=== PATIENT | male | born 1935 | race Caucasian/White ===

== ENCOUNTER 2016-09-25 18:47 | Inpatient (IN) | payer MEDICARE, OTHER ==
[~2016-09-25] VITALS: Ht 172.7 cm; Wt 82.2 kg
[2016-09-25] MEDS ORDERED: ONDANSETRON 4MG/2ML VIAL (J2405) As Ordered ONE (19:45)
[2016-09-25] MEDS ORDERED: MORPHINE 4 MG/ML 1ML SYRINGE As Ordered ONE ×3 (19:45→23:23)
[2016-09-25 19:50] LABS: BASO # 0.4 K/mm3 (0.0-0.2); BASO % 2.3 % (0.0-1.0); EOS % 0.3 % (0.0-3.0); LARGE UNSTAINED CELL # 0.1 K/mm3 (0.0-0.4); LARGE UNSTAINED CELL % 0.4 % (0.0-4.0); LYMPH # 0.5 K/mm3 (1.5-4.5); LYMPH % 2.8 % (24.0-44.0); MEAN CORPUSCULAR HEMOGLOBIN 32.2 pg (27.0-33.0); MEAN CORPUSCULAR HGB CONC 33.8 g/dl (32.0-36.5); MEAN CORPUSCULAR VOLUME 95.3 fl (80.0-96.0); MONO # 0.5 K/mm3 (0.0-0.8); MONO % 3.4 % (0.0-5.0); NEUTROPHILS # 14.4 K/mm3 (1.8-7.7); NEUTROPHILS % 90.9 % (36.0-66.0); PLATELET COUNT, AUTOMATED 211 k/mm3 (150-450); RED CELL DISTRIBUTION WIDTH 13.9 % (11.5-14.5); WHITE BLOOD COUNT 15.8 K/mm3 (4.0-10.0)
[2016-09-25 20:13] LABS: ALBUMIN 4.3 GM/DL (3.2-5.2); ALBUMIN/GLOBULIN RATIO 1.43 (1.00-1.93); ALKALINE PHOSPHATASE 62 U/L (45-117); ALT/SGPT 26 U/L (12-78); AMYLASE 77 U/L (25-115); ANION GAP 10 MEQ/L (8-16); AST/SGOT 23 U/L (15-37); BILIRUBIN,DIRECT 0.2 MG/DL (0.0-0.2); BILIRUBIN,TOTAL 0.6 MG/DL (0.2-1.0); BLOOD UREA NITROGEN 20 MG/DL (7-18); CALCIUM LEVEL 9.4 MG/DL (8.8-10.2); CARBON DIOXIDE LEVEL 30 MEQ/L (21-32); CHLORIDE LEVEL 99 MEQ/L (98-107); CREATININE FOR GFR 1.09 MG/DL (0.70-1.30); GLOMERULAR FILTRATION RATE > 60.0 (>42); GLUCOSE, FASTING 133 MG/DL (83-110); POTASSIUM SERUM 3.5 MEQ/L (3.5-5.1); SODIUM LEVEL 139 MEQ/L (136-145); TOTAL PROTEIN 7.3 GM/DL (6.4-8.2)
[2016-09-25 20:28] LABS: INR 2.84
[2016-09-25] MEDS ORDERED: KETOROLAC 30 MG/ML VIAL (J1885) As Ordered ONE (20:36)
[2016-09-25] MEDS ORDERED: ISOVUE-370 76% 100ML VIAL (Q9967) As Ordered ONE (23:11)
--- NOTE | 2016-09-25 23:40 | REPUSA ---
CT of the abdomen and pelvis with contrast Clinical statement: Pain. Technique: Multiple axial CT images were obtained from the base of the lungs through the floor of the pelvis utilizing 5 mm axial slices after administration of nonionic intravenous contrast. Coronal an d sagittal reconstructions were also obtained. No comparison is available. Findings: Chest: The visualized lung bases are clear. Abdomen: The liver, spleen, pancreas, kidneys, gallbladder, and adrenal glands are unremarkable. Ther e is moderate amount of ascites around the liver in the right upper quadrant. The aorta is within nor mal limits. There is no evidence of abdominal lymphadenopathy. Pelvis: There are numerous fluid filled inflamed loops of small bowel in the left amid abdomen. Infla mmatory changes within the mesentery are seen at the site. There is a focal area narrowing in the dis danny jejunum/proximal ileum at this site, consistent with a focal obstruction. The distal bowel appear s unremarkable. Moderate amount of ascites is seen throughout the pelvis. The urinary bladder is with in normal limits. The other pelvic structures appear grossly intact. There is no evidence of pelvic l ymphadenopathy. Bones: There are no suspicious osseous abnormalities seen. Impression: [id number] grade small bowel obstruction in the region of the distal jejunum, likel y secondary to adhesions, although an internal hernia cannot completely be excluded. Mesenteric infla mmation is seen throughout this site. There is moderate amount of abdominal and pelvic ascites as wel l. ER physician was notified of these findings at 11:38 PM on 09/25/2016.
[2016-09-26] VITALS (20 sets, daily range): BP systolic 114–176; BP diastolic 44–85
[2016-09-26] MEDS ORDERED: MORPHINE 4 MG/ML 1ML SYRINGE As Ordered ONE ×2 (00:30→02:29)
[2016-09-26] MEDS ORDERED: VITMTA PO (00:31)
[2016-09-26] MEDS ORDERED: VITA100066 PO (00:31)
[2016-09-26] MEDS ORDERED: CALC1TAB30 PO (00:31)
[2016-09-26] MEDS ORDERED: VITA10002 PO (00:31)
[2016-09-26] MEDS ORDERED: LISI10TA2 PO (00:31)
[2016-09-26] MEDS ORDERED: LISI-538 PO (00:31)
[2016-09-26] MEDS ORDERED: INSUH10VL SC (00:31)
[2016-09-26] MEDS ORDERED: [UNRECOGNIZED DRUG - CODE] EXT (00:31)
[2016-09-26] MEDS ORDERED: ATOR40TA PO (00:31)
[2016-09-26] MEDS ORDERED: FLOM5CAP PO (00:31)
[2016-09-26] MEDS ORDERED: FLON50SP (00:31)
[2016-09-26] MEDS ORDERED: ASPI81TAEC PO (00:31)
[2016-09-26] MEDS ORDERED: WARF-21 PO (00:31)
[2016-09-26] MEDS ORDERED: FINA5TAB2 PO (00:31)
[2016-09-26] MEDS ORDERED: METO25TA74 PO (00:31)
[2016-09-26] MEDS ORDERED: NS 1,000 ML IV SCH (01:08)
[2016-09-26] MEDS ORDERED: MORPHINE 4 MG/ML 1ML SYRINGE IV PRN (01:15)
[2016-09-26] MEDS ORDERED: DEXTROSE 50% 50 ML SYRINGE IV PRN (02:00)
[2016-09-26] MEDS ORDERED: GLUCAGON FOR INJ 1 MG VIAL (J1610) SC PRN (02:00)
[2016-09-26] MEDS ORDERED: GLUCOSE 4 GM CHEW TABLET PO PRN (02:00)
[2016-09-26] MEDS ORDERED: HumaLOG INSULIN (NovoLOG) PER UNIT SC SCH (02:00)
[2016-09-26] MEDS ORDERED: PHYTONADIONE 10MG/ML INJECTION (J3430) SC SCH (02:04)
[2016-09-26] MEDS ORDERED: PHYTONADIONE 10MG/ML INJECTION (J3430) As Ordered ONE (02:29)
[2016-09-26] MEDS ORDERED: SUCCINYLCHOLINE 100 MG/5 ML SYRINGE (J0330) As Ordered ONE (03:23)
[2016-09-26] MEDS ORDERED: ETOMIDATE INJ 20MG/10ML VIAL As Ordered ONE (03:23)
[2016-09-26] MEDS ORDERED: LIDOCAINE 2% INJ 100 MG/5 ML SDV (FOR ANES.) As Ordered ONE (03:24)
--- NOTE | 2016-09-26 03:41 | EDDOCDS ---
Physician Documentation [facility] Name: Daniel Pepe Age: 81 yrs Sex: Male : 1935 Arrival Date: 09/25/2016 Time: 18:47 Bed 8 Private MD: Patti Disposition: 09/25/16 23:55 Hospitalization ordered by Augustin Wisdom for Inpatient Admission. Preliminary diagnosis is Other intestinal obstruction. - Bed requested for M ICU. - Status is Inpatient Admission. ml3 - Condition is Stable. - Problem is an acute exacerbation. - Symptoms have improved. Historical: - Allergies: Codeine Sulfate; - Home Meds: 1. insulin pump with sliding scale 2. Coumadin 7.5 mg Oral tab once daily 3. calcium 500 twice a day 4. Vitamin D3 1,000 unit oral cap daily 5. lisinopril-hydrochlorothiazide 10-12.5 mg oral tab once daily 6. lisinopril 20 mg Oral tab at night 7. Multivitamin Oral daily 8. Toprol XL 25 mg Oral Tb24 once daily 9. Flomax 0.4 mg Oral cp24 once daily 10. aspirin 81 mg oral tab once daily 11. docusate 10 mg 12. Lipitor 40 mg Oral tab once daily 13. novalog for insulin pump - PMHx: Diabetes - IDDM: controlled; Atrial Fib; Hypertension; heart disease; Asthma; Arthritis; - PSHx: Angioplasty; Appendectomy; triple bypass; Tonsillectomy; - Social history: Smoking status: Patient states former smoker of tobacco. No barriers to communication noted, The patient speaks fluent [place], Speaks appropriately for age. - Family history: Not pertinent. - : The pt / caregiver states he / she is on anticoagulants: coumadin. Home medication list is obtained from the patient, family members. - Exposure Risk Screening:: None identified. Vital Signs: 09/25 18:50 BP 139 / 62; Pulse 68; Resp 18 S; Pulse Ox 100% on R/A; Weight 77.11 kg / 170 lbs (R); gr2 Height 5 ft. 8 in. (172.72 cm) (R); Pain 3/10; 21:10 BP 135 / 62; Pulse 66; Resp 18; Pulse Ox 99% ; Pain 8/10; ko2 21:53 Pain 3/10; ko2 23:19 Pulse 88 MON; Pulse Ox 96% ; ko2 23:20 BP 177 / 78 (auto/); ko2 23:21 Pulse 86 MON; Pulse Ox 96% ; ko2 23:22 BP 177 / 78; Pulse 87; Resp 16; Temp 99.3(O); Pulse Ox 97% ; Pain 4/10; ko2 09/26 00:18 BP 175 / 74 (auto/); ko2 00:22 BP 175 / 74; Pulse 94; Resp 18; Pulse Ox 97% ; Pain 4/10; ko2 02:26 BP 120 / 60 (auto/); ko2 02:27 Pulse 100 MON; ko2 02:48 BP 125 / 58 (auto/); ko2 02:48 Pulse 98 MON; Pulse Ox 97% ; ko2 03:04 Pulse 98 MON; Pulse Ox 97% ; ko2 03:05 BP 149 / 64 (auto/); ko2 03:09 Pulse 98 MON; Pulse Ox 95% ; ko2 03:10 BP 141 / 62 (auto/); ko 03:34 BP 146 / 67 (auto/); sep 03:34 BP 146 / 67; Pulse 104 MON; Resp 16; Temp 101.4; Pulse Ox 96% ; sep 10 18:50 Body Mass Index 25.85 (77.11 kg, 172.72 cm) gr2 09/25 18:50 PT IS GAGING, UNABLE TO CHECK ORAL TEMP gr2 MDM: 19:30 Ondansetron 4 mg IVP once ordered. mm11 19:30 morphine 4 mg IVP every 30 minutes; Document pain score/vitals after each dose (Hold if mm11 SBP < 90mmHg) x2 ordered. 19:30 -Blood Culture (Adults Only), peripheral from different site, or from device/port/PICC mm11 etc. if present ordered. 19:30 IV Saline Lock ordered. mm11 19:30 Undress patient appropriately for examination ordered. mm11 19:30 NS 0.9% 500 ml IV at bolus once ordered. mm11 19:31 Amylase Ordered. EDMS 19:31 Basic Metabolic Profile Ordered. EDMS 19:31 CBC with Diff Ordered. EDMS 19:31 Cardiac Injury Profile Ordered. EDMS 19:31 Lipase Ordered. EDMS 19:31 Liver Profile Ordered. EDMS 19:31 Partial Thromboplastin Time Ordered. EDMS 19:31 Prothrombin Time Profile\E\INR Ordered. EDMS 19:31 Troponin Ordered. EDMS 19:31 Urinalysis Ordered. EDMS 19:33 Urine Culture Ordered. EDMS 19:33 NOTHING BY MOUTH+DIET ordered. EDMS 19:34 -Blood Culture (Adults Only), peripheral from different site, or from device/port/PICC ml3 etc. if present complete. 19:36 BLOOD CULTURES Ordered. EDMS 20:10 Financial registration complete. gjb 20:15 PENDING SALE TO [facility] Payment Agreement was scanned into [employer] and attached to record. gjb 20:15 -Blood Culture (Adults Only), peripheral from different site, or from device/port/PICC flaca etc. if present ordered. 20:16 -Blood Culture (Adults Only), peripheral from different site, or from device/port/PICC ml3 etc. if present complete. 20:16 -Blood Culture Ordered. EDMS 20:27 Basic Metabolic Profile Reviewed. mm11 20:27 CBC with Diff Reviewed. mm11 20:27 Cardiac Injury Profile Reviewed. mm11 20:27 Amylase Reviewed. mm11 20:27 Lipase Reviewed. mm11 20:27 Liver Profile Reviewed. mm11 20:27 Troponin Reviewed. mm11 20:31 Prothrombin Time Profile\E\INR Reviewed. mm11 20:31 ketorolac 15 mg IVP once ordered. mm11 20:31 Straight cath ordered. mm11 22:04 Prothrombin Time Profile\E\INR Reviewed. mm11 22:04 Urinalysis Reviewed. mm11 22:04 Partial Thromboplastin Time Reviewed. mm11 22:09 CT ABD & PELVIS: IV Contrast Only Ordered. EDMS 23:11 Oral Temp ordered. mm11 23:19 morphine 4 mg IVP every 30 minutes; Document pain score/vitals after each dose (Hold if mm11 SBP < 90mmHg) x2 ordered. 23:44 NG Tube, 18Fr ordered. mm11 23:45 BED REQUEST+ADM ordered. EDMS 23:48 ECG WITH READING ER PHYS+CARDIAG ordered. EDMS 09/26 01:12 Type & Screen Ordered. EDMS 01:14 Lactic Acid (Aggarwal tube on ice) Ordered. EDMS 01:22 Admission / Observation Status ordered. EDMS 01:23 FROZEN PLASMA 24 Ordered. EDMS 01:23 NPO DIET ordered. EDMS 01:43 Written Provider Order was scanned into [employer] and attached to record. ml3 02:47 Written Provider Order was scanned into [employer] and attached to record. ml3 Administered Medications: 09/25 19:58 Drug: Ondansetron 4 mg [ondansetron HCl 2 mg/mL intravenous solution (2 mL)] Route: ko2 IVP; Site: right antecubital; 19:58 Drug: NS 0.9% 500 ml [sodium chloride 0.9 % intravenous solution] Route: IV; Rate: ko2 bolus; Site: right antecubital; 21:10 Follow up: IV Status: Completed infusion; IV Intake: 500ml ko2 19:59 Drug: morphine 4 mg [morphine 4 mg/mL intravenous cartridge (1 mL)] Route: IVP; Site: ko2 right antecubital; 21:10 Follow up: BP 135 / 62; Pulse 66 bpm; Resp 18 bpm; Pulse Ox 99% ; Pain 8/10 Adult ko2 20:41 Drug: ketorolac 15 mg [ketorolac 30 mg/mL (1 mL) injection solution (0.5 mL)] Route: ko2 IVP; Site: right antecubital; 21:20 Drug: morphine 4 mg [morphine 4 mg/mL intravenous cartridge (1 mL)] Route: IVP; Site: ko2 right antecubital; 21:53 Follow up: Pain 3/10 Adult ko2 23:30 Drug: morphine 4 mg [morphine 4 mg/mL intravenous cartridge (1 mL)] Route: IVP; Site: ko2 right antecubital; 09/26 00:43 Drug: morphine 4 mg [morphine 4 mg/mL intravenous cartridge (1 mL)] Route: IVP; Site: ko2 right antecubital; Signatures: Dispatcher [employer] EDMS Kathy Montes RN RN jan Lopresti, Mary-Elizabeth, Headline Writer Unit ml3 Rosalio Terrazas DO DO mm11 Freda Conrad RN RN ead Ogden, Kari, RN RN ko2 Tashia Monteiro The chart was reviewed and I authenticate all verbal orders and agree with the evaluation and treatment provided.Corrections: (The following items were deleted from the chart) : 01:22 TYPE & SCREEN ordered. EDMS EDMS 01:14 FROZEN PLASMA 24+BBK ordered. EDMS EDMS 01:29 01:23 LACTIC ACID LEVEL, LACTATE ordered. EDMS EDMS Attachments: 09/25 20:15 PENDING SALE TO [facility] Payment Agreement [facility] 09/26 01:43 Written Provider Order ml3 02:47 Written Provider Order ml3 MTDD
--- NOTE | 2016-09-26 03:41 | EDDOCDS ---
Nurse's Notes [facility] Name: Daniel Pepe Age: 81 yrs Sex: Male : 1935 Arrival Date: 09/25/2016 Time: 18:47 Bed 8 Private MD: Patti Diagnosis: Other intestinal obstruction Presentation: 09/25 18:56 Presenting complaint: Patient states: "severe back pain and n/v." pt c/o left flank ead pain. onset of pain came on suddenly this afternoon. Presenting complaint: pt actively vomiting in triage. Acute neurological deficits are not present. Mechanism of Injury: No Mechanism of Injury. Adult Sepsis Screening: The patient does not have new or worsening altered mentation. Patient's respiratory rate is less than 22. Systolic blood pressure is greater than 100. Patient has a qSOFA score of 0- Negative Sepsis Screen. Suicide/Homicide risk assessment- the patient denies having any suicidal and/or homicidal ideations and does not present with any other emotional, behavioral or mental health complaints. 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 Transition of care: patient was not received from another setting of care. 18:56 Acuity: TAB Level 3 ead 18:56 Method Of Arrival: Walkin/Carried/Asstd ead Triage Assessment: 19:03 General: Appears in no apparent distress, uncomfortable, Behavior is appropriate for ead age, cooperative. Pain: Location: back and abdomen Pain currently is 7 out of 10 on a pain scale. GI: Reports lower abdominal pain, upper abdominal pain, nausea, vomiting. Derm: Skin is dry, Skin is pale. Musculoskeletal: Reports pain in back and abdomen. Historical: - Allergies: Codeine Sulfate; - Home Meds: 1. insulin pump with sliding scale 2. Coumadin 7.5 mg Oral tab once daily 3. calcium 500 twice a day 4. Vitamin D3 1,000 unit oral cap daily 5. lisinopril-hydrochlorothiazide 10-12.5 mg oral tab once daily 6. lisinopril 20 mg Oral tab at night 7. Multivitamin Oral daily 8. Toprol XL 25 mg Oral Tb24 once daily 9. Flomax 0.4 mg Oral cp24 once daily 10. aspirin 81 mg oral tab once daily 11. docusate 10 mg 12. Lipitor 40 mg Oral tab once daily 13. novalog for insulin pump - PMHx: Diabetes - IDDM: controlled; Atrial Fib; Hypertension; heart disease; Asthma; Arthritis; - PSHx: Angioplasty; Appendectomy; triple bypass; Tonsillectomy; - Social history: Smoking status: Patient states former smoker of tobacco. No barriers to communication noted, The patient speaks fluent Italian, Speaks appropriately for age. - Family history: Not pertinent. - : The pt / caregiver states he / she is on anticoagulants: coumadin. Home medication list is obtained from the patient, family members. - Exposure Risk Screening:: None identified. Screenin:32 Screening information is obtained from the patient. Fall risk: No risks identified. ko2 Assistance ADL's: requires no assistance with activities of daily living. Abuse/DV Screen: The patient / caregiver reports he/she is: not in a situation that causes fear, pain or injury. Nutritional screening: No deficits noted. Nutritional screening: On diabetic diet. Advance Directives: Currently, there is a health care proxy. home support is adequate. Assessment: 19:57 General: Appears uncomfortable, Behavior is appropriate for age, cooperative. Pain: ko2 Location: back Pain currently is 8 out of 10 on a pain scale. Neurological: Level of Consciousness is awake, alert. Respiratory: Airway is patent Respiratory effort is even, unlabored. GI: Abdomen is non- distended. Derm: Skin is normal. 21:09 General: Appears uncomfortable, Behavior is appropriate for age, cooperative. Pain: ko2 Location: back Pain currently is 8 out of 10 on a pain scale. Neurological: Level of Consciousness is awake, alert. Respiratory: Airway is patent Respiratory effort is even, unlabored. Derm: Skin is normal. 22:00 Adult Sepsis Screening: The patient does not have new or worsening altered mentation. ko2 Patient's respiratory rate is less than 22. Systolic blood pressure is greater than 100. Patient has a qSOFA score of 0- Negative Sepsis Screen. 22:06 General: Appears in no apparent distress, Behavior is cooperative. Pain: Location: back ko2 Pain currently is 3 out of 10 on a pain scale. Neurological: Level of Consciousness is awake, alert. Respiratory: Airway is patent Respiratory effort is even, unlabored. Derm: Skin is normal. 23:00 General: Appears in no apparent distress, Behavior is appropriate for age, cooperative. ko2 Pain: Location: back Pain currently is 4 out of 10 on a pain scale. Neurological: Level of Consciousness is awake, alert. Respiratory: Airway is patent Respiratory effort is even, unlabored. Derm: Skin is normal. 09/26 00:08 General: Appears in no apparent distress, comfortable, Behavior is appropriate for age, ko2 cooperative. Neurological: Level of Consciousness is awake, alert. Respiratory: Airway is patent Respiratory effort is even, unlabored. GI: NGT. Derm: Skin is normal. 00:29 Adult Sepsis Screening: The patient does not have new or worsening altered mentation. ko2 Patient's respiratory rate is less than 22. Systolic blood pressure is greater than 100. Patient has a qSOFA score of 0- Negative Sepsis Screen. 01:40 General: Appears in no apparent distress, comfortable, Behavior is appropriate for age, ko2 cooperative. Neurological: Level of Consciousness is awake, alert. Respiratory: Airway is patent Respiratory effort is even, unlabored. Derm: Skin is normal. 02:30 General: Appears in no apparent distress, comfortable, Behavior is appropriate for age, ko2 cooperative. Neurological: Level of Consciousness is awake, alert. Respiratory: Airway is patent Respiratory effort is even, unlabored. Derm: Skin is normal. 03:22 General: Appears in no apparent distress, comfortable, Behavior is appropriate for age, ko2 cooperative. Neurological: Level of Consciousness is awake, alert. Respiratory: Airway is patent Respiratory effort is even, unlabored. Derm: Skin is normal. Vital Signs: 09/25 18:50 BP 139 / 62; Pulse 68; Resp 18 S; Pulse Ox 100% on R/A; Weight 77.11 kg (R); Height 5 gr2 ft. 8 in. (172.72 cm) (R); Pain 3/10; 21:10 BP 135 / 62; Pulse 66; Resp 18; Pulse Ox 99% ; Pain 8/10; ko2 21:53 Pain 3/10; ko2 23:19 Pulse 88 MON; Pulse Ox 96% ; ko2 23:20 BP 177 / 78 (auto/); ko2 23:21 Pulse 86 MON; Pulse Ox 96% ; ko2 23:22 BP 177 / 78; Pulse 87; Resp 16; Temp 99.3(O); Pulse Ox 97% ; Pain 4/10; ko2 09/26 00:18 BP 175 / 74 (auto/); ko2 00:22 BP 175 / 74; Pulse 94; Resp 18; Pulse Ox 97% ; Pain 4/10; ko2 02:26 BP 120 / 60 (auto/); ko2 02:27 Pulse 100 MON; ko2 02:48 BP 125 / 58 (auto/); ko2 02:48 Pulse 98 MON; Pulse Ox 97% ; ko2 03:04 Pulse 98 MON; Pulse Ox 97% ; ko2 03:05 BP 149 / 64 (auto/); ko2 03:09 Pulse 98 MON; Pulse Ox 95% ; ko2 03:10 BP 141 / 62 (auto/); 2 03:34 BP 146 / 67 (auto/); sep 12:34 BP 146 / 67; Pulse 104 MON; Resp 16; Temp 101.4; Pulse Ox 96% ; sep 10 18:50 Body Mass Index 25.85 (77.11 kg, 172.72 cm) gr2 09/25 18:50 PT IS GAGING, UNABLE TO CHECK ORAL TEMP gr2 Vitals: 18:50 Log In Time: September 25, 2016 at 18:50. gr2 ED Course: 18:50 Patient visited by Irina Saleem. gr2 18:50 Patti is Private Physician. gr2 18:50 Patient moved to Waiting gr2 18:56 Patient visited by Irina Saleem. gr2 18:56 Patient moved to Pre RCE gr2 18:58 Triage Initiated ead 19:12 Fiordaliza Curiel RN is Primary Nurse. bnb 19:12 Patient visited by Gee Ken PCA. kb5 19:12 Patient moved to 8 bnb 19:19 Rosalio Terrazas DO is Attending Physician. mm11 19:19 Patient visited by Rosalio Terrazas DO. mm11 19:29 Patient visited by Rosalio Terrazas DO. mm11 19:58 Inserted saline lock: 20 gauge in right antecubital area and blood collected. The ko2 patient tolerated the procedure well. 19:59 Patient visited by Fiordaliza Curiel,GABY. ko2 20:10 Patient visited by Gee Ken PCA. kb5 20:15 [facility] Payment Agreement was scanned into [employer] and attached to record. gjb 21:09 Patient visited by Fiordaliza Curiel RN. ko2 21:31 Urinalysis Sent. ko2 21:31 Urine Culture Sent. ko2 21:32 Straight cath inserted 18 Fr. Specimen obtained. returned ricci urine. Patient ko2 tolerated well. 21:33 The patient / caregiver is instructed regarding the plan of care and ED course. ko2 21:34 Patient visited by Fiordaliza Curiel,GABY. ko2 22:05 Patient visited by Fiordaliza Curiel RN. ko2 23:07 Patient visited by Kenna Zambrano, MILO. carla 23:55 Augustin Wisdom is Hospitalizing Provider. mm11 09/26 00:03 CT ABD & PELVIS: IV Contrast Only Returned. EDMS 00:08 NGT inserted 18 Fr. via right nare. Placement verified. to intermittent suction. ko2 Patient tolerated well. 00:09 Patient visited by Fiordaliza Curiel RN. ko2 01:15 Patient visited by Kenna Zambrano PCA. carla 01:15 EKG done. (by ED staff). Reviewed by Rosalio Terrazas DO. carla 01:43 Written Provider Order was scanned into [employer] and attached to record. ml3 02:47 Written Provider Order was scanned into [employer] and attached to record. ml3 03:22 Patient visited by Gee Ken PCA. kb5 03:22 No procedures done that require assistance. ko2 Administered Medications: 09/25 19:58 Drug: Ondansetron 4 mg [ondansetron HCl 2 mg/mL intravenous solution (2 mL)] Route: ko2 IVP; Site: right antecubital; 19:58 Drug: NS 0.9% 500 ml [sodium chloride 0.9 % intravenous solution] Route: IV; Rate: ko2 bolus; Site: right antecubital; 21:10 Follow up: IV Status: Completed infusion; IV Intake: 500ml ko2 19:59 Drug: morphine 4 mg [morphine 4 mg/mL intravenous cartridge (1 mL)] Route: IVP; Site: ko2 right antecubital; 21:10 Follow up: BP 135 / 62; Pulse 66 bpm; Resp 18 bpm; Pulse Ox 99% ; Pain 8/10 Adult ko2 20:41 Drug: ketorolac 15 mg [ketorolac 30 mg/mL (1 mL) injection solution (0.5 mL)] Route: ko2 IVP; Site: right antecubital; 21:20 Drug: morphine 4 mg [morphine 4 mg/mL intravenous cartridge (1 mL)] Route: IVP; Site: ko2 right antecubital; 21:53 Follow up: Pain 3/10 Adult ko2 23:30 Drug: morphine 4 mg [morphine 4 mg/mL intravenous cartridge (1 mL)] Route: IVP; Site: ko2 right antecubital; 09/26 00:43 Drug: morphine 4 mg [morphine 4 mg/mL intravenous cartridge (1 mL)] Route: IVP; Site: ko2 right antecubital; Intake: 09/25 21:10 IV: 500.00ml; Total: 500.00ml. ko2 Order Results: Lab Order: Amylase; SPEC'M 09/25/16 19:40 Test: AMYLASE; Value: 77; Range: 25-115; Units: U/L; Status: F Lab Order: Basic Metabolic Profile; SPEC'M 09/25/16 19:40 Test: GLUCOSE, FASTING; Value: 133; Range: 83-110; Abnormal: Above high normal; Units: MG/DL; Status: F Test: BLOOD UREA NITROGEN; Value: 20; Range: 7-18; Abnormal: Above high normal; Units: MG/DL; Status: F Test: CREATININE FOR GFR; Value: 1.09; Range: 0.70-1.30; Units: MG/DL; Status: F Test: GLOMERULAR FILTRATION RATE; Value: > 60.0; Range: >42; Status: F Test: SODIUM LEVEL; Value: 139; Range: 136-145; Units: MEQ/L; Status: F Test: POTASSIUM SERUM; Value: 3.5; Range: 3.5-5.1; Units: MEQ/L; Status: F Test: CHLORIDE LEVEL; Value: 99; Range: 98-107; Units: MEQ/L; Status: F Test: CARBON DIOXIDE LEVEL; Value: 30; Range: 21-32; Units: MEQ/L; Status: F Test: ANION GAP; Value: 10; Range: 8-16; Units: MEQ/L; Status: F Test: CALCIUM LEVEL; Value: 9.4; Range: 8.8-10.2; Units: MG/DL; Status: F Test Note: ; Units are mL/min/1.73 m2 Chronic Kidney Disease Staging per NKF: Stage I & II GFR >=60 Normal to Mildly Decreased Stage III GFR 30-59 Moderately Decreased Stage IV GFR 15-29 Severely Decreased Stage V GFR <15 Very Little GFR Left ESRD GFR <15 on HOME AID Lab Order: CBC with Diff; SPEC'M 09/25/16 19:40 Test: WHITE BLOOD COUNT; Value: 15.8; Range: 4.0-10.0; Abnormal: Above high normal; Units: K/mm3; Status: F Test: RED BLOOD COUNT; Value: 4.83; Range: 4.30-6.10; Units: M/mm3; Status: F Test: HEMOGLOBIN; Value: 15.6; Range: 14.0-18.0; Units: g/dl; Status: F Test: HEMATOCRIT; Value: 46.0; Range: 42.0-52.0; Units: %; Status: F Test: MEAN CORPUSCULAR VOLUME; Value: 95.3; Range: 80.0-96.0; Units: fl; Status: F Test: MEAN CORPUSCULAR HEMOGLOBIN; Value: 32.2; Range: 27.0-33.0; Units: pg; Status: F Test: MEAN CORPUSCULAR HGB CONC; Value: 33.8; Range: 32.0-36.5; Units: g/dl; Status: F Test: RED CELL DISTRIBUTION WIDTH; Value: 13.9; Range: 11.5-14.5; Units: %; Status: F Test: PLATELET COUNT, AUTOMATED; Value: 211; Range: 150-450; Units: k/mm3; Status: F Test: NEUTROPHILS %; Value: 90.9; Range: 36.0-66.0; Abnormal: Above high normal; Units: %; Status: F Test: LYMPH %; Value: 2.8; Range: 24.0-44.0; Abnormal: Below low normal; Units: %; Status: F Test: MONO %; Value: 3.4; Range: 0.0-5.0; Units: %; Status: F Test: EOS %; Value: 0.3; Range: 0.0-3.0; Units: %; Status: F Test: BASO %; Value: 2.3; Range: 0.0-1.0; Abnormal: Above high normal; Units: %; Status: F Test: LARGE UNSTAINED CELL %; Value: 0.4; Range: 0.0-4.0; Units: %; Status: F Test: NEUTROPHILS #; Value: 14.4; Range: 1.8-7.7; Abnormal: Above high normal; Units: K/mm3; Status: F Test: LYMPH #; Value: 0.5; Range: 1.5-4.5; Abnormal: Below low normal; Units: K/mm3; Status: F Test: MONO #; Value: 0.5; Range: 0.0-0.8; Units: K/mm3; Status: F Test: EOS #; Value: 0.0; Range: 0.0-0.50; Units: K/mm3; Status: F Test: BASO #; Value: 0.4; Range: 0.0-0.2; Abnormal: Above high normal; Units: K/mm3; Status: F Test: LARGE UNSTAINED CELL #; Value: 0.1; Range: 0.0-0.4; Units: K/mm3; Status: F Lab Order: Cardiac Injury Profile; [facility] 09/25/16 19:40 Test: CPK CREATINE PHOSPHOKINASE; Value: 269; Range: 39-308; Units: U/L; Status: F Test: CK-MB VALUE MASS; Value: 5.2; Range: 0.0-3.6; Abnormal: Above high normal; Units: NG/ML; Status: F Test: MB/CK RELATIVE INDEX; Value: 1.93; Range: < OR =4; Status: F Test Note: ; DIAGNOSIS CRITERIA MMB ng/ml Relative Index (RI) NON-AMI < or = 5 N/A AGGARWAL ZONE > 5 < or = 4 AMI > 5 > 4 Lab Order: Lipase; [facility] 09/25/16 19:40 Test: LIPASE; Value: 77; Range: 73-393; Units: U/L; Status: F Lab Order: Liver Profile; [facility] 09/25/16 19:40 Test: AST/SGOT; Value: 23; Range: 15-37; Units: U/L; Status: F Test: ALT/SGPT; Value: 26; Range: 12-78; Units: U/L; Status: F Test: ALKALINE PHOSPHATASE; Value: 62; Range: 45-117; Units: U/L; Status: F Test: BILIRUBIN,TOTAL; Value: 0.6; Range: 0.2-1.0; Units: MG/DL; Status: F Test: BILIRUBIN,DIRECT; Value: 0.2; Range: 0.0-0.2; Units: MG/DL; Status: F Test: TOTAL PROTEIN; Value: 7.3; Range: 6.4-8.2; Units: GM/DL; Status: F Test: ALBUMIN; Value: 4.3; Range: 3.2-5.2; Units: GM/DL; Status: F Test: ALBUMIN/GLOBULIN RATIO; Value: 1.43; Range: 1.00-1.93; Status: F Lab Order: Partial Thromboplastin Time; [facility] 09/25/16 20:12 Test: PARTIAL THROMBOPLASTIN TIME; Value: 32.1; Range: 26.6-37.1; Units: SECONDS; Status: F Lab Order: Prothrombin Time Profile\\E\\INR; [facility] 09/25/16 20:12 Test: PROTHROMBIN TIME; Value: 29.9; Range: 12.3-14.5; Abnormal: Above high normal; Units: SECONDS; Status: F Test: INR; Value: 2.84; Status: F Test Note: ; THERAPUTIC HUMAN INR VALUES INDICATIONS NORMAL RANGES PROPHYLAXIS/TREATMENT OF: VENOUS THROMBOSIS 2.0-3.0 PULMONARY EMBOLISM 2.0-3.0 PREVENTION OF SYSTEMIC EMBOLISM FROM: TISSUE HEART VALVES 2.0-3.0 ACUTE MYOCARDIAL INFARCTION 2.0-3.0 VALVULAR HEART DISEASE 2.0-3.0 ATRIAL FIBRILLATION 2.0-3.0 MECHANICAL VALVES(HIGH RISK) 2.5-3.5 RECURRENT MYOCARDIAL INFARCTION 2.5-3.5 Lab Order: Troponin; [facility] 09/25/16 19:40 Test: TROPONIN I; Value: < 0.02; Range: < 0.10; Units: NG/ML; Status: F Test Note: ; Troponin I Reference Interval for [facility] LOCI: 99th Percentile= 0.00-0.045 ng/ml Risk Stratification: <= 0.10 ng/ml Decreased Risk for Adverse Clinical Events. 0.10-1.50 ng/ml Increased Risk for Adverse Clinical Events. Evaluation of additional criterion and/or repeat testing in 2-6 hours is suggested to rule out myocardial damage. >= 1.50 ng/ml Indicative of Myocardial Injury. Lab Order: Urinalysis; SPEC'M 09/25/16 21:25 Test: APPEARANCE, URINE; Value: CLEAR; Range: CLEAR; Status: F Test: COLOR, URINE; Value: YELLOW; Range: YELLOW; Status: F Test: PH,URINE; Value: 6.0; Range: 5.0-9.0; Units: UNITS; Status: F Test: SPECIFIC GRAVITY URINE AUTO; Value: 1.014; Range: 1.002-1.035; Status: F Test: PROTEIN, URINE AUTO; Value: NEGATIVE; Range: NEGATIVE; Units: mg/dL; Status: F Test: GLUCOSE, URINE (UA) AUTO; Value: 1+; Range: NEGATIVE; Abnormal: Above high normal; Units: mg/dL; Status: F Test: KETONE, URINE AUTO; Value: NEGATIVE; Range: NEGATIVE; Units: mg/dL; Status: F Test: UROBILINOGEN, URINE AUTO; Value: 0.2; Range: 0.0-2.0; Units: mg/dL; Status: F Test: BILIRUBIN, URINE AUTO; Value: NEGATIVE; Range: NEGATIVE; Status: F Test: NITRITE, URINE AUTO; Value: NEGATIVE; Range: NEGATIVE; Status: F Test: LEUKOCYTE ESTERASE, URINE AUTO; Value: NEGATIVE; Range: NEGATIVE; Status: F Test: BLOOD, URINE BLOOD; Value: NEGATIVE; Range: NEGATIVE; Status: F Test: WBC, URINE AUTO; Value: 0; Range: 0-3; Units: /HPF; Status: F Test: RBC, URINE AUTO; Value: 5; Range: 0-3; Abnormal: Above high normal; Units: /HPF; Status: F Test: BACTERIA, URINE AUTO; Value: NEGATIVE; Range: NEGATIVE; Status: F Test: SQUAMOUS EPITHELIAL CELL UR AU; Value: 0; Range: 0-6; Units: /HPF; Status: F Test: MUCUS, URINE; Value: SMALL; Range: NEGATIVE; Status: F Test: HYALINE CAST, URINE AUTO; Value: 0; Range: 0-1; Units: /LPF; Status: F Lab Order: Type & Screen; SPEC'M 09/26/16 01:21 Test: BLOOD TYPE; Value: A POS; Status: F Test: AB SCREEN (INDIRECT KELLE)GEL; Value: NEGATIVE; Status: F Lab Order: Lactic Acid (Aggarwal tube on ice); SPEC'M 09/26/16 01:21 Test: LACTIC ACID LEVEL, LACTATE; Value: 3.5; Range: 0.4-2.0; Abnormal: Above upper panic limits; Units: MMOL/L; Status: F Radiology Order: CT ABD & PELVIS: IV Contrast Only Test: CT ABD & PELVIS: IV Contrast Only REASON FOR EXAMINATION: Abdomen Pain; ; CT of the abdomen and pelvis with contrast; Clinical statement: Pain.; Technique: Multiple axial CT images were obtained from the base of the lungs through the floor of the; pelvis utilizing 5 mm axial slices after administration of nonionic intravenous contrast. Coronal an; d sagittal reconstructions were also obtained.; No comparison is available.; Findings:; Chest: The visualized lung bases are clear.; Abdomen: The liver, spleen, pancreas, kidneys, gallbladder, and adrenal glands are unremarkable. Ther; e is moderate amount of ascites around the liver in the right upper quadrant. The aorta is within nor; mal limits. There is no evidence of abdominal lymphadenopathy.; Pelvis: There are numerous fluid filled inflamed loops of small bowel in the left amid abdomen. Infla; mmatory changes within the mesentery are seen at the site. There is a focal area narrowing in the dis; danny jejunum/proximal ileum at this site, consistent with a focal obstruction. The distal bowel appear; s unremarkable. Moderate amount of ascites is seen throughout the pelvis. The urinary bladder is with; in normal limits. The other pelvic structures appear grossly intact. There is no evidence of pelvic l; ymphadenopathy.; Bones: There are no suspicious osseous abnormalities seen.; Impression: [id number] grade small bowel obstruction in the region of the distal jejunum, likel; y secondary to adhesions, although an internal hernia cannot completely be excluded. Mesenteric infla; mmation is seen throughout this site. There is moderate amount of abdominal and pelvic ascites as wel; l.; ER physician was notified of these findings at 11:38 PM on 09/25/2016.; ; Outcome: 23:33 CT Study completed. ko2 23:55 Decision to Hospitalize by Provider. mm11 09/26 03:22 Discharge Assessment: Patient awake, alert and oriented x 3. No cognitive and/or ko2 functional deficits noted. Patient verbalized understanding of disposition instructions. patient administered narcotics - yes. Patient was admitted to the hospital or transferred to another facility. The following High Risk Discharge criteria are identified: None. Admitted to OR accompanied by nurse, accompanied by tech, via stretcher, on monitor, with chart. Condition: stable. Property :Personal belongings accompany Pt. 03:40 Patient left the ED. ml3 Signatures: Dispatcher [employer] EDMS Kathy Montes RN Marisol Nicole, Transition Specialist Unit ml3 Gee Ken, CRITICAL CARE NURSE PRACTITIONER CRITICAL CARE NURSE PRACTITIONER kb5 Rosalio Terrazas, DO mm11 Kenna Zambrano, CRITICAL CARE NURSE PRACTITIONER CRITICAL CARE NURSE PRACTITIONER carla Irina Saleem gr2 Freda Conrad,RN Fiordaliza Johnson RN RN ko2 Beck, Gabriela gjb Becker, Brittney, CRITICAL CARE NURSE PRACTITIONER CRITICAL CARE NURSE PRACTITIONER bnb NERI
[2016-09-26] MEDS ORDERED: ERTAPENEM 1 GM INJ (INVanz) (J1335) As Ordered ONE (04:03)
--- NOTE | 2016-09-26 04:22 | CR ---
DATE OF CONSULTATION: 09/26/2016 CONSULTATION REPORT FOR: Dr. Augustin Wisdom, surgery REASON FOR CONSULTATION: Management of medical comorbidities. CHIEF COMPLAINT: Presented with acute back pain and abdominal pain with episodes of vomiting. PAST MEDICAL HISTORY: 1. Coronary artery disease, status post coronary artery bypass graft (CABG). 2. Diabetes on insulin pump on Aspart insulin requiring about 37 units per day, half of it in bolus and half of it basal. 3. Hypertension. 4. Hyperlipidemia. 5. Benign prostatic hypertrophy (BPH). 6. Atrial fibrillation on Coumadin. 7. Childhood asthma. HISTORY OF PRESENT ILLNESS: This is a 81-year-old male who presented to the emergency room with severe back pain, nausea, vomiting, and flank pain of acute onset from the afternoon of 09/25/2016. Patient was found to have small bowel obstruction with internal hernia, possible volvulus, and possibility of necrotic bowel. Patient is going to be taken to the operating room (OR) for emergency surgery. Hospitalist consult has been requested for perioperative management of medical comorbidities. Patient is getting four units of fresh frozen plasma (FFP) for reversal of INR at present. On my interview, the patient denied any history of heart failure, denied any ongoing chest pain, shortness of breath. Denied any history of asthma or chronic obstructive pulmonary disease (COPD). Later, he did say that he had childhood asthma. Denied any ongoing fever or chills. PAST SURGICAL HISTORY: 1. Appendectomy. 2. Tonsillectomy. 3. CABG. HOME MEDICATIONS: - aspirin 81 mg daily - atorvastatin 40 mg daily - calcium and vitamin D one tablet daily - cholecalciferol 1000 units by mouth daily - cyanocobalamin 1000 mcg by mouth daily - finasteride 5 mg by mouth daily - Flonase 100 mcg daily - insulin Aspart through insulin pump - lisinopril 20 mg daily - lisinopril/hydrochlorothiazide 10/12.5 one tablet daily - metoprolol succinate 25 mg daily - multivitamin one tablet daily - Flomax 0.8 mg daily - polyethylene glycol ointment daily - Coumadin 7.5 mg daily ALLERGIES: CODEINE and SULFA. SOCIAL HISTORY: Patient is a former smoker of tobacco. Does not abuse alcohol or recreational drugs. FAMILY HISTORY: Not pertinent. PHYSICAL EXAMINATION: VITAL SIGNS: Blood pressure 175/74, pulse 94, respiratory rate 18, temperature 99.3, pulse oximetry 97% in room air. GENERAL: Patient is awake, alert, and oriented times three, lying down in bed in no acute distress. HEENT: Normocephalic, atraumatic. Moist mucous membranes. Anicteric eyes. CHEST: Clear to auscultation. CARDIOVASCULAR: S1, S2 irregular. No rub, murmur, or gallop. ABDOMEN: Distended, mildly tender. Bowel sounds not heard. EXTREMITIES: No edema. LABORATORY DATA: WBC 15.8, hemoglobin 15.6, platelets 211. Sodium 139, potassium 3.5, chloride 99, bicarbonate 30, BUN 20, creatinine 1, glucose 133, lactic acid 3.5. Liver function tests are normal. Calcium 9.4. Cardiac enzymes are normal. Amylase and lipase normal. INR was 2.84. UA was clean. IMAGING: Abdominal and pelvic CT with contrast showed moderate to high grade small bowel obstruction in the region of the distal jejunum likely secondary to adhesions, although internal hernia cannot be completely excluded. Mesenteric inflammation. There is moderate amount of abdominal and pelvic ascites. ASSESSMENT AND PLAN: This is a 81-year-old male being admitted to the hospital for acute small bowel obstruction. He is going to the operating room (OR) for urgent laparotomy. Hospitalist service has been consulted for perioperative management of medical comorbidities. 1. Medical clearance. Patient does not need medical clearance. He is going for emergency surgery. However, patient is already getting fresh frozen plasma (FFP) for reversal of INR. Also, we can give 10 mg vitamin K subcutaneously. 2. Diabetes. Patient is on insulin pump with Aspart. Once in the OR insulin pump can be started and the patient can be started on Lispro insulin every six hours as per the nothing by mouth scale. 3. Hypertension. As long as patient is going to be nothing by mouth, we can control blood pressure with hydralazine IV and metoprolol IV. Once patient is taking oral, we can restart his home medications of metoprolol succinate, lisinopril 30 and hydrochlorothiazide. 4. Atrial fibrillation (AFib). Patient's Coumadin is going to be held until as per surgeon's discretion. INR at present is being reversed with vitamin K and FFP. Rate is going to be controlled with metoprolol. 5. Hyperlipidemia. Lipitor; however, can be kept on hold while patient is nothing by mouth. 6. Benign prostatic hypertrophy (BPH). Flomax and finasteride can be held while the patient is nothing by mouth and restarted once patient is taking oral. 7. Deep vein thrombosis (DVT) prophylaxis is in place. 8. Gastrointestinal (GI) prophylaxis. Patient is on pantoprazole. 9. Coronary artery disease with history of coronary artery bypass graft (CABG). Stable at present, no complaints.
[2016-09-26 04:44] LABS: ABG BASE EXCESS -5.5 (-2.0-2.0); ABG DEVICE MECHAN. VENT; ABG HCO3 18.3 MEQ/L (22.0-26.0); ABG PARTIAL PRESSURE CO2 30.8 mmHg (35.0-45.0); ABG PARTIAL PRESSURE O2 254.4 mmHg (75.0-100.0); ABG TOTAL CO2 19.3 MEQ/L (23.0-31.0); ABG pH (ARTERIAL) 7.392 UNITS (7.350-7.450)
[2016-09-26] MEDS ORDERED: fentaNYL 250 MCG/5 ML INJECTION (J3010) As Ordered ONE (04:55)
[2016-09-26] MEDS ORDERED: ROCURONIUM BROMIDE 50 MG/5 ML VIAL As Ordered ONE ×2 (04:55→05:09)
[2016-09-26] MEDS ORDERED: MIDAZOLAM INJ 2 MG/2 ML VIAL (J2250) As Ordered ONE (04:55)
[2016-09-26] MEDS ORDERED: PROPOFOL 200 MG/20 ML VIAL As Ordered ONE ×2 (04:55→05:33)
[2016-09-26] MEDS ORDERED: PHENYLephrine HCL 500 MCG/5 ML (100MCG/ML) SYRINGE (J2370) As Ordered ONE (05:05)
[2016-09-26] MEDS ORDERED: PHENYLEPHRINE INJ 10MG/ML VIAL (J2370) As Ordered ONE (05:06)
[2016-09-26] MEDS ORDERED: fentaNYL 100 MCG/2 ML INJECTION (J3010) As Ordered ONE (05:12)
[2016-09-26] MEDS ORDERED: NEOSTIGMINE 1MG/ML 5 ML SYRINGE (J2710) As Ordered ONE (05:48)
[2016-09-26] MEDS ORDERED: GLYCOPYRROLATE INJ 0.2 MG/ML 2 ML VIAL As Ordered ONE (05:49)
[2016-09-26] MEDS: HumaLOG INSULIN (NovoLOG) PER UNIT SC SCH ×3 (06:00→18:08)
[2016-09-26] MEDS: METOPROLOL 5 MG/5 ML VIAL IV SCH ×3 (06:00→18:09)
[2016-09-26] MEDS ORDERED: ESMOLOL INJ 100MG/10ML VIAL As Ordered ONE (06:15)
[2016-09-26] MEDS ORDERED: HumaLOG INSULIN (NovoLOG) PER UNIT As Ordered ONE (06:37)
[2016-09-26] MEDS ORDERED: fentaNYL 100 MCG/2 ML INJECTION (J3010) IV PRN (07:00)
[2016-09-26] MEDS ORDERED: HumaLOG INSULIN (NovoLOG) PER UNIT SC ONE (07:00)
[2016-09-26] MEDS ORDERED: LR 1,000 ML IV SCH (07:00)
[2016-09-26] MEDS: LR 1,000 ML IV SCH ×2 (07:45→16:50)
[2016-09-26 07:49] LABS: CREATININE FOR GFR 1.41 MG/DL (0.70-1.30); GLOMERULAR FILTRATION RATE 51.6 (>42); POTASSIUM SERUM 4.1 MEQ/L (3.5-5.1)
[2016-09-26 07:54] LABS: INR 1.48
[2016-09-26] MEDS: hydrALAZINE INJ 20 MG/ML VIAL IV SCH ×3 (08:00→18:00)
[2016-09-26 08:03] LABS: EOS % 0.3 % (0.0-3.0); LARGE UNSTAINED CELL % 0.3 % (0.0-4.0); LYMPH # 0.2 K/mm3 (1.5-4.5); LYMPH % 2.2 % (24.0-44.0); MEAN CORPUSCULAR HEMOGLOBIN 32.8 pg (27.0-33.0); MEAN CORPUSCULAR HGB CONC 33.6 g/dl (32.0-36.5); MEAN CORPUSCULAR VOLUME 97.8 fl (80.0-96.0); MONO # 0.3 K/mm3 (0.0-0.8); MONO % 3.1 % (0.0-5.0); NEUTROPHILS % 94.1 % (36.0-66.0); PLATELET COUNT, AUTOMATED 149 k/mm3 (150-450); WHITE BLOOD COUNT 10.7 K/mm3 (4.0-10.0)
[2016-09-26] MEDS: PANTOPRAZOLE 40MG INJ (PROTONIX) (C9113) IV SCH (08:43)
[2016-09-26] MEDS: MORPHINE 2 MG/ML 1ML SYRINGE IV PRN ×4 (10:34→19:21)
[2016-09-26] MEDS: ONDANSETRON 4MG/2ML VIAL (J2405) IV PRN (19:20)
[2016-09-27] VITALS (14 sets, daily range): BP systolic 120–158; BP diastolic 45–67
[2016-09-27] MEDS: HumaLOG INSULIN (NovoLOG) PER UNIT SC SCH ×4 (00:25→17:40)
[2016-09-27] MEDS: METOPROLOL 5 MG/5 ML VIAL IV SCH ×2 (00:26→06:34)
[2016-09-27] MEDS: MORPHINE 2 MG/ML 1ML SYRINGE IV PRN ×4 (00:26→12:44)
[2016-09-27] MEDS: LR 1,000 ML IV SCH ×2 (02:42→11:57)
[2016-09-27] MEDS: ONDANSETRON 4MG/2ML VIAL (J2405) IV PRN ×3 (04:46→23:24)
[2016-09-27] MEDS: hydrALAZINE INJ 20 MG/ML VIAL IV SCH ×3 (06:00→11:58)
--- NOTE | 2016-09-27 07:54 | ECGEPIP ---
Stationary ECG Study [facility] - ED Test Date: 2016-09-26 Pat Name: TAMARA MICHAEL Department: Room: - Gender: M Hotbed Operator: CelisB: [id number] Requested By: TATO Barrera Order Number: [id number] Reading MD: Rita Mckeon Measurements Intervals [place] Rate: 101 P: 63 SC: 146 QRS: 81 QRSD: 93 T: 36 QT: 318 QTc: 414 Interpretive Statements SINUS TACHYCARDIA LOW VOLTAGE LIMB ABNORMAL RHYTHM ECG NO PRIOR FOR COMPARISON Electronically Signed On 09-27-2016 7:53:48 EST by Rita Mckeon
[2016-09-27 08:02] LABS: EOS % 0.4 % (0.0-3.0); LARGE UNSTAINED CELL # 0.1 K/mm3 (0.0-0.4); LARGE UNSTAINED CELL % 0.7 % (0.0-4.0); LYMPH # 0.4 K/mm3 (1.5-4.5); LYMPH % 3.3 % (24.0-44.0); MEAN CORPUSCULAR HEMOGLOBIN 33.1 pg (27.0-33.0); MEAN CORPUSCULAR VOLUME 97.3 fl (80.0-96.0); MONO # 0.5 K/mm3 (0.0-0.8); MONO % 4.6 % (0.0-5.0); NEUTROPHILS # 9.7 K/mm3 (1.8-7.7); NEUTROPHILS % 90.9 % (36.0-66.0); PLATELET COUNT, AUTOMATED 128 k/mm3 (150-450); RED CELL DISTRIBUTION WIDTH 12.7 % (11.5-14.5); WHITE BLOOD COUNT 10.7 K/mm3 (4.0-10.0)
[2016-09-27 08:13] LABS: ANION GAP 14 MEQ/L (8-16); BLOOD UREA NITROGEN 23 MG/DL (7-18); CALCIUM LEVEL 8.2 MG/DL (8.8-10.2); CARBON DIOXIDE LEVEL 26 MEQ/L (21-32); CHLORIDE LEVEL 101 MEQ/L (98-107); CREATININE FOR GFR 0.95 MG/DL (0.70-1.30); GLOMERULAR FILTRATION RATE > 60.0 (>42); GLUCOSE, FASTING 269 MG/DL (83-110); POTASSIUM SERUM 4.2 MEQ/L (3.5-5.1); SODIUM LEVEL 141 MEQ/L (136-145)
[2016-09-27 08:38] LABS: INR 1.2
[2016-09-27] MEDS: TAMSULOSIN 0.4 MG CAP PO SCH (08:55)
[2016-09-27] MEDS: PANTOPRAZOLE 40MG INJ (PROTONIX) (C9113) IV SCH (08:55)
[2016-09-27] MEDS: METOPROLOL SUCC *XL* 25MG TAB (TopROL *XL*) PO SCH (08:56)
[2016-09-27] MEDS ORDERED: PERCOCET 5MG/325MG TAB PO PRN (17:00)
--- NOTE | 2016-09-27 18:14 | IPN ---
DATE: 09/27/2016 SUBJECTIVE: Patient seen and examined in the intensive care unit (ICU) room today. Patient does not have any acute complaint. Patient still has some abdominal discomfort where he had his surgery; however, the discomfort has been controlled with the current regimen. No overnight events are reported. OBJECTIVE: VITAL SIGNS: Temperature is 99.4, pulse is 81, respirations 20, blood pressure is 134/59, pulse oximetry is 95% with 1 liter nasal cannula. GENERAL: No sign of acute distress. Alert and oriented times three. HEENT: Normocephalic, atraumatic. Extraocular motor grossly intact. CARDIOVASCULAR: Positive systolic murmur. Positive S1, S2. Regular rate. RESPIRATORY: Decreased breath sounds. No wheezes or crackles appreciated. ABDOMEN: There is a dressing covering the mid abdomen. Dressing is clean and dry. No active bleeding noted. Abdomen soft, mild discomfort to palpation. EXTREMITIES: No sign of cyanosis. Thromboembolic deterrent stockings (TEDS) and sequential compression devices (SCDs) in place. LABORATORY DATA: WBC 10.7, hemoglobin 11, hematocrit 32.3, platelet count is 128. Sodium is 141, potassium 4.2, chloride is 101, carbon dioxide is 26, BUN is 23, creatinine 0.95, GFR greater than 60, fasting glucose is 269. Lactic acid is 1.3. Calcium is 8.2. PT is 15.3. INR is 1.2. ASSESSMENT AND PLAN: Small-bowel obstruction status post bowel resection. Today is postoperative day #1. In the morning patient is still nothing by mouth. Will defer diet, pain control, anticoagulation per the general surgery team. 2. Hypertension. Because of the patient's nothing by mouth status, the patient has been getting intravenous (IV) blood pressure medications; however, if patient can start to tolerate oral diet, patient can start on the blood pressure medication such as lisinopril and metoprolol. At this moment, patient's blood pressure is within satisfactory range. 3. Diabetes. Patient is on sliding scale every 6 hours. 4. Baseline atrial fibrillation, currently rate within satisfactory range; however, due to the surgery, patient's INR was reversed. Will defer the anticoagulation to the surgical team. 5. Benign prostatic hypertrophy, on Flomax. 6. Coronary artery disease with history of coronary artery bypass graft (CABG), stable. 7. Deep vein thrombosis (DVT) prophylaxis. Anticoagulation per surgical team. Patient has TEDS and sequential compression devices.
[2016-09-27] MEDS: ATORVASTATIN 20 MG TAB PO SCH (20:04)
[2016-09-27] MEDS: FINASTERIDE 5 MG TAB PO SCH (20:04)
[2016-09-27] MEDS: LISINOPRIL 20 MG TAB PO SCH (20:05)
[2016-09-28] MEDS: HumaLOG INSULIN (NovoLOG) PER UNIT SC SCH ×6 (00:19→21:44)
[2016-09-28 02:00] VITALS: BP 158/70
--- NOTE | 2016-09-28 04:41 | EDDOCDS ---
Nurse's Notes [facility] Name: Danile Pepe Age: 81 yrs Sex: Male : 1935 Arrival Date: 09/25/2016 Time: 18:47 Bed 8 Private MD: Patti Diagnosis: Other intestinal obstruction Presentation: 09/25 18:56 Presenting complaint: Patient states: "severe back pain and n/v." pt c/o left flank ead pain. onset of pain came on suddenly this afternoon. Presenting complaint: pt actively vomiting in triage. Acute neurological deficits are not present. Mechanism of Injury: No Mechanism of Injury. Adult Sepsis Screening: The patient does not have new or worsening altered mentation. Patient's respiratory rate is less than 22. Systolic blood pressure is greater than 100. Patient has a qSOFA score of 0- Negative Sepsis Screen. Suicide/Homicide risk assessment- the patient denies having any suicidal and/or homicidal ideations and does not present with any other emotional, behavioral or mental health complaints. 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 Transition of care: patient was not received from another setting of care. 18:56 Acuity: TAB Level 3 ead 18:56 Method Of Arrival: Walkin/Carried/Asstd ead Triage Assessment: 19:03 General: Appears in no apparent distress, uncomfortable, Behavior is appropriate for ead age, cooperative. Pain: Location: back and abdomen Pain currently is 7 out of 10 on a pain scale. GI: Reports lower abdominal pain, upper abdominal pain, nausea, vomiting. Derm: Skin is dry, Skin is pale. Musculoskeletal: Reports pain in back and abdomen. Historical: - Allergies: Codeine Sulfate; - Home Meds: 1. insulin pump with sliding scale 2. Coumadin 7.5 mg Oral tab once daily 3. calcium 500 twice a day 4. Vitamin D3 1,000 unit oral cap daily 5. lisinopril-hydrochlorothiazide 10-12.5 mg oral tab once daily 6. lisinopril 20 mg Oral tab at night 7. Multivitamin Oral daily 8. Toprol XL 25 mg Oral Tb24 once daily 9. Flomax 0.4 mg Oral cp24 once daily 10. aspirin 81 mg oral tab once daily 11. docusate 10 mg 12. Lipitor 40 mg Oral tab once daily 13. novalog for insulin pump - PMHx: Diabetes - IDDM: controlled; Atrial Fib; Hypertension; heart disease; Asthma; Arthritis; - PSHx: Angioplasty; Appendectomy; triple bypass; Tonsillectomy; - Social history: Smoking status: Patient states former smoker of tobacco. No barriers to communication noted, The patient speaks fluent Bulgarian, Speaks appropriately for age. - Family history: Not pertinent. - : The pt / caregiver states he / she is on anticoagulants: coumadin. Home medication list is obtained from the patient, family members. - Exposure Risk Screening:: None identified. Screenin:32 Screening information is obtained from the patient. Fall risk: No risks identified. ko2 Assistance ADL's: requires no assistance with activities of daily living. Abuse/DV Screen: The patient / caregiver reports he/she is: not in a situation that causes fear, pain or injury. Nutritional screening: No deficits noted. Nutritional screening: On diabetic diet. Advance Directives: Currently, there is a health care proxy. home support is adequate. Assessment: 19:57 General: Appears uncomfortable, Behavior is appropriate for age, cooperative. Pain: ko2 Location: back Pain currently is 8 out of 10 on a pain scale. Neurological: Level of Consciousness is awake, alert. Respiratory: Airway is patent Respiratory effort is even, unlabored. GI: Abdomen is non- distended. Derm: Skin is normal. 21:09 General: Appears uncomfortable, Behavior is appropriate for age, cooperative. Pain: ko2 Location: back Pain currently is 8 out of 10 on a pain scale. Neurological: Level of Consciousness is awake, alert. Respiratory: Airway is patent Respiratory effort is even, unlabored. Derm: Skin is normal. 22:00 Adult Sepsis Screening: The patient does not have new or worsening altered mentation. ko2 Patient's respiratory rate is less than 22. Systolic blood pressure is greater than 100. Patient has a qSOFA score of 0- Negative Sepsis Screen. 22:06 General: Appears in no apparent distress, Behavior is cooperative. Pain: Location: back ko2 Pain currently is 3 out of 10 on a pain scale. Neurological: Level of Consciousness is awake, alert. Respiratory: Airway is patent Respiratory effort is even, unlabored. Derm: Skin is normal. 23:00 General: Appears in no apparent distress, Behavior is appropriate for age, cooperative. ko2 Pain: Location: back Pain currently is 4 out of 10 on a pain scale. Neurological: Level of Consciousness is awake, alert. Respiratory: Airway is patent Respiratory effort is even, unlabored. Derm: Skin is normal. 09/26 00:08 General: Appears in no apparent distress, comfortable, Behavior is appropriate for age, ko2 cooperative. Neurological: Level of Consciousness is awake, alert. Respiratory: Airway is patent Respiratory effort is even, unlabored. GI: NGT. Derm: Skin is normal. 00:29 Adult Sepsis Screening: The patient does not have new or worsening altered mentation. ko2 Patient's respiratory rate is less than 22. Systolic blood pressure is greater than 100. Patient has a qSOFA score of 0- Negative Sepsis Screen. 01:40 General: Appears in no apparent distress, comfortable, Behavior is appropriate for age, ko2 cooperative. Neurological: Level of Consciousness is awake, alert. Respiratory: Airway is patent Respiratory effort is even, unlabored. Derm: Skin is normal. 02:30 General: Appears in no apparent distress, comfortable, Behavior is appropriate for age, ko2 cooperative. Neurological: Level of Consciousness is awake, alert. Respiratory: Airway is patent Respiratory effort is even, unlabored. Derm: Skin is normal. 03:22 General: Appears in no apparent distress, comfortable, Behavior is appropriate for age, ko2 cooperative. Neurological: Level of Consciousness is awake, alert. Respiratory: Airway is patent Respiratory effort is even, unlabored. Derm: Skin is normal. Vital Signs: 09/25 18:50 BP 139 / 62; Pulse 68; Resp 18 S; Pulse Ox 100% on R/A; Weight 77.11 kg (R); Height 5 gr2 ft. 8 in. (172.72 cm) (R); Pain 3/10; 21:10 BP 135 / 62; Pulse 66; Resp 18; Pulse Ox 99% ; Pain 8/10; ko2 21:53 Pain 3/10; ko2 23:19 Pulse 88 MON; Pulse Ox 96% ; ko2 23:20 BP 177 / 78 (auto/); ko2 23:21 Pulse 86 MON; Pulse Ox 96% ; ko2 23:22 BP 177 / 78; Pulse 87; Resp 16; Temp 99.3(O); Pulse Ox 97% ; Pain 4/10; ko2 09/26 00:18 BP 175 / 74 (auto/); ko2 00:22 BP 175 / 74; Pulse 94; Resp 18; Pulse Ox 97% ; Pain 4/10; ko2 02:26 BP 120 / 60 (auto/); ko2 02:27 Pulse 100 MON; ko2 02:48 BP 125 / 58 (auto/); ko2 02:48 Pulse 98 MON; Pulse Ox 97% ; ko2 03:04 Pulse 98 MON; Pulse Ox 97% ; ko2 03:05 BP 149 / 64 (auto/); ko2 03:09 Pulse 98 MON; Pulse Ox 95% ; ko2 03:10 BP 141 / 62 (auto/); 2 03:34 BP 146 / 67 (auto/); sep 12:34 BP 146 / 67; Pulse 104 MON; Resp 16; Temp 101.4; Pulse Ox 96% ; sep 10 18:50 Body Mass Index 25.85 (77.11 kg, 172.72 cm) gr2 09/25 18:50 PT IS GAGING, UNABLE TO CHECK ORAL TEMP gr2 Vitals: 18:50 Log In Time: September 25, 2016 at 18:50. gr2 ED Course: 18:50 Patient visited by Irina Saleem. gr2 18:50 Patti is Private Physician. gr2 18:50 Patient moved to Waiting gr2 18:56 Patient visited by Irina Saleem. gr2 18:56 Patient moved to Pre RCE gr2 18:58 Triage Initiated ead 19:12 Fiordaliza Curiel RN is Primary Nurse. bnb 19:12 Patient visited by Gee Ken PCA. kb5 19:12 Patient moved to 8 bnb 19:19 Rosalio Terrazas DO is Attending Physician. mm11 19:19 Patient visited by Rosalio Terrazas DO. mm11 19:29 Patient visited by Rosalio Terrazas DO. mm11 19:58 Inserted saline lock: 20 gauge in right antecubital area and blood collected. The ko2 patient tolerated the procedure well. 19:59 Patient visited by Fiordaliza Curiel,GABY. ko2 20:10 Patient visited by Gee Ken PCA. kb5 20:15 [facility] [place] Agreement was scanned into [employer] and attached to record. gjb 21:09 Patient visited by Fiordaliza Curiel RN. ko2 21:31 Urinalysis Sent. ko2 21:31 Urine Culture Sent. ko2 21:32 Straight cath inserted 18 Fr. Specimen obtained. returned ricci urine. Patient ko2 tolerated well. 21:33 The patient / caregiver is instructed regarding the plan of care and ED course. ko2 21:34 Patient visited by Fiordaliza Curiel,GABY. ko2 22:05 Patient visited by Fiordaliza Curiel RN. ko2 23:07 Patient visited by Kenna Zambrano PCA. carla 23:55 Augustin Wisdom is Hospitalizing Provider. mm11 09/26 00:03 CT ABD & PELVIS: IV Contrast Only Returned. EDMS 00:08 NGT inserted 18 Fr. via right nare. Placement verified. to intermittent suction. ko2 Patient tolerated well. 00:09 Patient visited by Fiordaliza Curiel RN. ko2 01:15 Patient visited by Kenna Zambrano PCA. carla 01:15 EKG done. (by ED staff). Reviewed by Rosalio Terrazas DO. carla 01:43 Written Provider Order was scanned into [employer] and attached to record. ml3 02:47 Written Provider Order was scanned into [employer] and attached to record. ml3 03:22 Patient visited by Gee Ken PCA. kb5 03:22 No procedures done that require assistance. ko2 10:55 T-Sheet-- Draft Copy was scanned into [employer] and attached to record. gb Administered Medications: 09/25 19:58 Drug: Ondansetron 4 mg [ondansetron HCl 2 mg/mL intravenous solution (2 mL)] Route: ko2 IVP; Site: right antecubital; 19:58 Drug: NS 0.9% 500 ml [sodium chloride 0.9 % intravenous solution] Route: IV; Rate: ko2 bolus; Site: right antecubital; 21:10 Follow up: IV Status: Completed infusion; IV Intake: 500ml ko2 19:59 Drug: morphine 4 mg [morphine 4 mg/mL intravenous cartridge (1 mL)] Route: IVP; Site: ko2 right antecubital; 21:10 Follow up: BP 135 / 62; Pulse 66 bpm; Resp 18 bpm; Pulse Ox 99% ; Pain 8/10 Adult ko2 20:41 Drug: ketorolac 15 mg [ketorolac 30 mg/mL (1 mL) injection solution (0.5 mL)] Route: ko2 IVP; Site: right antecubital; 21:20 Drug: morphine 4 mg [morphine 4 mg/mL intravenous cartridge (1 mL)] Route: IVP; Site: ko2 right antecubital; 21:53 Follow up: Pain 3/10 Adult ko2 23:30 Drug: morphine 4 mg [morphine 4 mg/mL intravenous cartridge (1 mL)] Route: IVP; Site: ko2 right antecubital; 09/26 00:43 Drug: morphine 4 mg [morphine 4 mg/mL intravenous cartridge (1 mL)] Route: IVP; Site: ko2 right antecubital; Intake: 09/25 21:10 IV: 500.00ml; Total: 500.00ml. ko2 Order Results: Lab Order: Amylase; SPEC'M 09/25/16 19:40 Test: AMYLASE; Value: 77; Range: 25-115; Units: U/L; Status: F Lab Order: Basic Metabolic Profile; SPEC'M 09/25/16 19:40 Test: GLUCOSE, FASTING; Value: 133; Range: 83-110; Abnormal: Above high normal; Units: MG/DL; Status: F Test: BLOOD UREA NITROGEN; Value: 20; Range: 7-18; Abnormal: Above high normal; Units: MG/DL; Status: F Test: CREATININE FOR GFR; Value: 1.09; Range: 0.70-1.30; Units: MG/DL; Status: F Test: GLOMERULAR FILTRATION RATE; Value: > 60.0; Range: >42; Status: F Test: SODIUM LEVEL; Value: 139; Range: 136-145; Units: MEQ/L; Status: F Test: POTASSIUM SERUM; Value: 3.5; Range: 3.5-5.1; Units: MEQ/L; Status: F Test: CHLORIDE LEVEL; Value: 99; Range: 98-107; Units: MEQ/L; Status: F Test: CARBON DIOXIDE LEVEL; Value: 30; Range: 21-32; Units: MEQ/L; Status: F Test: ANION GAP; Value: 10; Range: 8-16; Units: MEQ/L; Status: F Test: CALCIUM LEVEL; Value: 9.4; Range: 8.8-10.2; Units: MG/DL; Status: F Test Note: ; Units are mL/min/1.73 m2 Chronic Kidney Disease Staging per NKF: Stage I & II GFR >=60 Normal to Mildly Decreased Stage III GFR 30-59 Moderately Decreased Stage IV GFR 15-29 Severely Decreased Stage V GFR <15 Very Little GFR Left ESRD GFR <15 on DRAFTER [employer] Lab Order: CBC with Diff; SPEC'M 09/25/16 19:40 Test: WHITE BLOOD COUNT; Value: 15.8; Range: 4.0-10.0; Abnormal: Above high normal; Units: K/mm3; Status: F Test: RED BLOOD COUNT; Value: 4.83; Range: 4.30-6.10; Units: M/mm3; Status: F Test: HEMOGLOBIN; Value: 15.6; Range: 14.0-18.0; Units: g/dl; Status: F Test: HEMATOCRIT; Value: 46.0; Range: 42.0-52.0; Units: %; Status: F Test: MEAN CORPUSCULAR VOLUME; Value: 95.3; Range: 80.0-96.0; Units: fl; Status: F Test: MEAN CORPUSCULAR HEMOGLOBIN; Value: 32.2; Range: 27.0-33.0; Units: pg; Status: F Test: MEAN CORPUSCULAR HGB CONC; Value: 33.8; Range: 32.0-36.5; Units: g/dl; Status: F Test: RED CELL DISTRIBUTION WIDTH; Value: 13.9; Range: 11.5-14.5; Units: %; Status: F Test: PLATELET COUNT, AUTOMATED; Value: 211; Range: 150-450; Units: k/mm3; Status: F Test: NEUTROPHILS %; Value: 90.9; Range: 36.0-66.0; Abnormal: Above high normal; Units: %; Status: F Test: LYMPH %; Value: 2.8; Range: 24.0-44.0; Abnormal: Below low normal; Units: %; Status: F Test: MONO %; Value: 3.4; Range: 0.0-5.0; Units: %; Status: F Test: EOS %; Value: 0.3; Range: 0.0-3.0; Units: %; Status: F Test: BASO %; Value: 2.3; Range: 0.0-1.0; Abnormal: Above high normal; Units: %; Status: F Test: LARGE UNSTAINED CELL %; Value: 0.4; Range: 0.0-4.0; Units: %; Status: F Test: NEUTROPHILS #; Value: 14.4; Range: 1.8-7.7; Abnormal: Above high normal; Units: K/mm3; Status: F Test: LYMPH #; Value: 0.5; Range: 1.5-4.5; Abnormal: Below low normal; Units: K/mm3; Status: F Test: MONO #; Value: 0.5; Range: 0.0-0.8; Units: K/mm3; Status: F Test: EOS #; Value: 0.0; Range: 0.0-0.50; Units: K/mm3; Status: F Test: BASO #; Value: 0.4; Range: 0.0-0.2; Abnormal: Above high normal; Units: K/mm3; Status: F Test: LARGE UNSTAINED CELL #; Value: 0.1; Range: 0.0-0.4; Units: K/mm3; Status: F Lab Order: Cardiac Injury Profile; [facility] 09/25/16 19:40 Test: CPK CREATINE PHOSPHOKINASE; Value: 269; Range: 39-308; Units: U/L; Status: F Test: CK-MB VALUE MASS; Value: 5.2; Range: 0.0-3.6; Abnormal: Above high normal; Units: NG/ML; Status: F Test: MB/CK RELATIVE INDEX; Value: 1.93; Range: < OR =4; Status: F Test Note: ; DIAGNOSIS CRITERIA MMB ng/ml Relative Index (RI) NON-AMI < or = 5 N/A AGGARWAL ZONE > 5 < or = 4 AMI > 5 > 4 Lab Order: Lipase; [facility] 09/25/16 19:40 Test: LIPASE; Value: 77; Range: 73-393; Units: U/L; Status: F Lab Order: Liver Profile; [facility] 09/25/16 19:40 Test: AST/SGOT; Value: 23; Range: 15-37; Units: U/L; Status: F Test: ALT/SGPT; Value: 26; Range: 12-78; Units: U/L; Status: F Test: ALKALINE PHOSPHATASE; Value: 62; Range: 45-117; Units: U/L; Status: F Test: BILIRUBIN,TOTAL; Value: 0.6; Range: 0.2-1.0; Units: MG/DL; Status: F Test: BILIRUBIN,DIRECT; Value: 0.2; Range: 0.0-0.2; Units: MG/DL; Status: F Test: TOTAL PROTEIN; Value: 7.3; Range: 6.4-8.2; Units: GM/DL; Status: F Test: ALBUMIN; Value: 4.3; Range: 3.2-5.2; Units: GM/DL; Status: F Test: ALBUMIN/GLOBULIN RATIO; Value: 1.43; Range: 1.00-1.93; Status: F Lab Order: Partial Thromboplastin Time; SPEC09/25/16 20:12 Test: PARTIAL THROMBOPLASTIN TIME; Value: 32.1; Range: 26.6-37.1; Units: SECONDS; Status: F Lab Order: Prothrombin Time Profile\\E\\INR; 09/25/16 20:12 Test: PROTHROMBIN TIME; Value: 29.9; Range: 12.3-14.5; Abnormal: Above high normal; Units: SECONDS; Status: F Test: INR; Value: 2.84; Status: F Test Note: ; THERAPUTIC HUMAN INR VALUES INDICATIONS NORMAL RANGES PROPHYLAXIS/TREATMENT OF: VENOUS THROMBOSIS 2.0-3.0 PULMONARY EMBOLISM 2.0-3.0 PREVENTION OF SYSTEMIC EMBOLISM FROM: TISSUE HEART VALVES 2.0-3.0 ACUTE MYOCARDIAL INFARCTION 2.0-3.0 VALVULAR HEART DISEASE 2.0-3.0 ATRIAL FIBRILLATION 2.0-3.0 MECHANICAL VALVES(HIGH RISK) 2.5-3.5 RECURRENT MYOCARDIAL INFARCTION 2.5-3.5 Lab Order: Troponin; 09/25/16 19:40 Test: TROPONIN I; Value: < 0.02; Range: < 0.10; Units: NG/ML; Status: F Test Note: ; Troponin I Reference Interval for Siemens Bard LOCI: 99th Percentile= 0.00-0.045 ng/ml Risk Stratification: <= 0.10 ng/ml Decreased Risk for Adverse Clinical Events. 0.10-1.50 ng/ml Increased Risk for Adverse Clinical Events. Evaluation of additional criterion and/or repeat testing in 2-6 hours is suggested to rule out myocardial damage. >= 1.50 ng/ml Indicative of Myocardial Injury. Lab Order: Urinalysis; SPEC'M 09/25/16 21:25 Test: APPEARANCE, URINE; Value: CLEAR; Range: CLEAR; Status: F Test: COLOR, URINE; Value: YELLOW; Range: YELLOW; Status: F Test: PH,URINE; Value: 6.0; Range: 5.0-9.0; Units: UNITS; Status: F Test: SPECIFIC GRAVITY URINE AUTO; Value: 1.014; Range: 1.002-1.035; Status: F Test: PROTEIN, URINE AUTO; Value: NEGATIVE; Range: NEGATIVE; Units: mg/dL; Status: F Test: GLUCOSE, URINE (UA) AUTO; Value: 1+; Range: NEGATIVE; Abnormal: Above high normal; Units: mg/dL; Status: F Test: KETONE, URINE AUTO; Value: NEGATIVE; Range: NEGATIVE; Units: mg/dL; Status: F Test: UROBILINOGEN, URINE AUTO; Value: 0.2; Range: 0.0-2.0; Units: mg/dL; Status: F Test: BILIRUBIN, URINE AUTO; Value: NEGATIVE; Range: NEGATIVE; Status: F Test: NITRITE, URINE AUTO; Value: NEGATIVE; Range: NEGATIVE; Status: F Test: LEUKOCYTE ESTERASE, URINE AUTO; Value: NEGATIVE; Range: NEGATIVE; Status: F Test: BLOOD, URINE BLOOD; Value: NEGATIVE; Range: NEGATIVE; Status: F Test: WBC, URINE AUTO; Value: 0; Range: 0-3; Units: /HPF; Status: F Test: RBC, URINE AUTO; Value: 5; Range: 0-3; Abnormal: Above high normal; Units: /HPF; Status: F Test: BACTERIA, URINE AUTO; Value: NEGATIVE; Range: NEGATIVE; Status: F Test: SQUAMOUS EPITHELIAL CELL UR AU; Value: 0; Range: 0-6; Units: /HPF; Status: F Test: MUCUS, URINE; Value: SMALL; Range: NEGATIVE; Status: F Test: HYALINE CAST, URINE AUTO; Value: 0; Range: 0-1; Units: /LPF; Status: F Lab Order: Type & Screen; SPEC'M 09/26/16 01:21 Test: BLOOD TYPE; Value: A POS; Status: F Test: AB SCREEN (INDIRECT KELLE)GEL; Value: NEGATIVE; Status: F Lab Order: Lactic Acid (Aggarwal tube on ice); SPEC'M 09/26/16 01:21 Test: LACTIC ACID LEVEL, LACTATE; Value: 3.5; Range: 0.4-2.0; Abnormal: Above upper panic limits; Units: MMOL/L; Status: F Radiology Order: CT ABD & PELVIS: IV Contrast Only Test: CT ABD & PELVIS: IV Contrast Only REASON FOR EXAMINATION: Abdomen Pain; ; CT of the abdomen and pelvis with contrast; Clinical statement: Pain.; Technique: Multiple axial CT images were obtained from the base of the lungs through the floor of the; pelvis utilizing 5 mm axial slices after administration of nonionic intravenous contrast. Coronal an; d sagittal reconstructions were also obtained.; No comparison is available.; Findings:; Chest: The visualized lung bases are clear.; Abdomen: The liver, spleen, pancreas, kidneys, gallbladder, and adrenal glands are unremarkable. Ther; e is moderate amount of ascites around the liver in the right upper quadrant. The aorta is within nor; mal limits. There is no evidence of abdominal lymphadenopathy.; Pelvis: There are numerous fluid filled inflamed loops of small bowel in the left amid abdomen. Infla; mmatory changes within the mesentery are seen at the site. There is a focal area narrowing in the dis; danny jejunum/proximal ileum at this site, consistent with a focal obstruction. The distal bowel appear; s unremarkable. Moderate amount of ascites is seen throughout the pelvis. The urinary bladder is with; in normal limits. The other pelvic structures appear grossly intact. There is no evidence of pelvic l; ymphadenopathy.; Bones: There are no suspicious osseous abnormalities seen.; Impression: [id number] grade small bowel obstruction in the region of the distal jejunum, likel; y secondary to adhesions, although an internal hernia cannot completely be excluded. Mesenteric infla; mmation is seen throughout this site. There is moderate amount of abdominal and pelvic ascites as wel; l.; ER physician was notified of these findings at 11:38 PM on 09/25/2016.; ; Outcome: 23:33 CT Study completed. ko2 23:55 Decision to Hospitalize by Provider. mm11 09/26 03:22 Discharge Assessment: Patient awake, alert and oriented x 3. No cognitive and/or ko2 functional deficits noted. Patient verbalized understanding of disposition instructions. patient administered narcotics - yes. Patient was admitted to the hospital or transferred to another facility. The following High Risk Discharge criteria are identified: None. Admitted to OR accompanied by nurse, accompanied by tech, via stretcher, on monitor, with chart. Condition: stable. Property :Personal belongings accompany Pt. 03:40 Patient left the ED. ml3 Signatures: Dispatcher [employer] EDMS Kathy Montes, RN RN Prema Hill, Reg Reg isael Bowers AsiaSaraPilar, Hot Tar Roofer Unit ml3 Gee Ken, TIMBER ESTIMATOR TIMBER ESTIMATOR kb5 Rosalio Terrazas, DO mm11 Kenna Zambrano, TIMBER ESTIMATOR TIMBER ESTIMATOR carla Irina Saleem gr2 Freda Conrad,RN RN Fiordaliza Elkins RN RN ko2 Beck, Gabriela gjb Becker, Brittney, TIMBER ESTIMATOR TIMBER ESTIMATOR albertb Chart Complete DANIELD
--- NOTE | 2016-09-28 04:41 | EDDOCDS ---
Physician Documentation [facility] Name: Daniel Pepe Age: 81 yrs Sex: Male : 1935 Arrival Date: 09/25/2016 Time: 18:47 Bed 8 Private MD: Patti Disposition: 09/25/16 23:55 Hospitalization ordered by Augustin Wisdom for Inpatient Admission. Preliminary diagnosis is Other intestinal obstruction. - Bed requested for M ICU. - Status is Inpatient Admission. ml3 - Condition is Stable. - Problem is an acute exacerbation. - Symptoms have improved. Historical: - Allergies: Codeine Sulfate; - Home Meds: 1. insulin pump with sliding scale 2. Coumadin 7.5 mg Oral tab once daily 3. calcium 500 twice a day 4. Vitamin D3 1,000 unit oral cap daily 5. lisinopril-hydrochlorothiazide 10-12.5 mg oral tab once daily 6. lisinopril 20 mg Oral tab at night 7. Multivitamin Oral daily 8. Toprol XL 25 mg Oral Tb24 once daily 9. Flomax 0.4 mg Oral cp24 once daily 10. aspirin 81 mg oral tab once daily 11. docusate 10 mg 12. Lipitor 40 mg Oral tab once daily 13. novalog for insulin pump - PMHx: Diabetes - IDDM: controlled; Atrial Fib; Hypertension; heart disease; Asthma; Arthritis; - PSHx: Angioplasty; Appendectomy; triple bypass; Tonsillectomy; - Social history: Smoking status: Patient states former smoker of tobacco. No barriers to communication noted, The patient speaks fluent Lao, Speaks appropriately for age. - Family history: Not pertinent. - : The pt / caregiver states he / she is on anticoagulants: coumadin. Home medication list is obtained from the patient, family members. - Exposure Risk Screening:: None identified. Vital Signs: 09/25 18:50 BP 139 / 62; Pulse 68; Resp 18 S; Pulse Ox 100% on R/A; Weight 77.11 kg / 170 lbs (R); gr2 Height 5 ft. 8 in. (172.72 cm) (R); Pain 3/10; 21:10 BP 135 / 62; Pulse 66; Resp 18; Pulse Ox 99% ; Pain 8/10; ko2 21:53 Pain 3/10; ko2 23:19 Pulse 88 MON; Pulse Ox 96% ; ko2 23:20 BP 177 / 78 (auto/); ko2 23:21 Pulse 86 MON; Pulse Ox 96% ; ko2 23:22 BP 177 / 78; Pulse 87; Resp 16; Temp 99.3(O); Pulse Ox 97% ; Pain 4/10; ko2 09/26 00:18 BP 175 / 74 (auto/); ko2 00:22 BP 175 / 74; Pulse 94; Resp 18; Pulse Ox 97% ; Pain 4/10; ko2 02:26 BP 120 / 60 (auto/); ko2 02:27 Pulse 100 MON; ko2 02:48 BP 125 / 58 (auto/); ko2 02:48 Pulse 98 MON; Pulse Ox 97% ; ko2 03:04 Pulse 98 MON; Pulse Ox 97% ; ko2 03:05 BP 149 / 64 (auto/); ko2 03:09 Pulse 98 MON; Pulse Ox 95% ; ko2 03:10 BP 141 / 62 (auto/); ko 03:34 BP 146 / 67 (auto/); sep 03:34 BP 146 / 67; Pulse 104 MON; Resp 16; Temp 101.4; Pulse Ox 96% ; sep 10 18:50 Body Mass Index 25.85 (77.11 kg, 172.72 cm) gr2 09/25 18:50 PT IS GAGING, UNABLE TO CHECK ORAL TEMP gr2 MDM: 19:30 Ondansetron 4 mg IVP once ordered. mm11 19:30 morphine 4 mg IVP every 30 minutes; Document pain score/vitals after each dose (Hold if mm11 SBP < 90mmHg) x2 ordered. 19:30 -Blood Culture (Adults Only), peripheral from different site, or from device/port/PICC mm11 etc. if present ordered. 19:30 IV Saline Lock ordered. mm11 19:30 Undress patient appropriately for examination ordered. mm11 19:30 NS 0.9% 500 ml IV at bolus once ordered. mm11 19:31 Amylase Ordered. EDMS 19:31 Basic Metabolic Profile Ordered. EDMS 19:31 CBC with Diff Ordered. EDMS 19:31 Cardiac Injury Profile Ordered. EDMS 19:31 Lipase Ordered. EDMS 19:31 Liver Profile Ordered. EDMS 19:31 Partial Thromboplastin Time Ordered. EDMS 19:31 Prothrombin Time Profile\E\INR Ordered. EDMS 19:31 Troponin Ordered. EDMS 19:31 Urinalysis Ordered. EDMS 19:33 Urine Culture Ordered. EDMS 19:33 NOTHING BY MOUTH+DIET ordered. EDMS 19:34 -Blood Culture (Adults Only), peripheral from different site, or from device/port/PICC ml3 etc. if present complete. 19:36 BLOOD CULTURES Ordered. EDMS 20:10 Financial registration complete. gjb 20:15 [facility] Payment Agreement was scanned into [employer] and attached to record. gjb 20:15 -Blood Culture (Adults Only), peripheral from different site, or from device/port/PICC flaca etc. if present ordered. 20:16 -Blood Culture (Adults Only), peripheral from different site, or from device/port/PICC ml3 etc. if present complete. 20:16 -Blood Culture Ordered. EDMS 20:27 Basic Metabolic Profile Reviewed. mm11 20:27 CBC with Diff Reviewed. mm11 20:27 Cardiac Injury Profile Reviewed. mm11 20:27 Amylase Reviewed. mm11 20:27 Lipase Reviewed. mm11 20:27 Liver Profile Reviewed. mm11 20:27 Troponin Reviewed. mm11 20:31 Prothrombin Time Profile\E\INR Reviewed. mm11 20:31 ketorolac 15 mg IVP once ordered. mm11 20:31 Straight cath ordered. mm11 22:04 Prothrombin Time Profile\E\INR Reviewed. mm11 22:04 Urinalysis Reviewed. mm11 22:04 Partial Thromboplastin Time Reviewed. mm11 22:09 CT ABD & PELVIS: IV Contrast Only Ordered. EDMS 23:11 Oral Temp ordered. mm11 23:19 morphine 4 mg IVP every 30 minutes; Document pain score/vitals after each dose (Hold if mm11 SBP < 90mmHg) x2 ordered. 23:44 NG Tube, 18Fr ordered. mm11 23:45 BED REQUEST+ADM ordered. EDMS 23:48 ECG WITH READING ER PHYS+CARDIAG ordered. EDMS 09/26 01:12 Type & Screen Ordered. EDMS 01:14 Lactic Acid (Aggarwal tube on ice) Ordered. EDMS 01:22 Admission / Observation Status ordered. EDMS 01:23 FROZEN PLASMA 24 Ordered. EDMS 01:23 NPO DIET ordered. EDMS 01:43 Written Provider Order was scanned into [employer] and attached to record. ml3 02:47 Written Provider Order was scanned into [employer] and attached to record. ml3 10:55 T-Sheet-- Draft Copy was scanned into [employer] and attached to record. gb Administered Medications: 09/25 19:58 Drug: Ondansetron 4 mg [ondansetron HCl 2 mg/mL intravenous solution (2 mL)] Route: ko2 IVP; Site: right antecubital; 19:58 Drug: NS 0.9% 500 ml [sodium chloride 0.9 % intravenous solution] Route: IV; Rate: ko2 bolus; Site: right antecubital; 21:10 Follow up: IV Status: Completed infusion; IV Intake: 500ml ko2 19:59 Drug: morphine 4 mg [morphine 4 mg/mL intravenous cartridge (1 mL)] Route: IVP; Site: ko2 right antecubital; 21:10 Follow up: BP 135 / 62; Pulse 66 bpm; Resp 18 bpm; Pulse Ox 99% ; Pain 8/10 Adult ko2 20:41 Drug: ketorolac 15 mg [ketorolac 30 mg/mL (1 mL) injection solution (0.5 mL)] Route: ko2 IVP; Site: right antecubital; 21:20 Drug: morphine 4 mg [morphine 4 mg/mL intravenous cartridge (1 mL)] Route: IVP; Site: ko2 right antecubital; 21:53 Follow up: Pain 3/10 Adult ko2 23:30 Drug: morphine 4 mg [morphine 4 mg/mL intravenous cartridge (1 mL)] Route: IVP; Site: ko2 right antecubital; 09/26 00:43 Drug: morphine 4 mg [morphine 4 mg/mL intravenous cartridge (1 mL)] Route: IVP; Site: ko2 right antecubital; Signatures: Dispatcher MedHost EDMS Kathy Montes RN RN jan Barnhardt, Gloria, Marisol Guerrero, Implant Coordinator Unit ml3 Rosalio Terrazas DO DO mm11 Freda Conrad RN RN ead Ogden, Kari, RN RN ko2 Beck, Gabriela gjb The chart was reviewed and I authenticate all verbal orders and agree with the evaluation and treatment provided.Corrections: (The following items were deleted from the chart) 01: 01:22 TYPE & SCREEN ordered. EDMS EDMS 01:14 FROZEN PLASMA 24+BBK ordered. EDMS EDMS 01:23 LACTIC ACID LEVEL, LACTATE ordered. EDMS EDMS : 09/25 20:15 [facility] Payment Agreement gjb 09/26 01:43 Written Provider Order ml3 02:47 Written Provider Order ml3 10:55 T-Sheet-- Draft Copy gb Chart Complete MTDD
--- NOTE | 2016-09-28 04:41 | EDDOCDS ---
Physician Documentation [facility] Name: Daniel Pepe Age: 81 yrs Sex: Male : 1935 Arrival Date: 09/25/2016 Time: 18:47 Bed 8 Private MD: Patti Disposition: 09/25/16 23:55 Hospitalization ordered by Augustin Wisdom for Inpatient Admission. Preliminary diagnosis is Other intestinal obstruction. - Bed requested for M ICU. - Status is Inpatient Admission. ml3 - Condition is Stable. - Problem is an acute exacerbation. - Symptoms have improved. Historical: - Allergies: Codeine Sulfate; - Home Meds: 1. insulin pump with sliding scale 2. Coumadin 7.5 mg Oral tab once daily 3. calcium 500 twice a day 4. Vitamin D3 1,000 unit oral cap daily 5. lisinopril-hydrochlorothiazide 10-12.5 mg oral tab once daily 6. lisinopril 20 mg Oral tab at night 7. Multivitamin Oral daily 8. Toprol XL 25 mg Oral Tb24 once daily 9. Flomax 0.4 mg Oral cp24 once daily 10. aspirin 81 mg oral tab once daily 11. docusate 10 mg 12. Lipitor 40 mg Oral tab once daily 13. novalog for insulin pump - PMHx: Diabetes - IDDM: controlled; Atrial Fib; Hypertension; heart disease; Asthma; Arthritis; - PSHx: Angioplasty; Appendectomy; triple bypass; Tonsillectomy; - Social history: Smoking status: Patient states former smoker of tobacco. No barriers to communication noted, The patient speaks fluent [place], Speaks appropriately for age. - Family history: Not pertinent. - : The pt / caregiver states he / she is on anticoagulants: coumadin. Home medication list is obtained from the patient, family members. - Exposure Risk Screening:: None identified. Vital Signs: 09/25 18:50 BP 139 / 62; Pulse 68; Resp 18 S; Pulse Ox 100% on R/A; Weight 77.11 kg / 170 lbs (R); gr2 Height 5 ft. 8 in. (172.72 cm) (R); Pain 3/10; 21:10 BP 135 / 62; Pulse 66; Resp 18; Pulse Ox 99% ; Pain 8/10; ko2 21:53 Pain 3/10; ko2 23:19 Pulse 88 MON; Pulse Ox 96% ; ko2 23:20 BP 177 / 78 (auto/); ko2 23:21 Pulse 86 MON; Pulse Ox 96% ; ko2 23:22 BP 177 / 78; Pulse 87; Resp 16; Temp 99.3(O); Pulse Ox 97% ; Pain 4/10; ko2 09/26 00:18 BP 175 / 74 (auto/); ko2 00:22 BP 175 / 74; Pulse 94; Resp 18; Pulse Ox 97% ; Pain 4/10; ko2 02:26 BP 120 / 60 (auto/); ko2 02:27 Pulse 100 MON; ko2 02:48 BP 125 / 58 (auto/); ko2 02:48 Pulse 98 MON; Pulse Ox 97% ; ko2 03:04 Pulse 98 MON; Pulse Ox 97% ; ko2 03:05 BP 149 / 64 (auto/); ko2 03:09 Pulse 98 MON; Pulse Ox 95% ; ko2 03:10 BP 141 / 62 (auto/); ko 03:34 BP 146 / 67 (auto/); sep 03:34 BP 146 / 67; Pulse 104 MON; Resp 16; Temp 101.4; Pulse Ox 96% ; sep 10 18:50 Body Mass Index 25.85 (77.11 kg, 172.72 cm) gr2 09/25 18:50 PT IS GAGING, UNABLE TO CHECK ORAL TEMP gr2 MDM: 19:30 Ondansetron 4 mg IVP once ordered. mm11 19:30 morphine 4 mg IVP every 30 minutes; Document pain score/vitals after each dose (Hold if mm11 SBP < 90mmHg) x2 ordered. 19:30 -Blood Culture (Adults Only), peripheral from different site, or from device/port/PICC mm11 etc. if present ordered. 19:30 IV Saline Lock ordered. mm11 19:30 Undress patient appropriately for examination ordered. mm11 19:30 NS 0.9% 500 ml IV at bolus once ordered. mm11 19:31 Amylase Ordered. EDMS 19:31 Basic Metabolic Profile Ordered. EDMS 19:31 CBC with Diff Ordered. EDMS 19:31 Cardiac Injury Profile Ordered. EDMS 19:31 Lipase Ordered. EDMS 19:31 Liver Profile Ordered. EDMS 19:31 Partial Thromboplastin Time Ordered. EDMS 19:31 Prothrombin Time Profile\E\INR Ordered. EDMS 19:31 Troponin Ordered. EDMS 19:31 Urinalysis Ordered. EDMS 19:33 Urine Culture Ordered. EDMS 19:33 NOTHING BY MOUTH+DIET ordered. EDMS 19:34 -Blood Culture (Adults Only), peripheral from different site, or from device/port/PICC ml3 etc. if present complete. 19:36 BLOOD CULTURES Ordered. EDMS 20:10 Financial registration complete. gjb 20:15 [facility] Payment Agreement was scanned into [employer] and attached to record. gjb 20:15 -Blood Culture (Adults Only), peripheral from different site, or from device/port/PICC flaca etc. if present ordered. 20:16 -Blood Culture (Adults Only), peripheral from different site, or from device/port/PICC ml3 etc. if present complete. 20:16 -Blood Culture Ordered. EDMS 20:27 Basic Metabolic Profile Reviewed. mm11 20:27 CBC with Diff Reviewed. mm11 20:27 Cardiac Injury Profile Reviewed. mm11 20:27 Amylase Reviewed. mm11 20:27 Lipase Reviewed. mm11 20:27 Liver Profile Reviewed. mm11 20:27 Troponin Reviewed. mm11 20:31 Prothrombin Time Profile\E\INR Reviewed. mm11 20:31 ketorolac 15 mg IVP once ordered. mm11 20:31 Straight cath ordered. mm11 22:04 Prothrombin Time Profile\E\INR Reviewed. mm11 22:04 Urinalysis Reviewed. mm11 22:04 Partial Thromboplastin Time Reviewed. mm11 22:09 CT ABD & PELVIS: IV Contrast Only Ordered. EDMS 23:11 Oral Temp ordered. mm11 23:19 morphine 4 mg IVP every 30 minutes; Document pain score/vitals after each dose (Hold if mm11 SBP < 90mmHg) x2 ordered. 23:44 NG Tube, 18Fr ordered. mm11 23:45 BED REQUEST+ADM ordered. EDMS 23:48 ECG WITH READING ER PHYS+CARDIAG ordered. EDMS 09/26 01:12 Type & Screen Ordered. EDMS 01:14 Lactic Acid (Aggarwal tube on ice) Ordered. EDMS 01:22 Admission / Observation Status ordered. EDMS 01:23 FROZEN PLASMA 24 Ordered. EDMS 01:23 NPO DIET ordered. EDMS 01:43 Written Provider Order was scanned into [employer] and attached to record. ml3 02:47 Written Provider Order was scanned into [employer] and attached to record. ml3 10:55 T-Sheet-- Draft Copy was scanned into [employer] and attached to record. gb Administered Medications: 09/25 19:58 Drug: Ondansetron 4 mg [ondansetron HCl 2 mg/mL intravenous solution (2 mL)] Route: ko2 IVP; Site: right antecubital; 19:58 Drug: NS 0.9% 500 ml [sodium chloride 0.9 % intravenous solution] Route: IV; Rate: ko2 bolus; Site: right antecubital; 21:10 Follow up: IV Status: Completed infusion; IV Intake: 500ml ko2 19:59 Drug: morphine 4 mg [morphine 4 mg/mL intravenous cartridge (1 mL)] Route: IVP; Site: ko2 right antecubital; 21:10 Follow up: BP 135 / 62; Pulse 66 bpm; Resp 18 bpm; Pulse Ox 99% ; Pain 8/10 Adult ko2 20:41 Drug: ketorolac 15 mg [ketorolac 30 mg/mL (1 mL) injection solution (0.5 mL)] Route: ko2 IVP; Site: right antecubital; 21:20 Drug: morphine 4 mg [morphine 4 mg/mL intravenous cartridge (1 mL)] Route: IVP; Site: ko2 right antecubital; 21:53 Follow up: Pain 3/10 Adult ko2 23:30 Drug: morphine 4 mg [morphine 4 mg/mL intravenous cartridge (1 mL)] Route: IVP; Site: ko2 right antecubital; 09/26 00:43 Drug: morphine 4 mg [morphine 4 mg/mL intravenous cartridge (1 mL)] Route: IVP; Site: ko2 right antecubital; Signatures: Dispatcher Med[employer] EDMS Kathy Montes RN RN jan Barnhardt, Gloria, Marisol Guerrero, Proof Technician Unit ml3 Rosalio Terrazas DO DO mm11 Freda Conrad RN RN ead Ogden, Kari, RN RN ko2 Beck, Gabriela gjb The chart was reviewed and I authenticate all verbal orders and agree with the evaluation and treatment provided.Corrections: (The following items were deleted from the chart) 01: 01:22 TYPE & SCREEN ordered. EDMS EDMS 01:14 FROZEN PLASMA 24+BBK ordered. EDMS EDMS 01:23 LACTIC ACID LEVEL, LACTATE ordered. EDMS EDMS : 09/25 20:15 [facility] Payment Agreement gjb 09/26 01:43 Written Provider Order ml3 02:47 Written Provider Order ml3 10:55 T-Sheet-- Draft Copy gb Chart Complete MTDD
[2016-09-28] MEDS: ONDANSETRON 4MG/2ML VIAL (J2405) IV PRN (05:42)
[2016-09-28 06:00] VITALS: BP 140/83
[2016-09-28] MEDS: LR 1,000 ML IV SCH (06:13)
[2016-09-28 07:16] LABS: ANION GAP 14 MEQ/L (8-16); BLOOD UREA NITROGEN 24 MG/DL (7-18); CALCIUM LEVEL 8.2 MG/DL (8.8-10.2); CARBON DIOXIDE LEVEL 23 MEQ/L (21-32); CHLORIDE LEVEL 99 MEQ/L (98-107); CREATININE FOR GFR 1.06 MG/DL (0.70-1.30); GLOMERULAR FILTRATION RATE > 60.0 (>42); GLUCOSE, FASTING 275 MG/DL (83-110); POTASSIUM SERUM 4.1 MEQ/L (3.5-5.1); SODIUM LEVEL 136 MEQ/L (136-145)
[2016-09-28] MEDS: PANTOPRAZOLE 40MG INJ (PROTONIX) (C9113) IV SCH (09:33)
[2016-09-28] MEDS: METOPROLOL SUCC *XL* 25MG TAB (TopROL *XL*) PO SCH (09:34)
[2016-09-28] MEDS: TAMSULOSIN 0.4 MG CAP PO SCH (09:34)
[2016-09-28 14:00] VITALS: BP 140/66
[2016-09-28 18:00] VITALS: BP 118/59
--- NOTE | 2016-09-28 18:03 | IPN ---
DATE: 09/28/2016 SUBJECTIVE: Patient is seen and examined in the room today. Patient stated that his abdominal pain is uncontrolled. Patient was very upset yesterday because the fingerstick glucose measurement frequency is not frequent enough and when he was at home usually he would check the glucose at least eight times a day, and his glucose is above 250 and he was having significant gastrointestinal (GI) discomfort such as nausea. He requests if he can change his fingerstick measurement frequency to as much as every 2-4 hours. No overnight events are reported. OBJECTIVE: VITAL SIGNS: Temperature 98, pulse 89, respirations 17, blood pressure 140/83, pulse oximetry 93% in room air. GENERAL: No signs of acute distress. Alert and oriented times three. HEENT: Normocephalic, atraumatic. Extraocular motors grossly intact. CARDIOVASCULAR: Positive systolic murmur, positive S1, S2. RESPIRATORY: Decreased breath sounds. ABDOMEN: Dressing covering the mid-abdomen, dressing clean and dry. Mild discomfort to palpation. EXTREMITIES: No cyanosis. No calf tenderness. Thromboembolism deterrents (TEDs) and sequential compression device is in place. LABORATORY DATA: WBC 10.7, hemoglobin 11, hematocrit 33.3, platelet count 128. Sodium 136, potassium 4.1, chloride 99, carbon dioxide 23, BUN 24, creatinine 1.06, GFR is greater than 60, fasting glucose 275, calcium 8.2. ASSESSMENT AND PLAN: 1. Small bowel obstruction status post small bowel resection. Today is postoperative day #2. In the morning patient is still nothing by mouth, however patient can start taking medication orally. I have discussed with the general surgery team, patient may be advanced to clear liquid diet. Will defer the diet, pain control, and anticoagulation per surgical team. 2. Hypertension. Blood pressure is within control. Continue metoprolol and lisinopril. 3. Diabetes. Will change fingerstick measurements to every 4 hours to avoid the gastrointestinal (GI) discomfort triggered by the hyperglycemia. Patient had an insulin pump, however it has been turned off at this moment. 4. Baseline atrial fibrillation. Heart rate was in satisfactory range. Discussed with general surgery. Coumadin will be reinitiated, at baseline patient was taking 7.5 mg daily and patient had a complete reversal of the INR in preparation for surgery. In the next 3 days, patient will be on 10 mg nightly and we will start checking INR in 2 days. 5. History of benign prostatic hypertrophy. On Flomax. 6. History of coronary artery disease status post coronary artery bypass graft (CABG). 7. Deep venous thrombosis (DVT) prophylaxis. Patient is on thromboembolism deterrents (TEDs) and sequential compression device.
[2016-09-28] MEDS: WARFARIN SOD 10 MG TAB PO SCH (18:32)
[2016-09-28 21:30] VITALS: BP 125/60
[2016-09-28] MEDS: FINASTERIDE 5 MG TAB PO SCH (21:43)
[2016-09-28] MEDS: LISINOPRIL 20 MG TAB PO SCH (21:43)
[2016-09-28] MEDS: ATORVASTATIN 20 MG TAB PO SCH (21:43)
[2016-09-29 02:00] VITALS: BP 118/56
[2016-09-29] MEDS: LR 1,000 ML IV SCH ×2 (02:31→17:57)
[2016-09-29] MEDS: HumaLOG INSULIN (NovoLOG) PER UNIT SC SCH ×6 (02:43→21:39)
[2016-09-29 06:30] VITALS: BP 101/57
[2016-09-29 07:04] LABS: BASO % 0.2 % (0.0-1.0); EOS # 0.2 K/mm3 (0.0-0.50); EOS % 1.9 % (0.0-3.0); LARGE UNSTAINED CELL # 0.1 K/mm3 (0.0-0.4); LARGE UNSTAINED CELL % 1.5 % (0.0-4.0); LYMPH # 0.9 K/mm3 (1.5-4.5); LYMPH % 10.6 % (24.0-44.0); MEAN CORPUSCULAR HEMOGLOBIN 33.2 pg (27.0-33.0); MEAN CORPUSCULAR HGB CONC 34.4 g/dl (32.0-36.5); MEAN CORPUSCULAR VOLUME 96.6 fl (80.0-96.0); MONO # 0.5 K/mm3 (0.0-0.8); MONO % 6.7 % (0.0-5.0); NEUTROPHILS # 6.3 K/mm3 (1.8-7.7); NEUTROPHILS % 79.1 % (36.0-66.0); PLATELET COUNT, AUTOMATED 133 k/mm3 (150-450); RED CELL DISTRIBUTION WIDTH 12.5 % (11.5-14.5)
[2016-09-29 07:16] LABS: ANION GAP 7 MEQ/L (8-16); BLOOD UREA NITROGEN 30 MG/DL (7-18); CALCIUM LEVEL 7.9 MG/DL (8.8-10.2); CARBON DIOXIDE LEVEL 28 MEQ/L (21-32); CHLORIDE LEVEL 104 MEQ/L (98-107); CREATININE FOR GFR 1.04 MG/DL (0.70-1.30); GLOMERULAR FILTRATION RATE > 60.0 (>42); GLUCOSE, FASTING 173 MG/DL (83-110); POTASSIUM SERUM 3.7 MEQ/L (3.5-5.1); SODIUM LEVEL 139 MEQ/L (136-145)
[2016-09-29 10:00] VITALS: BP 105/55
[2016-09-29] MEDS: PANTOPRAZOLE 40MG INJ (PROTONIX) (C9113) IV SCH (10:27)
[2016-09-29] MEDS: TAMSULOSIN 0.4 MG CAP PO SCH (10:28)
[2016-09-29] MEDS: METOPROLOL SUCC *XL* 25MG TAB (TopROL *XL*) PO SCH (10:30)
[2016-09-29] MEDS: DOCUSATE SODIUM 100 MG CAP PO SCH ×2 (11:18→21:37)
[2016-09-29 14:00] VITALS: BP 141/66
--- NOTE | 2016-09-29 16:39 | IPN ---
DATE: 09/29/2016 SUBJECTIVE: Patient seen and examined in the room today. Patient does not have any significant pain from the surgical site. Patient diet is advanced to full liquid diet. Patient tolerated the diet well. No acute events reported overnight. OBJECTIVE: Vital signs: Temperature is 96.6, pulse 80, respirations 16, blood pressure 105/55, pulse ox is 93% on room air. GENERAL: No sign of acute distress. Alert and oriented times three. HEENT: Normocephalic, atraumatic. Extraocular motor grossly intact. CARDIOVASCULAR: Positive systolic murmur. Positive S1, S2. LUNGS: Decreased breath sounds. No crackles, no wheezes. ABDOMEN: Dressing in place. Clean and dry. Bowel sounds present. EXTREMITIES: No edema. No cyanosis. Thromboembolic deterrent stockings (TEDS) in place. LABORATORY DATA: WBC is 8, hemoglobin 10.7, hematocrit 31.1, platelet count is 133. Sodium 139, potassium 3.7, chloride is 104, carbon dioxide is 28, BUN 30, creatinine 1.04. Glomerular filtration rate (GFR) is greater than 60. Fasting glucose 173, calcium 7.9. ASSESSMENT AND PLAN: 1. Small bowel obstruction status post small bowel resection. Today is postoperative day A#3. Patient's diet is advanced to full liquid diet. Patient is on insulin sliding scale every 4 hours. Defer diet, pain control and anticoagulation to surgical team. 2. Hypertension. Blood pressure was in normal range. Continue metoprolol and lisinopril. 3. Diabetes. Fasting sugar measurement every 4 hours. Patient on sliding scale. 4. Baseline atrial fibrillation. Patient's heart rate is around 80s to 90s. Patient is on beta corina. Patient's Coumadin just restarted. We will start to check INR tomorrow. 5. History of benign prostatic hyperplasia (BPH) on Flomax. 6. History of coronary artery disease with coronary artery bypass graft. 7. Deep vein thrombosis prophylaxis. Patient on thromboembolic deterrent stockings (TEDS) and sequential compression device. Patient's Coumadin was recently restarted.
[2016-09-29] MEDS: WARFARIN SOD 10 MG TAB PO SCH (17:46)
[2016-09-29 18:00] VITALS: BP 140/60
[2016-09-29 21:30] VITALS: BP 160/69
[2016-09-29] MEDS: ATORVASTATIN 20 MG TAB PO SCH (21:38)
[2016-09-29] MEDS: LISINOPRIL 20 MG TAB PO SCH (21:38)
[2016-09-29] MEDS: FINASTERIDE 5 MG TAB PO SCH (21:38)
[2016-09-29] MEDS: ACETAMINOPHEN TAB 650MG DOSE (2X325MG) PO PRN (22:40)
[2016-09-30 02:00] VITALS: BP 160/66
[2016-09-30] MEDS: HumaLOG INSULIN (NovoLOG) PER UNIT SC SCH ×6 (02:00→22:19)
[2016-09-30 05:45] VITALS: BP 143/65
[2016-09-30 06:05] LABS: BASO % 0.1 % (0.0-1.0); EOS # 0.3 K/mm3 (0.0-0.50); EOS % 5.4 % (0.0-3.0); LARGE UNSTAINED CELL # 0.1 K/mm3 (0.0-0.4); LARGE UNSTAINED CELL % 1.9 % (0.0-4.0); LYMPH # 0.7 K/mm3 (1.5-4.5); LYMPH % 11.7 % (24.0-44.0); MEAN CORPUSCULAR HEMOGLOBIN 33.3 pg (27.0-33.0); MEAN CORPUSCULAR HGB CONC 34.2 g/dl (32.0-36.5); MEAN CORPUSCULAR VOLUME 97.6 fl (80.0-96.0); MONO # 0.5 K/mm3 (0.0-0.8); MONO % 7.3 % (0.0-5.0); NEUTROPHILS # 4.5 K/mm3 (1.8-7.7); NEUTROPHILS % 73.6 % (36.0-66.0); PLATELET COUNT, AUTOMATED 134 k/mm3 (150-450); RED CELL DISTRIBUTION WIDTH 12.4 % (11.5-14.5); WHITE BLOOD COUNT 6.1 K/mm3 (4.0-10.0)
[2016-09-30 06:13] LABS: INR 1.21
[2016-09-30 06:24] LABS: ANION GAP 11 MEQ/L (8-16); BLOOD UREA NITROGEN 22 MG/DL (7-18); CALCIUM LEVEL 7.4 MG/DL (8.8-10.2); CARBON DIOXIDE LEVEL 25 MEQ/L (21-32); CHLORIDE LEVEL 100 MEQ/L (98-107); CREATININE FOR GFR 0.86 MG/DL (0.70-1.30); GLOMERULAR FILTRATION RATE > 60.0 (>42); GLUCOSE, FASTING 236 MG/DL (83-110); POTASSIUM SERUM 3.9 MEQ/L (3.5-5.1); SODIUM LEVEL 136 MEQ/L (136-145)
[2016-09-30] MEDS: ACETAMINOPHEN TAB 650MG DOSE (2X325MG) PO PRN ×2 (06:33→20:25)
--- NOTE | 2016-09-30 09:04 | RO ---
DATE OF PROCEDURE: 09/26/2016 PREOPERATIVE DIAGNOSIS: Closed loop small bowel obstruction with possible ischemia. POSTOPERATIVE DIAGNOSIS: Closed loop small bowel obstruction with intestinal hemorrhage and ischemia. (strangulated internal hernia) PROCEDURES PERFORMED: Exploratory laparotomy, resection of small bowel (3.5 to 4 feet of distal ileum), with anastomosis. Lysis of adhesions was also performed. SURGEON: Augustin Wisdom MD LIGHTING ADVISER: ANESTHESIA: General. INDICATIONS FOR THE PROCEDURE: The patient is a 81-year-old man who presented to the emergency department with a complaint of sudden onset of severe pain in the back in the afternoon of 09/25/2016. The pain worsened during the course of the afternoon and evening. He developed some nausea and had pain develop in the abdomen. He developed some vomiting. He presented to the emergency department. A CT scan showed some free fluid, as well as some edematous and dilated loops of small bowel. He had a tender mass palpable in the left upper quadrant and continued to have severe pain. He is felt to have a strangulated internal hernia, perhaps beginning as a closed loop small bowel obstruction, and he is now for exploratory laparotomy. He is on Coumadin routinely and has required reversal of his Coumadin with fresh frozen plasma to enable the operation. The patient was transported to the operating room. He was placed under general endotracheal anesthesia. A left radial arterial line was started by anesthesia. Thromboembolic deterrents (TEDs) and sequentials were utilized. A nasogastric tube had been inserted in the emergency department. The patient's abdomen was prepped and draped in a sterile fashion. With the patient under anesthesia, a mass was distinctly palpable in the left upper quadrant, which was perhaps 15-20 cm in diameter. A midline incision was made beginning from the midepigastrium and extending to below the umbilicus. The incision was deepened through the subcutaneous tissues using the cautery. The fascia was opened along the midline and the peritoneum opened. On opening the peritoneum, a large amount of lightly hemorrhagic fluid of the color of Punch was identified. Approximately a liter of fluid was aspirated from the abdomen. Exploration revealed some markedly edematous and hemorrhagic-appearing loops of small bowel in the left upper quadrant. Initial palpation revealed some omentum extending down around this loop, and as this area was inspected by palpation, some adhesions were apparently broken apart, and the omentum was released. This allowed the small bowel to be delivered through the wound. Inspection revealed approximately 3.5 to 4 feet of small bowel that were markedly hemorrhagic and edematous in appearance. In the central portion of this, even the mesentery was quite hemorrhagic and red-purple in color. The affected area appeared to extend from the distal jejunum into the proximal to mid ileum. The terminal ileum had approximately 4 feet of unaffected small bowel, and there was significant proximal small bowel that appeared mildly dilated but otherwise normal. The colon was found to have some scattered firm stool, particularly on the left, but there were no palpable masses. The nasogastric tube was palpable within the midbody of the stomach. The liver was normal to palpation, and the gallbladder looked normal. A few adhesions in the right lower quadrant involving the omentum were identified, and these were lysed with the cautery. The small bowel was covered with warm moist lap pads and allowed to sit for 5-10 minutes. Reinspection showed no ongoing peristalsis in the hemorrhagic area. I was concerned that the mucosa might, in fact, have infarcted during his period of obstruction. I felt it was safer to proceed with a resection of this affected area rather than to leave it in place and perform a scheduled second-look laparotomy. Therefore, the small bowel was divided proximal and distal to the damaged area using a linear cutter 55 stapler. The mesentery was divided between clamps and ligated with 0 Vicryl ties. A stapled anastomosis was then performed with a linear cutter 55 and a TX60G stapler to close the residual opening. The mesenteric defect was closed with several simple sutures of 3-0 Vicryl. Several reinforcing sutures were placed at the corners of the anastomosis. The small bowel was then returned to the abdomen in anatomic distribution. The abdomen was irrigated with warm saline until clear. Inspection showed no evidence of any significant bleeding. The omentum was then pulled back down over the small bowel. The peritoneum in the lower portion of the wound was closed with a running suture of 0 chromic. The fascia was closed with interrupted simple sutures of #1 Vicryl. The skin incision was closed with skin rick. A sterile dressing was applied. The patient tolerated the procedure well without apparent complication. He was awakened in the operating room, extubated, and moved to the recovery room in stable condition. NERI
[2016-09-30] MEDS: PANTOPRAZOLE 40MG INJ (PROTONIX) (C9113) IV SCH (09:56)
[2016-09-30] MEDS: DOCUSATE SODIUM 100 MG CAP PO SCH ×2 (09:57→20:23)
[2016-09-30] MEDS: TAMSULOSIN 0.4 MG CAP PO SCH (09:57)
[2016-09-30] MEDS: METOPROLOL SUCC *XL* 25MG TAB (TopROL *XL*) PO SCH (09:57)
[2016-09-30 10:00] VITALS: BP 138/65
[2016-09-30] MEDS ORDERED: FLUTICASONE PROP 0.05% NASAL SPRAY 16 GM (FLONASE) PRN (10:00)
[2016-09-30] MEDS ORDERED: NORCO, ANEXSIA 5/325MG TABLET (HYDROcodone/ACETAMINOPHEN) PO PRN (12:45)
[2016-09-30] MEDS: LISINOPRIL 10 MG TAB PO SCH (13:57)
[2016-09-30] MEDS: hydroCHLOROthiazide 12.5 MG CAPSULE PO SCH (13:57)
[2016-09-30] MEDS: WARFARIN SOD 10 MG TAB PO SCH (17:51)
[2016-09-30 18:00] VITALS: BP 169/74
--- NOTE | 2016-09-30 19:01 | IPN ---
DATE: 09/30/2016 SUBJECTIVE: Patient is seen and examined in the room today. The patient tolerated the liquid diet yesterday without any issues. The patient does not have any complaint about his glucose readings today. However, the patient still feels there is some congestion in his nostrils. He is requesting treatment. Patient also noted to have worsening lower extremity swelling. Otherwise, no overnight events reported. OBJECTIVE: VITAL SIGNS: Temperature 97.4, pulse is 73, respirations 16, blood pressure 143/65, pulse oximetry 96% on room air. GENERAL: No sign of acute distress. Alert and oriented times three. HEENT: Normocephalic, atraumatic. Extraocular motor grossly intact. CARDIOVASCULAR: Positive systolic murmur. Positive S1, S2. Regular rate. LUNGS: Decrease breath sounds bilaterally. No crackles, no wheezes. ABDOMEN: Dressing is in place. Bowel sounds present. Abdomen is soft. EXTREMITIES: Some pitting edema bilaterally, more significant in the ankles. Compression device in place. LABORATORY DATA: WBC 6.1, hemoglobin 10, hematocrit 29.4, platelet count is 134. Sodium 136, potassium 3.9, chloride 100, carbon dioxide 25, BUN 22, creatinine 0.86, GFR greater than 60, fasting glucose is 136, calcium 7.4. PT is 15.4, INR is 1.21. ASSESSMENT AND PLAN: 1. Small bowel obstruction status post small bowel resection. Day is postoperative day three. The patient's pain is controlled. The patient is tolerating a liquid diet well. The patient's diet is being advanced as tolerated. The patient is on insulin sliding scale every four hours. I will defer diet, pain control and anticoagulation to the surgical team. 2. Hypertension. Blood pressure is in satisfactory range. The patient is on metoprolol and lisinopril. 3. Diabetes. Fasting glucose and sliding scale are performed every four hours. 4. Baseline atrial fibrillation. Heart rate is averaging between 70 to 80. The patient is on metoprolol. The patient's warfarin was reinitiated, currently the patient's international normalized ratio (INR) is subtherapeutic. Continue to monitor. 5. History of benign prostatic hypertrophy (BPH). Continue on Flomax. 6. Nasal congestion. Continue Flonase. 7. History of coronary artery disease, status post coronary bypass graft. 8. Deep venous thrombosis (DVT) prophylaxis. Patient on thromboembolism deterrent stockings (TEDs) sequential and compression device. The patient's warfarin is restarted. Current INR is subtherapeutic.
[2016-09-30] MEDS: FINASTERIDE 5 MG TAB PO SCH (20:24)
[2016-09-30] MEDS: ATORVASTATIN 20 MG TAB PO SCH (20:24)
[2016-09-30] MEDS: LISINOPRIL 20 MG TAB PO SCH (20:24)
[2016-09-30 22:00] VITALS: BP 159/70
[2016-10-01 02:00] VITALS: BP 147/69
[2016-10-01] MEDS: HumaLOG INSULIN (NovoLOG) PER UNIT SC SCH ×3 (02:38→09:51)
[2016-10-01 05:40] VITALS: BP 168/72
[2016-10-01] MEDS: ACETAMINOPHEN TAB 650MG DOSE (2X325MG) PO PRN ×2 (06:03→22:55)
[2016-10-01 06:32] LABS: BASO % 0.2 % (0.0-1.0); EOS # 0.3 K/mm3 (0.0-0.50); EOS % 4.8 % (0.0-3.0); LARGE UNSTAINED CELL # 0.1 K/mm3 (0.0-0.4); LARGE UNSTAINED CELL % 2.4 % (0.0-4.0); LYMPH # 0.7 K/mm3 (1.5-4.5); LYMPH % 11.6 % (24.0-44.0); MEAN CORPUSCULAR HEMOGLOBIN 33.4 pg (27.0-33.0); MEAN CORPUSCULAR VOLUME 95.5 fl (80.0-96.0); MONO # 0.5 K/mm3 (0.0-0.8); MONO % 8.2 % (0.0-5.0); NEUTROPHILS # 4.2 K/mm3 (1.8-7.7); NEUTROPHILS % 72.8 % (36.0-66.0); PLATELET COUNT, AUTOMATED 144 k/mm3 (150-450); RED CELL DISTRIBUTION WIDTH 12.5 % (11.5-14.5); WHITE BLOOD COUNT 5.7 K/mm3 (4.0-10.0)
[2016-10-01 06:35] LABS: INR 1.44
[2016-10-01 06:44] LABS: ANION GAP 8 MEQ/L (8-16); BLOOD UREA NITROGEN 14 MG/DL (7-18); CARBON DIOXIDE LEVEL 28 MEQ/L (21-32); CHLORIDE LEVEL 103 MEQ/L (98-107); CREATININE FOR GFR 0.79 MG/DL (0.70-1.30); GLOMERULAR FILTRATION RATE > 60.0 (>42); GLUCOSE, FASTING 123 MG/DL (83-110); POTASSIUM SERUM 3.5 MEQ/L (3.5-5.1); SODIUM LEVEL 139 MEQ/L (136-145)
[2016-10-01] MEDS: PANTOPRAZOLE 40MG INJ (PROTONIX) (C9113) IV SCH (09:50)
[2016-10-01] MEDS: TAMSULOSIN 0.4 MG CAP PO SCH (09:51)
[2016-10-01] MEDS: DOCUSATE SODIUM 100 MG CAP PO SCH ×2 (09:52→20:24)
[2016-10-01] MEDS: LISINOPRIL 10 MG TAB PO SCH (09:52)
[2016-10-01] MEDS: hydroCHLOROthiazide 12.5 MG CAPSULE PO SCH (09:52)
[2016-10-01] MEDS: METOPROLOL SUCC *XL* 25MG TAB (TopROL *XL*) PO SCH (09:52)
[2016-10-01 10:00] VITALS: BP 152/68
[2016-10-01 14:00] VITALS: BP 157/70
[2016-10-01] MEDS: WARFARIN SOD 10 MG TAB PO SCH (17:02)
[2016-10-01] MEDS: LISINOPRIL 20 MG TAB PO SCH (20:23)
[2016-10-01] MEDS: FINASTERIDE 5 MG TAB PO SCH (20:24)
[2016-10-01] MEDS: ATORVASTATIN 20 MG TAB PO SCH (20:24)
--- NOTE | 2016-10-01 21:01 | IPN ---
DATE: 10/01/2016 SUBJECTIVE: The patient is seen and examined in the room today. The patient stated that he can tolerate a diet well. The patient is on consistent carbohydrate diet. No overnight events reported. Per patient, the patient has been able to walk several feet without any issues. His functional status is close to his baseline. I discussed with the patient and the patient can turn back on his insulin pump and we will discontinue the sliding scale in preparation for possible discharge tomorrow. The patient agrees with the plan. All questions were answered. OBJECTIVE: VITAL SIGNS: Temperature is 97.9, pulse is 64, respirations 16, blood pressure is 152/68, pulse oximetry is 94% on room air. GENERAL: No sign of acute distress. Alert and oriented times three. HEENT: Normocephalic, atraumatic. Extraocular muscles are grossly intact. CARDIOVASCULAR: Positive S1, S2. Regular rate. Positive systolic murmur. LUNGS: Clear to auscultation bilaterally. No wheezes or rhonchi. ABDOMEN: Dressing in place. Bowel sounds present. Abdomen is soft. EXTREMITIES: Pitting edema bilaterally, improved compared to yesterday. Compression device in place. LABORATORY DATA: WBC 5.7, hemoglobin 10.3, hematocrit is 29.3, platelet count is 144. Sodium is 139, potassium is 3.5, chloride 103, carbon dioxide is 28. BUN 14, creatinine 0.79, GFR greater than 60, fasting glucose 123. Calcium is 8. ASSESSMENT AND PLAN: 1. Small bowel obstruction status post small bowel resection. Today is postoperative day #4. The patient is tolerating a consistent carbohydrate diet. The patient is tolerating pain well. The patient's functional mobility is close to his baseline. The patient was just restarted on warfarin. I discussed with general surgery team, we may anticipate a discharge for tomorrow. 2. Hypertension. Blood pressure today is elevated. The patient is not sure if there are any specific reason. We will continue to monitor. The patient is on metoprolol and lisinopril. The patient is on hydrochlorothiazide. 3. Diabetes. The patient's insulin pump is turned back on. The patient will continue consistent carbohydrate diet. 4. Recent atrial fibrillation. However, it was in satisfactory range. The patient's warfarin is restarted. Continue to follow INR. 5. History of benign prostatic hypertrophy (BPH) . On Flomax. 6. Nasal congestion. On Flonase. 7. History of coronary artery disease. Status post coronary artery bypass graft (CABG). 8. Deep vein thrombosis (DVT) prophylaxis. The patient is on thromboembolic compression stockings (TEDS) and sequential compression device (SCD). Currently, the patient is on warfarin. INR is still subtherapeutic. DISPOSITION: The patient is anticipated to be discharged in the next 24 hours.
[2016-10-01 22:00] VITALS: BP 158/71
[2016-10-02 02:00] VITALS: BP 148/60
[2016-10-02 06:00] VITALS: BP 152/71
[2016-10-02 06:14] LABS: INR 2.02
[2016-10-02] MEDS ORDERED: PANTOPRAZOLE 40MG TAB (PROTONIX) PO SCH (09:00)
[2016-10-02] MEDS: TAMSULOSIN 0.4 MG CAP PO SCH (09:07)
[2016-10-02] MEDS: LISINOPRIL 10 MG TAB PO SCH (09:08)
[2016-10-02] MEDS: hydroCHLOROthiazide 12.5 MG CAPSULE PO SCH (09:08)
[2016-10-02] MEDS: DOCUSATE SODIUM 100 MG CAP PO SCH (09:08)
[2016-10-02 09:09] VITALS: BP 160/72
[2016-10-02] MEDS: METOPROLOL SUCC *XL* 25MG TAB (TopROL *XL*) PO SCH (09:09)
[2016-10-02] MEDS: ACETAMINOPHEN TAB 650MG DOSE (2X325MG) PO PRN (09:49)
[2016-10-02 10:00] VITALS: BP 154/71
[2016-10-02] MEDS ORDERED: WARFARIN SOD 7.5 MG TAB PO SCH (17:00)
--- NOTE | 2016-10-17 19:17 | DSES ---
DATE OF ADMISSION: 09/26/2016 DATE OF DISCHARGE: 10/02/2016 ADMISSION DIAGNOSIS: Probable closed loop small bowel obstruction versus small bowel volvulus. HISTORY OF PRESENT ILLNESS: The patient is a pleasant 81-year-old man who noted the sudden onset of pain across the mid to lower back at approximately 1730-0887 hours on 09/25/2016. Within about 2 hours he noted abdominal pain with some onset of nausea and vomiting. He has had persistent back and abdominal pain since. He has no prior history of similar symptoms. His only prior abdominal surgery was an open appendectomy long ago. He was evaluated in the emergency department with laboratory studies that showed an elevation of his white blood cell count with a left shift. His lactate was noted to be 3.5. He is on Coumadin for atrial fibrillation and his PT was 29.9 with an INR of 2.84. The CT scan of the abdomen and pelvis showed a dilated clump of edematous small bowel loops in the left upper quadrant with edema involving the loops of bowel as well as the mesentery. His exam revealed a fullness in the left upper quadrant. He was felt to have a closed loop small bowel obstruction versus a volvulus. He was admitted. He received hydration. I requested an intensive care unit bed and consulted the hospitalist for assistance in managing his medical issues. Four units of fresh frozen plasma were ordered. These were transfused rapidly to reverse his Coumadin and he was then taken to the operating room for exploratory laparotomy. In the operating room (OR) he underwent an exploratory laparotomy and was found to have a closed loop small bowel obstruction or what we might otherwise characterize as an internal hernia through adhesions with infarction of small bowel. He had approximately 3-1/2 to 4 feet of hemorrhagic and ischemic appearing ileum. The small bowel was resected and an anastomosis was performed. Postoperatively he did quite well. A nasogastric (NG) tube and Lanier catheter were continued postoperatively. His NG tube was discontinued on the first postoperative day. An arterial line placed by anesthesia was also discontinued. He was placed back on his Toprol XL and Flomax. He was allowed to take some sips of clear liquids. His pathology report confirmed a small bowel with distension and extensive ischemic damage with hemorrhage and mucosal sloughing. The patient was moved out of the intensive care unit. His Lanier catheter was discontinued on the morning of the . His blood sugars were managed with fingerstick blood sugars with sliding scale insulin which he requested to be done every 4 hours for tighter control of his blood sugar. The patient did develop some urinary retention and responded to straight catheterization. He tolerated some full liquids. He was started back on his Coumadin. The patient's voiding was followed with bladder scans and he did show a moderate residual which he said was not unusual for him. His bowel function returned and he was advanced to a regular diet. The patient had some scrotal and lower extremity edema consistent with some postoperative fluid overload. This improved as his diet improved, presumably related to increased nutrition. He continued to make good progress. He was placed back on his insulin pump for management of his blood sugars. His INR was up to 2.02 on 10/02/2016, and he was felt to be stable for discharge. DIAGNOSES: 1. Strangulated internal hernia with strangulated ileum. 2. Chronic atrial fibrillation. 3. Diabetes mellitus. 4. Atherosclerotic coronary artery disease status post coronary artery bypass grafting. 5. Hypertension. 6. Asthma. 7. Arthritis. 8. 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 9. Benign prostatic hyperplasia. PROCEDURE PERFORMED: 1. Exploratory laparotomy with lysis of adhesions, resection of small bowel (3-1/2 to 4 feet of distal ileum) with anastomosis. DISPOSITION: The patient was discharged home on 10/02/2016. He was to followup with me on 10/16/2016 at 09:15. He was to use his insulin pump and check his PT and INR as usual. He was to check in with his primary provider to keep them updated on his recent events. He was advised against any strenuous activity or lifting greater than 25 pounds for 6 weeks. He could take a diet as tolerated. He could shower as desired. He was to leave the Steri-Strips in place until they came off on their own. He was to continue his medicines as before admission. He was not provided any new prescriptions. He was to contact my office or return to the emergency department for any sudden changes in his condition.
== END 2016-10-02 14:07 | disposition home or self-care (01) | DRG 329 ==
LOC: M ED 18:47 → M ED INP 09-26 01:08 → UNDOADMIN 09-26 01:08 → M OROP 09-26 02:00 → M ICU 09-26 07:29 → M MSPAV 09-27 18:15
PROVIDERS: ADMIT Surgery; ATTEND Surgery
PROC: 0DT80ZZ Resection of Small Intestine, Open Approach (ICD-10-PCS; principal; 2016-09-26 04:01)
DX: K46.0 Unspecified abdominal hernia with obstruction, without gangrene (principal); K55.021 Focal (segmental) acute infarction of small intestine; K92.2 Gastrointestinal hemorrhage, unspecified; I48.91 Unspecified atrial fibrillation; I10 Essential (primary) hypertension; J45.909 Unspecified asthma, uncomplicated; N40.0 Benign prostatic hyperplasia without lower urinary tract symptoms; I25.10 Atherosclerotic heart disease of native coronary artery without angina pectoris; E11.9 Type 2 diabetes mellitus without complications; M12.9 Arthropathy, unspecified; E78.5 Hyperlipidemia, unspecified; Z79.4 Long term (current) use of insulin; Z79.01 Long term (current) use of anticoagulants; Z79.82 Long term (current) use of aspirin; Z79.899 Other long term (current) drug therapy; Z88.5 Allergy status to narcotic agent; Z88.2 Allergy status to sulfonamides; Z87.891 Personal history of nicotine dependence

== ENCOUNTER 2016-12-06 16:45 | Emergency (ER) | payer MEDICARE, OTHER ==
[~2016-12-06] VITALS: Ht 170.2 cm; Wt 73.9 kg
[~2016-12-06 16:45] MED LIST: ASPI81TAEC PO; ATOR40TA PO; CALC1TAB30 PO; FINA5TAB2 PO; FLOM5CAP PO; FLON50SP; INSUH10VL SC; LISI-538 PO; LISI10TA2 PO; METO25TA74 PO; VITA10002 PO; VITA100066 PO; VITMTA PO; WARF-21 PO; [UNRECOGNIZED DRUG - CODE] EXT
[2016-12-06] MEDS ORDERED: LASI40TA PO (17:02)
[2016-12-06] MEDS ORDERED: COUM1TAB19 PO (17:02)
[2016-12-06] MEDS ORDERED: MICR10CA PO (17:02)
[2016-12-06] MEDS ORDERED: CEPHALEXIN 500 MG CAP PO ONE (18:30)
[2016-12-06] MEDS ORDERED: LIDOCAINE 2% MDV 20 ML VIAL SC ONE (18:30)
[2016-12-06] MEDS ORDERED: TETANUS/DIPHTHERIA TOX ADSORB ADULT 0.5ML SYR/VIAL (90714) IM ONE (18:30)
[2016-12-06 18:51] LABS: MEAN CORPUSCULAR HEMOGLOBIN 30.7 pg (27.0-33.0); MEAN CORPUSCULAR HGB CONC 32.4 g/dl (32.0-36.5); MEAN CORPUSCULAR VOLUME 94.7 fl (80.0-96.0); RED CELL DISTRIBUTION WIDTH 13.4 % (11.5-14.5); WHITE BLOOD COUNT 4.8 K/mm3 (4.0-10.0)
[2016-12-06 18:59] LABS: INR 2.18
[2016-12-06] MEDS ORDERED: KEFL500C7 PO (19:17)
[2016-12-06 19:45] VITALS: BP 170/70
== END 2016-12-06 19:59 | disposition home or self-care (01) ==
LOC: M ED 17:41
DX: S61.216A Laceration without foreign body of right little finger without damage to nail, initial encounter (principal); W26.9XXA Contact with unspecified sharp object(s), initial encounter; Y92.018 Other place in single-family (private) house as the place of occurrence of the external cause; Y93.89 Activity, other specified; Y99.8 Other external cause status; Z79.899 Other long term (current) drug therapy; Z79.82 Long term (current) use of aspirin; Z79.01 Long term (current) use of anticoagulants; Z79.4 Long term (current) use of insulin; Z88.1 Allergy status to other antibiotic agents; Z88.5 Allergy status to narcotic agent

== ENCOUNTER → 2017-01-03 | Day surgery (SDC) | payer MEDICARE, OTHER ==
[~2017-01-03] VITALS: Ht 175.3 cm; Wt 73.9 kg
[~2017-01-03] MED LIST changes: +ACETAMINOPHEN 325 MG TAB PO PRN; +AcetaZOLAMIDE 500 MG ER CAP PO ONE; +BSS with VANC/TOB/EPI for EYE CASES IR ONE; +COLA100C3 PO; +COUM1TAB19 PO; +COUM7.5T PO; +CYCLOPENTOLATE 2% OPHTH SOLN As Ordered ONE; +D5W/0.2% SODIUM CHLORIDE 250 ML IV SCH; +HEALON DUET (HEALON 10MG/ML 0.55ML & HEALON ENDOCOAT 30MG/ML 0.85ML) As Ordered ONE; +KEFL500C7 PO; +KETOROLAC 0.5% OPHTH SOLN OS ONE; +LASI40TA PO; +LIDOCAINE 1% SDV 5 ML VIAL As Ordered ONE; +LIDOCAINE 4% INJ 5 ML AMP OU ONE; +MICR10CA PO; +MIDAZOLAM INJ 2 MG/2 ML VIAL (J2250) As Ordered ONE; +MOXIFLOXACIN IN BSS 0.25MG/0.25ML INTRACAMERAL INJ (OR EYE ONLY)(J2280) As Ordered ONE; +OFLOXACIN 0.3 % (OCUFLOX) OPTH SOL 5ML As Ordered ONE; +PHENYLEPHRINE 2.5% OPHTH SOL 2ML As Ordered ONE; +POVIDONE-IODINE 5% OPHTH PREP SOL 30ML As Ordered ONE; +PROPARACAINE 0.5% OPHTH SOL 15ML OS PRN; +TRIAMCINOLONE PRES FR 40 MG/ML 1ML(TRIESENCE)(OR EYE ONLY)(J3300 PER 1MG) As Ordered ONE; +TRIMETHOBENZAMIDE 300 MG CAP PO PRN; +TROPICAMIDE 1% OPHTH SOLN 2 ML As Ordered ONE; +fentaNYL 100 MCG/2 ML INJECTION (J3010) As Ordered ONE
[2017-01-03] MEDS: CYCLOPENTOLATE 2% OPHTH SOLN OS ONE ×2 (11:07→11:45)
[2017-01-03] MEDS: OFLOXACIN 0.3 % (OCUFLOX) OPTH SOL 5ML OS ONE ×2 (11:08→11:44)
[2017-01-03] MEDS: TROPICAMIDE 1% OPHTH SOLN 2 ML OS ONE ×2 (11:10→11:45)
[2017-01-03] MEDS: PHENYLEPHRINE 2.5% OPHTH SOL 2ML OS ONE ×2 (11:10→11:45)
[2017-01-03 13:20] VITALS: BP 130/64
--- NOTE | 2017-01-03 13:53 | RO ---
DATE OF PROCEDURE: 01/03/2017 PREPROCEDURE DIAGNOSIS: Cataract of right eye. POSTPROCEDURE DIAGNOSIS: Cataract of right eye. PROCEDURE: Femtosecond laser and phacoemulsification and intraocular lens implantation with PCB00, 18 diopter. SURGEON: Silva Christie MD PHOTO ENGRAVER: None. ANESTHESIA: Local IV standby. FINDINGS: Cataract of right eye. COMPLICATIONS: None. DESCRIPTION OF PROCEDURE: The patient was brought to the operating room and laid in supine position. A lid speculum was placed, and patient was brought under the femtosecond laser. After the satisfactory placement of the patient interface, primary incision, secondary incision, and arcuate incisions with lens fragmentation was done without any complication per plan. The patients interface was then removed and lid speculum removed. Patient was placed under the microscope. The eye was prepped and draped in a sterile fashion for ophthalmic surgery. Lid speculum was placed. The secondary incision was opened, and EndoCoat was injected into the anterior chamber. The temporal clear corneal incision was then opened and capsulorrhexis removed, followed by hydrodissection. This was followed by phacoemulsification of the lens within the capsular bag. Cortical material was then aspirated, and Healon was injected into the capsular bag. Intraocular lens was then placed. Excess Healon was aspirated. Wound was hydrated. The lid speculum was removed, and patient was returned to the recovery room in stable condition.
== END | disposition home or self-care (01) ==
LOC: M SDC 10:11
PROVIDERS: ATTEND Ophthalmology
DX: H25.9 Unspecified age-related cataract (principal); I48.91 Unspecified atrial fibrillation; I25.10 Atherosclerotic heart disease of native coronary artery without angina pectoris; E10.9 Type 1 diabetes mellitus without complications; Z79.4 Long term (current) use of insulin; K57.32 Diverticulitis of large intestine without perforation or abscess without bleeding; Z88.1 Allergy status to other antibiotic agents; Z79.82 Long term (current) use of aspirin; Z79.01 Long term (current) use of anticoagulants; Z79.899 Other long term (current) drug therapy; Z87.891 Personal history of nicotine dependence
CPT/HCPCS: 66984; J2250; J2280; J3010; J3300; V2632

== ENCOUNTER → 2017-01-10 | Day surgery (SDC) | payer MEDICARE, OTHER ==
[~2017-01-10] VITALS: Ht 175.3 cm; Wt 73.9 kg
[~2017-01-10] MED LIST changes: -CYCLOPENTOLATE 2% OPHTH SOLN As Ordered ONE; +CYCLOPENTOLATE 2% OPHTH SOLN OD ONE; -D5W/0.2% SODIUM CHLORIDE 250 ML IV SCH; +KETOROLAC 0.5% OPHTH SOLN OD ONE; -KETOROLAC 0.5% OPHTH SOLN OS ONE; +LR 1,000 ML IV SCH; -OFLOXACIN 0.3 % (OCUFLOX) OPTH SOL 5ML As Ordered ONE; +OFLOXACIN 0.3 % (OCUFLOX) OPTH SOL 5ML OD ONE; +ONDANSETRON 4MG/2ML VIAL (J2405) IV PRN; -PHENYLEPHRINE 2.5% OPHTH SOL 2ML As Ordered ONE; +PHENYLEPHRINE 2.5% OPHTH SOL 2ML OD ONE; +PROPARACAINE 0.5% OPHTH SOL 15ML OD PRN; -PROPARACAINE 0.5% OPHTH SOL 15ML OS PRN; -TROPICAMIDE 1% OPHTH SOLN 2 ML As Ordered ONE; +TROPICAMIDE 1% OPHTH SOLN 2 ML OD ONE
[2017-01-10] MEDS: D5W/0.2% SODIUM CHLORIDE 250 ML IV ONE ×2 (11:15→11:30)
[2017-01-10 13:58] VITALS: BP 170/80
--- NOTE | 2017-01-11 07:03 | RO ---
DATE OF PROCEDURE: 01/10/2017 PREPROCEDURE DIAGNOSIS: Cataract of left eye. POSTPROCEDURE DIAGNOSIS: Cataract of left eye. PROCEDURE: Femtosecond laser and phacoemulsification of the intraocular lens with lens implantation left eye. Intraocular lens power used was PCB00, 17.5 diopter. SURGEON: Silva Christie MD FIELD SUPPORT TECHNICIAN: None. ANESTHESIA: Local IV standby. FINDINGS: Cataract of left eye. COMPLICATIONS: None. DESCRIPTION OF PROCEDURE: The patient was brought to the operating room and laid in supine position. A lid speculum was placed, and patient was brought under the femtosecond laser. After the satisfactory placement of the patient interface, primary incision, secondary incision, and arcuate incisions with lens fragmentation was done without any complication per plan. The patients interface was then removed and lid speculum removed. Patient was placed under the microscope. The eye was prepped and draped in a sterile fashion for ophthalmic surgery. Lid speculum was placed. The secondary incision was opened, and EndoCoat was injected into the anterior chamber. The temporal clear corneal incision was then opened and capsulorrhexis removed, followed by hydrodissection. This was followed by phacoemulsification of the lens within the capsular bag. Cortical material was then aspirated, and Healon was injected into the capsular bag. Intraocular lens was then placed. Excess Healon was aspirated. Wound was hydrated. The lid speculum was removed, and patient was returned to the recovery room in stable condition. At the time of the subtenon injections of Kenalog, a subconjunctival hematoma was noted as the patient was on Coumadin.
== END | disposition home or self-care (01) ==
LOC: M SDC 10:59
PROVIDERS: ATTEND Ophthalmology
DX: H26.9 Unspecified cataract (principal); I48.91 Unspecified atrial fibrillation; I10 Essential (primary) hypertension; I25.10 Atherosclerotic heart disease of native coronary artery without angina pectoris; Z79.4 Long term (current) use of insulin; E10.9 Type 1 diabetes mellitus without complications; Z88.1 Allergy status to other antibiotic agents; Z79.01 Long term (current) use of anticoagulants; K57.32 Diverticulitis of large intestine without perforation or abscess without bleeding; J45.909 Unspecified asthma, uncomplicated; Z79.899 Other long term (current) drug therapy; N40.0 Benign prostatic hyperplasia without lower urinary tract symptoms; Z79.82 Long term (current) use of aspirin; Z95.1 Presence of aortocoronary bypass graft; Z87.891 Personal history of nicotine dependence
CPT/HCPCS: 66984; J2250; J2280; J3010; J3300; V2632

== ENCOUNTER → 2018-07-02 | Outpatient (REF) | payer MEDICARE, OTHER ==
[2018-07-03 14:10] LABS: C-PEPTIDE < 0.1 ng/mL (1.1-4.4)
== END ==
LOC: M LAB REF 13:25
DX: E10.649 Type 1 diabetes mellitus with hypoglycemia without coma (principal)
CPT/HCPCS: 84681

== ENCOUNTER → 2019-01-02 | Outpatient (REF) | payer MEDICARE, OTHER ==
[~2019-01-02] MED LIST changes: -ACETAMINOPHEN 325 MG TAB PO PRN; -ATOR40TA PO; +ATOR40TA75 PO; -AcetaZOLAMIDE 500 MG ER CAP PO ONE; -BSS with VANC/TOB/EPI for EYE CASES IR ONE; -COLA100C3 PO; +COLA100C5 PO; -CYCLOPENTOLATE 2% OPHTH SOLN OD ONE; +FLOM0.4C39 PO; -FLOM5CAP PO; -HEALON DUET (HEALON 10MG/ML 0.55ML & HEALON ENDOCOAT 30MG/ML 0.85ML) As Ordered ONE; +KEFL500C17 PO; -KEFL500C7 PO; -KETOROLAC 0.5% OPHTH SOLN OD ONE; -LASI40TA PO; +LASI40TA9 PO; -LIDOCAINE 1% SDV 5 ML VIAL As Ordered ONE; -LIDOCAINE 4% INJ 5 ML AMP OU ONE; -LR 1,000 ML IV SCH; +METO1TAB32 PO; -METO25TA74 PO; -MIDAZOLAM INJ 2 MG/2 ML VIAL (J2250) As Ordered ONE; -MOXIFLOXACIN IN BSS 0.25MG/0.25ML INTRACAMERAL INJ (OR EYE ONLY)(J2280) As Ordered ONE; -OFLOXACIN 0.3 % (OCUFLOX) OPTH SOL 5ML OD ONE; -ONDANSETRON 4MG/2ML VIAL (J2405) IV PRN; -PHENYLEPHRINE 2.5% OPHTH SOL 2ML OD ONE; -POVIDONE-IODINE 5% OPHTH PREP SOL 30ML As Ordered ONE; -PROPARACAINE 0.5% OPHTH SOL 15ML OD PRN; -TRIAMCINOLONE PRES FR 40 MG/ML 1ML(TRIESENCE)(OR EYE ONLY)(J3300 PER 1MG) As Ordered ONE; -TRIMETHOBENZAMIDE 300 MG CAP PO PRN; -TROPICAMIDE 1% OPHTH SOLN 2 ML OD ONE; -fentaNYL 100 MCG/2 ML INJECTION (J3010) As Ordered ONE
[2019-01-03 18:27] LABS: PERCENT SATURATION 24.3 % (19.7-50.0)
[2019-01-03 19:13] LABS: FOLATE 7.4 NG/ML
== END ==
LOC: M LAB REF 16:27
PROVIDERS: ATTEND Internal Medicine
DX: D64.9 Anemia, unspecified (principal)

== ENCOUNTER 2020-04-19 14:00 | Inpatient (IN) | payer MEDICARE, OTHER ==
[~2020-04-19 14:00] MED LIST changes: -COUM7.5T PO; +COUM7.5T6 PO; +CYAN100049 PO; +HumuLIN R (REGULAR) INSULIN (NovoLIN R) **100U/ML** PER UNIT ONE; +INSULIN REGULAR 100UNITS IN 0.9% SODIUM CHLORIDE 100ML IVBAG ONE; +LISI10TA15 PO; -LISI10TA2 PO; +ONDANSETRON 4MG/2ML VIAL As Ordered ONE; +ONDANSETRON 4MG/2ML VIAL ONE; -VITA10002 PO
[2020-04-19] MEDS ORDERED: INSULIN REGULAR 100UNITS IN 0.9% SODIUM CHLORIDE 100ML IVBAG As Ordered ONE (14:56)
[2020-04-19] MEDS ORDERED: HumuLIN R (REGULAR) INSULIN (NovoLIN R) **100U/ML** PER UNIT As Ordered ONE (14:56)
[2020-04-19] MEDS ORDERED: WARFARIN SOD 7.5MG TAB ONE (22:54)
[2020-04-19] MEDS ORDERED: DOCUSATE SODIUM 100 MG CAP ONE (22:54)
[2020-04-20] MEDS ORDERED: KCL 40MEQ IN 0.9%NACL 1000ML ONE ×2 (00:13→04:43)
[2020-04-20] MEDS ORDERED: ASPIRIN 81 MG CHEW TABLET ONE (02:54)
[2020-04-20] MEDS ORDERED: CLOPIDOGREL 300 MG TAB (PLAVIX) ONE (02:54)
--- NOTE | 2020-05-25 09:47 | ECGEPIP ---
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
--- NOTE | 2020-05-28 12:00 | ECGEPIP ---
[facility] Test Date: 2020-04-20 Pat Name: TAMARA MICHAEL Department: Room: [place] [address] Gender: Male [employer] Director: : 1935 Requested By: MARIEL HERMAN Order Number: [id number] Reading MD: Vicki Whitten Measurements Intervals [place] Rate: 78 P: -16 IA: 155 QRS: -3 QRSD: 94 T: 25 QT: 346 QTc: 395 Interpretive Statements SINUS RHYTHM NORMAL ECG NO PRIOR SEE SCANNED DOWNTIME REPORT
--- NOTE | 2020-06-04 13:41 | REP ---
CHEST X-RAY: TWO VIEWS COMPARISON: 07/28/2008. HISTORY: Rule out pneumonia. FINDINGS: Patient is status post prior median sternotomy as before. The lungs are well- inflated and free of infiltrate. Heart is mildly enlarged, unchanged. Pulmonary vasculature is cephalized. No evidence of pleural effusion or pulmonary edema. There are advanced arthritic changes in the shoulders. IMPRESSION: Prior sternotomy. Mild cardiac prominence and cephalization. No infiltrate seen. MTDD
[2020-06-04 22:00] LABS: INR 2.92; PARTIAL THROMBOPLASTIN TIME 41.2 SECONDS (24.2-38.5); PROTHROMBIN TIME 31.2 SECONDS (12.5-14.3)
[2020-06-04 22:01] LABS: BASO % 0.1 % (0.0-1.0); HEMATOCRIT 32.2 % (42.0-52.0); HEMOGLOBIN 9.4 g/dl (13.5-17.5); LYMPH # 0.4 10^3/uL (1.5-5.0); LYMPH % 2.6 % (24.0-44.0); MEAN CORPUSCULAR HEMOGLOBIN 30.7 pg (27.0-33.0); MEAN CORPUSCULAR HGB CONC 29.2 g/dl (32.0-36.5); MEAN CORPUSCULAR VOLUME 105.2 fl (80.0-96.0); MONO # 0.7 10^3/uL (0.0-0.8); MONO % 4.9 % (0.0-5.0); NEUTROPHILS # 13.6 10^3/uL (1.5-8.5); NEUTROPHILS % 91.9 % (36.0-66.0); PLATELET COUNT, AUTOMATED 174 10^3/uL (150-450); RED BLOOD COUNT 3.06 10^6/uL (4.30-6.10); WHITE BLOOD COUNT 14.8 10^3/uL (4.0-10.0)
[2020-06-04 22:03] LABS: APPEARANCE, URINE CLEAR (CLEAR); BACTERIA, URINE AUTO NEGATIVE (NEGATIVE); BILIRUBIN, URINE AUTO NEGATIVE (NEGATIVE); BLOOD, URINE BLOOD NEGATIVE (NEGATIVE); COLOR, URINE STRAW (YELLOW); GLUCOSE, URINE (UA) AUTO 3+ mg/dL (NEGATIVE); KETONE, URINE AUTO 1+ mg/dL (NEGATIVE); LEUKOCYTE ESTERASE, URINE AUTO NEGATIVE (NEGATIVE); NITRITE, URINE AUTO NEGATIVE (NEGATIVE); PROTEIN, URINE AUTO NEGATIVE (NEGATIVE); RBC, URINE AUTO 1 /HPF (0-3); SPECIFIC GRAVITY URINE AUTO 1.017 (1.002-1.035); SQUAMOUS EPITHELIAL CELL UR AU 0 /HPF (0-6); UROBILINOGEN, URINE AUTO 0.2 mg/dL (0.0-2.0); WBC, URINE AUTO 5 /HPF (0-3)
[2020-07-03 21:20] LABS: CALCIUM LEVEL 8.7 MG/DL (8.8-10.2); CREATININE FOR GFR 2.18 MG/DL (0.70-1.30); GLOMERULAR FILTRATION RATE 30.9 (>35); POTASSIUM SERUM 4.1 MEQ/L (3.5-5.1)
[2020-07-03 21:21] LABS: VENOUS BASE EXCESS -8.9 (-2.0-2.0); VENOUS HCO3 16.2 MEQ/L (23.0-27.0); VENOUS O2 SATURATION 99.4 % (60.0-80.0); VENOUS PARTIAL PRESSURE CO2 32.4 mmHg (38.0-50.0); VENOUS PARTIAL PRESSURE O2 231.2 mmHg (30.0-50.0); VENOUS PH 7.318 UNITS (7.330-7.430); VENOUS TOTAL CO2 17.2 MEQ/L (24.0-28.0)
[2020-07-03 21:22] LABS: VENOUS BASE EXCESS -12.9 (-2.0-2.0); VENOUS HCO3 13.3 MEQ/L (23.0-27.0); VENOUS PARTIAL PRESSURE CO2 31.6 mmHg (38.0-50.0); VENOUS PARTIAL PRESSURE O2 97.2 mmHg (30.0-50.0); VENOUS PH 7.241 UNITS (7.330-7.430); VENOUS TOTAL CO2 14.2 MEQ/L (24.0-28.0)
[2020-07-03 21:23] LABS: CREATININE FOR GFR 2.05 MG/DL (0.70-1.30); GLOMERULAR FILTRATION RATE 33.2 (>35); POTASSIUM SERUM 5.4 MEQ/L (3.5-5.1); VENOUS O2 SATURATION 96.7 % (60.0-80.0)
[2020-07-03 21:24] LABS: ACETONE/KETONE 36.26 MG/DL (<2.81); ALBUMIN 3.6 GM/DL (3.2-5.2); BILIRUBIN,DIRECT 0.4 MG/DL (0.0-0.2); TOTAL PROTEIN 6.2 GM/DL (6.4-8.2); TROPONIN I 1.25 NG/ML (< 0.10)
[2020-07-13 04:00] LABS: ABG BASE EXCESS -7.7 (-2.0-2.0); ABG HCO3 17.2 MEQ/L (22.0-26.0); ABG MODE OF VENT R/A; ABG PARTIAL PRESSURE O2 209.5 mmHg (75.0-100.0); ABG TOTAL CO2 18.3 MEQ/L (23.0-31.0); ABG pH (ARTERIAL) 7.336 UNITS (7.350-7.450)
[2020-07-13 04:01] LABS: ABG O2 SATURATION 95.7 % (95.0-99.0); ABG STANDARD HCO3 18.2 MEQ/L (22.0-26.0)
[2020-07-13 04:12] LABS: CALCIUM LEVEL 8.6 MG/DL (8.8-10.2); CREATININE FOR GFR 1.93 MG/DL (0.70-1.30); GLOMERULAR FILTRATION RATE 35.6 (>35); POTASSIUM SERUM 3.7 MEQ/L (3.5-5.1)
[2020-07-13 13:23] LABS: CALCIUM LEVEL 8.3 MG/DL (8.8-10.2); CREATININE FOR GFR 1.82 MG/DL (0.70-1.30); GLOMERULAR FILTRATION RATE 38.1 (>35); POTASSIUM SERUM 4.3 MEQ/L (3.5-5.1)
[2020-07-13 14:08] LABS: ABG BASE EXCESS -4.3 (-2.0-2.0); ABG HCO3 20.4 MEQ/L (22.0-26.0); ABG MODE OF VENT R/A; ABG PARTIAL PRESSURE CO2 36.2 mmHg (35.0-45.0); ABG PARTIAL PRESSURE O2 100.4 mmHg (75.0-100.0); ABG TOTAL CO2 21.5 MEQ/L (23.0-31.0); ABG pH (ARTERIAL) 7.369 UNITS (7.350-7.450)
[2020-07-13 14:08] LABS: CALCIUM LEVEL 8.2 MG/DL (8.8-10.2); CREATININE FOR GFR 1.61 MG/DL (0.70-1.30); GLOMERULAR FILTRATION RATE 43.8 (>35); POTASSIUM SERUM 4.2 MEQ/L (3.5-5.1)
[2020-07-13 14:09] LABS: ABG O2 SATURATION 97.5 % (95.0-99.0); ABG STANDARD HCO3 20.9 MEQ/L (22.0-26.0)
== END 2020-04-20 03:00 | disposition home or self-care (01) | DRG 637 ==
LOC: M ED 14:00 → M ICU 20:55
PROVIDERS: ADMIT Internal Medicine; ATTEND Internal Medicine
DX: E11.10 Type 2 diabetes mellitus with ketoacidosis without coma (principal); I21.3 ST elevation (STEMI) myocardial infarction of unspecified site; N17.9 Acute kidney failure, unspecified; I10 Essential (primary) hypertension; I25.10 Atherosclerotic heart disease of native coronary artery without angina pectoris; I48.91 Unspecified atrial fibrillation; Z79.01 Long term (current) use of anticoagulants; F03.90 Unspecified dementia, unspecified severity, without behavioral disturbance, psychotic disturbance, mood disturbance, and anxiety

== ENCOUNTER → 2020-05-20 | Outpatient (REF) | payer MEDICARE, OTHER ==
[~2020-05-20] MED LIST changes: -HumuLIN R (REGULAR) INSULIN (NovoLIN R) **100U/ML** PER UNIT ONE; -INSULIN REGULAR 100UNITS IN 0.9% SODIUM CHLORIDE 100ML IVBAG ONE; -ONDANSETRON 4MG/2ML VIAL As Ordered ONE; -ONDANSETRON 4MG/2ML VIAL ONE
[2020-05-20 21:26] LABS: FOLATE 21.7 NG/ML
== END ==
LOC: M LAB REF 17:55
PROVIDERS: ATTEND Nurse Practitioner Adult Health
DX: R76.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 reaction to 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 (principal); D64.9 Anemia, unspecified

== ENCOUNTER 2020-08-09 17:47 | Emergency (ER) | payer MEDICARE, OTHER ==
[~2020-08-09] VITALS: Ht 172.7 cm; Wt 69.9 kg
[2020-08-09 17:48] VITALS: BP 138/64
[2020-08-09] MEDS ORDERED: NS 1,000 ML IV ONE (18:30)
== END 2020-08-09 18:20 | disposition left against medical advice (07) ==
LOC: M ED 17:47
DX: Z53.21 Procedure and treatment not carried out due to patient leaving prior to being seen by health care provider (principal)

== ENCOUNTER → 2020-08-10 | Outpatient (REF) | payer MEDICARE, OTHER ==
[2020-08-10 13:14] LABS: PROTHROMBIN TIME 49.7 SECONDS (12.5-14.3)
[2020-08-10 13:20] LABS: INR 5.28
== END ==
LOC: M LAB REF 12:25
PROVIDERS: ATTEND Internal Medicine
DX: I48.0 Paroxysmal atrial fibrillation (principal); Z79.01 Long term (current) use of anticoagulants

== ENCOUNTER 2020-09-22 14:05 | Inpatient (IN) | payer MEDICARE, OTHER ==
[~2020-09-22] VITALS: Ht 165.1 cm; Wt 71.8 kg
[2020-09-22] MEDS ORDERED: WARF-22 PO (14:34)
[2020-09-22] MEDS ORDERED: WARF-21 PO (14:34)
[2020-09-22] MEDS ORDERED: LISI10TA4 PO ×2 (14:34→17:39)
[2020-09-22 15:23] LABS: BASO % 0.2 % (0.0-1.0); EOS % 0.1 % (0.0-3.0); HEMATOCRIT 32.3 % (42.0-52.0); HEMOGLOBIN 9.5 g/dl (13.5-17.5); LYMPH # 0.5 10^3/uL (1.5-5.0); LYMPH % 2.9 % (24.0-44.0); MEAN CORPUSCULAR HGB CONC 29.4 g/dl (32.0-36.5); MEAN CORPUSCULAR VOLUME 101.9 fl (80.0-96.0); MONO % 5.7 % (0.0-5.0); NEUTROPHILS # 15.6 10^3/uL (1.5-8.5); NEUTROPHILS % 90.3 % (36.0-66.0); PLATELET COUNT, AUTOMATED 187 10^3/uL (150-450); RED BLOOD COUNT 3.17 10^6/uL (4.30-6.10); VENOUS BASE EXCESS -12.1 (-2.0-2.0); VENOUS HCO3 13.5 MEQ/L (23.0-27.0); VENOUS O2 SATURATION 96.6 % (60.0-80.0); VENOUS PARTIAL PRESSURE CO2 29.8 mmHg (38.0-50.0); VENOUS PH 7.273 UNITS (7.330-7.430); VENOUS STANDARD HCO3 14.9 MEQ/L; VENOUS TOTAL CO2 14.4 MEQ/L (24.0-28.0); WHITE BLOOD COUNT 17.3 10^3/uL (4.0-10.0)
[2020-09-22 15:55] LABS: HEMOGLOBIN A1c 7.8 %
[2020-09-22] MEDS ORDERED: NS 1,000 ML IV ONE ×2 (16:00→18:00)
--- NOTE | 2020-09-22 16:10 | REP ---
INDICATION: uncontrolled blood sugar. COMPARISON: 04/19/2020. TECHNIQUE: SINGLE PORTABLE AP VIEW OF THE CHEST WAS PERFORMED. FINDINGS: THERE IS NO ACUTE INFILTRATE OR PULMONARY EDEMA. LUNGS ARE CLEAR. HEART IS NOT SIGNIFICANTLY ENLARGED. MEDIASTINAL SILHOUETTE IS UNREMARKABLE. THE VISUALIZED OSSEOUS STRUCTURES ARE INTACT.Multiple sternal wires and mediastinal clips are present. IMPRESSION: NO ACUTE PULMONARY DISEASE. <Electronically signed by Eddie Aggarwal > 09/22/20 [id number]
[2020-09-22 16:12] LABS: ACETONE/KETONE 29.64 MG/DL (<2.81); ALBUMIN 3.9 GM/DL (3.2-5.2); BILIRUBIN,DIRECT 0.5 MG/DL (0.0-0.2); BILIRUBIN,TOTAL 1.2 MG/DL (0.2-1.0); CALCIUM LEVEL 9.3 MG/DL (8.8-10.2); CREATININE FOR GFR 1.99 MG/DL (0.70-1.30); GLOMERULAR FILTRATION RATE 34.3 (>35); POTASSIUM SERUM 4.8 MEQ/L (3.5-5.1); TOTAL PROTEIN 6.6 GM/DL (6.4-8.2)
[2020-09-22] MEDS ORDERED: INSULIN REGULAR IN 0.9 % NACL 100 UNIT in IV 1 EA IV SCH ×2 (16:41)
[2020-09-22] MEDS ORDERED: INSULIN IV RATE CHANGE DOCUMENTATION ML/HR XX SCH ×2 (16:45→17:30)
[2020-09-22] MEDS ORDERED: HumuLIN R (REGULAR) INSULIN (NovoLIN R) **100U/ML** PER UNIT IV ONE (16:45)
--- OUTSIDE RECORDS SUMMARY | 2020-09-22 17:27 | CCD | Continuity of Care Document ---
Author Author Daniel Armstrong MD Organization Unknown Address [address] [facility] [address] [place] [address] Phone [phone] Care Team Providers Care Installation Drafter Name Role Phone Sharmila Bush MD AUTM [phone] Stanislaw Armstrong JR, MD AUTM Unavailable Sharon Estrada MD AUTM [phone] [facility] AUTM [phone] [facility] AUTM [phone] Peter Mai MD AUTM Unavailable Problems Active Problems Provider Date Coronary arteriosclerosis Stanislaw Armstrong MD Onset: 09/19 Benign essential hypertension Stanislaw Armstrong MD Onset: 0 09/19/2010 Disorder of eye due to type 2 diabetes mellitus Stanislaw mirza MD Onset: 09/19/2010 Nonproliferative retinopathy due to diabetes mellitus Kp jean marie Armstrong MD Onset: 09/19/2010 Pure hypercholesterolemia Stanislaw Armstrong MD Onset: 09/19 Lipoprotein deficiency disorder Stanislaw Armstrong MD Onset: 09/19/2010 Cobalamin deficiency Stanislaw Armstrong MD Onset: 09/19/2010 Atherosclerotic heart disease of [place] coronary arter y without angina pectoris Stanislaw Armstrong MD Onset: 05/25/2015 Essential hypertension Stanislaw Armstrong MD Onset: 05/25/20 15 Paroxysmal atrial fibrillation Stanislaw Armstrong MD Onset: 12/21/2016 Social History Type Date Description Comments Sex Unknown ETOH Use Currently consumes alcohol 1 GLA SSES OF WINE three times weekly Tobacco Use Start: Unknown End: Unknown Patient is a former smoker 20 PACK./YEAR HISTORY Quit 1973 Allergies, Adverse Reactions, Alerts Active Allergies Reaction Severity Comments Date Codeine nausea per pt 12/06/11 bls Cipro 09/09/2014 Inactive Allergies NKDA 09/19/2010 Medications Active Medications SIG Qnty Indications Ordering Provide r Date Ferrous Sulfate 325(65Fe) mg Table ts 1 by mouth every other day 30tabs Cande Nowak, SALES SUPERVISOR 0 Hydrochlorothiazide 12.5mg Capsule s 1 by mouth every day 90caps Stanislaw Armstrong MD 04/29/2020 Lisinopril 10mg Tablets 1 by mouth every day in the morning 90tabs Stanislaw Armstrong MD 020 Toprol XL 25mg Tablets ER 24HR 1 by mouth every day 90tabs Stanislaw Armstrong MD 08/08/2018 Vitamin D3 Adult Gummies 1000Unit Chewtabs 1 by mouth every [id number] 180units Stanislaw izquierdo MD 12/28/2017 Proscar 5mg Tablets 1 by mouth every day 90tabs Stanislaw Armstrong MD 10/19/2017 Vitamin B12 1000mcg Tablets ER 1 by mouth every day 100tabs Stanislaw Armstrong MD 09/24/2017 Novolog 100Unit/ML Solution as directed in pump 60ml Stanislaw Armstrong MD 07/19/2016 Calcium 500 + D [id number] Tab lets 1 by mouth twice a day 180tabs Stanislaw Armstrong MD 06/02 Flonase Allergy Relief 50mcg/Act Suspension 2 sprays per nostril every in the morning as needed for allergie s 29.7ml Stanislwa Armstrong MD 07/12/2015 Aspirin Ec 81mg Tablets DR 1 by mouth every day 90tabs Stanislaw Armstrong MD 03/23/2015 Nitrostat 0.4mg Tablets Sub one under tongue every 5 minutes x 3 as needed for chest discomfort 25tabs Stanislaw Armstrong MD 05/19/2014 Docusate Sodium 100mg Capsules 2 by mouth daily 180caps Stanislaw Armstrong MD 04/27/2014 Flomax 0.4mg Capsules 2 by mouth every day 180caps Stanislaw Armstrong MD 04/22/2014 Atorvastatin Calcium 40mg Tablets 1 by mouth every day 90tabs Stanislaw Armstrong MD 12/02/2013 Lisinopril 20mg Tablets 1 by mouth every evening only take 1/2 if systolic less than 110 90tabs Stanislaw Armstrong MD 10/10/2011 Coumadin 5mg Tablets 1 1/2 by mouth as directed 150tabs Stanislaw Armstrong MD 09/18/2008 Multi-Vitamins Tablets 1 by mouth daily 90tabs Stanislaw Armstrong MD 02/10/1999 Medications Administered in Office Medication SIG Qnty Indications Ordering Provider Date Administration Of Flu Vaccine Inj charity Nowak [facility] 06/03/2020 Administration Of Flu Vaccine Inj charity Armstrong MD 07/02/2019 Administration Of Flu Vaccine Inj charity Armstrong MD 06/28/2018 Administration Of Flu Vaccine Inj charity Armstrong MD 06/12/2017 Administration Of Flu Vaccine Inj charity Armstrong MD 06/22/2016 Administration Of Flu Vaccine Inj charity Armstrong MD 06/24/2015 Administration Of Flu Vaccine Inj charity Armstrong MD 07/02/2014 Administration Of Flu Vaccine Inj charity Armstrong MD 05/30/2012 Administration Of Flu Vaccine Inj charity Armstrong MD 06/20/2011 Administration Of Flu Vaccine Inj charity Armstrong MD 06/16/2010 Administration Of Flu Vaccine Inj charity Armstrong MD 06/17/2009 Administration Of Flu Vaccine Inj daion Stanislaw Armstrong MD 06/09/2008 Administration Of Flu Vaccine Inj charity Armstrong MD 06/27/2007 Administration Of Zostavax Injection Stanislaw Armstrong MD 03/01/2007 Administration Of Flu Vaccine Inj charity Armstrong MD 08/17/2006 Administration Of Flu Vaccine Inj ection Caned Nowak [facility] 06/13/2005 Administration Of Flu Vaccine Inj charity Armstrong MD 07/01/2004 Administration Of Flu Vaccine Inj charity Armstrong MD 06/22/2003 Immunizations CPT Code Status Date Vaccine Reaction Lot # [id number] Given 06/03/2020 Influenza Vaccin e Quadrivalent Preser/Antibiotic Free Im Use [id number] 47175 Given 05/18/2020 PPD 05-20-20 negative omm BW RN [id number] 13858 Given 07/02/2019 Influenza Vaccin e Quadrivalent Preser/Antibiotic Free Im Use [id number] 67719 Given 06/28/2018 Influenza Virus Vaccine, Quadrivalent (Cciiv4), Derived From 4 Given 04/19/2018 Shingrix 85940 Given 01/14/2018 Shingrix 36847 Given 12/28/2017 Pneumovax 23 [id number] 73527 Given 06/12/2017 Influenza Vaccin e Quadrivalent Preser/Antibiotic Free Im Use [id number] U-Td Given 12/06/2016 Td(Adult)(Tetanus, Diphtheria) unspe cified U-Td Given 12/06/2016 Td(Adult)(Tetanus, Diphtheria) unspe cified Q2037 Given 06/22/2016 Fluvirin Virus Vaccine 16 [id number] Q2037 Given 06/24/2015 Fluvirin Virus Vaccine 15 95569 77995 Given 11/24/2014 Prevnar 13 [id number] Q2037 Given 07/02/2014 Fluvirin Virus Vaccine 14 88838 Q2037 Given 05/30/2012 Fluvirin Virus Vaccine Q2037 Given 06/20/2011 Fluvirin Virus Vaccine Q2037 Given 06/20/2011 Fluvirin Virus Vaccine 86080 Given 06/16/2010 Influenza Virus Vaccine 52184 Given 06/17/2009 Influenza Virus Vaccine 56031 Given 06/09/2008 Influenza Virus Vaccine 23286 Given 06/27/2007 Influenza Virus Vaccine 13063 Given 03/01/2007 Zoster Vaccine 21318 Given 08/17/2006 Influenza Virus Vaccine 14960 Given 06/13/2005 Influenza Virus Vaccine 15485 Given 07/01/2004 Influenza Virus Vaccine 75571 Given 06/22/2003 Influenza Virus Vaccine 66695 Given 06/16/1999 Influenza Virus Vaccine 69279 Given 06/02/1994 Influenza Virus Vaccine Vital Signs Date Vital Result Comment 07/07/2020 10:25am BP Systolic 138 mmHg BP Diastolic 50 mmHg Height 68.25 inches 5'8.25" Weight 155.12 lb BMI (Body Mass Index) 23.4 kg/m2 06/03/2020 5:37am BP Systolic 144 mmHg BP Diastolic 62 mmHg Heart Rate 68 /min Height 68.25 inches 5'8.25" Weight 150.00 lb BMI (Body Mass Index) 22.6 kg/m2 Results Test Acquired Date Facility Test Result H/L Range Note Microalbumin/Creatinine Urine 07/07/2020 [facility], Erosion Control Coordinator: [place] [address] [phone] Microalbumin Urine 2.6 mg/L 1.3 - 20.0 Urine Creatinine 60.6 mg/dL 30.0 - 125.0 Microalb/Creat Ratio 4.3 ug/mg 0.0 - 30.0 Complete Blood Count 07/07/2020 [facility] Erosion Control Coordinator: Dr Stanis[place] [address] [phone] WBC 7.7 x10*3/UL 4.1 - 10.9 RBC 3.63 x10*6/UL Low 4.20 - 6.30 Hemoglobin 11.1 g/dL Low 12.0 - 18.0 Hematocrit 32.5 % Low 37.0 - 51.0 MCV 89.5 fL 80.0 - 97.0 MCH 30.7 pg 26.0 - 32.0 MCHC 34.3 g/dL 31.0 - 38.0 RDW 13.9 % High 11.6 - 13.7 PLT 197 x10*3/UL 140 - 440 MPV 9.5 FL 7.8 - 11.0 Lymph % 9.9 % Low 10.0 - 58.5 Mid % 3.9 % 1.7 - 9.3 Neut % 86.2 % 37.0 - 92.0 Lymph # 0.7 x10*3/UL 0.6 - 4.1 Mid # 0.4 x10*3/UL 0.1 - 0.6 Neut # 6.6 x10*3/UL 2.0 - 7.8 Comprehensive Chem Profile 07/07/2020 [facility], Erosion Control Coordinator: Dr Stanislaw [place] [address] [phone] Glucose 198 mg/dL High 74 - 99 1 BUN 22 mg/dL High 7 - 18 Creatinine 1.2 mg/dL 0.6 - 1.3 Sodium 138 mEq/L 136 - 145 Potassium 4.1 mEq/L 3.5 - 5.1 Chloride 102 mEq/L 98 - 107 Carbon Dioxide 28 mEq/L 21 - 32 Calcium 8.9 mg/dL 8.5 - 10.1 Alk. Phosphatase 59 mg/dL 46 - 116 Total Bilirubin 0.3 mg/dL 0.2 - 1.0 Ast (Sgot) 20 U/L 15 - 37 Alt (SGPT) 23 U/L 12 - 78 Albumin 3.5 g/dL 3.4 - 5.0 Total Protein 6.4 g/dL 6.4 - 8.2 A/G Ratio 1.21 CALC 1.00 - 1.90 GFR 58 mL/min Low >60 GFR >= 60 mL/min >60 2 Lipid Profile 07/07/2020 [facility] Erosion Control Coordinator: [place] [address] [phone] Cholesterol 95 mg/dL Low 131 - 200 Triglycerides 44 mg/dL 30 - 150 HDL Cholesterol 48 mg/dL 35 - 60 LDL (Calculated) 38 CALC Low 50 - 159 Quanteferon TB Gold Test 05/20/2020 [facility] [address] [place] [address] [phone] QuantiFERON Criteria (SEE NOTE) Normal . 3 QuantiFERON TB1 Ag Value 0.04 IU/mL Normal . QuantiFERON TB2 Ag Value 0.05 IU/mL Normal . QuantiFERON Nil Value 0.02 IU/mL Normal . QuantiFERON Mitogen Value 8.96 IU/mL Normal . QuantiFERON-TB Gold Plus Negative Normal Negative 4 Vitamin B12 & Folate 05/20/2020 [facility] [address] [place] [address] [phone] Vitamin B12 Level 734 pg/mL Normal 5 Folate 21.7 NG/ML Normal 6 Basic Metabolic Panel 05/20/2020 [facility] Erosion Control Coordinator: [place] [address] [phone] Glucose 176 mg/dL High 74 - 99 7 BUN 24 mg/dL High 7 - 18 Creatinine 1.0 mg/dL 0.6 - 1.3 Sodium 139 mEq/L 136 - 145 Potassium 4.2 mEq/L 3.5 - 5.1 Chloride 104 mEq/L 98 - 107 Carbon Dioxide 26 mEq/L 21 - 32 Calcium 8.6 mg/dL 8.5 - 10.1 GFR >= 60 mL/min >60 GFR >= 60 mL/min >60 8 Complete Blood Count 05/20/2020 [facility] Erosion Control Coordinator: [place] [address] [phone] WBC 6.3 x10*3/UL 4.1 - 10.9 RBC 3.40 x10*6/UL Low 4.20 - 6.30 Hemoglobin 10.4 g/dL Low 12.0 - 18.0 9 Hematocrit 30.5 % Low 37.0 - 51.0 MCV 89.5 fL 80.0 - 97.0 MCH 30.6 pg 26.0 - 32.0 MCHC 34.1 g/dL 31.0 - 38.0 RDW 13.7 % 11.6 - 13.7 PLT 154 x10*3/UL 140 - 440 MPV 9.6 FL 7.8 - 11.0 Lymph % 16.7 % 10.0 - 58.5 Mid % 5.5 % 1.7 - 9.3 Neut % 77.8 % 37.0 - 92.0 Lymph # 1.0 x10*3/UL 0.6 - 4.1 Mid # 0.4 x10*3/UL 0.1 - 0.6 Neut # 4.9 x10*3/UL 2.0 - 7.8 Laboratory test finding 05/20/2020 [facility] Erosion Control Coordinator: [place] [address] [phone] Thyroid Stimulating Hormone 3.04 uIU/mL 0.3 6 - 3.74 Complete Blood Count 02/12/2020 [facility] Erosion Control Coordinator: [place] [address] [phone] WBC 7.4 x10*3/UL 4.1 - 10.9 RBC 3.67 x10*6/UL Low 4.20 - 6.30 Hemoglobin 11.2 g/dL Low 12.0 - 18.0 Hematocrit 33.4 % Low 37.0 - 51.0 MCV 91.0 fL 80.0 - 97.0 MCH 30.6 pg 26.0 - 32.0 MCHC 33.6 g/dL 31.0 - 38.0 RDW 13.9 % High 11.6 - 13.7 PLT 190 x10*3/UL 140 - 440 MPV 9.5 FL 7.8 - 11.0 Lymph % 10.4 % 10.0 - 58.5 Mid % 5.3 % 1.7 - 9.3 Neut % 84.3 % 37.0 - 92.0 Lymph # 0.7 x10*3/UL 0.6 - 4.1 Mid # 0.5 x10*3/UL 0.1 - 0.6 Neut # 6.2 x10*3/UL 2.0 - 7.8 A1c 02/12/2020 [facility] Erosion Control Coordinator: Dr Stanislaw Armstrong [place], [place] [id number] [phone] Hba1c 7.9 g/dL High 4.8 - 5.6 10 Est Avg Glucose 180 mg/dL High 60 - 110 Comprehensive Chem Profile 02/12/2020 [facility], Erosion Control Coordinator: Dr Stanislaw Armstrong [place], [place] [id number] [phone] Glucose 277 mg/dL High 74 - 99 11 BUN 23 mg/dL High 7 - 18 Creatinine 1.1 mg/dL 0.6 - 1.3 Sodium 136 mEq/L 136 - 145 Potassium 4.7 mEq/L 3.5 - 5.1 Chloride 102 mEq/L 98 - 107 Carbon Dioxide 26 mEq/L 21 - 32 Calcium 8.6 mg/dL 8.5 - 10.1 Alk. Phosphatase 71 mg/dL 46 - 116 Total Bilirubin 0.6 mg/dL 0.2 - 1.0 Ast (Sgot) 26 U/L 15 - 37 Alt (SGPT) 30 U/L 12 - 78 Albumin 3.3 g/dL Low 3.4 - 5.0 12 Total Protein 6.1 g/dL Low 6.4 - 8.2 A/G Ratio 1.18 CALC 1.00 - 1.90 GFR >= 60 mL/min >60 GFR >= 60 mL/min >60 13 Lipid Profile 02/12/2020 [facility] Erosion Control Coordinator: [place] [address] [phone] Cholesterol 84 mg/dL Low 131 - 200 Triglycerides 47 mg/dL 30 - 150 HDL Cholesterol 41 mg/dL 35 - 60 LDL (Calculated) 34 CALC Low 50 - 159 Complete Blood Count 01/08/2020 [facility] Erosion Control Coordinator: Dr Stanislaw [place] [address] [phone] WBC 6.7 x10*3/UL 4.1 - 10.9 RBC 3.69 x10*6/UL Low 4.20 - 6.30 Hemoglobin 11.4 g/dL Low 12.0 - 18.0 14 Hematocrit 33.1 % Low 37.0 - 51.0 MCV 89.7 fL 80.0 - 97.0 MCH 30.8 pg 26.0 - 32.0 MCHC 34.4 g/dL 31.0 - 38.0 RDW 13.7 % 11.6 - 13.7 PLT 151 x10*3/UL 140 - 440 MPV 9.5 FL 7.8 - 11.0 Lymph % 12.9 % 10.0 - 58.5 Mid % 5.6 % 1.7 - 9.3 Neut % 81.5 % 37.0 - 92.0 Lymph # 0.8 x10*3/UL 0.6 - 4.1 Mid # 0.4 x10*3/UL 0.1 - 0.6 Neut # 5.5 x10*3/UL 2.0 - 7.8 Basic Metabolic Panel 01/08/2020 [facility] Erosion Control Coordinator: Dr Stanislaw [place] [address] [phone] Glucose 188 mg/dL High 74 - 99 15 BUN 27 mg/dL High 7 - 18 Creatinine 1.2 mg/dL 0.6 - 1.3 Sodium 140 mEq/L 136 - 145 Potassium 4.3 mEq/L 3.5 - 5.1 Chloride 104 mEq/L 98 - 107 Carbon Dioxide 24 mEq/L 21 - 32 Calcium 8.6 mg/dL 8.5 - 10.1 GFR 58 mL/min Low >60 GFR >= 60 mL/min >60 16 1 100-125 mg/dL PRE-DIABET ES/FASTING >126 mg/dL DIABETES/FASTING 2 CHRONIC KIDNEY DISEASE STAGI NG PER NKF STAGE I & II GFR >= 60 NORMAL TO MILDLY DECREASED STAGE III GFR 30-59 MODERATELY DECREASED STAGE IV GFR 15-29 SEVERELY DECREASED STAGE V GFR <15 VERY LITTLE GFR LEFT ESRD GFR <15 ON AUTO TESTER 3 . The QuantiFERON-TB Gold Plus result is determined by subtracting the Nil value from either TB antigen (Ag) tube. The mitogen tube serves as a control for the test. 4 . The specimen received for QuantiFERON testing was incubated by the ordering institution. Specific procedures outlined in our Directory of Services and in the package insert for the QuantiFERON Gold (In Tube) test must be followed to enable for proper stimulation of cells for the production of interferon gamma. Performed at: - [facility] [address] [id number] Erosion Control Coordinator: Aarti Shearer MD, Phone: [phone] VITAMIN B12 NORMAL RANGE NORMAL 247 - 911 PG/ML INDETERMINATE 211 - 246 PG/ML DEFICIENT LESS THAN 211 PG/ML 6 FOLATE NORMAL RANGE NORMAL GREATER THAN 5.4 NG/ML INDETERMINATE 3.4-5.4 NG/ML DEFICIENT LESS THAN 3.4 NG/ML 7 100-125 mg/dL PRE-DIABET ES/FASTING >126 mg/dL DIABETES/FASTING 8 CHRONIC KIDNEY DISEASE STAGI NG PER NKF STAGE I & II GFR >= 60 NORMAL TO MILDLY DECREASED STAGE III GFR 30-59 MODERATELY DECREASED STAGE IV GFR 15-29 SEVERELY DECREASED STAGE V GFR <15 VERY LITTLE GFR LEFT ESRD GFR <15 ON AUTO TESTER 9 NOTE: RESULT VERIFIED. 10 Lab Result Notes: Pre-Diabetes 5.7 - 6.4 % Diabetes = or > 6.5% 11 100-125 mg/dL PRE-DIABET ES/FASTING >126 mg/dL DIABETES/FASTING 12 NOTE: RESULT VERIFIED. 13 CHRONIC KIDNEY DISEASE STAGI NG PER NKF STAGE I & II GFR >= 60 NORMAL TO MILDLY DECREASED STAGE III GFR 30-59 MODERATELY DECREASED STAGE IV GFR 15-29 SEVERELY DECREASED STAGE V GFR <15 VERY LITTLE GFR LEFT ESRD GFR <15 ON AUTO TESTER 14 NOTE: RESULT VERIFIED. 15 100-125 mg/dL PRE-DIABET ES/FASTING >126 mg/dL DIABETES/FASTING 16 CHRONIC KIDNEY DISEASE STAGI NG PER NKF STAGE I & II GFR >= 60 NORMAL TO MILDLY DECREASED STAGE III GFR 30-59 MODERATELY DECREASED STAGE IV GFR 15-29 SEVERELY DECREASED STAGE V GFR <15 VERY LITTLE GFR LEFT ESRD GFR <15 ON AUTO TESTER Procedures Date Code Description Status 03/11/2020 032643287 Diabetic Retinal Eye Exam Comple brad 01/05/2020 [id number] Diabetic Retinal Eye Exam Comple brad 08/18/2019 [id number] Diabetic Retinal Eye Exam Comple brad 06/16/2019 705284673 Diabetic Retinal Eye Exam Comple brad 05/22/2018 730273563 Diabetic Retinal Eye Exam Comple brad 12/11/2017 350510066 Diabetic Retinal Eye Exam Comple brad 03/19/2017 075693523 Diabetic Retinal Eye Exam Comple brad 11/28/2016 [id number] Diabetic Retinal Eye Exam Comple brad 09/18/2016 645322325 Diabetic Retinal Eye Exam Comple brad 02/28/2016 858437706 Diabetic Retinal Eye Exam Comple brad 01/18/2016 133407551 Diabetic Retinal Eye Exam Comple brad 09/06/2015 [id number] Diabetic Retinal Eye Exam Comple brad 03/11/2015 967627130 Diabetic Retinal Eye Exam Comple brad 10/05/2014 [id number] Colonoscopy Completed 05/04/2014 021331492 Diabetic Retinal Eye Exam Comple brad 11/03/2013 353905827 Diabetic Retinal Eye Exam Comple brad 05/05/2013 477052177 Diabetic Retinal Eye Exam Comple brad 01/06/2013 775166139 Diabetic Retinal Eye Exam Comple brad 07/12/2012 750123998 Diabetic Retinal Eye Exam Comple brad 01/02/2012 430280971 Diabetic Retinal Eye Exam Comple brad 08/31/2011 966994949 Diabetic Retinal Eye Exam Comple brad 01/05/2011 576371175 Bone Mineral Density Test Comple brad 12/03/2009 834971967 Diabetic Retinal Eye Exam Comple brad 06/07/2009 465610954 Diabetic Retinal Eye Exam Comple brad Medical Devices Description No Information Available Encounters Type Date Location Provider Dx Diagnosis Office Visit 06/03/2020 1:40p [facility] Cande Singleton, SALES SUPERVISOR I73.9 Peripheral vascular disease, unspecified E10.40 Type 1 diabetes mellitus wit h diabetic neuropathy, unsp Z96.41 Presence of insulin pump (ex ternal) (internal) Z23 Encounter for immunization Office Visit 05/20/2020 1:20p [facility] 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 I48.0 Paroxysmal atrial fibrillati on Z79.01 [facility] (current) use of a nticoagulants I73.9 Peripheral vascular disease, unspecified Assessments Date Code Description Provider 07/07/2020 E10.40 Type 1 diabetes kristopher itus with diabetic neuropathy, unspecified Stanislaw Armstrong MD 07/07/2020 E10.3213 Type 1 diabetes kristopher itus with mild nonproliferative diabetic retinopathy with macular edema, bilateral Stanislaw Armstrong MD 07/07/2020 Z96.41 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 of 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 pump (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) (internal) Stanislaw Armstrong MD 07/07/2020 Z79.4 [facility] (current) use of insul in Stanislaw Armstrong MD 07/07/2020 I73.9 Peripheral vascular disease, uns pecified Stanislaw Armstrong MD 07/07/2020 I25.10 Atherosclerotic heart disease of [place] coronary artery with Stanislaw Armstrong MD 07/07/2020 Z95.1 Presence of aortocoronary bypass graft Stanislaw Armstrong MD 07/07/2020 I48.0 Paroxysmal atrial fibrillation C yakelin Armstrong MD 07/07/2020 Z79.01 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 term care administrator (current) use of antic oagulants Stanislaw Armstrong MD 07/07/2020 N40.0 Benign prostatic hyp erplasia without lower urinary tract symptoms Stanislaw Armstrong MD 07/07/2020 E10.649 Type 1 diabetes mellitus with hy poglycemia without coma Stanislaw Armstrong MD 06/03/2020 I73.9 Peripheral vascular disease, uns pecified Cande Nowak [facility] 06/03/2020 E10.40 Type 1 diabetes kristopher itus with diabetic neuropathy, unspecified Cande Nowak [facility] 06/03/2020 Z96.41 Presence of insulin pump (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) (internal) Cande Nowak [facility] 06/03/2020 Z23 Encounter for immunization Cande Overton [facility] 05/20/2020 E10.3213 Type 1 diabetes kristopher itus with mild nonproliferative diabetic retinopathy with macular edema, bilateral Cande Nowak [facility] 05/20/2020 E10.10 Type 1 diabetes mellitus with ke toacidosis without coma Stanislaw Armstrong MD 05/20/2020 I25.10 Atherosclerotic heart disease of [place] coronary artery with Cande Nowak [facility] 05/20/2020 E10.10 Type 1 diabetes mellitus with ke toacidosis without coma Lab Schedule 05/20/2020 I48.0 Paroxysmal atrial fibrillation A mónica Nowak [facility] 05/20/2020 I10 Essential (primary) hypertension Stanislaw Armstrong MD 05/20/2020 Z79.01 long term care administrator (current) use of antic oagulants Cande Nowak [facility] 05/20/2020 I10 Essential (primary) hypertension Lab Schedule 05/20/2020 R76.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 reaction to 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 Cande Nowak [facility] 05/20/2020 E78.00 Pure hypercholesterolemia, unspe cified Stanislaw Armstrong MD 05/20/2020 E78.00 Pure hypercholesterolemia, unspe cified Lab Schedule 05/20/2020 R76.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 reaction to 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 Stanislaw Armstrong MD 05/20/2020 R76.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 reaction to 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 Lab Schedule 05/20/2020 D64.9 Anemia, unspecified Stanislaw mirza MD 05/20/2020 D64.9 Anemia, unspecified Lab Schedule 05/18/2020 Z11.1 Encounter for screening for resp iratory tuberculosis Stanislaw Armstrong MD 04/29/2020 E10.10 Type 1 diabetes mellitus with ke toacidosis without coma Stanislaw Armstrong MD 04/29/2020 E10.40 Type 1 diabetes kristopher itus with diabetic neuropathy, unspecified Stanislaw Armstrong MD 04/29/2020 E10.3213 Type 1 diabetes kristopher itus with mild nonproliferative diabetic retinopathy with macular edema, bilateral Stanislaw Armstrong MD 04/29/2020 Z96.41 Presence of insulin pump (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) (internal) Stanislaw Armstrong MD 04/29/2020 I21.4 Non-St elevation (Nstemi) myocar dial infarction Stanislaw Armstrong MD 04/29/2020 I25.10 Atherosclerotic heart disease of [place] coronary artery with Stanislaw Armstrong MD 04/29/2020 Z95.1 Presence of aortocoronary bypass graft Stanislaw Armstrong MD 04/29/2020 I48.0 Paroxysmal atrial fibrillation C yakelin Armstrong MD 04/29/2020 Z79.01 long term care administrator (current) use of antic oagulants Stanislaw Armstrong MD 04/29/2020 I73.9 Peripheral vascular disease, uns pecified Stanislaw Armstrong MD 04/14/2020 I10 Essential (primary) hypertension Stanislaw Armstrong MD 04/14/2020 E78.00 Pure hypercholesterolemia, unspe cified Stanislaw Armstrong MD 04/14/2020 I48.0 Paroxysmal atrial fibrillation C yakelin Armstrong MD 03/11/2020 I10 Essential (primary) hypertension Stanislaw Armstrong MD 03/11/2020 I48.0 Paroxysmal atrial fibrillation C yakelin Armstrong MD 03/11/2020 E78.00 Pure hypercholesterolemia, unspe cified Stanislaw Armstrong MD 03/11/2020 E10.40 Type 1 diabetes kristopher itus with diabetic neuropathy, unspecified Stanislaw Armstrong MD 02/17/2020 I10 Essential (primary) hypertension Stanislaw Armstrong MD 02/17/2020 I48.0 Paroxysmal atrial fibrillation C yakelin Armstrong MD 02/17/2020 E78.00 Pure hypercholesterolemia, unspe cified Stanislaw Armstrong MD 02/12/2020 I10 Essential (primary) hypertension Stanislaw Armstrong MD 02/12/2020 I10 Essential (primary) hypertension Lab Schedule 02/12/2020 E10.40 Type 1 diabetes kristopher itus with diabetic neuropathy, unspecified Stanislaw Armstrong MD 02/12/2020 E10.40 Type 1 diabetes kristopher itus with diabetic neuropathy, unspecified Lab Schedule 02/04/2020 I10 Essential (primary) hypertension Stanislaw Armstrong MD 02/04/2020 I48.0 Paroxysmal atrial fibrillation C yakelin Armstrong MD 02/04/2020 E78.00 Pure hypercholesterolemia, unspe cified Stanislaw Armstrong MD 02/04/2020 E10.40 Type 1 diabetes kristopher itus with diabetic neuropathy, unspecified Stanislaw Armstrong MD 01/08/2020 Z51.81 Encounter for therapeutic drug l patel monitoring [facility] [facility] 01/08/2020 I10 Essential (primary) hypertension Cande Nowak [facility] 01/08/2020 I48.0 Paroxysmal atrial fibrillation A mónica Nowak [facility] 01/08/2020 I10 Essential (primary) hypertension Lab Schedule 01/08/2020 Z79.01 [facility] (current) use of antic oagulants Cande Nowak [facility] 01/08/2020 I48.0 Paroxysmal atrial fibrillation P rotime 01/08/2020 Z79.01 [facility] (current) use of antic oagulants Protime Plan of Treatment Future Appointment(s):* 01/05/2021 2:00 pm - Stanislaw Armstrong MD at [facility] 07/07/2020 - Stanislaw Armstrong MD* E10.40 Type 1 diabetes mellitus with diabetic neuropathy, unspecified * E10.3213 Type 1 diabetes mellitus with mild nonproliferative diabetic retinopathy with macular edema, bilateral * Z96.41 Presence of insulin pump (external) (internal) * Z79.4 [facility] (current) use of insulin * I73.9 Peripheral vascular disease, unspecified * I25.10 Atherosclerotic heart disease of [place] coronary artery with * Z95.1 Presence of aortocoronary bypass graft * I48.0 Paroxysmal atrial fibrillation * Z79.01 long term care administrator (current) use of anticoagulants * N40.0 Benign prostatic hyperplasia without lower urinary tract symptoms * E10.649 Type 1 diabetes mellitus with hypoglycemia without coma Functional Status Description No Information Available Mental Status Description No Information Available Referrals Description No Information Available
--- OUTSIDE RECORDS SUMMARY | 2020-09-22 17:27 | CCD | Continuity of Care Document ---
Author Author Daniel Armstrong MD Organization Unknown Address [address] [facility] [address] [place] [address] Phone [phone] Care Team Providers Care Ep Technologist Name Role Phone Sharmila Bush MD AUTM [phone] Stanislaw Armstrong JR, MD [facility] Unavailable Sharon Estrada MD AUTM [phone] [facility] AUT[facility] [phone] [facility]M [phone] Peter Mai MD AUTM Unavailable Problems Active [...] MD Onset: 09/19/2010 Atherosclerotic heart disease of [place] coronary arter y without angina pectoris Stanislaw [...] mouth every other day 30tabs Cande Nowak, RUG HOOKER 0 Hydrochlorothiazide 12.5mg Capsule s 1 by mouth every day 90caps Stanislaw Armstrong MD 04/29/2020 Lisinopril 10mg Tablets 1 by mouth every day in the morning 90tabs Stanislaw Armstrong MD 020 Toprol XL 25mg Tablets ER 24HR 1 by mouth every day 90tabs Stanislaw Armstrong MD 08/08/2018 Vitamin D3 Adult Gummies 1000Unit Chewtabs 1 by mouth every eqg=5610nw 180units Stanislaw izquierdo MD 12/28/2017 Proscar 5mg Tablets 1 by mouth every day 90tabs Stanislaw Armstrong MD 10/19/2017 Vitamin B12 1000mcg Tablets ER 1 by mouth every day 100tabs Stanislaw Armstrong MD 09/24/2017 Novolog 100Unit/ML Solution as directed in pump 60ml Stanislaw Armstrong MD 07/19/2016 Calcium 500 + D [id number] Tab lets 1 by mouth twice a day 180tabs Stanislaw Armstrong MD 06/02 Flonase Allergy Relief 50mcg/Act Suspension 2 sprays per nostril every in the morning as needed for allergie s 29.7ml Stanislaw Armstrong MD 07/12/2015 Aspirin Ec 81mg Tablets [...] Administration Of Flu Vaccine Inj charity Nowak [facility] 06/03/2020 Administration Of Flu Vaccine Inj [...] 08/17/2006 Administration Of Flu Vaccine Inj ection Cande Nowak [facility] 06/13/2005 Administration Of Flu Vaccine Inj charity Armstrong MD 07/01/2004 Administration Of Flu Vaccine Inj charity Armstrong MD 06/22/2003 Immunizations CPT Code Status Date Vaccine Reaction Lot # [id number] Given 06/03/2020 Influenza Vaccin e Quadrivalent Preser/Antibiotic Free Im Use [id number] 05268 Given 05/18/2020 PPD 05-20-20 negative omm BW RN [id number] 77630 Given 07/02/2019 Influenza Vaccin e Quadrivalent Preser/Antibiotic Free Im Use [id number] 86494 Given 06/28/2018 Influenza Virus Vaccine, Quadrivalent (Cciiv4), Derived From 7 Given 04/19/2018 Shingrix 77361 Given 01/14/2018 Shingrix 80740 Given 12/28/2017 Pneumovax 23 [id number] 09412 Given 06/12/2017 Influenza Vaccin e Quadrivalent Preser/Antibiotic Free Im Use [id number] U-Td Given 12/06/2016 Td(Adult)(Tetanus, Diphtheria) unspe cified U-Td Given 12/06/2016 Td(Adult)(Tetanus, Diphtheria) unspe cified Q2037 Given 06/22/2016 Fluvirin Virus Vaccine 16 40033 Q2037 Given 06/24/2015 Fluvirin Virus Vaccine 15 25458 98409 Given 11/24/2014 Prevnar 13 [id number] Q2037 Given 07/02/2014 Fluvirin Virus Vaccine 14 53581 Q2037 Given 05/30/2012 Fluvirin Virus Vaccine Q2037 Given 06/20/2011 Fluvirin Virus Vaccine Q2037 Given 06/20/2011 Fluvirin Virus Vaccine 28551 Given 06/16/2010 Influenza Virus Vaccine 55817 Given 06/17/2009 Influenza Virus Vaccine 07441 Given 06/09/2008 Influenza Virus Vaccine 47948 Given 06/27/2007 Influenza Virus Vaccine 98238 Given 03/01/2007 Zoster Vaccine 02153 Given 08/17/2006 Influenza Virus Vaccine 33260 Given 06/13/2005 Influenza Virus Vaccine 39451 Given 07/01/2004 Influenza Virus Vaccine 29116 Given 06/22/2003 Influenza Virus Vaccine 54204 Given 06/16/1999 Influenza Virus Vaccine 65209 Given 06/02/1994 Influenza Virus Vaccine Vital Signs [...] Result H/L Range Note Microalbumin/Creatinine Urine 07/07/2020 [facility], Epic Anesthesia Analyst: [place] [address] [phone] Microalbumin Urine 2.6 mg/L 1.3 - 20.0 Urine Creatinine 60.6 mg/dL 30.0 - 125.0 Microalb/Creat Ratio 4.3 ug/mg 0.0 - 30.0 Complete Blood Count 07/07/2020 [facility] Epic Anesthesia Analyst: Dr Stanislaw [place] [address] [phone] WBC 7.7 x10*3/UL 4.1 - 10.9 RBC [...] 2.0 - 7.8 Comprehensive Chem Profile 07/07/2020 [facility] Epic Anesthesia Analyst: Dr Stanislaw [place] [address] [phone] Glucose 198 mg/dL High 74 - 99 [...] 60 mL/min >60 2 Lipid Profile 07/07/2020 [facility] Epic Anesthesia Analyst: [place] [address] [phone] Cholesterol 95 mg/dL Low 131 - 200 Triglycerides 44 mg/dL 30 - 150 HDL Cholesterol 48 mg/dL 35 - 60 LDL (Calculated) 38 CALC Low 50 - 159 Quanteferon TB Gold Test 05/20/2020 [facility] [address] [place] [address] [phone] QuantiFERON Criteria (SEE NOTE) Normal . 3 QuantiFERON TB1 Ag Value 0.04 IU/mL Normal . QuantiFERON TB2 Ag Value 0.05 IU/mL Normal . QuantiFERON Nil Value 0.02 IU/mL Normal . QuantiFERON Mitogen Value 8.96 IU/mL Normal . QuantiFERON-TB Gold Plus Negative Normal Negative 4 Vitamin B12 & Folate 05/20/2020 [facility] [address] [place] [address] [phone] Vitamin B12 Level 734 pg/mL Normal 5 Folate 21.7 NG/ML Normal 6 Basic Metabolic Panel 05/20/2020 [facility] Epic Anesthesia Analyst: [place] [address] [phone] Glucose 176 mg/dL High 74 - 99 [...] mL/min >60 8 Complete Blood Count 05/20/2020 [facility] Epic Anesthesia Analyst: [place] [address] [phone] WBC 6.3 x10*3/UL 4.1 - 10.9 RBC [...] 2.0 - 7.8 Laboratory test finding 05/20/2020 [facility] Epic Anesthesia Analyst: [place] [address] [phone] Thyroid Stimulating Hormone 3.04 uIU/mL 0.3 6 - 3.74 Complete Blood Count 02/12/2020 [facility] Epic Anesthesia Analyst: [place] [address] [phone] WBC 7.4 x10*3/UL 4.1 - 10.9 RBC [...] 6.2 x10*3/UL 2.0 - 7.8 A1c 02/12/2020 [facility] Epic Anesthesia Analyst: Dr Stanislaw Armstrong [place], [place] [id number] [phone] Hba1c 7.9 g/dL High 4.8 - 5.6 10 Est Avg Glucose 180 mg/dL High 60 - 110 Comprehensive Chem Profile 02/12/2020 [facility] Anesthesia Analyst: Dr Stanislaw Armstrong [place], [place] [address] [phone] Glucose 277 mg/dL High 74 - 99 [...] 60 mL/min >60 13 Lipid Profile 02/12/2020 [facility] Epic Anesthesia Analyst: Dr Stanislaw Armstrong [place], [place] [id number] [phone] Cholesterol 84 mg/dL Low 131 - 200 Triglycerides 47 mg/dL 30 - 150 HDL Cholesterol 41 mg/dL 35 - 60 LDL (Calculated) 34 CALC Low 50 - 159 1 100-125 mg/dL PRE-DIABET ES/FASTING >126 mg/dL DIABETES/FASTING 2 CHRONIC KIDNEY DISEASE STAGI NG PER NKF STAGE I & II GFR >= 60 NORMAL TO MILDLY DECREASED STAGE III GFR 30-59 MODERATELY DECREASED STAGE IV GFR 15-29 SEVERELY DECREASED STAGE V GFR <15 VERY LITTLE GFR LEFT ESRD GFR <15 ON CLINICAL NURSE EDUCATOR 3 . The QuantiFERON-TB Gold Plus result [...] the production of interferon gamma. Performed at: RN - [facility] [address] [id number] Epic Anesthesia Analyst: Aarti Shearer MD, Phone: [phone] VITAMIN B12 NORMAL RANGE NORMAL 247 [...] LITTLE GFR LEFT ESRD GFR <15 ON CLINICAL NURSE EDUCATOR 9 NOTE: RESULT VERIFIED. 10 Lab Result [...] LITTLE GFR LEFT ESRD GFR <15 ON CLINICAL NURSE EDUCATOR Procedures Date Code Description Status 03/11/2020 904908394 Diabetic Retinal Eye Exam Comple brad 01/05/2020 [id number] Diabetic Retinal Eye Exam Comple brad 08/18/2019 286828414 Diabetic Retinal Eye Exam Comple brad 06/16/2019 753836700 Diabetic Retinal Eye Exam Comple brad 05/22/2018 822604773 Diabetic Retinal Eye Exam Comple brad 12/11/2017 937570297 Diabetic Retinal Eye Exam Comple brad 03/19/2017 483771295 Diabetic Retinal Eye Exam Comple brad 11/28/2016 676950833 Diabetic Retinal Eye Exam Comple brad 09/18/2016 129387322 Diabetic Retinal Eye Exam Comple brad 02/28/2016 983413676 Diabetic Retinal Eye Exam Comple brad 01/18/2016 633076973 Diabetic Retinal Eye Exam Comple brad 09/06/2015 754068653 Diabetic Retinal Eye Exam Comple brad 03/11/2015 047573258 Diabetic Retinal Eye Exam Comple brad 10/05/2014 [id number] Colonoscopy Completed 05/04/2014 [id number] Diabetic Retinal Eye Exam Comple brad 11/03/2013 358697071 Diabetic Retinal Eye Exam Comple brad 05/05/2013 977430206 Diabetic Retinal Eye Exam Comple brad 01/06/2013 830188605 Diabetic Retinal Eye Exam Comple brad 07/12/2012 261585067 Diabetic Retinal Eye Exam Comple brad 01/02/2012 479188510 Diabetic Retinal Eye Exam Comple brad 08/31/2011 978661570 Diabetic Retinal Eye Exam Comple brad 01/05/2011 968804589 Bone Mineral Density Test Comple brad 12/03/2009 699319309 Diabetic Retinal Eye Exam Comple brad 06/07/2009 106018362 Diabetic Retinal Eye Exam Comple brad Medical Devices Description No Information Available Encounters Type Date Location Provider Dx Diagnosis Office Visit 07/07/2020 10:40a [facility] 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, unsp E10.3213 Type 1 diabetes with mild no organizational research consultant rtnop with macular edema, bi E10.649 Type 1 diabetes mellitus wit h hypoglycemia without coma Z96.41 Presence of insulin pump (ex ternal) (internal) I73.9 Peripheral vascular disease, unspecified I25.10 Athscl heart disease of [place] coronary artery w/o ang pctrs Z95.1 Presence of aortocoronary by pass graft I48.0 Paroxysmal atrial fibrillati on Z79.01 residential (current) use of a nticoagulants N40.0 Benign prostatic hyperplasia without lower urinry tract symp E78.00 Pure hypercholesterolemia, u nspecified Z13.89 Encounter for screening for other disorder Office Visit 06/03/2020 1:40p [facility] Cande Olson ne, [place]UG HOOK[place] I73.9 Peripheral vascular disease, unspecified E10.40 Type 1 diabetes mellitus wit h diabetic neuropathy, unsp Z96.41 Presence of insulin pump (ex ternal) (internal) Z23 Encounter for immunization Office Visit 05/20/2020 1:20p [facility] 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 Stanislaw Armstrong MD E10.10 Type 1 diabetes mellitus with ketoacidos is without coma E10.40 Type 1 diabetes mellitus wit h diabetic neuropathy, unsp E10.3213 Type 1 diabetes with mild no organizational research consultant rtnop with macular edema, bi Z96.41 Presence of insulin pump (ex ternal) (internal) I21.4 Non-St elevation (Nstemi) my ocardial infarction I25.10 Athscl heart disease of [place] coronary artery w/o ang pctrs Z95.1 Presence of aortocoronary by pass graft I48.0 Paroxysmal atrial fibrillati on Z79.01 residential (current) use of a nticoagulants I73.9 Peripheral vascular disease, unspecified Assessments Date Code Description Provider 07/07/2020 E10.40 Type 1 diabetes kristopher itus with diabetic neuropathy, unspecified Stanislaw Armstrong MD 07/07/2020 E10.3213 Type 1 diabetes kristopher itus with mild nonproliferative diabetic retinopathy with macular edema, bilateral Stanislaw Armstrong MD 07/07/2020 E10.649 Type 1 diabetes mellitus with hy poglycemia without coma Stanislaw Armstrong MD 07/07/2020 Z96.41 Presence of insulin pump (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 mixer 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) (internal) Stanislaw Armstrong MD 07/07/2020 I73.9 Peripheral vascular disease, uns pecified Stanislaw Armstrong MD 07/07/2020 I25.10 Atherosclerotic heart disease of [place] coronary artery with Stanislaw Armstrong MD 07/07/2020 Z95.1 Presence of aortocoronary bypass graft Stanislaw Armstrong MD 07/07/2020 I48.0 Paroxysmal atrial fibrillation C yakelin Armstrong MD 07/07/2020 Z79.01 termite treater helper (current) use of antic oagulants Stanislaw Armstrong MD 07/07/2020 N40.0 Benign prostatic hyp erplasia without lower urinary tract symptoms Stanislaw Armstrong MD 07/07/2020 E78.00 Pure hypercholesterolemia, unspe cified Stanislaw Armstrong MD 07/07/2020 Z13.89 Encounter for screening for othe r disorder Stanislaw Armstrong MD 06/03/2020 I73.9 Peripheral vascular disease, uns pecified Cande Nowak, [facility] 06/03/2020 E10.40 Type 1 diabetes kristopher itus with diabetic neuropathy, unspecified Cande Nowak [facility] 06/03/2020 Z96.41 Presence of insulin pump (brine mixer operator al) (internal) Cande Nowak [facility] 06/03/2020 Z23 Encounter for immunization Cande Overton [facility] 05/20/2020 E10.3213 Type 1 diabetes kristopher itus with mild nonproliferative diabetic retinopathy with macular edema, bilateral Cande Nowak [facility] 05/20/2020 E10.10 Type 1 diabetes mellitus with ke toacidosis without coma Stanislaw Armstrong MD 05/20/2020 I25.10 Atherosclerotic heart disease of [place] coronary artery with WESLEY Staley 05/20/2020 E10.10 Type 1 diabetes mellitus with ke toacidosis without coma Lab Schedule 05/20/2020 I48.0 Paroxysmal atrial fibrillation A mónica Nowak [facility] 05/20/2020 I10 Essential (primary) hypertension Stanislaw Armstrong MD 05/20/2020 Z79.01 termite treater helper (current) use of antic oagulants Cande Nowak [facility] 05/20/2020 I10 Essential (primary) hypertension Lab Schedule 05/20/2020 R76.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 reaction to 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 CHERELLE StaleyP 05/20/2020 E78.00 Pure hypercholesterolemia, unspe cified Stanislaw [...] MD 04/29/2020 Z96.41 Presence of insulin pump (brine mixer operator al) (internal) Stanislaw Armstrong MD 04/29/2020 I21.4 Non-St elevation (Nstemi) myocar dial infarction Stanislaw Armstrong MD 04/29/2020 I25.10 Atherosclerotic heart disease of [place] coronary artery with Stanislaw Armstrong MD 04/29/2020 Z95.1 Presence of aortocoronary bypass graft Stanislaw Armstrong MD 04/29/2020 I48.0 Paroxysmal atrial fibrillation Yaniv Armstrong MD 04/29/2020 Z79.01 residential (current) use of antic oagulants Stanislaw Armstrong [...] with diabetic neuropathy, unspecified Stanislaw Armstrong MD Plan of Treatment Future Appointment(s):* 01/05/2021 2:00 pm - Stanislaw Armstrong MD at [facility] 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
--- OUTSIDE RECORDS SUMMARY | 2020-09-22 17:27 | CCD | Continuity of Care Document ---
Author Author Daniel MILLER MD Organization Unknown Address [address] [place] [address], [facility] [address] [place] [address] Phone [phone] Care Team Providers Care Presser Hand Name Role Phone Stanislaw Armstrong MD AUTM [phone] Problems Active Problems Provider Date Type 1 diabetes mellitus Sharmila Miller MD Onset: 07/04/20 11 Vitamin D deficiency Sahrmila Millre MD Onset: 07/04/2011 Osteochondropathy Sharmila Miller MD Onset: 07/04/2011 Pure hypercholesterolemia Sharmila Miller MD Onset: 012 Essential hypertension Sharmila Miller MD Onset: 02/27/2012 Amnesia Sharmila Miller MD Onset: 07/04/2012 Hypoglycemia Sharmila Miller MD Onset: 06/11/2014 Type 1 diabetes mellitus uncontrolled Sharmila Miller MD On set: 03/23/2015 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 Sharmila Miller MD Onset: 03/23/2015 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 Sharmila vázquez MD Onset: 04/13/2015 Disorder of bone Sharmila Miller MD Onset: 07/20/2015 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 Darrius Miller MD Onset: 07/20/2015 Encounter for other specified special examinations Sharmila Miller MD Onset: 07/20/2015 Bradycardia, unspecified Sharmila Miller MD Onset: 11/01/19 16 Long-term current use of insulin Page Duarte DO Onset : 12/22/2015 Insulin pump present Page Duarte DO Onset: 12/22/2015 Plantar callosity Sharmila Miller MD Onset: 08/21/2017 Social History Type Date Description Comments Sex Unknown Tobacco Use Start: Unknown Never Smoked Cigarettes Tobacco Use Start: Unknown Patient has never smoked Tobacco Use Start: Unknown End: Unknown Patient is a former smoker Smoking Status Reviewed: 06/14/20 Patient is a former smoker Allergies, Adverse Reactions, Alerts Active Allergies Reaction Severity Comments Date Environmental 11/04/2009 Codeine nausea and vomiting 11/04/19 10 Medications Active Medications SIG Qnty Indications Ordering Provide r Date Guardian Connect Sensor Apply Once Every 7 Days. Use as Directed 4u nits E10.649 Sharmila Miller MD 07/16/2019 Freestyle Lite Blood Glucose Monitoring System Device please dispense 1 glucose meter e11.65 1units Cihka Ram NP 05/23/2019 Novolog 100Unit/ML Solution use as directed with insulin pump mdd 50 5vials Eliane Ram NP 06/22/2010 Multi-Vitamin/Minerals Tablets 1 po qd Sharmila Miller MD 11/04/2009 Preservision Areds 2 Areds 2 Capsu les 1 by mouth bid Unknown Hydrochlorothiazide 12.5mg Tablets 1 po qd Unknown Lisinopril 10mg Tablets 1 po q am Unknown Lisinopril 20mg Tablets 1 po at night Unknown Guardian Connect Transmitter Misc Use as Directed For Diabetes 1units E10.649 Sharmila Miller MD Freestyle Lite Test Strips use as directed 8 times daily 800units E10.649 Sharmila Miller MD BD Insulin Syringe Ultra-Fine/0.5ML/31G X 8mm 31G X 5/16" 0.5 ML Misc use as directed four times daily 400units E 10.649 Sharmila Miller MD Dulcolax Stool Softener 100mg Caps ules 2 po qd Unknown Vitamin D-3 1000Unit Capsules 1 every day Unknown Vitamin B-12 1000mcg Tablets Sub 1 by mouth every day Unknown Finasteride 5mg Tablets 1 by mouth every day Unknown Atorvastatin Calcium 40mg Tablets 1 by mouth every day Unknown Coumadin 7.5mg Tablets daily Unknown Toprol XL 25mg Tablets ER 24HR 1 po qd Unknown Flomax 0.4mg Caps ER 24HR 2/d ay 30caps Unknown Calicum/Vitamin D 500mg. 1-p o - bid Unknown Aspir-[address] qd Unknown Immunizations Description No Information Available Vital Signs Date Vital Result Comment 09/13/2020 2:48pm BP Systolic 118 mmHg BP Diastolic 58 mmHg Heart Rate 57 /min Body Temperature 97.0 F Height 68 inches 5'8" Weight 158.00 lb BMI (Body Mass Index) 24.0 kg/m2 O2 % BldC Oximetry 98 % 06/14/2020 3:20pm BP Systolic 126 mmHg BP Diastolic 80 mmHg Heart Rate 81 /min Height 68 inches 5'8" Weight 151.25 lb BMI (Body Mass Index) 23.0 kg/m2 O2 % BldC Oximetry 99 % Results Test Acquired Date Facility Test Result H/L Range Note Laboratory test finding 09/13/2020 In House Glucose 288 Hemoglobin A1c 7.5 Microalbumin/Creatinine Urine 07/07/2020 N2N/CCD Im port Microalbumin Urine 2.6 mg/L 1.3-20.0 Urine Creatinine 60.6 mg/dL 30.0-125.0 Microalb/Creat Ratio 4.3 ug/mg 0.0-30.0 Complete Blood Count 07/07/2020 N2N/CCD Import WBC 7.7 x10*3/UL 4.1-10.9 RBC 3.63 x10*6/UL Low 4.20-6.30 Hemoglobin 11.1 g/dL Low 12.0-18.0 Hematocrit 32.5 % Low 37.0-51.0 MCV 89.5 fL 80.0-97.0 MCH 30.7 pg 26.0-32.0 MCHC 34.3 g/dL 31.0-38.0 RDW 13.9 % High 11.6-13.7 PLT 197 x10*3/UL 140-440 MPV 9.5 FL 7.8-11.0 Lymph % 9.9 % Low 10.0-58.5 Mid % 3.9 % 1.7-9.3 Neut % 86.2 % 37.0-92.0 Lymph # 0.7 x10*3/UL 0.6-4.1 Mid # 0.4 x10*3/UL 0.1-0.6 Neut # 6.6 x10*3/UL 2.0-7.8 Comprehensive Chem Profile 07/07/2020 N2N/CCD Impor t Glucose 198 mg/dL High 74-99 1 BUN 22 mg/dL High 7-18 Creatinine 1.2 mg/dL 0.6-1.3 Sodium 138 mEq/L 136-145 Potassium 4.1 mEq/L 3.5-5.1 Chloride 102 mEq/L 98-107 Carbon Dioxide 28 mEq/L 21-32 Calcium 8.9 mg/dL 8.5-10.1 Alk. Phosphatase 59 mg/dL 46-116 Total Bilirubin 0.3 mg/dL 0.2-1.0 Ast (Sgot) 20 U/L 15-37 Alt (SGPT) 23 U/L 12-78 Albumin 3.5 g/dL 3.4-5.0 Total Protein 6.4 g/dL 6.4-8.2 A/G Ratio 1.21 CALC 1.00-1.90 GFR 58 mL/min Low GFR >= 60 mL/min 2 Laboratory test finding 06/14/2020 In House Glucose 253 Lab Results 05/20/2020 N2N/CCD Import QuantiFERON Criteria (See Note) 3 QuantiFERON TB1 Ag Value 0.04 IU/mL QuantiFERON TB2 Ag Value 0.05 IU/mL QuantiFERON Nil Value 0.02 IU/mL QuantiFERON Mitogen Value 8.96 IU/mL QuantiFERON-TB Gold Plus Negative 4 Vitamin B12 & Folate 05/20/2020 N2N/CCD Import Vitamin B12 Level 734 pg/mL 5 Folate 21.7 ng/mL 6 Lab Results 05/20/2020 N2N/CCD Import Glucose 176 mg/dL High 74-99 7 BUN 24 mg/dL High 7-18 Creatinine 1.0 mg/dL 0.6-1.3 Sodium 139 mEq/L 136-145 Potassium 4.2 mEq/L 3.5-5.1 Chloride 104 mEq/L 98-107 Carbon Dioxide 26 mEq/L 21-32 Calcium 8.6 mg/dL 8.5-10.1 GFR >= 60 mL/min GFR >= 60 mL/min 8 Complete Blood Count 05/20/2020 N2N/CCD Import WBC 6.3 x10*3/UL 4.1-10.9 RBC 3.40 x10*6/UL Low 4.20-6.30 Hemoglobin 10.4 g/dL Low 12.0-18.0 9 Hematocrit 30.5 % Low 37.0-51.0 MCV 89.5 fL 80.0-97.0 MCH 30.6 pg 26.0-32.0 MCHC 34.1 g/dL 31.0-38.0 RDW 13.7 % 11.6-13.7 PLT 154 x10*3/UL 140-440 MPV 9.6 FL 7.8-11.0 Lymph % 16.7 % 10.0-58.5 Mid % 5.5 % 1.7-9.3 Neut % 77.8 % 37.0-92.0 Lymph # 1.0 x10*3/UL 0.6-4.1 Mid # 0.4 x10*3/UL 0.1-0.6 Neut # 4.9 x10*3/UL 2.0-7.8 Lab Results 05/20/2020 N2N/CCD Import Thyroid Stimulating Hormone 3.04 uIU/mL 0.36-3.74 Laboratory test finding 05/04/2020 In House Glucose 167 Hemoglobin A1c 7.4 1 100-125 mg/dL PRE-DIABET ES/FASTING >126 mg/dL DIABETES/FASTING 2 CHRONIC KIDNEY DISEASE STAGI NG PER NKF STAGE I & II GFR >= 60 NORMAL TO MILDLY DECREASED STAGE III GFR 30-59 MODERATELY DECREASED STAGE IV GFR 15-29 SEVERELY DECREASED STAGE V GFR <15 VERY LITTLE GFR LEFT ESRD GFR <15 ON LEARNING AND DEVELOPMENT ASSOCIATE 3 . The QuantiFERON-TB Gold Plus result [...] interferon gamma. Performed at: RN - [facility] [address] [id number] Commercial Development Manager: Aarti Shearer MD, Phone: [phone] VITAMIN B12 NORMAL RANGE NORMAL 247 [...] LITTLE GFR LEFT ESRD GFR <15 ON LEARNING AND DEVELOPMENT ASSOCIATE 9 NOTE: RESULT VERIFIED. Procedures Date Code Description Status 06/14/2020 77524 Amb Glucose Monitoring Interpret ation And Report Completed 05/04/2020 36222 Amb Glucose Monitoring Interpret ation And Report Completed 06/09/2019 [id number] Diabetic Foot Exam Completed Medical Devices Description No Information Available Encounters Type Date Location Provider Dx Diagnosis Office Visit 06/14/2020 3:15p DR. Sharmila Miller MD E 10.649 Type 1 diabetes mellitus with hypoglycemia without coma Z96.41 Presence of insulin pump (ex ternal) (internal) Office Visit 05/04/2020 9:45a DR. Sharmila Miller MD E 10.649 Type 1 diabetes mellitus with hypoglycemia without coma Z96.41 Presence of insulin pump (ex ternal) (internal) Assessments Date Code Description Provider 09/13/2020 E10.649 Type 1 diabetes mellitus with hy poglycemia without coma Sharmila Miller MD 09/13/2020 Z96.41 Presence of insulin pump (dipper clock and watch hands al) (internal) Sharmila Miller MD 06/14/2020 E10.649 Type 1 diabetes mellitus with hy poglycemia without coma Sharmila Miller MD 06/14/2020 Z96.41 Presence of insulin pump (dipper clock and watch hands al) (internal) Sharmila Miller MD 05/04/2020 E10.649 Type 1 diabetes mellitus with hy poglycemia without coma Sharmila Miller MD 05/04/2020 Z96.41 Presence of insulin pump (dipper clock and watch hands al) (internal) Sharmila Miller MD Plan of Treatment 09/13/2020 - Sharmila Miller MD* E10.649 Type 1 diabetes mellitus with hypoglycemia without coma* New Labs:* Glucose, Ordered: 09/13/20 * Hemoglobin A1c, Ordered: 09/13/20 * Comments:* in office A1c=7.5%, prior:7.1%, prior: 7.4%, .5BS= 288Pump download and CGM and reviewed:Average blood sugar 178 average blood sugar readings 9 per day average carbs to 173 g.Since being seen about a month ago patient has been under better control. He has had episodes of marked hyperglycemia when he thinks that the infusion set it is in a bad site. He sometimes takes an external injection.The pump suspensions when he has hypoglycemia. He has not had any severe episodes since his hospitalization.He is however concerned that he tends to go low after dinner. The past few nights his blood sugars of trended down although not <70.Due to his concerns we will change his rates as follows: Midnight, 0.6-down to 0.59 PM, 0.9-down to 0.8Total daily insulin 16.25-15.65He will follow-up in 3 month. he is due for microaolbumin * Follow up:* 3 months- pump LAB - survey email * K67.54 Presence of insulin pump (external) (internal)* Comments:* Patient is managing pump appropriately and changing pump at regular intervals. Functional Status Description No Information Available Mental Status Description No Information Available Referrals Description No Information Available
--- OUTSIDE RECORDS SUMMARY | 2020-09-22 17:27 | CCD | Continuity of Care Document ---
Author Author Lab Schedule, Daniel Rodriguez Organization Unknown Address [address] [address] Phone Unavailable Care Team Providers Care Batt Machine Operator Name Role Phone Sharmila Bush MD AUTM [phone] Stanislaw Armstrong JR, MD AUTM Unavailable Sharon Estrada MD AUTM [phone] [facility] AUTM [phone] [facility] AUTM [phone] Peter Mai MD AUTM Unavailable Problems Active Problems Provider Date Coronary arteriosclerosis Stanislaw Armstrong MD Onset: 09/19 Benign essential hypertension Stanislaw Armstrong MD Onset: 0 09/19/2010 Disorder of eye due to type 2 diabetes mellitus Stanislaw mirza MD Onset: 09/19/2010 Nonproliferative retinopathy due to diabetes mellitus Kp Armstrong MD Onset: 09/19/2010 Pure hypercholesterolemia Stanislaw Armstrong MD Onset: 09/19 Lipoprotein deficiency disorder Stanislaw Armstrong MD Onset: 09/19/2010 Cobalamin deficiency Stanislaw Armstrong MD Onset: 09/19/2010 Atherosclerotic heart disease of [place] coronary arter y without angina pectoris Stanislaw [...] by mouth every other day 30tabs Cande Daiana Tian, [address] L[address] 0 Hydrochlorothiazide 12.5mg Capsule s 1 by mouth every day 90caps Stanislaw Armstrong MD 04/29/2020 Lisinopril 10mg Tablets 1 by mouth every day in the morning 90tabs Stanislaw Armstrong MD 020 Toprol XL 25mg Tablets ER 24HR 1 by mouth every day 90tabs Stanislaw Armstrong MD 08/08/2018 Vitamin D3 Adult Gummies 1000Unit Chewtabs 1 by mouth every wrx=[id number] 180units Stanislaw izquierdo MD 12/28/2017 Proscar 5mg Tablets 1 by mouth every day 90tabs Stanislaw Armstrong MD 10/19/2017 Vitamin B12 1000mcg Tablets ER 1 by mouth every day 100tabs Stanislaw Armstrong MD 09/24/2017 Novolog 100Unit/ML Solution as directed in pump 60ml Stanislaw Armstrong MD 07/19/2016 Calcium 500 + D [id number] Tab lets 1 by mouth twice a [...] Sodium 100mg Capsules 2 by mouth daily 180stanislavs Stanislaw Armstrong MD 04/27/2014 Flomax 0.4mg Capsules [...] Administration Of Flu Vaccine Inj charity [place] [facility] 06/03/2020 Administration Of Flu Vaccine Inj [...] MD 05/30/2012 Administration Of Flu Vaccine Inj daion Stanislaw Armstrong MD 06/20/2011 Administration Of Flu Vaccine Inj charity Armstrong MD 06/16/2010 Administration Of Flu Vaccine Inj charity Armstrong MD 06/17/2009 Administration Of Flu Vaccine Inj charity Armstrong MD 06/09/2008 Administration Of Flu Vaccine Inj charity Armstrong MD 06/27/2007 Administration Of Zostavax Injection Stanislaw Armstrong MD 03/01/2007 Administration Of Flu Vaccine Inj charity Armstrong MD 08/17/2006 Administration Of Flu Vaccine Inj daion WESLEY Staley 06/13/2005 Administration Of Flu Vaccine Inj charity Armstrong MD 07/01/2004 Administration Of Flu Vaccine Inj charity Armstrong MD 06/22/2003 Immunizations CPT Code Status Date Vaccine Reaction Lot # 68056 Given 06/03/2020 Influenza Vaccin e Quadrivalent Preser/Antibiotic Free Im Use [id number] 45171 Given 05/18/2020 PPD 05-20-20 negative omm BW RN [id number] Given 07/02/2019 Influenza Vaccin e Quadrivalent Preser/Antibiotic Free Im Use [id number] 59212 Given 06/28/2018 Influenza Virus Vaccine, Quadrivalent (Cciiv4), Derived From 0 Given 04/19/2018 Shingrix 72362 Given 01/14/2018 Shingrix 95642 Given 12/28/2017 Pneumovax 23 [id number] Given 06/12/2017 Influenza Vaccin e Quadrivalent Preser/Antibiotic Free Im Use [id number] U-Td Given 12/06/2016 Td(Adult)(Tetanus, Diphtheria) unspe cified U-Td Given 12/06/2016 Td(Adult)(Tetanus, Diphtheria) unspe cified Q2037 Given 06/22/2016 Fluvirin Virus Vaccine 16 92440 Q2037 Given 06/24/2015 Fluvirin Virus Vaccine 15 96086 89559 Given 11/24/2014 Prevnar 13 [id number] Q2037 Given 07/02/2014 Fluvirin Virus Vaccine 14 58405 Q2037 Given 05/30/2012 Fluvirin Virus Vaccine Q2037 Given 06/20/2011 Fluvirin Virus Vaccine Q2037 Given 06/20/2011 Fluvirin Virus Vaccine 47223 Given 06/16/2010 Influenza Virus Vaccine 23859 Given 06/17/2009 Influenza Virus Vaccine 75193 Given 06/09/2008 Influenza Virus Vaccine 71179 Given 06/27/2007 Influenza Virus Vaccine 18698 Given 03/01/2007 Zoster Vaccine 50131 Given 08/17/2006 Influenza Virus Vaccine 11684 Given 06/13/2005 Influenza Virus Vaccine 87390 Given 07/01/2004 Influenza Virus Vaccine 11940 Given 06/22/2003 Influenza Virus Vaccine 62740 Given 06/16/1999 Influenza Virus Vaccine 56385 Given 06/02/1994 Influenza Virus Vaccine Vital Signs [...] Date Facility Test Result H/L Range Note Complete Blood Count 08/10/2020 [facility] Cavalry Officer: Dr Stanislaw Armstrong [place], [place] [id number] [phone] WBC 7.3 x10*3/UL 4.1 - 10.9 RBC 3.42 x10*6/UL Low 4.20 - 6.30 Hemoglobin 10.6 g/dL Low 12.0 - 18.0 1 Hematocrit 30.0 % Low 37.0 - 51.0 MCV 87.6 fL 80.0 - 97.0 MCH 31.1 pg 26.0 - 32.0 MCHC 35.5 g/dL 31.0 - 38.0 RDW 13.4 % 11.6 - 13.7 PLT 183 x10*3/UL 140 - 440 MPV 9.6 FL 7.8 - 11.0 Lymph % 11.1 % 10.0 - 58.5 Mid % 3.2 % 1.7 - 9.3 Neut % 85.7 % 37.0 - 92.0 Lymph # 0.8 x10*3/UL 0.6 - 4.1 Mid # 0.2 x10*3/UL 0.1 - 0.6 Neut # 6.3 x10*3/UL 2.0 - 7.8 Microalbumin/Creatinine Urine 07/07/2020 [facility] Cav[facility] Officer: [place] [address] [phone] Microalbumin Urine 2.6 mg/L 1.3 - 20.0 Urine Creatinine 60.6 mg/dL 30.0 - 125.0 Microalb/Creat Ratio 4.3 ug/mg 0.0 - 30.0 Complete Blood Count 07/07/2020 [facility] Cavalry Officer: Dr Stanislaw Armstrong [place], [place] [id number] [phone] WBC 7.7 x10*3/UL 4.1 - 10.9 RBC [...] 2.0 - 7.8 Comprehensive Chem Profile 07/07/2020 [facility] Cav[facility] Officer: [place] [address] [phone] Glucose 198 mg/dL High 74 - 99 2 BUN 22 mg/dL High 7 - 18 [...] Low >60 GFR >= 60 mL/min >60 3 Lipid Profile 07/07/2020 [facility] Cavalry Officer: [place] [address] [phone] Cholesterol 95 mg/dL Low 131 - 200 Triglycerides 44 mg/dL 30 - 150 HDL Cholesterol 48 mg/dL 35 - 60 LDL (Calculated) 38 CALC Low 50 - 159 Quanteferon TB Gold Test 05/20/2020 [facility] [address] [place] [address] [phone] QuantiFERON Criteria (SEE NOTE) Normal . 4 QuantiFERON TB1 Ag Value 0.04 IU/mL Normal . QuantiFERON TB2 Ag Value 0.05 IU/mL Normal . QuantiFERON Nil Value 0.02 IU/mL Normal . QuantiFERON Mitogen Value 8.96 IU/mL Normal . QuantiFERON-TB Gold Plus Negative Normal Negative 5 Vitamin B12 & Folate 05/20/2020 [facility] [address] [place] [address] [phone] Vitamin B12 Level 734 pg/mL Normal 6 Folate 21.7 NG/ML Normal 7 Basic Metabolic Panel 05/20/2020 [facility] Cavalry Officer: [place] [address] [phone] Glucose 176 mg/dL High 74 - 99 8 BUN 24 mg/dL High 7 - 18 Creatinine 1.0 mg/dL 0.6 - 1.3 Sodium 139 mEq/L 136 - 145 Potassium 4.2 mEq/L 3.5 - 5.1 Chloride 104 mEq/L 98 - 107 Carbon Dioxide 26 mEq/L 21 - 32 Calcium 8.6 mg/dL 8.5 - 10.1 GFR >= 60 mL/min >60 GFR >= 60 mL/min >60 9 Complete Blood Count 05/20/2020 [facility] Cavalry Officer: [place] [address] [phone] WBC 6.3 x10*3/UL 4.1 - 10.9 RBC 3.40 x10*6/UL Low 4.20 - 6.30 Hemoglobin 10.4 g/dL Low 12.0 - 18.0 10 Hematocrit 30.5 % Low 37.0 - 51.0 [...] 2.0 - 7.8 Laboratory test finding 05/20/2020 [facility] Cavalry Officer: Dr Stanislaw Armstrong [place] [id number] [phone] Thyroid Stimulating Hormone 3.04 uIU/mL 0.3 6 - 3.74 Complete Blood Count 02/12/2020 [facility] Cavalry Officer: Dr Stanislaw Armstrong [place] [id number] [phone] WBC 7.4 x10*3/UL 4.1 - 10.9 RBC [...] 6.2 x10*3/UL 2.0 - 7.8 A1c 02/12/2020 [facility] Cavalry Officer: [place] [address] [phone] Hba1c 7.9 g/dL High 4.8 - 5.6 11 Est Avg Glucose 180 mg/dL High 60 - 110 Comprehensive Chem Profile 02/12/2020 [facility] Cavalry Officer: [place] [address] [phone] Glucose 277 mg/dL High 74 - 99 12 BUN 23 mg/dL High 7 - 18 [...] Albumin 3.3 g/dL Low 3.4 - 5.0 13 Total Protein 6.1 g/dL Low 6.4 - 8.2 A/G Ratio 1.18 CALC 1.00 - 1.90 GFR >= 60 mL/min >60 GFR >= 60 mL/min >60 14 Lipid Profile 02/12/2020 [facility] Cavalry Officer: [place] [address] [phone] Cholesterol 84 mg/dL Low 131 - 200 Triglycerides 47 mg/dL 30 - 150 HDL Cholesterol 41 mg/dL 35 - 60 LDL (Calculated) 34 CALC Low 50 - 159 1 NOTE: RESULT VERIFIED. 2 100-125 mg/dL PRE-DIABET ES/FASTING >126 mg/dL DIABETES/FASTING 3 CHRONIC KIDNEY DISEASE STAGI NG PER NKF STAGE I & II GFR >= 60 NORMAL TO MILDLY DECREASED STAGE III GFR 30-59 MODERATELY DECREASED STAGE IV GFR 15-29 SEVERELY DECREASED STAGE V GFR <15 VERY LITTLE GFR LEFT ESRD GFR <15 ON CORPORATE EXECUTIVE 4 . The QuantiFERON-TB Gold Plus result is determined by subtracting the Nil value from either TB antigen (Ag) tube. The mitogen tube serves as a control for the test. 5 . The specimen received for QuantiFERON testing was incubated by the ordering institution. Specific procedures outlined in our Directory of Services and in the package insert for the QuantiFERON Gold (In Tube) test must be followed to enable for proper stimulation of cells for the production of interferon gamma. Performed at: RN - [facility] [address] [id number] Cavalry Officer: Aarti Shearer MD, Phone: [phone] VITAMIN B12 NORMAL RANGE NORMAL 247 - 911 PG/ML INDETERMINATE 211 - 246 PG/ML DEFICIENT LESS THAN 211 PG/ML 7 FOLATE NORMAL RANGE NORMAL GREATER THAN 5.4 NG/ML INDETERMINATE 3.4-5.4 NG/ML DEFICIENT LESS THAN 3.4 NG/ML 8 100-125 mg/dL PRE-DIABET ES/FASTING >126 mg/dL DIABETES/FASTING 9 CHRONIC KIDNEY DISEASE STAGI NG PER NKF STAGE I & II GFR >= 60 NORMAL TO MILDLY DECREASED STAGE III GFR 30-59 MODERATELY DECREASED STAGE IV GFR 15-29 SEVERELY DECREASED STAGE V GFR <15 VERY LITTLE GFR LEFT ESRD GFR <15 ON CORPORATE EXECUTIVE 10 NOTE: RESULT VERIFIED. 11 Lab Result Notes: Pre-Diabetes 5.7 - 6.4 % Diabetes = or > 6.5% 12 100-125 mg/dL PRE-DIABET ES/FASTING >126 mg/dL DIABETES/FASTING 13 NOTE: RESULT VERIFIED. 14 CHRONIC KIDNEY DISEASE STAGI NG PER NKF STAGE I & II GFR >= 60 NORMAL TO MILDLY DECREASED STAGE III GFR 30-59 MODERATELY DECREASED STAGE IV GFR 15-29 SEVERELY DECREASED STAGE V GFR <15 VERY LITTLE GFR LEFT ESRD GFR <15 ON CORPORATE EXECUTIVE Procedures Date Code Description Status 03/11/2020 568403150 Diabetic Retinal Eye Exam Comple brad 01/05/2020 [id number] Diabetic Retinal Eye Exam Comple brad 08/18/2019 [id number] Diabetic Retinal Eye Exam Comple brad 06/16/2019 560083323 Diabetic Retinal Eye Exam Comple brad 05/22/2018 745310385 Diabetic Retinal Eye Exam Comple brad 12/11/2017 021347353 Diabetic Retinal Eye Exam Comple brad 03/19/2017 578237001 Diabetic Retinal Eye Exam Comple brad 11/28/2016 989368558 Diabetic Retinal Eye Exam Comple brad 09/18/2016 303392986 Diabetic Retinal Eye Exam Comple brad 02/28/2016 [id number] Diabetic Retinal Eye Exam Comple brad 01/18/2016 904535498 Diabetic Retinal Eye Exam Comple brad 09/06/2015 491057091 Diabetic Retinal Eye Exam Comple brad 03/11/2015 734712311 Diabetic Retinal Eye Exam Comple brad 10/05/2014 [id number] Colonoscopy Completed 05/04/2014 769181029 Diabetic Retinal Eye Exam Comple brad 11/03/2013 [id number] Diabetic Retinal Eye Exam Comple brad 05/05/2013 594156314 Diabetic Retinal Eye Exam Comple brad 01/06/2013 669594280 Diabetic Retinal Eye Exam Comple brad 07/12/2012 [id number] Diabetic Retinal Eye Exam Comple brad 01/02/2012 996687304 Diabetic Retinal Eye Exam Comple brad 08/31/2011 726657113 Diabetic Retinal Eye Exam Comple brad 01/05/2011 027641403 Bone Mineral Density Test Comple brad 12/03/2009 346735239 Diabetic Retinal Eye Exam Comple bard 06/07/2009 726356445 Diabetic Retinal Eye Exam Comple brad Medical Devices Description No Information Available Encounters Type Date Location Provider Dx Diagnosis Office Visit 07/07/2020 10:40a [facility] 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, unsp E10.3213 Type 1 diabetes with mild no projection technician rtnop with macular edema, bi E10.649 Type 1 diabetes mellitus wit h hypoglycemia without coma Z96.41 Presence of insulin pump (ex ternal) (internal) I73.9 Peripheral vascular disease, unspecified I25.10 Athscl heart disease of [place] ve coronary artery w/o ang pctrs Z95.1 Presence of aortocoronary by pass graft I48.0 Paroxysmal atrial fibrillati on Z79.01 buttermaker helper (current) use of a nticoagulants N40.0 Benign prostatic hyperplasia without lower urinry tract symp E78.00 Pure hypercholesterolemia, u nspecified Z13.89 Encounter for screening for other disorder Office Visit 06/03/2020 1:40p [facility] Cande Singleton, [address] [place] I73.9 Peripheral vascular disease, unspecified E10.40 Type 1 diabetes mellitus wit h diabetic neuropathy, unsp Z96.41 Presence of insulin pump (ex ternal) (internal) Z23 Encounter for immunization Office Visit 05/20/2020 1:20p [facility] 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 I48.0 Paroxysmal atrial fibrillati on Z79.01 buttermaker helper (current) use of a nticoagulants I73.9 Peripheral [...] MD 07/07/2020 Z96.41 Presence of insulin pump (evaporator operator molasses al) (internal) Stanislaw Armstrong MD 07/07/2020 I73.9 Peripheral vascular disease, uns pecified Stanislaw Armstrong MD 07/07/2020 I25.10 Atherosclerotic heart disease of [place] coronary artery with Stanislaw Armstrong MD 07/07/2020 Z95.1 Presence of aortocoronary bypass graft Stanislaw Armstrong MD 07/07/2020 I48.0 Paroxysmal atrial fibrillation C yakelin Armstrong MD 07/07/2020 Z79.01 FDC (current) use of antic oagulants Stanislaw Armstrong MD 07/07/2020 N40.0 Benign prostatic hyp erplasia without lower urinary tract symptoms Stanislaw Armstrong MD 07/07/2020 E78.00 Pure hypercholesterolemia, unspe cified Stanislaw Armstrong MD 07/07/2020 Z13.89 Encounter for screening for othe r disorder Stanislaw Armstrong MD 06/25/2020 E78.00 Pure hypercholesterolemia, unspe cified Stanislaw Armstrong MD 06/25/2020 I10 Essential (primary) hypertension Stanislaw Armstrong MD 06/25/2020 I48.0 Paroxysmal atrial fibrillation C yakelin Armstrong MD 06/03/2020 I73.9 Peripheral vascular disease, uns pecified Cande [place] [facility] 06/03/2020 E10.40 Type 1 diabetes kristopher itus with diabetic neuropathy, unspecified Cande [place] [facility] 06/03/2020 Z96.41 Presence of insulin pump (evaporator operator molasses al) (internal) Cande [place] [facility] 06/03/2020 Z23 Encounter for immunization Cande [place] [facility] 05/20/2020 E10.3213 Type 1 diabetes kristopher itus with mild nonproliferative diabetic retinopathy with macular edema, bilateral Cande [place] [facility] 05/20/2020 E10.10 Type 1 diabetes mellitus with ke toacidosis without coma Stanislaw Armstrong MD 05/20/2020 I25.10 Atherosclerotic heart disease of [place] coronary artery with Cande [place] [facility] 05/20/2020 E10.10 Type 1 diabetes mellitus with ke toacidosis without coma Lab Schedule 05/20/2020 I48.0 Paroxysmal atrial fibrillation A mónica [place] [facility] 05/20/2020 I10 Essential (primary) hypertension Stanislaw Armstrong MD 05/20/2020 Z79.01 buttermaker helper (current) use of antic oagulants Cande [place] [facility] 05/20/2020 I10 Essential (primary) hypertension Lab Schedule 05/20/2020 R76.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 reaction to 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 WESLEY Staley 05/20/2020 E78.00 Pure hypercholesterolemia, unspe cified Stanislaw [...] MD 04/29/2020 Z96.41 Presence of insulin pump (evaporator operator molasses al) (internal) Stanislaw Armstrong MD 04/29/2020 I21.4 Non-St elevation (Nstemi) myocar dial infarction Stanislaw Armstrong MD 04/29/2020 I25.10 Atherosclerotic heart disease of [place] coronary artery with Stanislaw Armstrong MD 04/29/2020 Z95.1 Presence of aortocoronary bypass graft Stanislaw Armstrong MD 04/29/2020 I48.0 Paroxysmal atrial fibrillation C yakelin Armstrong MD 04/29/2020 Z79.01 buttermaker helper (current) use of antic oagulants Stanislaw Armstrong MD 04/29/2020 I73.9 Peripheral vascular disease, uns pecified Stanislaw Armstrong MD 04/14/2020 I10 Essential (primary) hypertension Stanislaw Armstrong MD 04/14/2020 E78.00 Pure hypercholesterolemia, unspe cified Stanislaw Armstrong MD 04/14/2020 I48.0 Paroxysmal atrial fibrillation Yaniv Armstrong MD 03/11/2020 I10 Essential (primary) hypertension Stanislaw Armstrong MD 03/11/2020 I48.0 Paroxysmal atrial fibrillation C yakelin Armstrong MD 03/11/2020 E78.00 Pure hypercholesterolemia, unspe cified Stanislaw Armstrong MD 03/11/2020 E10.40 Type 1 diabetes kristopher itus with diabetic neuropathy, unspecified Stanislaw Armstrong MD 02/17/2020 I10 Essential (primary) hypertension Stanislaw Armstrong MD 02/17/2020 I48.0 Paroxysmal atrial fibrillation C ollinjean marie Armstrong MD 02/17/2020 E78.00 Pure hypercholesterolemia, unspe cified Stanislaw Armstrong MD 02/12/2020 I10 Essential (primary) hypertension Stanislaw Armstrong MD 02/12/2020 I10 Essential (primary) hypertension Lab Schedule 02/12/2020 E10.40 Type 1 diabetes kristopher itus with diabetic neuropathy, unspecified Stanislaw Armstrong MD 02/12/2020 E10.40 Type 1 diabetes kristopher itus with diabetic neuropathy, unspecified Lab Schedule Plan of Treatment Future Appointment(s):* 01/05/2021 2:00 pm - Stanislaw Armstrong MD at [facility] 01/06/2020 - Stanislaw Armstrong MD* I10 Essential (primary) hypertension* Comments:* Hypertension at JNC-8 guidelines * E78.00 Pure hypercholesterolemia, unspecified * I48.0 Paroxysmal atrial fibrillation * Z79.01 FDC (current) use of anticoagulants * E10.40 Type 1 diabetes mellitus with diabetic neuropathy, unspecified * E10.3213 Type 1 diabetes mellitus with mild nonproliferative diabetic retinopathy with macular edema, bilateral * Z96.41 Presence of insulin pump (external) (internal) * I25.10 Atherosclerotic heart disease of [place] coronary artery with * Z95.1 Presence of aortocoronary bypass graft Functional Status Description No Information Available Mental Status Description No Information Available Referrals Description No Information Available
--- OUTSIDE RECORDS SUMMARY | 2020-09-22 17:28 | CCD | Continuity of Care Document ---
Author Author Nurse #Daniel Wright Organization Unknown Address [address] [facility] [address] [place] [address] Phone Unavailable Care Team Providers Care Sheriff'S Sergeant Name Role Phone Sharmila Bush MD AUTM [phone] Stanislaw Armstrong JR, MD AUTM Unavailable Sharon Estrada MD AUTM [phone] [facility] AUTM [phone] [facility] AUTM [phone] Peter Mai MD AUTM Unavailable Problems Active [...] MD Onset: 09/19/2010 Atherosclerotic heart disease of [place] coronary arter y without angina pectoris Stanislaw [...] mouth every other day 30tabs Cande Nowak, WESLEY 0 Hydrochlorothiazide 12.5mg Capsule s 1 by mouth every day 90caps Stanislaw Armstrong MD 04/29/2020 Lisinopril 10mg Tablets 1 by mouth every day in the morning 90tabs Stanislaw Armstrong MD 020 Toprol XL 25mg Tablets ER 24HR 1 by mouth every day 90tabs Stanislaw Armstrong MD 08/08/2018 Vitamin D3 Adult Gummies 1000Unit Chewtabs 1 by mouth every fxt=2696by 180units Stanislaw izquierdo MD 12/28/2017 Proscar 5mg Tablets 1 by mouth every day 90tabs Stanislaw Armstrong MD 10/19/2017 Vitamin B12 1000mcg Tablets ER 1 by mouth every day 100tabs Stanislaw Armstrong MD 09/24/2017 Novolog 100Unit/ML Solution as directed in pump 60ml Stanislaw Armstrong MD 07/19/2016 Calcium 500 + D [id number] Tab lets 1 by mouth twice a [...] Administration Of Flu Vaccine Inj charity Nowak [facility] 06/03/2020 Administration Of Flu Vaccine Inj charity Armstrong MD 07/02/2019 Administration Of Flu Vaccine Inj charity Armstrong MD 06/28/2018 Administration Of Flu Vaccine Inj charity Armstrong MD 06/12/2017 Administration Of Flu Vaccine Inj charity Armstrong MD 06/22/2016 Administration Of Flu Vaccine Inj daion Stanislaw Armstrong MD 06/24/2015 Administration Of Flu Vaccine [...] 08/17/2006 Administration Of Flu Vaccine Inj ection CHERELLE StaleyP 06/13/2005 Administration Of Flu Vaccine Inj charity Armstrong MD 07/01/2004 Administration Of Flu Vaccine Inj charity Armstrong MD 06/22/2003 Immunizations CPT Code Status Date Vaccine Reaction Lot # [id number] Given 06/03/2020 Influenza Vaccin e Quadrivalent Preser/Antibiotic Free Im Use [id number] 51113 Given 05/18/2020 PPD 05-20-20 negative omm BW RN [id number] [id number] Given 07/02/2019 Influenza Vaccin e Quadrivalent Preser/Antibiotic Free Im Use [id number] 65371 Given 06/28/2018 Influenza Virus Vaccine, Quadrivalent (Cciiv4), Derived From 3 Given 04/19/2018 Shingrix 65953 Given 01/14/2018 Shingrix 85450 Given 12/28/2017 Pneumovax 23 [id number] 28080 Given 06/12/2017 Influenza Vaccin e Quadrivalent Preser/Antibiotic Free Im Use 299221 U-Td Given 12/06/2016 Td(Adult)(Tetanus, Diphtheria) unspe cified U-Td Given 12/06/2016 Td(Adult)(Tetanus, Diphtheria) unspe cified Q2037 Given 06/22/2016 Fluvirin Virus Vaccine 16 [id number] Q2037 Given 06/24/2015 Fluvirin Virus Vaccine 15 86375 74813 Given 11/24/2014 Prevnar 13 [id number] Q2037 Given 07/02/2014 Fluvirin Virus Vaccine 14 99377 Q2037 Given 05/30/2012 Fluvirin Virus Vaccine Q2037 Given 06/20/2011 Fluvirin Virus Vaccine Q2037 Given 06/20/2011 Fluvirin Virus Vaccine 93470 Given 06/16/2010 Influenza Virus Vaccine 54198 Given 06/17/2009 Influenza Virus Vaccine 50317 Given 06/09/2008 Influenza Virus Vaccine 20446 Given 06/27/2007 Influenza Virus Vaccine 55019 Given 03/01/2007 Zoster Vaccine 47509 Given 08/17/2006 Influenza Virus Vaccine 03290 Given 06/13/2005 Influenza Virus Vaccine 09182 Given 07/01/2004 Influenza Virus Vaccine 11156 Given 06/22/2003 Influenza Virus Vaccine 58615 Given 06/16/1999 Influenza Virus Vaccine 75731 Given 06/02/1994 Influenza Virus Vaccine Vital Signs Date Vital Result Comment 07/07/2020 10:25am BP Systolic 140 mmHg BP Diastolic 50 mmHg Height 68.25 inches 5'8.25" Weight 155.12 lb BMI (Body Mass Index) 23.4 kg/m2 06/03/2020 5:37am BP Systolic 144 mmHg BP Diastolic 62 mmHg Heart Rate 68 /min Height 68.25 inches 5'8.25" Weight 150.00 lb BMI (Body Mass Index) 22.6 kg/m2 Results Test Acquired Date Facility Test Result H/L Range Note Quanteferon TB Gold Test 05/20/2020 [facility] [address] [place] [address] [phone] QuantiFERON Criteria (SEE NOTE) Normal . 1 QuantiFERON TB1 Ag Value 0.04 IU/mL Normal . QuantiFERON TB2 Ag Value 0.05 IU/mL Normal . QuantiFERON Nil Value 0.02 IU/mL Normal . QuantiFERON Mitogen Value 8.96 IU/mL Normal . QuantiFERON-TB Gold Plus Negative Normal Negative 2 Vitamin B12 & Folate 05/20/2020 [facility] [address] [place], [place] [id number] [phone] Vitamin B12 Level 734 pg/mL Normal 3 Folate 21.7 NG/ML Normal 4 Basic Metabolic Panel 05/20/2020 [facility] Mica Machine Operator: [place] [address] [phone] Glucose 176 mg/dL High 74 - 99 5 BUN 24 mg/dL High 7 - 18 Creatinine 1.0 mg/dL 0.6 - 1.3 Sodium 139 mEq/L 136 - 145 Potassium 4.2 mEq/L 3.5 - 5.1 Chloride 104 mEq/L 98 - 107 Carbon Dioxide 26 mEq/L 21 - 32 Calcium 8.6 mg/dL 8.5 - 10.1 GFR >= 60 mL/min >60 GFR >= 60 mL/min >60 6 Complete Blood Count 05/20/2020 [facility] Mica Machine Operator: Dr Stanislaw Armstrong [place], [place] [id number] [phone] WBC 6.3 x10*3/UL 4.1 - 10.9 RBC 3.40 x10*6/UL Low 4.20 - 6.30 Hemoglobin 10.4 g/dL Low 12.0 - 18.0 7 Hematocrit 30.5 % Low 37.0 - 51.0 [...] 2.0 - 7.8 Laboratory test finding 05/20/2020 [facility] Mica Machine Operator: Dr Stanislaw Armstrong [place], [place] [id number] [phone] Thyroid Stimulating Hormone 3.04 uIU/mL 0.3 6 - 3.74 Complete Blood Count 02/12/2020 [facility] Mica Machine Operator: Dr Stanislaw Armstrong [place], [place] [id number] [phone] WBC 7.4 x10*3/UL 4.1 - 10.9 RBC [...] 6.2 x10*3/UL 2.0 - 7.8 A1c 02/12/2020 [facility] Mica Machine Operator: [place] [address] [phone] Hba1c 7.9 g/dL High 4.8 - 5.6 8 Est Avg Glucose 180 mg/dL High 60 - 110 Comprehensive Chem Profile 02/12/2020 [facility] Mica Machine Operator: [place] [address] [phone] Glucose 277 mg/dL High 74 - 99 9 BUN 23 mg/dL High 7 - 18 [...] Albumin 3.3 g/dL Low 3.4 - 5.0 10 Total Protein 6.1 g/dL Low 6.4 - 8.2 A/G Ratio 1.18 CALC 1.00 - 1.90 GFR >= 60 mL/min >60 GFR >= 60 mL/min >60 11 Lipid Profile 02/12/2020 [facility] Mica Machine Operator: [place] [address] [phone] Cholesterol 84 mg/dL Low 131 - 200 Triglycerides 47 mg/dL 30 - 150 HDL Cholesterol 41 mg/dL 35 - 60 LDL (Calculated) 34 CALC Low 50 - 159 Complete Blood Count 01/08/2020 [facility] Mica Machine Operator: [place] [address] [phone] WBC 6.7 x10*3/UL 4.1 - 10.9 RBC 3.69 x10*6/UL Low 4.20 - 6.30 Hemoglobin 11.4 g/dL Low 12.0 - 18.0 12 Hematocrit 33.1 % Low 37.0 - 51.0 [...] 2.0 - 7.8 Basic Metabolic Panel 01/08/2020 [facility] Mica Machine Operator: [place] [address] [phone] Glucose 188 mg/dL High 74 - 99 13 BUN 27 mg/dL High 7 - 18 Creatinine 1.2 mg/dL 0.6 - 1.3 Sodium 140 mEq/L 136 - 145 Potassium 4.3 mEq/L 3.5 - 5.1 Chloride 104 mEq/L 98 - 107 Carbon Dioxide 24 mEq/L 21 - 32 Calcium 8.6 mg/dL 8.5 - 10.1 GFR 58 mL/min Low >60 GFR >= 60 mL/min >60 14 1 . The QuantiFERON-TB Gold Plus result is determined by subtracting the Nil value from either TB antigen (Ag) tube. The mitogen tube serves as a control for the test. 2 . The specimen received for QuantiFERON testing was incubated by the ordering institution. Specific procedures outlined in our Directory of Services and in the package insert for the QuantiFERON Gold (In Tube) test must be followed to enable for proper stimulation of cells for the production of interferon gamma. Performed at: RN - [facility] [address] [id number] Mica Machine Operator: Aarti Shearer MD, Phone: [phone] VITAMIN B12 NORMAL RANGE NORMAL 247 - 911 PG/ML INDETERMINATE 211 - 246 PG/ML DEFICIENT LESS THAN 211 PG/ML 4 FOLATE NORMAL RANGE NORMAL GREATER THAN 5.4 NG/ML INDETERMINATE 3.4-5.4 NG/ML DEFICIENT LESS THAN 3.4 NG/ML 5 100-125 mg/dL PRE-DIABET ES/FASTING >126 mg/dL DIABETES/FASTING 6 CHRONIC KIDNEY DISEASE STAGI NG PER NKF STAGE I & II GFR >= 60 NORMAL TO MILDLY DECREASED STAGE III GFR 30-59 MODERATELY DECREASED STAGE IV GFR 15-29 SEVERELY DECREASED STAGE V GFR <15 VERY LITTLE GFR LEFT ESRD GFR <15 ON GROUP UNDERWRITER 7 NOTE: RESULT VERIFIED. 8 Lab Result Notes: Pre-Diabetes 5.7 - 6.4 % Diabetes = or > 6.5% 9 100-125 mg/dL PRE-DIABET ES/FASTING >126 mg/dL DIABETES/FASTING 10 NOTE: RESULT VERIFIED. 11 CHRONIC KIDNEY DISEASE STAGI NG PER NKF STAGE I & II GFR >= 60 NORMAL TO MILDLY DECREASED STAGE III GFR 30-59 MODERATELY DECREASED STAGE IV GFR 15-29 SEVERELY DECREASED STAGE V GFR <15 VERY LITTLE GFR LEFT ESRD GFR <15 ON GROUP UNDERWRITER 12 NOTE: RESULT VERIFIED. 13 100-125 mg/dL PRE-DIABET ES/FASTING >126 mg/dL DIABETES/FASTING 14 CHRONIC KIDNEY DISEASE STAGI NG PER NKF STAGE I & II GFR >= 60 NORMAL TO MILDLY DECREASED STAGE III GFR 30-59 MODERATELY DECREASED STAGE IV GFR 15-29 SEVERELY DECREASED STAGE V GFR <15 VERY LITTLE GFR LEFT ESRD GFR <15 ON GROUP UNDERWRITER Procedures Date Code Description Status 03/11/2020 502089825 Diabetic Retinal Eye Exam Comple brad 01/05/2020 [id number] Diabetic Retinal Eye Exam Comple brad 08/18/2019 374917842 Diabetic Retinal Eye Exam Comple brad 06/16/2019 711422131 Diabetic Retinal Eye Exam Comple brad 05/22/2018 [id number] Diabetic Retinal Eye Exam Comple brad 12/11/2017 266792922 Diabetic Retinal Eye Exam Comple brad 03/19/2017 [id number] Diabetic Retinal Eye Exam Comple brad 11/28/2016 [id number] Diabetic Retinal Eye Exam Comple brad 09/18/2016 588271779 Diabetic Retinal Eye Exam Comple brad 02/28/2016 652837875 Diabetic Retinal Eye Exam Comple brad 01/18/2016 076492177 Diabetic Retinal Eye Exam Comple brad 09/06/2015 735601811 Diabetic Retinal Eye Exam Comple brad 03/11/2015 804236254 Diabetic Retinal Eye Exam Comple brad 10/05/2014 [id number] Colonoscopy Completed 05/04/2014 [id number] Diabetic Retinal Eye Exam Comple brad 11/03/2013 007269943 Diabetic Retinal Eye Exam Comple brad 05/05/2013 818831219 Diabetic Retinal Eye Exam Comple brad 01/06/2013 757723513 Diabetic Retinal Eye Exam Comple brad 07/12/2012 721221729 Diabetic Retinal Eye Exam Comple brad 01/02/2012 518165127 Diabetic Retinal Eye Exam Comple brad 08/31/2011 [id number] Diabetic Retinal Eye Exam Comple brad 01/05/2011 [id number] Bone Mineral Density Test Comple brad 12/03/2009 [id number] Diabetic Retinal Eye Exam Comple brad 06/07/2009 246197027 Diabetic Retinal Eye Exam Comple brad Medical Devices Description No Information Available Encounters Type Date Location Provider Dx Diagnosis Office Visit 06/03/2020 1:40p [facility] Cande Singleton, PACKAGER HAND I73.9 Peripheral vascular disease, unspecified E10.40 Type 1 diabetes mellitus wit h diabetic neuropathy, unsp Z96.41 Presence of insulin pump (ex ternal) (internal) Z23 Encounter for immunization Office Visit 05/20/2020 1:20p [facility] 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 06/03/2020 E10.40 Type 1 diabetes kristopher itus with diabetic neuropathy, unspecified Cande Ahmadi Gray, [facility] 06/03/2020 Z96.41 Presence of insulin pump (commanding officer traffic division al) (internal) Cande Nowak [facility] 06/03/2020 Z23 Encounter for immunization Cande vallecillo Gray, [facility] 05/20/2020 E10.3213 Type 1 diabetes kristopher itus with mild nonproliferative diabetic retinopathy with macular edema, bilateral Cande Ahmadi Tian [facility] 05/20/2020 E10.10 Type 1 diabetes mellitus with ke toacidosis without coma Stanislaw Armstrong MD 05/20/2020 I25.10 Atherosclerotic heart disease of [place] coronary artery with Cande Ahmadi Tian [facility] 05/20/2020 E10.10 Type 1 diabetes mellitus with ke toacidosis without coma Lab Schedule 05/20/2020 I48.0 Paroxysmal atrial fibrillation A mónica Daiana Tian [facility] 05/20/2020 I10 Essential (primary) hypertension Stanislaw Armstrong MD 05/20/2020 Z79.01 manager long term care (current) use of antic oagulants Cande Ahmadi Tian [facility] 05/20/2020 I10 Essential (primary) hypertension Lab Schedule 05/20/2020 R76.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 reaction to 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 Cande Daiana Overton [facility] 05/20/2020 E78.00 Pure hypercholesterolemia, unspe cified [...] MD 04/29/2020 Z96.41 Presence of insulin pump (commanding officer traffic division al) (internal) Stanislaw Armstrong MD 04/29/2020 I21.4 Non-St elevation (Nstemi) myocar dial infarction Stanislaw Armstrong MD 04/29/2020 I25.10 Atherosclerotic heart disease of [place] coronary artery with Stanislaw Armstrong MD 04/29/2020 Z95.1 Presence of aortocoronary bypass graft Stanislaw Armstrong MD 04/29/2020 I48.0 Paroxysmal atrial fibrillation C yakelin Armstrong MD 04/29/2020 Z79.01 manager long term care (current) use of antic oagulants Stanislaw Armstrong [...] 01/08/2020 Z51.81 Encounter for therapeutic drug l evel monitoring Cande Nowak [facility] 01/08/2020 I10 Essential (primary) hypertension Cande Nowak [facility] 01/08/2020 I48.0 Paroxysmal atrial fibrillation A mónica Nowak [facility] 01/08/2020 I10 Essential (primary) hypertension Lab Schedule 01/08/2020 Z79.01 manager long term care (current) use of antic oagulants Cande Nowak [facility] 01/08/2020 I48.0 Paroxysmal atrial fibrillation P rotime 01/08/2020 Z79.01 manager long term care (current) use of antic oagulants Protime Plan of Treatment No Information Available Functional Status Description No Information Available Mental Status Description No Information Available Referrals Description No Information Available
--- OUTSIDE RECORDS SUMMARY | 2020-09-22 17:28 | CCD | Continuity of Care Document ---
Author Author Daniel Staley Organization Unknown Address [address] [facility] [address] [place] [address] Phone [phone] Care Team Providers Care Hog Grader Name Role Phone Sharmila Bush MD AUTM [phone] Stanislaw Armstrong JR, MD AUTM Unavailable Sharon Estrada MD AUTM [phone] [facility] AUTM [phone] [facility] AUTM [phone] Problems Active Problems Provider Date Coronary arteriosclerosis [...] MD Onset: 09/19/2010 Atherosclerotic heart disease of [place] coronary arter y without angina pectoris Stanislaw [...] mg Table ts 1 by mouth every day 30tabs WESLEY Staley 05/27/2020 Hydrochlorothiazide 12.5mg Capsule s 1 by mouth every day 90caps Stanislaw Armstrong MD 04/29/2020 Lisinopril 10mg Tablets 1 by mouth every day in the morning 90tabs Stanislaw Armstrong MD 020 Toprol XL 25mg Tablets ER 24HR 1 by mouth every day 90tabs Stanislaw Armstrong MD 08/08/2018 Vitamin D3 Adult Gummies 1000Unit Chewtabs 1 by mouth every [id number] 180units Stanislaw izquierdo MD 12/28/2017 Proscar 5mg Tablets 1 by mouth every day 90tabs Stanisalw Armstrong MD 10/19/2017 Vitamin B12 1000mcg Tablets ER 1 by mouth every day 100tabs Stanislaw Armstrong MD 09/24/2017 Novolog 100Unit/ML Solution as directed in pump 60ml Stanislaw Armstrong MD 07/19/2016 Calcium 500 + D [id number] Tab lets 1 by mouth twice a [...] Sodium 100mg Capsules 2 by mouth daily 180alec Armstrong MD 04/27/2014 Flomax 0.4mg Capsules 2 [...] Administration Of Flu Vaccine Inj [facility] 06/03/2020 Administration Of Flu Vaccine Inj [...] MD 06/09/2008 Administration Of Flu Vaccine Inj daion Stanislaw Armstrong MD 06/27/2007 Administration Of Zostavax Injection Stanislaw Armstrong MD 03/01/2007 Administration Of Flu Vaccine Inj charity Armstrong MD 08/17/2006 Administration Of Flu Vaccine Inj ection CHERELLE StaleyP 06/13/2005 Administration Of Flu Vaccine Inj charity Armstrong MD 07/01/2004 Administration Of Flu Vaccine Inj charity Armstrong MD 06/22/2003 Immunizations CPT Code Status Date Vaccine Reaction Lot # [id number] Given 06/03/2020 Influenza Vaccin e Quadrivalent Preser/Antibiotic Free Im Use [id number] 88613 Given 05/18/2020 PPD 05-20-20 negative omm BW RN [id number] 53650 Given 07/02/2019 Influenza Vaccin e Quadrivalent Preser/Antibiotic Free Im Use [id number] 78198 Given 06/28/2018 Influenza Virus Vaccine, Quadrivalent (Cciiv4), Derived From 7 Given 04/19/2018 Shingrix 58975 Given 01/14/2018 Shingrix 16616 Given 12/28/2017 Pneumovax 23 [id number] 32168 Given 06/12/2017 Influenza Vaccin e Quadrivalent Preser/Antibiotic Free Im Use [id number] U-Td Given 12/06/2016 Td(Adult)(Tetanus, Diphtheria) unspe cified U-Td Given 12/06/2016 Td(Adult)(Tetanus, Diphtheria) unspe cified Q2037 Given 06/22/2016 Fluvirin Virus Vaccine 16 [id number] Q2037 Given 06/24/2015 Fluvirin Virus Vaccine 15 13440 19552 Given 11/24/2014 Prevnar 13 [id number] Q2037 Given 07/02/2014 Fluvirin Virus Vaccine 14 32711 Q2037 Given 05/30/2012 Fluvirin Virus Vaccine Q2037 Given 06/20/2011 Fluvirin Virus Vaccine Q2037 Given 06/20/2011 Fluvirin Virus Vaccine 42583 Given 06/16/2010 Influenza Virus Vaccine 64084 Given 06/17/2009 Influenza Virus Vaccine 57312 Given 06/09/2008 Influenza Virus Vaccine 15917 Given 06/27/2007 Influenza Virus Vaccine 74490 Given 03/01/2007 Zoster Vaccine 33774 Given 08/17/2006 Influenza Virus Vaccine 61811 Given 06/13/2005 Influenza Virus Vaccine 49671 Given 07/01/2004 Influenza Virus Vaccine 06049 Given 06/22/2003 Influenza Virus Vaccine 59816 Given 06/16/1999 Influenza Virus Vaccine 48084 Given 06/02/1994 Influenza Virus Vaccine Vital Signs Date Vital Result Comment 06/03/2020 5:37am BP Systolic 144 mmHg BP Diastolic 62 mmHg Heart Rate 68 /min Height 68.25 inches 5'8.25" Weight 150.00 lb BMI (Body Mass Index) 22.6 kg/m2 06/03/2020 1:47pm Heart Rate 68 /min Height 68.25 inches 5'8.25" Weight 150.00 lb O2 % BldC Oximetry 97 % BMI (Body Mass Index) 22.6 kg/m2 Results Test Acquired Date Facility Test Result H/L Range Note Quanteferon TB Gold Test 05/20/2020 [facility] [address] [place] [address] [phone] QuantiFERON Criteria (SEE NOTE) Normal . 1 QuantiFERON TB1 Ag Value 0.04 IU/mL Normal . QuantiFERON TB2 Ag Value 0.05 IU/mL Normal . QuantiFERON Nil Value 0.02 IU/mL Normal . QuantiFERON Mitogen Value 8.96 IU/mL Normal . QuantiFERON-TB Gold Plus Negative Normal Negative 2 Vitamin B12 & Folate 05/20/2020 [facility] [address] [place] [address] [phone] Vitamin B12 Level 734 pg/mL Normal 3 Folate 21.7 NG/ML Normal 4 Basic Metabolic Panel 05/20/2020 [facility] Facepiece Line Supervisor: [place] [address] [phone] Glucose 176 mg/dL High 74 - 99 [...] mL/min >60 6 Complete Blood Count 05/20/2020 [facility] Facepiece Line Supervisor: [place] [address] [phone] WBC 6.3 x10*3/UL 4.1 - 10.9 RBC [...] 2.0 - 7.8 Laboratory test finding 05/20/2020 [facility] Facepiece Line Supervisor: Dr Stanislaw Armstrong [place], [place] [id number] [phone] Thyroid Stimulating Hormone 3.04 uIU/mL 0.3 6 - 3.74 Complete Blood Count 02/12/2020 [facility] Facepiece Line Supervisor: Dr Stanislaw Armstrong [place], [place] [id number] [phone] WBC 7.4 x10*3/UL 4.1 - 10.9 RBC [...] 6.2 x10*3/UL 2.0 - 7.8 A1c 02/12/2020 [facility] Facepiece Line Supervisor: [place] [address] [phone] Hba1c 7.9 g/dL High 4.8 - 5.6 8 Est Avg Glucose 180 mg/dL High 60 - 110 Comprehensive Chem Profile 02/12/2020 [facility] Facepiece Line Supervisor: [place] [address] [phone] Glucose 277 mg/dL High 74 - 99 [...] 60 mL/min >60 11 Lipid Profile 02/12/2020 [facility] Facepiece Line Supervisor: [place] [address] [phone] Cholesterol 84 mg/dL Low 131 - 200 Triglycerides 47 mg/dL 30 - 150 HDL Cholesterol 41 mg/dL 35 - 60 LDL (Calculated) 34 CALC Low 50 - 159 Complete Blood Count 01/08/2020 [facility] Facepiece Line Supervisor: [place] [address] [phone] WBC 6.7 x10*3/UL 4.1 - 10.9 RBC [...] 2.0 - 7.8 Basic Metabolic Panel 01/08/2020 [facility] Facepiece Line Supervisor: [place] [address] [phone] Glucose 188 mg/dL High 74 - 99 [...] interferon gamma. Performed at: RN - [facility] [address], [place], [place] [id number] Facepiece Line Supervisor: Aarti Shearer MD, Phone: [phone] VITAMIN B12 NORMAL RANGE NORMAL 247 [...] LITTLE GFR LEFT ESRD GFR <15 ON [employer] DIV[employer] 7 NOTE: RESULT VERIFIED. 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 13 100-125 mg/dL PRE-DIABET ES/FASTING >126 mg/dL DIABETES/FASTING 14 CHRONIC KIDNEY DISEASE STAGI NG PER NKF STAGE I & II GFR >= 60 NORMAL TO MILDLY DECREASED STAGE III GFR 30-59 MODERATELY DECREASED STAGE IV GFR 15-29 SEVERELY DECREASED STAGE V GFR <15 VERY LITTLE GFR LEFT ESRD GFR <15 ON [employer]F [employer] DIVISION Procedures Date Code Description Status 03/11/2020 845691470 Diabetic Retinal Eye Exam Comple brad 01/05/2020 [id number] Diabetic Retinal Eye Exam Comple brad 08/18/2019 [id number] Diabetic Retinal Eye Exam Comple [facility] 06/16/2019 [id number] Diabetic Retinal Eye Exam Comple brad 05/22/2018 [id number] Diabetic Retinal Eye Exam Comple brad 12/11/2017 [id number] Diabetic Retinal Eye Exam Comple brad 03/19/2017 [id number] Diabetic Retinal Eye Exam Comple brad 11/28/2016 [id number] Diabetic Retinal Eye Exam Comple brad 09/18/2016 [id number] Diabetic Retinal Eye Exam Comple brad 02/28/2016 [id number] Diabetic Retinal Eye Exam Comple brad 01/18/2016 [id number] Diabetic Retinal Eye Exam Comple brad 09/06/2015 [id number] Diabetic Retinal Eye Exam Comple brad 03/11/2015 965449780 Diabetic Retinal Eye Exam Comple brad 10/05/2014 [id number] Colonoscopy Completed 05/04/2014 [id number] Diabetic Retinal Eye Exam Comple brad 11/03/2013 [id number] Diabetic Retinal Eye Exam Comple brad 05/05/2013 [id number] Diabetic Retinal Eye Exam Comple brad 01/06/2013 757401281 Diabetic Retinal Eye Exam Comple brad 07/12/2012 513302233 Diabetic Retinal Eye Exam Comple brad 01/02/2012 [id number] Diabetic Retinal Eye Exam Comple brad 08/31/2011 [id number] Diabetic Retinal Eye Exam Comple brad 01/05/2011 576174796 Bone Mineral Density Test Comple brad 12/03/2009 587166724 Diabetic Retinal Eye Exam Comple brad 06/07/2009 990811111 Diabetic Retinal Eye Exam Comple brad Medical Devices Description No Information Available Encounters Type Date Location Provider Dx Diagnosis Office Visit 06/03/2020 1:40p [facility] Cande Singleton, [employer] I73.9 Peripheral vascular disease, unspecified E10.40 Type 1 diabetes mellitus wit h diabetic neuropathy, unsp Z96.41 Presence of insulin pump (ex ternal) (internal) Z23 Encounter for immunization Office Visit 05/20/2020 1:20p [facility] 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 Assessments Date Code Description Provider 06/03/2020 I73.9 Peripheral vascular disease, uns pecified Cande [place], [facility] 06/03/2020 E10.40 Type 1 diabetes kristopher itus with diabetic neuropathy, unspecified Cande [place], [facility] 06/03/2020 Z96.41 Presence of insulin pump (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 servicer al) (internal) Cande [place] [facility] 06/03/2020 Z23 Encounter for immunization Cande [place], [facility] 05/20/2020 E10.3213 Type 1 diabetes kristopher itus with mild nonproliferative diabetic retinopathy with macular edema, bilateral Cande [place], [facility] 05/20/2020 E10.10 Type 1 diabetes mellitus with ke toacidosis without coma Stanislaw Armstrong MD 05/20/2020 I25.10 Atherosclerotic heart disease of [place] coronary artery with Cande [place] [facility] 05/20/2020 E10.10 Type 1 diabetes mellitus with ke toacidosis without coma Lab Schedule 05/20/2020 I48.0 Paroxysmal atrial fibrillation A mónica [place] [facility] 05/20/2020 I10 Essential (primary) hypertension Stanislaw Armstrong MD 05/20/2020 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 Cande [place] [facility] 05/20/2020 I10 Essential (primary) hypertension Lab Schedule 05/20/2020 R76.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 reaction to 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 Cande [place] [facility] 05/20/2020 E78.00 Pure hypercholesterolemia, unspe cified [...] MD 04/29/2020 Z96.41 Presence of insulin pump (appliance servicer al) (internal) Stanislaw Armstrong MD 04/29/2020 I21.4 Non-St elevation (Nstemi) myocar dial infarction Stanislaw Armstrong MD 04/29/2020 I25.10 Atherosclerotic heart disease of [place] coronary artery with Stanislaw Armstrong MD 04/29/2020 Z95.1 Presence of aortocoronary bypass graft Stanislaw Armstrong MD 04/29/2020 I48.0 Paroxysmal atrial fibrillation Yaniv Armstrong MD 04/29/2020 Z79.01 FDC (current) use of antic oagulants [...] for therapeutic drug l patel monitoring Cande [place], [facility] 01/08/2020 I10 Essential (primary) hypertension Cande [place] [facility] 01/08/2020 I48.0 Paroxysmal atrial fibrillation A mónica [place] [facility] 01/08/2020 I10 Essential (primary) hypertension Lab Schedule 01/08/2020 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 Cande [place] [facility] 01/08/2020 I48.0 Paroxysmal atrial fibrillation P rotime 01/08/2020 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 Protime 01/06/2020 I10 Essential (primary) hypertension Stanislaw Armstrong MD 01/06/2020 E78.00 Pure hypercholesterolemia, unspe cified Stanislaw Armstrong MD 01/06/2020 I48.0 Paroxysmal atrial fibrillation C yakelin Armstrong MD 01/06/2020 Z79.01 FDC (current) use of antic oagulants Stanislaw Armstrong MD 01/06/2020 E10.40 Type 1 diabetes kristopher itus with diabetic neuropathy, unspecified Stanislaw Armstrong MD 01/06/2020 E10.3213 Type 1 diabetes kristopher itus with mild nonproliferative diabetic retinopathy with macular edema, bilateral Stanislaw Armstrong MD 01/06/2020 Z96.41 Presence of insulin pump (appliance servicer al) (internal) Stanislaw Armstrong MD 01/06/2020 I25.10 Atherosclerotic heart disease of [place] coronary artery with Stanislaw Armstrong MD 01/06/2020 Z95.1 Presence of aortocoronary bypass graft Stanislaw Armstrong MD Plan of Treatment Future Appointment(s):* 07/07/2020 10:20 am - Nurse #2 at [facility] * 07/07/2020 10:40 am - Stanislaw Armstrong MD at [facility] 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
--- OUTSIDE RECORDS SUMMARY | 2020-09-22 17:28 | CCD | Continuity of Care Document ---
Author Author Daniel Armstrong MD Organization Unknown Address [address] [facility] [address] [place] [address] Phone [phone] Care Team Providers Care [employer] Administrator Name Role Phone Sharmila Bush MD AUTM [phone] Stanislaw Armstrong JR, MD AUTM Unavailable Sharon Estrada MD AUTM [phone] [facility] AUTM [phone] [facility] AUTM [phone] Peter Mai MD AUTM Unavailable Problems Active [...] MD Onset: 09/19/2010 Atherosclerotic heart disease of [place] coronary arter y without angina pectoris Stanislaw [...] mouth every other day 30tabs Cande Nowak, JACQUARD LOOM CARD CHANGER 0 Hydrochlorothiazide 12.5mg Capsule s 1 by mouth every day 90caps Stanislaw Armstrong MD 04/29/2020 Lisinopril 10mg Tablets 1 by mouth every day in the morning 90tabs Stanislaw Armstrong MD 020 Toprol XL 25mg Tablets ER 24HR 1 by mouth every day 90tabs Stanislaw Armstrong MD 08/08/2018 Vitamin D3 Adult Gummies 1000Unit Chewtabs 1 by mouth every agu=8299pi 180units Stanislaw izquierdo MD 12/28/2017 Proscar 5mg Tablets 1 by mouth every day 90tabs Stanislaw Armstrong MD 10/19/2017 Vitamin B12 1000mcg Tablets ER 1 by mouth every day 100tabs Stanislaw Armstrong MD 09/24/2017 Novolog 100Unit/ML Solution as directed in pump 60ml Stanislaw Armstrong MD 07/19/2016 Calcium 500 + D [id number] Tab lets 1 by mouth twice a [...] Administration Of Flu Vaccine Inj charity Nowak [facility] 06/03/2020 Administration Of Flu Vaccine Inj charity Armstrong MD 07/02/2019 Administration Of Flu Vaccine Inj charity Armstrong MD 06/28/2018 Administration Of Flu Vaccine Inj charity Armstrnog MD 06/12/2017 Administration Of Flu Vaccine Inj [...] Of Flu Vaccine Inj ection Cande Nowak [facility] 06/13/2005 Administration Of Flu Vaccine Inj charity Armstrong MD 07/01/2004 Administration Of Flu Vaccine Inj charity Armstrong MD 06/22/2003 Immunizations CPT Code Status Date Vaccine Reaction Lot # [id number] Given 06/03/2020 Influenza Vaccin e Quadrivalent Preser/Antibiotic Free Im Use [id number] 68921 Given 05/18/2020 PPD 05-20-20 negative omm BW RN [id number] 99516 Given 07/02/2019 Influenza Vaccin e Quadrivalent Preser/Antibiotic Free Im Use [id number] 23836 Given 06/28/2018 Influenza Virus Vaccine, Quadrivalent (Cciiv4), Derived From 5 Given 04/19/2018 Shingrix 93269 Given 01/14/2018 Shingrix 53737 Given 12/28/2017 Pneumovax 23 [id number] 67488 Given 06/12/2017 Influenza Vaccin e Quadrivalent Preser/Antibiotic Free Im Use 960229 U-Td Given 12/06/2016 Td(Adult)(Tetanus, Diphtheria) unspe cified U-Td Given 12/06/2016 Td(Adult)(Tetanus, Diphtheria) unspe cified Q2037 Given 06/22/2016 Fluvirin Virus Vaccine 16 92740 Q2037 Given 06/24/2015 Fluvirin Virus Vaccine 15 98914 99141 Given 11/24/2014 Prevnar 13 [id number] Q2037 Given 07/02/2014 Fluvirin Virus Vaccine 14 74514 Q2037 Given 05/30/2012 Fluvirin Virus Vaccine Q2037 Given 06/20/2011 Fluvirin Virus Vaccine Q2037 Given 06/20/2011 Fluvirin Virus Vaccine 80677 Given 06/16/2010 Influenza Virus Vaccine 84822 Given 06/17/2009 Influenza Virus Vaccine 47515 Given 06/09/2008 Influenza Virus Vaccine 29498 Given 06/27/2007 Influenza Virus Vaccine 00166 Given 03/01/2007 Zoster Vaccine 70287 Given 08/17/2006 Influenza Virus Vaccine 16607 Given 06/13/2005 Influenza Virus Vaccine 37057 Given 07/01/2004 Influenza Virus Vaccine 55735 Given 06/22/2003 Influenza Virus Vaccine 71843 Given 06/16/1999 Influenza Virus Vaccine 99562 Given 06/02/1994 Influenza Virus Vaccine Vital Signs [...] Range Note Quanteferon TB Gold Test 05/20/2020 [facility] [address] [place] [address] [phone] QuantiFERON Criteria (SEE NOTE) Normal . 1 QuantiFERON TB1 Ag Value 0.04 IU/mL Normal . QuantiFERON TB2 Ag Value 0.05 IU/mL Normal . QuantiFERON Nil Value 0.02 IU/mL Normal . QuantiFERON Mitogen Value 8.96 IU/mL Normal . QuantiFERON-TB Gold Plus Negative Normal Negative 2 Vitamin B12 & Folate 05/20/2020 [facility] [address] [place] [address] [phone] Vitamin B12 Level 734 pg/mL Normal 3 Folate 21.7 NG/ML Normal 4 Basic Metabolic Panel 05/20/2020 [facility] Bomb Technician: [place] [address] [phone] Glucose 176 mg/dL High 74 - 99 [...] mL/min >60 6 Complete Blood Count 05/20/2020 [facility] Bomb Technician: [place] [address] [phone] WBC 6.3 x10*3/UL 4.1 - 10.9 RBC [...] 2.0 - 7.8 Laboratory test finding 05/20/2020 [facility] Bomb Technician: [place] [address] [phone] Thyroid Stimulating Hormone 3.04 uIU/mL 0.3 6 - 3.74 Complete Blood Count 02/12/2020 [facility] Bomb Technician: [place] [address] [phone] WBC 7.4 x10*3/UL 4.1 - 10.9 RBC [...] 6.2 x10*3/UL 2.0 - 7.8 A1c 02/12/2020 [facility] , Bomb Technician: [place] [address] [phone] Hba1c 7.9 g/dL High 4.8 - 5.6 8 Est Avg Glucose 180 mg/dL High 60 - 110 Comprehensive Chem Profile 02/12/2020 [facility] Bomb Technician: [place] [address] [phone] Glucose 277 mg/dL High 74 - 99 [...] 60 mL/min >60 11 Lipid Profile 02/12/2020 [facility] , Bomb Technician: [place] [address] [phone] Cholesterol 84 mg/dL Low 131 - 200 Triglycerides 47 mg/dL 30 - 150 HDL Cholesterol 41 mg/dL 35 - 60 LDL (Calculated) 34 CALC Low 50 - 159 Complete Blood Count 01/08/2020 [facility] Bomb Technician: [place] [address] [phone] WBC 6.7 x10*3/UL 4.1 - 10.9 RBC [...] 2.0 - 7.8 Basic Metabolic Panel 01/08/2020 [facility] Bomb Technician: [place] [address] [phone] Glucose 188 mg/dL High 74 - 99 [...] interferon gamma. Performed at: RN - [facility] [address] [id number] Bomb Technician: Aarti Shearer MD, Phone: [phone] VITAMIN B12 NORMAL RANGE NORMAL 247 [...] LITTLE GFR LEFT ESRD GFR <15 ON TEACHER ASSOCIATE 7 NOTE: RESULT VERIFIED. 8 Lab Result [...] LITTLE GFR LEFT ESRD GFR <15 ON TEACHER ASSOCIATE 12 NOTE: RESULT VERIFIED. 13 100-125 mg/dL PRE-DIABET ES/FASTING >126 mg/dL DIABETES/FASTING 14 CHRONIC KIDNEY DISEASE STAGI NG PER NKF STAGE I & II GFR >= 60 NORMAL TO MILDLY DECREASED STAGE III GFR 30-59 MODERATELY DECREASED STAGE IV GFR 15-29 SEVERELY DECREASED STAGE V GFR <15 VERY LITTLE GFR LEFT ESRD GFR <15 ON TEACHER ASSOCIATE Procedures Date Code Description Status 03/11/2020 299127449 Diabetic Retinal Eye Exam Comple brad 01/05/2020 [id number] Diabetic Retinal Eye Exam Comple brad 08/18/2019 [id number] Diabetic Retinal Eye Exam Comple brad 06/16/2019 812815505 Diabetic Retinal Eye Exam Comple brad 05/22/2018 056108311 Diabetic Retinal Eye Exam Comple brad 12/11/2017 944427710 Diabetic Retinal Eye Exam Comple brad 03/19/2017 746121367 Diabetic Retinal Eye Exam Comple brad 11/28/2016 497175073 Diabetic Retinal Eye Exam Comple brad 09/18/2016 808514952 Diabetic Retinal Eye Exam Comple brad 02/28/2016 651947677 Diabetic Retinal Eye Exam Comple brad 01/18/2016 928166679 Diabetic Retinal Eye Exam Comple brad 09/06/2015 066656423 Diabetic Retinal Eye Exam Comple brad 03/11/2015 606291752 Diabetic Retinal Eye Exam Comple brad 10/05/2014 87522749 Colonoscopy Completed 05/04/2014 594190181 Diabetic Retinal Eye Exam Comple brad 11/03/2013 703846432 Diabetic Retinal Eye Exam Comple brad 05/05/2013 282807277 Diabetic Retinal Eye Exam Comple brad 01/06/2013 614261823 Diabetic Retinal Eye Exam Comple brad 07/12/2012 148091083 Diabetic Retinal Eye Exam Comple brad 01/02/2012 674402959 Diabetic Retinal Eye Exam Comple brad 08/31/2011 897206655 Diabetic Retinal Eye Exam Comple brad 01/05/2011 328785706 Bone Mineral Density Test Comple brad 12/03/2009 627896296 Diabetic Retinal Eye Exam Comple brad 06/07/2009 432326197 Diabetic Retinal Eye Exam Comple brad Medical Devices Description No Information Available Encounters Type Date Location Provider Dx Diagnosis Office Visit 06/03/2020 1:40p [facility] 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 I48.0 Paroxysmal atrial fibrillati on Z79.01 intermission coordinator (current) use of a nticoagulants I73.9 Peripheral vascular disease, unspecified Assessments Date Code Description Provider 06/03/2020 I73.9 Peripheral vascular disease, uns pecified Cande Daiana Overton [facility] 06/03/2020 E10.40 Type 1 diabetes kristopher itus with diabetic neuropathy, unspecified Cande Daiana Tian [facility] 06/03/2020 Z96.41 Presence of insulin pump (trial examiner al) (internal) Cande Ahmadi Tian [facility] 06/03/2020 Z23 Encounter for immunization Cande vallecillo Tian [facility] 05/20/2020 E10.3213 Type 1 diabetes kristopher itus with mild nonproliferative diabetic retinopathy with macular edema, bilateral Cande Nowak [facility] 05/20/2020 E10.10 Type 1 diabetes mellitus with ke toacidosis without coma Stanislaw Armstrong MD 05/20/2020 I25.10 Atherosclerotic heart disease of [place] coronary artery with Cande Daiana Overton [facility] 05/20/2020 E10.10 Type 1 diabetes mellitus with ke toacidosis without coma Lab Schedule 05/20/2020 I48.0 Paroxysmal atrial fibrillation A mónica Nowak [facility] 05/20/2020 I10 Essential (primary) hypertension Stanislaw Armstrong MD 05/20/2020 Z79.01 intermission coordinator (current) use of antic oagulants Cande Nowak [facility] 05/20/2020 I10 Essential (primary) hypertension Lab Schedule 05/20/2020 R76.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 reaction to 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 Cande Nowak [facility] 05/20/2020 E78.00 Pure hypercholesterolemia, unspe cified Stanislaw [...] Encounter for screening for resp iratory tuberculosis Stanilsaw Armstrong MD 04/29/2020 E10.10 Type 1 diabetes mellitus with ke toacidosis without coma Stanislaw Armstrong MD 04/29/2020 E10.40 Type 1 diabetes kristopher itus with diabetic neuropathy, unspecified Stanislaw Armstrong MD 04/29/2020 E10.3213 Type 1 diabetes kristopher itus with mild nonproliferative diabetic retinopathy with macular edema, bilateral Stanislaw Armstrong MD 04/29/2020 Z96.41 Presence of insulin pump (trial examiner al) (internal) Stanislaw Armstrong MD 04/29/2020 I21.4 Non-St elevation (Nstemi) myocar dial infarction Stanislaw Armstrong MD 04/29/2020 I25.10 Atherosclerotic heart disease of [place] coronary artery with Stanislaw Armstrong MD 04/29/2020 Z95.1 Presence of aortocoronary bypass graft Stanislaw Armstrong MD 04/29/2020 I48.0 Paroxysmal atrial fibrillation C yakelin Armstrong MD 04/29/2020 Z79.01 correction (current) use of antic oagulants Stanislaw Armstrong [...] 01/08/2020 Z51.81 Encounter for therapeutic drug l millie monitoring Cande Nowak [facility] 01/08/2020 I10 Essential (primary) hypertension Cande Nowak [facility] 01/08/2020 I48.0 Paroxysmal atrial fibrillation A mónica Nowak [facility] 01/08/2020 I10 Essential (primary) hypertension Lab Schedule 01/08/2020 Z79.01 intermission coordinator (current) use of antic oagulants CHERELLE StaleyP 01/08/2020 I48.0 Paroxysmal atrial fibrillation P rotime 01/08/2020 Z79.01 intermission coordinator (current) use of antic oagulants Protime Plan of Treatment No Information Available Functional Status Description No Information Available Mental Status Description No Information Available Referrals Description No Information Available
--- OUTSIDE RECORDS SUMMARY | 2020-09-22 17:29 | CCD ---
Author Author [facility] Organization [facility] Address Unknown Phone Unavailable Care Team Providers Care Playground Official Name Role Phone Aster CANAS MD Unavailable Unavailable Aster CANAS MD Unavailable Unavailable Aster CANAS MD Unavailable Unavailable Aster CANAS MD Unavailable Unavailable Aster CANAS MD Unavailable Unavailable Aster CANAS MD Unavailable Unavailable Aster CANAS MD Unavailable Unavailable Aster CANAS MD Unavailable Unavailable Aster CANAS MD Unavailable Unavailable Aster CANAS MD Unavailable Unavailable Aster CANAS MD Unavailable Unavailable Aster CANAS MD Unavailable Unavailable Aster CANAS MD Unavailable Unavailable Aster CANAS MD Unavailable Unavailable Aster CANAS MD Unavailable Unavailable Aster CANAS MD Unavailable Unavailable Aster CANAS MD Unavailable Unavailable Aster CANAS MD Unavailable Unavailable Aster CANAS MD Unavailable Unavailable Aster CANAS MD Unavailable Unavailable Aster CANAS MD Unavailable Unavailable Aster CANAS MD Unavailable Unavailable Aster CANAS MD Unavailable Unavailable Aster CANAS MD Unavailable Unavailable Aster CANAS MD Unavailable Unavailable Aster CANAS MD Unavailable Unavailable Aster CANAS MD Unavailable Unavailable Aster CANAS MD Unavailable Unavailable Aster CANAS MD Unavailable Unavailable Aster CANAS MD Unavailable Unavailable Aster CANAS MD Unavailable Unavailable Aster CANAS MD Unavailable Unavailable Aster CANAS MD Unavailable Unavailable Aster CANAS MD Unavailable Unavailable Aster CANAS MD Unavailable Unavailable Aster CANAS MD Unavailable Unavailable Aster CANAS MD Unavailable Unavailable Aster CANAS MD Unavailable Unavailable Aster CANAS MD Unavailable Unavailable Aster CANAS MD Unavailable Unavailable Aster CANAS MD Unavailable Unavailable Aster CANAS MD Unavailable Unavailable Aster CANAS MD Unavailable Unavailable Aster CANAS MD Unavailable Unavailable Aster CANAS MD Unavailable Unavailable Aster CANAS MD Unavailable Unavailable Aster CANAS MD Unavailable Unavailable Aster CANAS MD Unavailable Unavailable Aster CANAS MD Unavailable Unavailable Aster CANAS MD Unavailable Unavailable Aster CANAS MD Unavailable Unavailable Aster CANAS MD Unavailable Unavailable Aster CANAS MD Unavailable Unavailable Aster CANAS MD Unavailable Unavailable Aster CANAS MD Unavailable Unavailable Aster CANAS MD Unavailable Unavailable Aster CANAS MD Unavailable Unavailable Aster CANAS MD Unavailable Unavailable Aster CANAS MD Unavailable Unavailable Aster CANAS MD Unavailable Unavailable Aster CANAS MD Unavailable Unavailable Aster CANAS MD Unavailable Unavailable Aster CANAS MD Unavailable Unavailable Aster CANAS MD Unavailable Unavailable Aster CANAS MD Unavailable Unavailable Aster CANAS MD Unavailable Unavailable Aster CANAS MD Unavailable Unavailable Aster CANAS MD Unavailable Unavailable Aster CANAS MD Unavailable Unavailable Aster CANAS MD Unavailable Unavailable Aster CANAS MD Unavailable Unavailable Hank Armstrong MD Unavailable Unavailable Hank Armstrong MD Unavailable Unavailable Hank Armstrong MD Unavailable Unavailable Hank Armstrong MD Unavailable Unavailable Hank Armstrong MD Unavailable Unavailable Hank Armstrong MD Unavailable Unavailable Hank Armstrong MD Unavailable Unavailable Hank Armstrong MD Unavailable Unavailable Hank Armstrong MD Unavailable Unavailable Hank Armstrong MD Unavailable Unavailable Hank Armstrong MD Unavailable Unavailable Hank Armstrong MD Unavailable Unavailable Hank Armstrong MD Unavailable Unavailable Hank Armstrong MD Unavailable Unavailable Hank Armstrong MD Unavailable Unavailable Hank Armstrong MD Unavailable Unavailable Hank Armstrong MD Unavailable Unavailable Hank Armstrong MD Unavailable Unavailable Hank Armstrong MD Unavailable Unavailable Hank Armstrong MD Unavailable Unavailable PattiHank MD Unavailable Unavailable PattiHank MD Unavailable Unavailable PattiHank MD Unavailable Unavailable PattiHank MD Unavailable Unavailable BurnsideHank MD Unavailable Unavailable PattiHank MD Unavailable Unavailable PattiHank MD Unavailable Unavailable PattiHank MD Unavailable Unavailable PattiHank MD Unavailable Unavailable PattiHank MD Unavailable Unavailable PattiHank MD Unavailable Unavailable BurnsideHank MD Unavailable Unavailable BurnsideHank MD Unavailable Unavailable PattiHank MD Unavailable Unavailable BurnsideHank MD Unavailable Unavailable BurnsideHank MD Unavailable Unavailable BurnsideHank MD Unavailable Unavailable PattiHank MD Unavailable Unavailable BurnsideHank MD Unavailable Unavailable PattiHank MD Unavailable Unavailable PattiHank MD Unavailable Unavailable PattiHank MD Unavailable Unavailable PattiHank MD Unavailable Unavailable BurnsideHank MD Unavailable Unavailable PattiHank MD Unavailable Unavailable BurnsideHank MD Unavailable Unavailable PattiHank MD Unavailable Unavailable BurnsideHank MD Unavailable Unavailable PattiHank montes MD Unavailable Unavailable BurnsideHank MD Unavailable Unavailable BurnsideHank MD Unavailable Unavailable PattiHank MD Unavailable Unavailable PattiHank MD Unavailable Unavailable BurnsideHank MD Unavailable Unavailable BurnsideHank montes MD Unavailable Unavailable BurnsideHank montes MD Unavailable Unavailable PattiHank montes MD Unavailable Unavailable BurnsideHank MD Unavailable Unavailable PattiHank montes MD Unavailable Unavailable BurnsideHank MD Unavailable Unavailable PattiHank MD Unavailable Unavailable BurnsideHank montes MD Unavailable Unavailable BurnsideHank montes MD Unavailable Unavailable PattiHank montes MD Unavailable Unavailable PattiHank MD Unavailable Unavailable BurnsideHank MD Unavailable Unavailable BurnsideHank MD Unavailable Unavailable PattiHank MD Unavailable Unavailable PattiHank MD Unavailable Unavailable BurnsideHank MD Unavailable Unavailable PattiHank MD Unavailable Unavailable PattiHank MD Unavailable Unavailable BurnsideHank MD Unavailable Unavailable BurnsideHank MD Unavailable Unavailable PattiHank MD Unavailable Unavailable PattiHank MD Unavailable Unavailable BurnsideHakn cloud MD Unavailable Unavailable PattiHank montes MD Unavailable Unavailable PattiHank montes MD Unavailable Unavailable BurnsideHank montes MD Unavailable Unavailable BurnsideHank MD Unavailable Unavailable BurnsideHank MD Unavailable Unavailable PattiHank MD Unavailable Unavailable BurnsideHank MD Unavailable Unavailable PattiHank cloud MD Unavailable Unavailable Jahaira Bush MD Unavailable Unavailable Jahaira Bush MD Unavailable Unavailable Jahaira Bush MD Unavailable Unavailable Jahaira Bush MD Unavailable Unavailable Jahaira Bush MD Unavailable Unavailable Jahaira Bush MD Unavailable Unavailable Jahaira Bush MD Unavailable Unavailable Jahaira Bush MD Unavailable Unavailable Jahaira Bush MD Unavailable Unavailable Jahaira Bush MD Unavailable Unavailable Jahaira Bush MD Unavailable Unavailable Jahaira Bush MD Unavailable Unavailable Jahaira Bush MD Unavailable Unavailable Jahaira Bush MD Unavailable Unavailable Jahaira Bush MD Unavailable Unavailable Jahaira Bush MD Unavailable Unavailable Jahaira Bush MD Unavailable Unavailable FishJahaira MD Unavailable Unavailable Jahaira Bush MD Unavailable Unavailable Jahaira Bush MD Unavailable Unavailable Jahaira Bush MD Unavailable Unavailable Jahaira Bush MD Unavailable Unavailable Jahaira Bush MD Unavailable Unavailable Jahaira Bush MD Unavailable Unavailable Jahaira Bush MD Unavailable Unavailable Jahaira Bush MD Unavailable Unavailable Jahaira Bush MD Unavailable Unavailable Jahaira Bush MD Unavailable Unavailable Jahaira Bush MD Unavailable Unavailable Jahaira Bush MD Unavailable Unavailable Jahaira Bush MD Unavailable Unavailable Jahaira Bush MD Unavailable Unavailable Jahaira Bush MD Unavailable Unavailable Jahaira Bush MD Unavailable Unavailable Jahaira Bush MD Unavailable Unavailable Jahaira Bush MD Unavailable Unavailable Jahaira Bush MD Unavailable Unavailable Jahaira Bush MD Unavailable Unavailable Jahaira Bush MD Unavailable Unavailable Jahaira Bush MD Unavailable Unavailable Jahaira Bush MD Unavailable Unavailable Jahaira Bush MD Unavailable Unavailable Jahaira Bush MD Unavailable Unavailable Jahaira Bush MD Unavailable Unavailable Jahaira Bush MD Unavailable Unavailable Jahaira Bush MD Unavailable Unavailable Jahaira Bush MD Unavailable Unavailable Jahaira Bush MD Unavailable Unavailable Jahaira Bush MD Unavailable Unavailable Jahaira Bush MD Unavailable Unavailable Jahaira Bush MD Unavailable Unavailable Jahaira Bush MD Unavailable Unavailable Jahaira Bush MD Unavailable Unavailable Jahaira Bush MD Unavailable Unavailable Eleazar B Sharmila LIU Unavailable Unavailable Eleazar B Sharmila LIU Unavailable Unavailable Eleazar B Sharmila LIU Unavailable Unavailable Eleazar B Sharmila LIU Unavailable Unavailable Eleazar B Sharmila LIU Unavailable Unavailable Eleazar B Sharmila LIU Unavailable Unavailable Eleazar B Sharmila LIU Unavailable Unavailable Eleazar B Sharmila LIU Unavailable Unavailable Eleazar B Sharmila LIU Unavailable Unavailable Eleazar B Sharmila LIU Unavailable Unavailable Aster CANAS MD Unavailable Unavailable Aster CANAS MD Unavailable Unavailable Aster CANAS MD Unavailable Unavailable Aster CANAS MD Unavailable Unavailable Aster CANAS MD Unavailable Unavailable Aster CANAS MD Unavailable Unavailable Aster CANAS MD Unavailable Unavailable Aster CANAS MD Unavailable Unavailable Aster CANAS MD Unavailable Unavailable Aster CANAS MD Unavailable Unavailable Aster CANAS MD Unavailable Unavailable Aster CANAS MD Unavailable Unavailable Aster CANAS MD Unavailable Unavailable Aster CANAS MD Unavailable Unavailable Aster CANAS MD Unavailable Unavailable Aster CANAS MD Unavailable Unavailable Aster CANAS MD Unavailable Unavailable Aster CANAS MD Unavailable Unavailable Aster CANAS MD Unavailable Unavailable Aster CANAS MD Unavailable Unavailable Aster CANAS MD Unavailable Unavailable Aster CANAS MD Unavailable Unavailable Aster CANAS MD Unavailable Unavailable Aster CANAS MD Unavailable Unavailable Aster CANAS MD Unavailable Unavailable Aster CANAS MD Unavailable Unavailable Aster CANAS MD Unavailable Unavailable Aster CANAS MD Unavailable Unavailable Aster CANAS MD Unavailable Unavailable Aster CANAS MD Unavailable Unavailable Aster CANAS MD Unavailable Unavailable Aster CANAS MD Unavailable Unavailable Aster CANAS MD Unavailable Unavailable Aster CANAS MD Unavailable Unavailable Aster CANAS MD Unavailable Unavailable Aster CANAS MD Unavailable Unavailable Aster CANAS MD Unavailable Unavailable Aster CANAS MD Unavailable Unavailable Aster CANAS MD Unavailable Unavailable Aster CANAS MD Unavailable Unavailable Aster CANAS MD Unavailable Unavailable Aster CANAS MD Unavailable Unavailable Aster CANAS MD Unavailable Unavailable Aster CANAS MD Unavailable Unavailable Aster CANAS MD Unavailable Unavailable Aster CANAS MD Unavailable Unavailable Aster CANAS MD Unavailable Unavailable Aster CANAS MD Unavailable Unavailable Aster CANAS MD Unavailable Unavailable Aster CANAS MD Unavailable Unavailable Aster CANSA MD Unavailable Unavailable Aster CANAS MD Unavailable Unavailable Aster CANAS MD Unavailable Unavailable Aster CANAS MD Unavailable Unavailable Aster CANAS MD Unavailable Unavailable Aster CANAS MD Unavailable Unavailable Aster CANAS MD Unavailable Unavailable Aster CANAS MD Unavailable Unavailable Aster CANAS MD Unavailable Unavailable Aster CANAS MD Unavailable Unavailable Aster CANAS MD Unavailable Unavailable Aster CANAS MD Unavailable Unavailable Aster CANAS MD Unavailable Unavailable Aster CANAS MD Unavailable Unavailable Aster CANAS MD Unavailable Unavailable Aster CANAS MD Unavailable Unavailable Aster CANAS MD Unavailable Unavailable Aster CAANS MD Unavailable Unavailable Aster CANAS MD Unavailable Unavailable Aster CANAS MD Unavailable Unavailable Aster CANAS MD Unavailable Unavailable Bernard LIU MD Real Unavailable Bernard LIU MD Real Unavailable Bernard LIU MD Real Unavailable Bernard LIU MD Real Unavailable Bernard LIU MD Real Unavailable Bernard LIU MD Real Unavailable Bernard LIU MD Real Unavailable Bernard LIU MD Real Unavailable Aster CANAS MD Unavailable Unavailable Aster CANAS MD Unavailable Unavailable Aster CANAS MD Unavailable Unavailable Aster CANAS MD Unavailable Unavailable Aster CANAS MD Unavailable Unavailable Aster CANAS MD Unavailable Unavailable Aster CANAS MD Unavailable Unavailable Aster CANAS MD Unavailable Unavailable Aster CANAS MD Unavailable Unavailable Aster CANAS MD Unavailable Unavailable Aster CANAS MD Unavailable Unavailable Aster CANAS MD Unavailable Unavailable Aster CANAS MD Unavailable Unavailable Aster CANAS MD Unavailable Unavailable Aster CANAS MD Unavailable Unavailable CANAS, E TATO MD Unavailable Unavailable CANAS, E TATO MD Unavailable Unavailable CANAS, E TATO MD Unavailable Unavailable CANAS, E TATO MD Unavailable Unavailable CANAS, E TATO MD Unavailable Unavailable CANAS, E TATO MD Unavailable Unavailable CANAS, E TATO MD Unavailable Unavailable CANAS, E TATO MD Unavailable Unavailable CANAS, E TATO MD Unavailable Unavailable CANAS, E TATO MD Unavailable Unavailable CANAS, E TATO MD Unavailable Unavailable CANAS E TATO MD Unavailable Unavailable CANAS E TATO MD Unavailable Unavailable CANAS, E TATO MD Unavailable Unavailable CANAS, E TATO MD Unavailable Unavailable CANAS, E TATO MD Unavailable Unavailable CANAS, E TATO MD Unavailable Unavailable CANAS, E TATO MD Unavailable Unavailable CANAS, E TATO MD Unavailable Unavailable CANAS E TATO MD Unavailable Unavailable CANAS E TATO MD Unavailable Unavailable CANAS, E TATO MD Unavailable Unavailable CANAS, E TATO MD Unavailable Unavailable CANAS, E TATO MD Unavailable Unavailable CANAS E TATO MD Unavailable Unavailable CANAS, E TATO MD Unavailable Unavailable CANAS, E TATO MD Unavailable Unavailable CANAS E TATO MD Unavailable Unavailable CANAS, E TATO MD Unavailable Unavailable CNAAS, E TATO MD Unavailable Unavailable CANAS, E TATO MD Unavailable Unavailable CANAS E TATO MD Unavailable Unavailable CANAS, E TATO MD Unavailable Unavailable CANAS E TTAO MD Unavailable Unavailable CANAS E TATO MD Unavailable Unavailable CANAS, E TATO MD Unavailable Unavailable CANAS E TATO MD Unavailable Unavailable CANAS, E TATO MD Unavailable Unavailable CANAS, E TATO MD Unavailable Unavailable Aster CANAS TATO Unavailable Unavailable Aster CANAS TATO Unavailable Unavailable CANAS, E TATO Unavailable Unavailable CANAS, E TATO MD Unavailable Unavailable CANAS, E TATO MD Unavailable Unavailable CANAS, E TATO MD Unavailable Unavailable CANAS, E TATO MD Unavailable Unavailable CANAS, E TATO Unavailable Unavailable CANAS E TATO Unavailable Unavailable CANASAster TATO Unavailable Unavailable CANAS E TATO Unavailable Unavailable CANAS E TATO MD Unavailable Unavailable CANAS E TATO MD Unavailable Unavailable CANAS E TATO MD Unavailable Unavailable CANAS, E TATO Unavailable Unavailable Aster CANAS TATO Unavailable Unavailable Aster CANAS TATO Unavailable Unavailable Hamid MD, MD Real Unavailable Bernard LIU MD Real Unavailable Bernard LIU MD Real Unavailable Bernard LIU MD Real Unavailable Bernard LIU MD Real Unavailable Bernard LIU MD Real Unavailable Bernard LIU MD Real Unavailable Bernard LIU MD Real Unavailable LePine, M Cande PAYROLL AND BENEFITS MANAGER Unavailable Unavailable LePine, M Cande PAYROLL AND BENEFITS MANAGER Unavailable Unavailable LePine, M Cande PAYROLL AND BENEFITS MANAGER Unavailable Unavailable LePine, M Cande PAYROLL AND BENEFITS MANAGER Unavailable Unavailable LePine, M Cande PAYROLL AND BENEFITS MANAGER Unavailable Unavailable LePine, M Cande PAYROLL AND BENEFITS MANAGER Unavailable Unavailable LePine, M Cande PAYROLL AND BENEFITS MANAGER Unavailable Unavailable LePine, M Cande PAYROLL AND BENEFITS MANAGER Unavailable Unavailable LePine, M Cande PAYROLL AND BENEFITS MANAGER Unavailable Unavailable LePine, M Cande PAYROLL AND BENEFITS MANAGER Unavailable Unavailable LePine, M Cande PAYROLL AND BENEFITS MANAGER Unavailable Unavailable LePine, M Cande PAYROLL AND BENEFITS MANAGER Unavailable Unavailable LePine, M Cande PAYROLL AND BENEFITS MANAGER Unavailable Unavailable LePine, M Cande PAYROLL AND BENEFITS MANAGER Unavailable Unavailable LePine, M Cande PAYROLL AND BENEFITS MANAGER Unavailable Unavailable LePine, M Cande PAYROLL AND BENEFITS MANAGER Unavailable Unavailable LePine, M Cande PAYROLL AND BENEFITS MANAGER Unavailable Unavailable LePine, M Cande PAYROLL AND BENEFITS MANAGER Unavailable Unavailable LePine, M Cande PAYROLL AND BENEFITS MANAGER Unavailable Unavailable LePine, M Cande PAYROLL AND BENEFITS MANAGER Unavailable Unavailable LePine, M Cande PAYROLL AND BENEFITS MANAGER Unavailable Unavailable LePine, M Cande PAYROLL AND BENEFITS MANAGER Unavailable Unavailable LePine, M Cande PAYROLL AND BENEFITS MANAGER Unavailable Unavailable LePine, M Cande PAYROLL AND BENEFITS MANAGER Unavailable Unavailable LePine, M Cande PAYROLL AND BENEFITS MANAGER Unavailable Unavailable LePine, M Cande PAYROLL AND BENEFITS MANAGER Unavailable Unavailable LePine, M Cande PAYROLL AND BENEFITS MANAGER Unavailable Unavailable LePine, M Cande PAYROLL AND BENEFITS MANAGER Unavailable Unavailable LePine, M Cande PAYROLL AND BENEFITS MANAGER Unavailable Unavailable LePine, M Cande PAYROLL AND BENEFITS MANAGER Unavailable Unavailable LePine, M Cande PAYROLL AND BENEFITS MANAGER Unavailable Unavailable LePine, M Cande PAYROLL AND BENEFITS MANAGER Unavailable Unavailable LePine, M Cande PAYROLL AND BENEFITS MANAGER Unavailable Unavailable LePine, M Cande PAYROLL AND BENEFITS MANAGER Unavailable Unavailable LePine, M Cande PAYROLL AND BENEFITS MANAGER Unavailable Unavailable LePine, M Cande PAYROLL AND BENEFITS MANAGER Unavailable Unavailable LePine, M Cande PAYROLL AND BENEFITS MANAGER Unavailable Unavailable LePine, M Cande PAYROLL AND BENEFITS MANAGER Unavailable Unavailable LePine, M Cande PAYROLL AND BENEFITS MANAGER Unavailable Unavailable LePine, M Cande PAYROLL AND BENEFITS MANAGER Unavailable Unavailable LePine, M Cande PAYROLL AND BENEFITS MANAGER Unavailable Unavailable LePine, M Cande PAYROLL AND BENEFITS MANAGER Unavailable Unavailable LePine, M Cande PAYROLL AND BENEFITS MANAGER Unavailable Unavailable LePine, M Cande PAYROLL AND BENEFITS MANAGER Unavailable Unavailable LePine, M Cande PAYROLL AND BENEFITS MANAGER Unavailable Unavailable LePine, M Cande PAYROLL AND BENEFITS MANAGER Unavailable Unavailable LePine, M Cande PAYROLL AND BENEFITS MANAGER Unavailable Unavailable LePine, M Cande PAYROLL AND BENEFITS MANAGER Unavailable Unavailable LePine, M Cande PAYROLL AND BENEFITS MANAGER Unavailable Unavailable LePine M Cande PAYROLL AND BENEFITS MANAGER Unavailable Unavailable LePine M Cande PAYROLL AND BENEFITS MANAGER Unavailable Unavailable LePine M Cande PAYROLL AND BENEFITS MANAGER Unavailable Unavailable LePine M Cande PAYROLL AND BENEFITS MANAGER Unavailable Unavailable LePine M Cande PAYROLL AND BENEFITS MANAGER Unavailable Unavailable SYSTEM IN, NOT IN PROVIDER Unavailable Unavailable Re-disclosure Warning The records that you are about to access may contain information from federally-assisted alcohol or drug abuse programs. If such information is present, then the following federally mandated warning applies: This information has been disclosed to you from records protected by federal confidentiality rules (42 CFR part 2). The federal rules prohibit you from making any further disclosure of this information unless further disclosure is expressly permitted by the written consent of the person to whom it pertains or as otherwise permitted by 42 CFR part 2. A general authorization for the release of medical or other information is NOT sufficient for this purpose. The Federal rules restrict any use of the information to criminally investigate or prosecute any alcohol or drug abuse patient.The records that you are about to access may contain highly sensitive health information, the redisclosure of which is protected by Article 27-F of the [facility] Public Health law. If you continue you may have access to information: Regarding HIV / AIDS; Provided by facilities licensed or operated by the [facility] Office of Mental Health; or Provided by the [facility] Office for People With Developmental Disabilities. If such information is present, then the following [facility] mandated warning applies: This information has been disclosed to you from confidential records which are protected by state law. State law prohibits you from making any further disclosure of this information without the specific written consent of the person to whom it pertains, or as otherwise permitted by law. Any unauthorized further disclosure in violation of state law may result in a fine or residential sentence or both. A general authorization for the release of medical or other information is NOT sufficient authorization for further disc losure. Allergies and Adverse Reactions Type Description Substance Reaction Status Data Source(s ) No Known Drug Allergies No Known Drug Allergies No Known Drug Aller gies active [facility] ([facility] ) Family History Family Member Name Family Member Gender Family Member Status Date o f Status Description Data Source(s) Unknown Unknown Problem [facility] ([facility] Unknown Male Problem [facility] ([facility]) Unknown Male Problem [facility] ([facility]) Unknown Male Problem [facility] ([facility]) Encounters Encounter Providers Location Date Indications Data Source(s ) Outpatient Attender: Stanislaw Thornton 1 10:40:00 AM EDT [facility] ([facility] ) Outpatient Attender: Sharmila Bush MD Physical Therapy 06/14 03:15:00 PM EDT [facility] ([facility]) Outpatient Attender: Cande Thornton 06/03 01:40:00 PM EDT [facility] ([facility] ) Outpatient Attender: Cande Thornton 05/20 01:20:00 PM EDT [facility] ([facility] ) Outpatient Attender: Sharmila Bush MD Physical Therapy 05/04 09:45:00 AM EDT [facility] ([facility]) Outpatient Attender: Stanislaw Thornton 0 04/29/2020 09:40:00 AM EDT [facility] ([facility] ) 04/28/2020 01:00:00 AM EDT - 020 12:44:22 PM EDT [facility] ([facility]) Outpatient Attender: TATO CANAS MD [facility] [place] 04/23/2020 03:52:00 AM EDT [facility] ([facility]) Outpatient Attender: TATO CANAS MD [facility] 04/22/2020 12:27:00 PM EDT [facility] ([facility]) Outpatient Attender: TATO CANAS MD [facility] 04/21/2020 12:27:00 PM EDT [facility] ([facility]) Outpatient Attender: TATO CANAS MD [facility] 04/20/2020 09:26:00 AM EDT [facility] ([facility]) Inpatient Attender: MD Real Wagner MD Attender: TATO CANAS MDAdmitter: TATO CANAS MD 04/20/2020 07:10:07 AM EDT Lab [facility] Inpatient Attender: MD Real Wagner MD Attender: TATO CANAS MDAdmitter: TATO CANAS MD 04/20/2020 06:50:00 AM EDT - 04/23/2020 12:20:00 PM EDT DIABETIC KETOACIDOSIS ELEVATED TROPONIN [facility] DIABETIC KETOACIDOSIS ELEVATED TROPONIN Patient discharged. Outpatient Referrer: PROVIDER SYSTEM IN 04/20/2020 0 3:07:00 AM EDT NSTEMI, DKA [facility] NSTEMI, DKA Outpatient Attender: Sharmila Bush MD Physical Therapy 02/22 02:30:00 PM EDT [facility] ([facility]) Outpatient Attender: Stanislaw Thornton 0 01/06/2020 11:40:00 AM EDT [facility] ([facility] ) Outpatient Attender: Sharmila Bush MD Physical Therapy 11/16 03:45:00 PM EDT [facility] ([facility]) Outpatient Attender: Sharmila Bush MD Physical Therapy 10/06 10:15:00 AM EST [facility] ([facility]) Outpatient Attender: Sharmila Bush MD Physical Therapy 08/28 08:45:00 AM EST [facility] ([facility]) Immunizations Vaccine Date Status Description Data Source(s) Influenza, injectable, MDCK, preservative free, damari valent 06/03/2020 02:14:00 PM EDT completed [facility] ([facility]) TB Skin test is not vaccine. 05/18/2020 10:44:00 AM EDT completed [facility] ([facility]) Medications Medication Brand Name Start Date Product Form Dose Route Admi nistrative Instructions Pharmacy Instructions Status Indications Reaction Description Data Source(s) Administration Of Flu Vaccine 06/03/2020 12:00:00 AM EDT completed [facility] ([facility]) Medication administered onsite ferrous sulfate 325 MG Oral Tablet Ferrous Sulfate 05/27/2020 12:00 :00 AM EDT ORAL active [facility] ([facility]) Hydrochlorothiazide 12.5 MG Oral Capsule Hydrochlorothiazide 04/29/2020 12:00:00 AM EDT ORAL active [facility] ([facility]) Coumadin 5 MG Coumadin 04/28/2020 01:00:00 AM EDT completed [facility] ([facility]) Tamsulosin HCl 0.4 MG Tamsulosin HCl 04/28/2020 01:00:00 AM EDT 2.0 {tablet} completed [facility] ( [facility]) Nitroglycerin 0.4 MG Nitroglycerin 04/28/2020 01:00:00 AM EDT completed [facility] ([facility]) Vitamin D 2000 UNIT Vitamin D 04/28/2020 01:00:00 AM EDT completed [facility] ([facility]) Atorvastatin Calcium 40 MG Atorvastatin Calcium 04/28/2020 01:00:00 A M EDT completed [facility] ( [facility]) Docusate Sodium 100 MG Docusate Sodium 04/28/2020 01:00:00 AM EDT completed [facility] ([facility]) NovoLOG 100 UNIT/ML NovoLOG 04/28/2020 01:00:00 AM EDT completed [facility] ([facility] ) Metoprolol Succinate ER 25 MG Metoprolol Succinate ER 2019 01:00:00 AM EDT completed [facility]AR T ([facility]) Calcium 500 + D 500-125 MG-UNIT Calcium 500 + D 04/28/2020 01:00:00 A M EDT completed [facility] ( [facility]) Lisinopril 20 MG Lisinopril 04/28/2020 01:00:00 AM EDT completed [facility] ([facility] ) hydroCHLOROthiazide 12.5 MG hydroCHLOROthiazide 04/28/2020 01:00:00 AM EDT 0.5 {tablet} completed [facility] ([facility]) Finasteride 5 MG Finasteride 04/28/2020 01:00:00 AM EDT completed [facility] ([facility] ) Vitamin B12 1000 MCG Vitamin B12 04/28/2020 01:00:00 AM EDT completed [facility] ([facility]) PreserVision AREDS PreserVision AREDS 04/28/2020 01:00:00 AM EDT completed [facility] ([facility]) Multivitamin Adult Multivitamin Adult 04/28/2020 01:00:00 AM EDT completed [facility] ([facility]) Albuterol Sulfate HFA 108 (90 Base) MCG/ACT Albuterol Sulfat e HFA 04/28/2020 01:00:00 AM EDT completed [facility] ([facility]) Flonase 50 MCG/ACT Flonase 04/28/2020 01:00:00 AM EDT completed [facility] ([facility]) Aspirin 81 81 MG Aspirin 81 04/28/2020 01:00:00 AM EDT completed [facility] ([facility] ) Lisinopril 10 MG Oral Tablet Lisinopril 09/23/2019 12:00:00 AM EST ORAL active [facility] ([facility]) Hydrochlorothiazide 12.5 MG Oral Tablet Hydrochlorothiazide 09/23/2019 12:00:00 AM EST ORAL active [facility] ([facility]) Insurance Providers Payer name Policy type / Coverage type Policy ID Covered libertarian ID Covered libertarian's relationship to bazan Policy Bazan Plan Information [facility] [id number] SP [id number] MEDICARE [id number] SP [id number] FOR LIFE [id number] SP [id number] [facility] [id number] SP [id number] MEDICARE MCA [id number] S [id number] MEDICARE MCA [id number] S [id number] [facility] Federal Service Medigap Part B [id number] Self [id number] [facility] Serv (TFL) Medigap Part B [id number] Self [id number] Umr (pr) Medigap Part B [id number] Self [id number] [place] Primary [id number] Self [id number] WPS For Life Medigap Part B [id number] Self [id number] Medicare Natl Govt Servic Medicare Primary [id number] Self [id number] [place] (Old) Medigap Part B [id number] Self [id number] Umr (New [place]) Medigap Part B [id number] Self [id number] For Life Medigap Part B [id number] Self [id number] [place] Medigap Part B [id number] Self [id number] Umr Medigap Part B [id number] Self [id number] Medicare Medicare Primary [id number] Self [id number] [facility] Federal Service Medigap Part B [id number] Self [id number] [place] [facility] Serv (TFL) Medigap Part B [id number] Self [id number] Umr (pr) Medigap Part B [id number] Self [id number] [place] Primary [id number] Self [id number] [place] (pr) Medigap Part B [id number] Self [id number] [place] [facility] Serv (TFL) Medigap Part B [id number] Self [id number] Umr (pr) Medigap Part B [id number] Self [id number] Medicare Dme Supplies Medigap Part B [id number] Self [id number] [place] Primary [id number] Self [id number] [facility] Federal Service Medigap Part B [id number] Self [id number] [place] [facility] ([place]FL) Medigap Part B [id number] Self [id number] Umr (pr) Medigap Part B [id number] Self [id number] [place] Primary [id number] Self [id number] [facility] Federal Service Medigap Part B [id number] Self [id number] [place] [facility] ([place]FL) Medigap Part B [id number] Self [id number] Umr (pr) Medigap Part B [id number] Self [id number] [place] Primary [id number] Self [id number] WPS For Life Medigap Part B [id number] Self [id number] Medicare Natl Govt [facility] Medicare Primary [id number] Self [id number] For Life Medigap Part B [id number] Self [id number] Medicare Medicare Primary [id number] Self [id number] [place] Medigap Part B [id number] Self [id number] [facility] Federal Service Medigap Part B [id number] Self [id number] [place] [facility] (TFL) Medigap Part B [id number] Self [id number] Umr (pr) Medigap Part B [id number] Self [id number] [place] Primary [id number] Self [id number] WPS For Life Medigap Part B [id number] Self [id number] Medicare [place] Govt Servic Medicare Primary [id number] Self [id number] WPS For Life Medigap Part B [id number] Self [id number] [place] (Old) Medigap Part B [id number] Self [id number] Medicare [place] Govt Servic Medicare Primary [id number] Self [id number] [employer] Federal Service Medigap Part B [id number] Self [id number] [place] [facility] (TFL) Medigap Part B [id number] Self [id number] [place] (pr) Medigap Part B [id number] Self [id number] [place] Primary [id number] Self [id number] [facility] Federal Service Medigap Part B [id number] Self [id number] [place] [facility] (TFL) Medigap Part B [id number] Self [id number] [place] (pr) Medigap Part B [id number] Self [id number] [place] Primary [id number] Self [id number] For Life Medigap Part B [id number] Self [id number] Medicare Medicare Primary [id number] Self [id number] [facility] Federal Service Medigap Part B [id number] Self [id number] [place] [facility] (TFL) Medigap Part B [id number] Self [id number] [place] (pr) Medigap Part B [id number] Self [id number] [place] Primary [id number] Self [id number] [facility] Federal Service Medigap Part B [id number] Self [id number] [place] [facility] (TFL) Medigap Part B [id number] Self [id number] [place] (pr) Medigap Part B [id number] Self [id number] [place] Primary [id number] Self [id number] [facility] Federal Service Medigap Part B [id number] Self [id number] [place] [facility] (TFL) Medigap Part B [id number] Self [id number] [place] (pr) Medigap Part B [id number] Self [id number] [place] Medicare Primary [id number] Self [id number] For Life Medigap Part B [id number] Self [id number] Medicare Medicare Primary [id number] Self [id number] WPS For Life Medigap Part B [id number] Self [id number] Medicare [facility] Govt Servic Medicare Primary [id number] Self [id number] [place] Ppo Medigap Part B [id number] Self [id number] [facility] Federal Service Medigap Part B [id number] Self [id number] [place] [facility] (TFL) Medigap Part B [id number] Self [id number] [place] (pr) Medigap Part B [id number] Self [id number] [place] Primary [id number] Self [id number] [place] [id number] SP [id number] MEDICARE [id number] SP [id number] WPS For Life Medigap Part B [id number] Self [id number] Medicare [facility] Govt Servic Medicare Primary [id number] Self [id number] [place] [id number] SP [id number] WPS For Life Medigap Part B [id number] Self [id number] Medicare [facility] Govt Servic Medicare Primary [id number] Self [id number] FOR LIFE O [id number] S [id number] [place] PPO O [id number] S [id number] MEDICARE C [id number] S [id number] WPS For Life Medigap Part B [id number] Self [id number] Medicare [facility] Govt Servic Medicare Primary [id number] Self [id number] [facility] Federal Service Medigap Part B [id number] Self [id number] [place] [facility] (TFL) Medigap Part B [id number] Self [id number] [place] (pr) Medigap Part B [id number] Self [id number] [place] Primary [id number] Self [id number] WPS For Life Medigap Part B [id number] Self [id number] [place] Medigap Part B [id number] Self [id number] Medicare [facility] Medicare Primary [id number] Self [id number] For Life Medigap Part B Self [place] Medigap Part B Ppo Self Ppo Medicare Medicare Primary Self [facility] Federal Service Medigap Part B Self [place] [facility] [place] (TFL) Medigap Part B Self [place] (pr) Medigap Part B Self Medicare [facility] Medicare Primary Self WPS For Life Medigap Part B Self [place] Ppo Medigap Part B [id number] Self [id number] Medicare Natl Govt Servic Medicare Primary Self FOR LIFE O [id number] S [id number] [place] PPO S UNAVAILABLE S UNAVAILA BLE MEDICARE P UNAVAILABLE S UNAVAILA BLE [id number] Problems, Conditions, and Diagnoses Code Display Name Description Problem Type Effective Dates Data Source(s) E10.10 Type 1 diabetes mellitus with ketoacidos is without coma Type 1 diabetes mellitus with ketoacidosis without coma Problem 04/22/2020 01:00:[address] [facility] ([facility]) NSTEMI, DKA NSTEMI, DKA Diagnosis 04/20/2020 03:07:00 AM T [facility] Surgeries/Procedures Procedure Description Date Indications Data Source(s) Amb Glucose Monitoring Interpretation And Report 06/14 12:00:00 AM EDT [facility] ([facility]) Amb Glucose Monitoring Interpretation And Report 05/04 12:00:00 AM EDT [facility] ([facility]) Coronary Angiography With Left Heart Catheterization 04/22/2020 12:00:00 AM EDT [facility] Diabetic Retinal Eye Exam 03/11/2020 12:00:00 AM EDT [facility] ([facility]) Amb Glucose Monitoring Interpretation And Report 02/22 12:00:00 AM EDT [facility] ([facility]) Diabetic Retinal Eye Exam 01/05/2020 12:00:00 AM EDT [facility] ([facility]) Amb Glucose Monitoring Interpretation And Report 11/16 12:00:00 AM EDT [facility] ([facility]) Amb Glucose Monitoring Interpretation And Report 10/06 12:00:00 AM EST [facility] ([facility]) Diabetic Retinal Eye Exam 08/18/2019 12:00:00 AM EST [facility] ([facility]) Results ID Date Data Source [id number] 09/13/2020 02:51:00 PM EST [facility] ([facility]) Name Value Range Interpretation Code Description Data Jaci rce(s) Supporting Document(s) Glucose [Mass/volume] in Serum or Plasma 288 [facility] ([facility]) Hemoglobin A1c/Hemoglobin.total in Blood 7.5 [facility] ([facility]) ID Date Data Source [id number] 08/10/2020 11:26:00 AM EST [facility] ([facility]) Name Value Range Interpretation Code Description Data Jaci rce(s) Supporting Document(s) Leukocytes [#/volume] in Blood by Automated count 7.3 x10*3/UL 4.1-10 .9 [facility] ([facility]) Hemoglobin [Mass/volume] in Blood 10.6 g/dL 12.0-18.0 [facility] ([facility]) NOTE: RESULT VERIFIED. Erythrocytes [#/volume] in Blood by Automated count 3.42 x10*6/UL 4.2 0-6.30 [facility] ([facility]) Hematocrit [Volume Fraction] of Blood by Automated count 30.0 % 3 7.0-51.0 [facility] ([facility]) MCV 87.6 fL 80.0-97.0 [facility]) MCH 31.1 pg 26.0-32.0 [facility]) MCHC 35.5 g/dL 31.0-38.0 [facility]) Erythrocyte distribution width [Ratio] by Automated count 13.4 % 11.6-13.7 [facility] ([facility]) MPV 9.6 FL 7.8-11.0 [facility]) Platelets [#/volume] in Blood by Automated count 183 x10*3/UL 140-440 [facility] ([facility]) Lymph % 11.1 % 10.0-58.5 [facility]) Mid % 3.2 % 1.7-9.3 [facility] Lymph # 0.8 x10*3/UL 0.6-4.1 [facility] ([facility]) Neut % 85.7 % 37.0-92.0 [facility] Neut # 6.3 x10*3/UL 2.0-7.8 [facility] ([facility]) Mid # 0.2 x10*3/UL 0.1-0.6 [facility] ([facility]) ID Date Data Source [id number] 07/07/2020 11:25:00 AM EDT [facility] ([facility]) Name Value Range Interpretation Code Description Data Jaci rce(s) Supporting Document(s) Microalbumin Urine 2.6 mg/L 1.3-20.0 [facility] ([facility]) Microalb/Creat Ratio 4.3 ug/mg 0.0-30.0 MEDE NT ([facility]) Urine Creatinine 60.6 mg/dL 30.0-125.0 [facility] ( [facility] ) ID Date Data Source [id number] 07/07/2020 11:25:00 AM EDT [facility] ([facility]) Name Value Range Interpretation Code Description Data Jaci rce(s) Supporting Document(s) Microalbumin Urine 2.6 mg/L 1.3-20.0 [facility] ([facility]) Microalb/Creat Ratio 4.3 ug/mg 0.0-30.0 [facility] Urine Creatinine 60.6 mg/dL 30.0-125.0 [facility] ([facility]) ID Date Data Source [id number] 07/07/2020 11:24:00 AM EDT [facility] ([facility] ) Name Value Range Interpretation Code Description Data Jaci rce(s) Supporting Document(s) Glucose [Mass/volume] in Serum or Plasma 198 mg/dL 74-99 [facility] ([facility]) 100-125 mg/dL PRE-DIABETES/FASTING >126 mg/dL DIABETES/FASTING Urea nitrogen [Mass/volume] in Serum or Plasma 22 mg/dL 7-18 [facility] ([facility]) Potassium [Moles/volume] in Serum or Plasma 4.1 meq/L 3.5-5.1 [facility] ([facility]) Creatinine [Mass/volume] in Serum or Plasma 1.2 mg/dL 0.6-1.3 [facility] ([facility]) Sodium [Moles/volume] in Serum or Plasma 138 meq/L 136-145 [facility] ([facility]) Alkaline phosphatase isoenzyme [Units/volume] in Serum or Pl asma 59 mg/dL 46-116 [facility] ([facility]) Chloride [Moles/volume] in Serum or Plasma 102 meq/L 98-107 [facility] ([facility] ) Calcium [Mass/volume] in Serum or Plasma 8.9 mg/dL 8.5-10.1 [facility] ([facility] ) Carbon dioxide, total [Moles/volume] in Serum or Plasma 28 meq/L 21 -32 [facility] ([facility] ) Total Bilirubin 0.3 mg/dL 0.2-1.0 [facility] ([facility] ) Aspartate aminotransferase [Enzymatic activity/volume] in Serum or Plasma 20 U/L 15-37 [facility] ([facility] ) Albumin [Mass/volume] in Serum or Plasma 3.5 g/dL 3.4-5.0 [facility] ([facility] ) Alanine aminotransferase [Enzymatic activity/volume] in Seru m or Plasma 23 U/L 12-78 [facility] ([facility] Albumin/Globulin [Mass Ratio] in Serum or Plasma 1.21 CALC 1.00-1.90 [facility] ([facility] ) Proteinase 3 Ab [Units/volume] in Serum 6.4 g/dL 6.4-8.2 [facility] ([facility] ) Glomerular filtration rate/1.73 sq M pre dicted among non-blacks [Volume Rate/Area] in Serum or Plasma by Creatinine-based formula (MDRD) 58 mL/min [facility] ([facility] ) Glomerular filtration rate/1.73 sq M pre dicted among blacks [Volume Rate/Area] in Serum or Plasma by Creatinine-based formula (MDRD) Laboratory test result [facility] ([facility] ) <content>CHRONIC KIDNEY DISEASE STAGING PER NKF</content>
<content></content>
<content>STAGE I & II GFR >= 60 NORMAL TO MILDLY DECREASED</content>
<content>STAGE III GFR 30-59 MODERATELY DECREASED</content>
<content>STAGE IV GFR 15-29 SEVERELY DECREASED</content>
<content>STAGE V GFR <15 VERY LITTLE GFR LEFT</content>
<content>ESRD GFR <15 ON EGG BREAKER</content>
<content></content>
<content></content> ID Date Data Source [id number] 07/07/2020 11:24:00 AM EDT [facility] ([facility]) Name Value Range Interpretation Code Description Data Jaci rce(s) Supporting Document(s) Leukocytes [#/volume] in Blood by Automated count 7.7 x10*3/UL 4.1-10 .9 [facility] ([facility]) Hemoglobin [Mass/volume] in Blood 11.1 g/dL 12.0-18.0 [facility] ([facility]) Hematocrit [Volume Fraction] of Blood by Automated count 32.5 % 3 7.0-51.0 [facility] ([facility]) Erythrocytes [#/volume] in Blood by Automated count 3.63 x10*6/UL 4.2 0-6.30 [facility] ([facility]) MCH 30.7 pg 26.0-32.0 [facility]) MCHC 34.3 g/dL 31.0-38.0 [facility] ([facility]) MCV 89.5 fL 80.0-97.0 [facility] Erythrocyte distribution width [Ratio] by Automated count 13.9 % 11.6-13.7 [facility] ([facility]) Platelets [#/volume] in Blood by Automated count 197 x10*3/UL 140-440 [facility] ([facility]) Platelet mean volume [Entitic volume] in Blood by Isha 9.5 FL 7.8-11.0 [facility] ([facility]) Lymphocytes/100 leukocytes in Blood by Automated count 9.9 % 10. 0-58.5 [facility] ([facility]) Mid % 3.9 % 1.7-9.3 [facility] ([facility] Neut % 86.2 % 37.0-92.0 [facility] Lymph # 0.7 x10*3/UL 0.6-4.1 [facility] ([facility] Mid # 0.4 x10*3/UL 0.1-0.6 [facility] ([facility]) Neutrophils [#/volume] in [place] by Manual count 6.6 x10*3/UL 2.0-7.8 [facility] ([facility]) ID Date Data Source [id number] 07/07/2020 11:24:00 AM EDT [facility] ([facility]) Name Value Range Interpretation Code Description Data Jaci rce(s) Supporting Document(s) Triglyceride [Mass/volume] in Serum or Plasma 44 mg/dL 30-150 [facility] ([facility]) Cholesterol in HDL [Mass/volume] in Serum or Plasma 48 mg/dL 35-60 [facility] ([facility]) Cholesterol [Mass/volume] in Serum or Plasma 95 mg/dL 131-200 [facility] ([facility]) Cholesterol in LDL [Mass/volume] in Serum or Plasma by calcu lation 38 CALC 50-159 [facility] ([facility]) ID Date Data Source [id number] 07/07/2020 11:24:00 AM EDT [facility] ([facility]) Name Value Range Interpretation Code Description Data Jaci rce(s) Supporting Document(s) Glucose [Mass/volume] in Serum or Plasma 198 mg/dL 74-99 [facility] ([facility]) 100-125 mg/dL PRE-DIABETES/FASTING >126 mg/dL DIABETES/FASTING Urea nitrogen [Mass/volume] in Serum or Plasma 22 mg/dL 7-18 [facility] ([facility]) Creatinine 1.2 mg/dL 0.6-1.3 [facility] Potassium [Moles/volume] in Serum or Plasma 4.1 meq/L 3.5-5.1 [facility] ([facility]) Sodium [Moles/volume] in Serum or Plasma 138 meq/L 136-145 [facility] ([facility]) Carbon dioxide, total [Moles/volume] in Serum or Plasma 28 meq/L 21 -32 [facility] ([facility]) Calcium [Mass/volume] in Serum or Plasma 8.9 mg/dL 8.5-10.1 [facility] ([facility]) Chloride [Moles/volume] in Serum or Plasma 102 meq/L 98-107 [facility] ([facility]) Alkaline phosphatase isoenzyme [Units/volume] in Serum or Pl asma 59 mg/dL 46-116 [facility] ([facility]) Total Bilirubin 0.3 mg/dL 0.2-1.0 [facility] Alanine aminotransferase [Enzymatic activity/volume] in Seru m or Plasma 23 U/L 12-78 [facility] ([facility]) Aspartate aminotransferase [Enzymatic activity/volume] in Serum or Plasma 20 U/L 15-37 [facility] ([facility] ) A/G Ratio 1.21 CALC 1.00-1.90 [facility] Albumin [Mass/volume] in Serum or Plasma 3.5 g/dL 3.4-5.0 [facility] ([facility]) Proteinase 3 Ab [Units/volume] in Serum 6.4 g/dL 6.4-8.2 [facility] ([facility]) Glomerular filtration rate/1.73 sq M pre dicted among non-blacks [Volume Rate/Area] in Serum or Plasma by Creatinine-based formula (MDRD) 58 mL/min [facility] Glomerular filtration rate/1.73 sq M pre dicted among blacks [Volume Rate/Area] in Serum or Plasma by Creatinine-based formula (MDRD) Laboratory test result [facility] <content>CHRONIC KIDNEY DISEASE STAGING PER NKF</content>
<content></content>
<content>STAGE I & II GFR >= 60 NORMAL TO MILDLY DECREASED</content>
<content>STAGE III GFR 30-59 MODERATELY DECREASED</content>
<content>STAGE IV GFR 15-29 SEVERELY DECREASED</content>
<content>STAGE V GFR <15 VERY LITTLE GFR LEFT</content>
<content>ESRD GFR <15 ON EGG BREAKER</content>
<content></content> ID Date Data Source [id number] 07/07/2020 11:24:00 AM EDT [facility]) Name Value Range Interpretation Code Description Data Jaci rce(s) Supporting Document(s) Leukocytes [#/volume] in Blood by Automated count 7.7 x10*3/UL 4.1-10 .9 [facility] Hemoglobin [Mass/volume] in Blood 11.1 g/dL 12.0-18.0 [facility] ([facility]) Erythrocytes [#/volume] in Blood by Automated count 3.63 x10*6/UL 4.2 0-6.30 [facility] ([facility]) Hematocrit [Volume Fraction] of Blood by Automated count 32.5 % 3 7.0-51.0 [facility] ([facility]) Erythrocyte distribution width [Ratio] by Automated count 13.9 % 11.6-13.7 [facility] ([facility]) MCH 30.7 pg 26.0-32.0 [facility] MCHC 34.3 g/dL 31.0-38.0 [facility] MCV 89.5 fL 80.0-97.0 [facility] MPV 9.5 FL 7.8-11.0 [facility] Platelets [#/volume] in Blood by Automated count 197 x10*3/UL 140-440 [facility] ([facility]) Lymph % 9.9 % 10.0-58.5 [facility] Mid % 3.9 % 1.7-9.3 [facility] Neut % 86.2 % 37.0-92.0 [facility] Lymph # 0.7 x10*3/UL 0.6-4.1 [facility] ([facility]) Neut # 6.6 x10*3/UL 2.0-7.8 [facility] ([facility]) Mid # 0.4 x10*3/UL 0.1-0.6 [facility] ([facility]) ID Date Data Source [id number] 06/14/2020 03:24:00 PM EDT [facility] ([facility]) Name Value Range Interpretation Code Description Data Jaci rce(s) Supporting Document(s) Glucose [Mass/volume] in Serum or Plasma 253 [facility] ([facility]) ID Date Data Source [id number] 05/20/2020 01:39:00 PM EDT [facility] ([facility]) Name Value Range Interpretation Code Description Data Jaci rce(s) Supporting Document(s) Vitamin B12 Level 734 pg/mL [facility] ([facility]) VITAMIN B12 NORMAL RANGE NORMAL 247 - 911 PG/ML INDETERMINATE 211 - 246 PG/ML DEFICIENT LESS THAN 211 PG/ML Folate 21.7 ng/mL [facility] ([facility]) FOLATE NORMAL RANGE NORMAL GREATER THAN 5.4 NG/ML INDETERMINATE 3.4-5.4 NG/ML DEFICIENT LESS THAN 3.4 NG/ML ID Date Data Source [id number] 05/20/2020 01:39:00 PM EDT [facility] ([facility]) Name Value Range Interpretation Code Description Data Jaci rce(s) Supporting Document(s) Laboratory test finding (navigational concept) Laboratory test result [facility] ([facility]) . The QuantiFERON-TB Gold Plus result is determined by subtracting the Nil value from either TB antigen (Ag) tube. The mitogen tube serves as a control for the test. Laboratory test finding (navigational concept) 0.02 IU/ml [facility] ([facility]) Laboratory test finding (navigational concept) 0.05 IU/ml [facility] ([facility]) Laboratory test finding (navigational concept) 0.04 IU/ml [facility] ([facility]) Laboratory test finding (navigational concept) 8.96 IU/ml [facility] ([facility]) Laboratory test finding (navigational concept) Laboratory test result [facility] ([facility]) . The specimen received for QuantiFERON testing was incubated by the ordering institution. Specific procedures outlined in our Directory of Services and in the package insert for the QuantiFERON Gold (In Tube) test must be followed to enable for proper stimulation of cells for the production of interferon gamma. Performed at: RN - [facility] [address] [id number] Cooling Tower Operator: Aarti Shearer MD, Phone: [phone] ID Date Data Source [id number] 05/20/2020 01:39:00 PM EDT [facility] ([facility]) Name Value Range Interpretation Code Description Data Jaci rce(s) Supporting Document(s) Vitamin B12 Level 734 pg/mL [facility] ([facility]) VITAMIN B12 NORMAL RANGE NORMAL 247 - 911 PG/ML INDETERMINATE 211 - 246 PG/ML DEFICIENT LESS THAN 211 PG/ML Folate 21.7 ng/mL [facility] ([facility]) FOLATE NORMAL RANGE NORMAL GREATER THAN 5.4 NG/ML INDETERMINATE 3.4-5.4 NG/ML DEFICIENT LESS THAN 3.4 NG/ML ID Date Data Source [id number] 05/20/2020 01:39:00 PM EDT [facility] ([facility]) Name Value Range Interpretation Code Description Data Jaci rce(s) Supporting Document(s) QuantiFERON Criteria Laboratory test result [facility] . The QuantiFERON-TB Gold Plus result is determined by subtracting the Nil value from either TB antigen (Ag) tube. The mitogen tube serves as a control for the test. QuantiFERON TB1 Ag Value 0.04 IU/ml MEDE NT ([facility]) QuantiFERON TB2 Ag Value 0.05 IU/ml MEDE NT ([facility]) QuantiFERON Nil Value 0.02 IU/ml [facility] ([facility] QuantiFERON-TB Gold Plus [facility] . The specimen received for QuantiFERON testing was incubated by the ordering institution. Specific procedures outlined in our Directory of Services and in the package insert for the QuantiFERON Gold (In Tube) test must be followed to enable for proper stimulation of cells for the production of interferon gamma. Performed at: RN - [facility] [address] [id number] Cooling Tower Operator: Aarti Shearer MD, Phone: [phone] QuantiFERON Mitogen Value 8.96 IU/ml MED ENT ([facility]) ID Date Data Source [id number] 05/20/2020 01:38:00 PM EDT [facility] ([facility]) Name Value Range Interpretation Code Description Data Jaci rce(s) Supporting Document(s) Thyrotropin [Units/volume] in Serum or Plasma by Detec tion limit <= 0.05 mIU/L 3.04 uIU/mL 0.36-3.74 [facility] ([facility]) ID Date Data Source [id number] 05/20/2020 01:38:00 PM EDT [facility] ([facility]) Name Value Range Interpretation Code Description Data Jaci rce(s) Supporting Document(s) Leukocytes [#/volume] in Blood by Automated count 6.3 x10*3/UL 4.1-10 .9 [facility] ([facility]) Erythrocytes [#/volume] in Blood by Automated count 3.40 x10*6/UL 4.2 0-6.30 [facility] ([facility]) Hematocrit [Volume Fraction] of Blood by Automated count 30.5 % 3 7.0-51.0 [facility] ([facility]) MCV 89.5 fL 80.0-97.0 [facility] ([facility] Hemoglobin [Mass/volume] in Blood 10.4 g/dL 12.0-18.0 [facility] ([facility]) NOTE: RESULT VERIFIED. MCH 30.6 pg 26.0-32.0 [facility] ([facility]) MCHC 34.1 g/dL 31.0-38.0 [facility] ([facility]) Platelet mean volume [Entitic volume] in Blood by Isha 9.6 FL 7.8-11.0 [facility] ([facility]) Erythrocyte distribution width [Ratio] by Automated count 13.7 % 11.6-13.7 [facility] ([facility]) Platelets [#/volume] in Blood by Automated count 154 x10*3/UL 140-440 [facility] ([facility]) Mid % 5.5 % 1.7-9.3 [facility] ([facility]) Lymphocytes/100 leukocytes in Blood by Automated count 16.7 % 10. 0-58.5 [facility] ([facility]) Neut % 77.8 % 37.0-92.0 [facility] ([facility]) Lymph # 1.0 x10*3/UL 0.6-4.1 [facility] ([facility] Neutrophils [#/volume] in Semen by Manual count 4.9 x10*3/UL 2.0-7.8 [facility] ([facility]) Mid # 0.4 x10*3/UL 0.1-0.6 [facility] ([facility]) ID Date Data Source [id number] 05/20/2020 01:38:00 PM EDT [facility] ([facility]) Name Value Range Interpretation Code Description Data Jaci rce(s) Supporting Document(s) Urea nitrogen [Mass/volume] in Serum or Plasma 24 mg/dL 7-18 [facility] ([facility] ) Glucose [Mass/volume] in Serum or Plasma 176 mg/dL 74-99 [facility] ([facility] ) 100-125 mg/dL PRE-DIABETES/FASTING >126 mg/dL DIABETES/FASTING Creatinine [Mass/volume] in Serum or Plasma 1.0 mg/dL 0.6-1.3 [facility] ([facility] ) Sodium [Moles/volume] in Serum or Plasma 139 meq/L 136-145 [facility] ([facility] ) Potassium [Moles/volume] in Serum or Plasma 4.2 meq/L 3.5-5.1 [facility] ([facility] ) Calcium [Mass/volume] in Serum or Plasma 8.6 mg/dL 8.5-10.1 [facility] ([facility] ) Chloride [Moles/volume] in Serum or Plasma 104 meq/L 98-107 [facility] ([facility] ) Carbon dioxide, total [Moles/volume] in Serum or Plasma 26 meq/L 21 -32 [facility] ([facility] ) Glomerular filtration rate/1.73 sq M pre dicted among non-blacks [Volume Rate/Area] in Serum or Plasma by Creatinine-based formula (MDRD) Laboratory test result [facility] Glomerular filtration rate/1.73 sq M pre dicted among blacks [Volume Rate/Area] in Serum or Plasma by Creatinine-based formula (MDRD) Laboratory test result [facility] ([facility] ) <content>CHRONIC KIDNEY DISEASE STAGING PER NKF</content>
<content></content>
<content>STAGE I & II GFR >= 60 NORMAL TO MILDLY DECREASED</content>
<content>STAGE III GFR 30-59 MODERATELY DECREASED</content>
<content>STAGE IV GFR 15-29 SEVERELY DECREASED</content>
<content>STAGE V GFR <15 VERY LITTLE GFR LEFT</content>
<content>ESRD GFR <15 ON EGG BREAKER</content>
<content></content>
<content></content> ID Date Data Source [id number] 05/20/2020 01:38:00 PM EDT [facility] ([facility]) Name Value Range Interpretation Code Description Data Jaci rce(s) Supporting Document(s) Thyrotropin [Units/volume] in Serum or Plasma by Detec tion limit <= 0.05 mIU/L 3.04 uIU/mL 0.36-3.74 [facility] ([facility] ) ID Date Data Source [id number] 05/20/2020 01:38:00 PM EDT [facility] ([facility] Name Value Range Interpretation Code Description Data Jaci rce(s) Supporting Document(s) Erythrocytes [#/volume] in Blood by Automated count 3.40 x10*6/UL 4.2 0-6.30 [facility] ([facility]) Leukocytes [#/volume] in Blood by Automated count 6.3 x10*3/UL 4.1-10 .9 [facility] ([facility]) Hemoglobin [Mass/volume] in Blood 10.4 g/dL 12.0-18.0 [facility] ([facility]) NOTE: RESULT VERIFIED. MCV 89.5 fL 80.0-97.0 [facility] ([facility]) Hematocrit [Volume Fraction] of Blood by Automated count 30.5 % 3 7.0-51.0 [facility] ([facility]) MCH 30.6 pg 26.0-32.0 [facility] ([facility]) Erythrocyte distribution width [Ratio] by Automated count 13.7 % 11.6-13.7 [facility] ([facility]) MCHC 34.1 g/dL 31.0-38.0 [facility] ([facility]) Platelets [#/volume] in Blood by Automated count 154 x10*3/UL 140-440 [facility] ([facility]) MPV 9.6 FL 7.8-11.0 [facility] Neut % 77.8 % 37.0-92.0 [facility] ([facility]) Mid % 5.5 % 1.7-9.3 [facility] Lymph % 16.7 % 10.0-58.5 [facility] Lymph # 1.0 x10*3/UL 0.6-4.1 [facility] ([facility]) Neut # 4.9 x10*3/UL 2.0-7.8 [facility] ([facility]) Mid # 0.4 x10*3/UL 0.1-0.6 [facility] ([facility]) ID Date Data Source [id number] 05/20/2020 01:38:00 PM EDT [facility] ([facility]) Name Value Range Interpretation Code Description Data Jaci rce(s) Supporting Document(s) Glucose [Mass/volume] in Serum or Plasma 176 mg/dL 74-99 [facility] ([facility]) 100-125 mg/dL PRE-DIABETES/FASTING >126 mg/dL DIABETES/FASTING Urea nitrogen [Mass/volume] in Serum or Plasma 24 mg/dL 7-18 [facility] ([facility]) Sodium [Moles/volume] in Serum or Plasma 139 meq/L 136-145 [facility] ([facility]) Potassium [Moles/volume] in Serum or Plasma 4.2 meq/L 3.5-5.1 [facility] ([facility]) Creatinine 1.0 mg/dL 0.6-1.3 [facility] ([facility]) Chloride [Moles/volume] in Serum or Plasma 104 meq/L 98-107 [facility] ([facility]) Glomerular filtration rate/1.73 sq M pre dicted among non-blacks [Volume Rate/Area] in Serum or Plasma by Creatinine-based formula (MDRD) Laboratory test result [facility] ([facility] ) Calcium [Mass/volume] in Serum or Plasma 8.6 mg/dL 8.5-10.1 [facility] ([facility]) Carbon dioxide, total [Moles/volume] in Serum or Plasma 26 meq/L 21 -32 [facility] ([facility]) Glomerular filtration rate/1.73 sq M pre dicted among blacks [Volume Rate/Area] in Serum or Plasma by Creatinine-based formula (MDRD) Laboratory test result [facility] ([facility]) <content>CHRONIC KIDNEY DISEASE STAGING PER NKF</content>
<content></content>
<content>STAGE I & II GFR >= 60 NORMAL TO MILDLY DECREASED</content>
<content>STAGE III GFR 30-59 MODERATELY DECREASED</content>
<content>STAGE IV GFR 15-29 SEVERELY DECREASED</content>
<content>STAGE V GFR <15 VERY LITTLE GFR LEFT</content>
<content>ESRD GFR <15 ON EGG BREAKER</content>
<content></content> ID Date Data Source [id number] 05/04/2020 11:27:00 AM EDT [facility] ([facility]) Name Value Range Interpretation Code Description Data Jaci rce(s) Supporting Document(s) Glucose [Mass/volume] in Serum or Plasma 167 [facility] ([facility]) Hemoglobin A1c/Hemoglobin.total in Blood 7.4 [facility] ([facility]) ID Date Data Source [id number] 04/23/2020 11:27:48 AM EDT [facility] Name Value Range Interpretation Code Description Data Jaci rce(s) Supporting Document(s) POC GLUCOSE 149 mg/dL (70-99) H [facility] PERFORMED BY CLINICAL STAFF ID Date Data Source [id number] 04/23/2020 07:34:52 AM EDT [facility] Name Value Range Interpretation Code Description Data Jcai rce(s) Supporting Document(s) POC GLUCOSE 74 mg/dL (70-99) [facility] PERFORMED BY CLINICAL STAFF ID Date Data Source [id number] 04/23/2020 07:03:28 AM EDT [facility] Name Value Range Interpretation Code Description Data Jaci rce(s) Supporting Document(s) SODIUM 143 mmol/L (136-145) [facility] POTASSIUM 3.7 mmol/L (3.6-5.2) [facility] CHLORIDE 111 mmol/L (100-108) H [facility] CO2 28 mmol/L (22-31) [facility] ANION GAP 4 mmol/L (7-16) L [facility] UREA NITROGEN 16 mg/dL (7-24) [facility] CREATININE 0.76 mg/dL (0.80-1.30) L [facility] BUN/CREAT RATIO 21.1 RATIO (10.0-20.0) H [facility] GLUCOSE 96 mg/dL (70-99) [facility] CALCIUM 7.5 mg/dL (8.4-10.2) L [facility] TOTAL PROTEIN 5.1 g/dL (6.4-8.2) L [facility] ALBUMIN 2.5 g/dL (3.2-4.5) L [facility] GLOBULIN 2.6 g/dL (2.7-4.3) L [facility] ALB/GLOB RATIO 1.0 RATIO [facility] ALKALINE PHOSPHATASE 62 U/L (45-117) [facility] BILIRUBIN,TOTAL 1.1 mg/dL (0.0-1.0) H [facility] PLEASE NOTE:Total bilirubin results may be falselyelevated in patients taking Eltrombopag. AST (SGOT) 39 U/L (11-39) [facility] ALT (SGPT) 45 U/L (12-78) [facility] GFR >60 ml/min/1.73m2 (>59) [facility] GFR ( AMER) >60 ml/min/1.73m2 (>59) [facility] GFR INTERPRETATION [facility] --NORMAL KIDNEY FUNCTION OR MILD DISEASE - GFR >OR= 60CHRONIC KIDNEY DISEASE - GFR 15 - 59RENAL FAILURE - GFR <15 Est. GFR calculation based on the MDRDstudy equation, which assumes a steadystate for creatinine. Est. GFR should notbe used for medication dosing. ID Date Data Source [id number] 04/23/2020 03:00:32 AM EDT [facility] Name Value Range Interpretation Code Description Data Jaci rce(s) Supporting Document(s) POC GLUCOSE 157 mg/dL (70-99) H [facility] PERFORMED BY CLINICAL STAFF ID Date Data Source [id number] 04/23/2020 12:31:58 AM EDT [facility] Name Value Range Interpretation Code Description Data Jaci rce(s) Supporting Document(s) POC GLUCOSE 256 mg/dL (70-99) H [facility] PERFORMED BY CLINICAL STAFF ID Date Data Source [id number] 04/22/2020 11:42:09 PM EDT [facility] Name Value Range Interpretation Code Description Data Jaci rce(s) Supporting Document(s) POC GLUCOSE 184 mg/dL (70-99) H [facility] PERFORMED BY CLINICAL STAFF ID Date Data Source [id number] 04/22/2020 10:26:04 PM EDT [facility] Name Value Range Interpretation Code Description Data Jaci rce(s) Supporting Document(s) POC GLUCOSE 78 mg/dL (70-99) [facility] PERFORMED BY CLINICAL STAFF ID Date Data Source [id number] 04/26/2020 06:17:04 AM EDT [facility] Name Value Range Interpretation Code Description Data Jaci rce(s) Supporting Document(s) POC GLUCOSE 59 mg/dL (70-99) L [facility] PERFORMED BY CLINICAL STAFF ID Date Data Source [id number] 04/22/2020 06:05:00 PM EDT [facility] [place] Name Value Range Interpretation Code Description Data Jaci rce(s) Supporting Document(s) SARS coronavirus 2 RNA [Presence] in Res piratory specimen by MOHAN with probe detection Lab [facility] This lab was reported by [facility]. ID Date Data Source [id number] 04/22/2020 11:36:49 PM EDT [facility] Value Range Interpretation Code Description Data Jaci rce(s) Supporting Document(s) SPECIMEN DESCRIPTION [facility] [place] COVID19 RESULT (NDET) Lab [facility] THIS ASSAY AMPLIFIES AND DETECTSTHE TARG ET RNA USING REAL-TIME PCR.NEGATIVE 2019_NCOV RT-PCR RESULTS DONOT PRECLUDE 2019_NCOV INFECTION ANDSHOULD NOT BE USED THE SOLE BASISFOR PATIENT MANAGEMENT DECISIONS. COMMENT Lab [facility]. THE [place] FOODAND DRUG ADMINISTRATION HAS NOT APPROVEDTHIS TEST. NEGATIVE RESULTS DO NOT [id number] INFECTION AND SHOULD NOT BEUSED THE SOLE BASIS FOR CLINICALDIAGNOSIS OR PATIENT MANAGEMENT DECISIONS.RESULTS EMAILED TO IC AT 23:22 ON 04/22/20.34561 ID Date Data Source [id number] 04/22/2020 04:13:00 PM EDT [facility] Name Value Range Interpretation Code Description Data Jaci rce(s) Supporting Document(s) POC GLUCOSE 140 mg/dL (70-99) H [facility] PERFORMED BY CLINICAL STAFF ID Date Data Source [id number] 04/22/2020 12:36:05 PM EDT [facility] Name Value Range Interpretation Code Description Data Jaci rce(s) Supporting Document(s) SODIUM 142 mmol/L (136-145) [facility] POTASSIUM 3.9 mmol/L (3.6-5.2) [facility] CHLORIDE 109 mmol/L (100-108) H [facility] CO2 31 mmol/L (22-31) [facility] ANION GAP 2 mmol/L (7-16) L [facility] UREA NITROGEN 22 mg/dL (7-24) [facility] CREATININE 0.84 mg/dL (0.80-1.30) [facility] BUN/CREAT RATIO 26.2 RATIO (10.0-20.0) H [facility] GLUCOSE 185 mg/dL (70-99) H [facility] CALCIUM 7.7 mg/dL (8.4-10.2) L [facility] GFR >60 ml/min/1.73m2 (>59) [facility] GFR ( AMER) >60 ml/min/1.73m2 (>59) [facility] GFR INTERPRETATION [facility] --NORMAL KIDNEY FUNCTION OR MILD DISEASE - GFR >OR= 60CHRONIC KIDNEY DISEASE - GFR 15 - 59RENAL FAILURE - GFR <15 Est. GFR calculation based on the MDRDstudy equation, which assumes a steadystate for creatinine. Est. GFR should notbe used for medication dosing. ID Date Data Source [id number] 04/22/2020 11:52:46 AM EDT [facility] Name Value Range Interpretation Code Description Data Jaci rce(s) Supporting Document(s) POC GLUCOSE 163 mg/dL (70-99) H [facility] PERFORMED BY CLINICAL STAFF ID Date Data Source [id number] 04/22/2020 08:41:19 AM EDT [facility] Name Value Range Interpretation Code Description Data Jaci rce(s) Supporting Document(s) POC GLUCOSE 164 mg/dL (70-99) H [facility] PERFORMED BY CLINICAL STAFF ID Date Data Source [id number] 04/22/2020 01:54:49 AM EDT [facility] Name Value Range Interpretation Code Description Data Jaci rce(s) Supporting Document(s) CALCIUM IONIZED 5.00 mg/dL (4.64-5.28) [facility] IONIZED CALCIUM NORMALIZED TO PH 7.40 AN D 37 DEGREES C. ID Date Data Source [id number] 04/22/2020 01:42:38 AM EDT [facility] Name Value Range Interpretation Code Description Data Jaci rce(s) Supporting Document(s) MAGNESIUM 1.8 mg/dL (1.7-2.4) [facility] ID Date Data Source [id number] 04/22/2020 01:42:38 AM EDT [facility] Name Value Range Interpretation Code Description Data Jaci rce(s) Supporting Document(s) PHOSPHORUS 2.2 mg/dL (2.5-4.5) L [facility] ID Date Data Source [id number] 04/22/2020 01:42:38 AM EDT [facility] Name Value Range Interpretation Code Description Data Jaci rce(s) Supporting Document(s) SODIUM 140 mmol/L (136-145) [facility] POTASSIUM 4.0 mmol/L (3.6-5.2) [facility] CHLORIDE 108 mmol/L (100-108) [facility] CO2 26 mmol/L (22-31) [facility] ANION GAP 6 mmol/L (7-16) L [facility] UREA NITROGEN 28 mg/dL (7-24) H [facility] CREATININE 1.00 mg/dL (0.80-1.30) [facility] BUN/CREAT RATIO 28.0 RATIO (10.0-20.0) H [facility] GLUCOSE 279 mg/dL (70-99) H [facility] CALCIUM 7.5 mg/dL (8.4-10.2) L [facility] TOTAL PROTEIN 5.3 g/dL (6.4-8.2) L [facility] ALBUMIN 2.6 g/dL (3.2-4.5) L [facility] GLOBULIN 2.7 g/dL (2.7-4.3) [facility] ALB/GLOB RATIO 1.0 RATIO [facility] ALKALINE PHOSPHATASE 56 U/L (45-117) [facility] BILIRUBIN,TOTAL 0.7 mg/dL (0.0-1.0) [facility] PLEASE NOTE:Total bilirubin results may be falselyelevated in patients taking Eltrombopag. AST (SGOT) 62 U/L (11-39) H [facility] ALT (SGPT) 53 U/L (12-78) [facility] GFR >60 ml/min/1.73m2 (>59) [facility] GFR ( AMER) >60 ml/min/1.73m2 (>59) [facility] GFR INTERPRETATION [facility] --NORMAL KIDNEY FUNCTION OR MILD DISEASE - GFR >OR= 60CHRONIC KIDNEY DISEASE - GFR 15 - 59RENAL FAILURE - GFR <15 Est. GFR calculation based on the MDRDstudy equation, which assumes a steadystate for creatinine. Est. GFR should notbe used for medication dosing. ID Date Data Source [id number] 04/22/2020 01:33:48 AM EDT [facility] Name Value Range Interpretation Code Description Data Jaci rce(s) Supporting Document(s) PT 21.1 s (9.2-11.9) H [facility] INR 2.10 [facility] SUGGESTED THERAPEUTIC RANGES USING INR F ORSTABILIZED ANTICOAGULATED PATIENTS:STANDARD DOSE THERAPY INR 2.0-3.0 DVT, PE, PREVENT DVT OR EMBOLISMHIGH DOSE THERAPY INR 2.5-3.5 PREVENT EMBOLISM FROM MECHANICAL HEART VALVE ID Date Data Source [id number] 04/22/2020 01:22:32 AM EDT [facility] Name Value Range Interpretation Code Description Data Jaci rce(s) Supporting Document(s) WBC 9.0 10*3/uL (4.1-11.0) [facility] [place] RBC 3.38 10*6/uL (4.60-6.10) L [facility] HGB 10.2 g/dL (13.5-18.0) L [facility] HCT 31.5 % (41.0-53.0) L [facility] MCV 93.2 fL (80.0-95.0) [facility] MCH 30.2 pg (27.0-32.0) [facility] MCHC 32.4 g/dL (32.0-36.0) [facility] RDW 14.7 % (10.5-14.5) H [facility] PLT 146 10*3/uL (150-450) L [facility] MPV 9.8 fL (7.1-10.7) [facility] ID Date Data Source [id number] 04/21/2020 04:57:31 PM EDT [facility] Name Value Range Interpretation Code Description Data Jaci rce(s) Supporting Document(s) POC GLUCOSE 288 mg/dL (70-99) H [facility] PERFORMED BY CLINICAL STAFF ID Date Data Source [id number] 04/21/2020 03:28:29 PM EDT [facility] Name Value Range Interpretation Code Description Data Jaci rce(s) Supporting Document(s) SODIUM 140 mmol/L (136-145) [facility] POTASSIUM 4.3 mmol/L (3.6-5.2) [facility] CHLORIDE 110 mmol/L (100-108) H [facility] CO2 24 mmol/L (22-31) [facility] ANION GAP 6 mmol/L (7-16) L [facility] UREA NITROGEN 35 mg/dL (7-24) H [facility] CREATININE 1.25 mg/dL (0.80-1.30) [facility] BUN/CREAT RATIO 28.0 RATIO (10.0-20.0) H [facility] GLUCOSE 341 mg/dL (70-99) H [facility] CALCIUM 7.8 mg/dL (8.4-10.2) L [facility] GFR 55 ml/min/1.73m2 (>59) L [facility] GFR ( AM) >60 ml/min/1.73m2 (>59) [facility] GFR INTERPRETATION [facility] --NORMAL KIDNEY FUNCTION OR MILD DISEASE - GFR >OR= 60CHRONIC KIDNEY DISEASE - GFR 15 - 59RENAL FAILURE - GFR <15 Est. GFR calculation based on the MDRDstudy equation, which assumes a steadystate for creatinine. Est. GFR should notbe used for medication dosing. ID Date Data Source [id number] 04/21/2020 11:55:09 AM EDT [facility] Name Value Range Interpretation Code Description Data Jaci rce(s) Supporting Document(s) POC GLUCOSE 209 mg/dL (70-99) H [facility] PERFORMED BY CLINICAL STAFF ID Date Data Source [id number] 04/21/2020 08:50:33 AM EDT [facility] Name Value Range Interpretation Code Description Data Jaci rce(s) Supporting Document(s) PT 86.9 s (9.2-11.9) H [facility] INR 9.40 HH [facility] SUGGESTED THERAPEUTIC RANGES USING INR F ORSTABILIZED ANTICOAGULATED PATIENTS:STANDARD DOSE THERAPY INR 2.0-3.0 DVT, PE, PREVENT DVT OR EMBOLISMHIGH DOSE THERAPY INR 2.5-3.5 PREVENT EMBOLISM FROM MECHANICAL HEART VALVERESULT(S) CALLED TO AND READ BACK BY[facility] ICU ON 04/21/2020 [place] [address]49 [place] [id number] ID Date Data Source [id number] 04/21/2020 06:44:28 AM EDT [facility] Name Value Range Interpretation Code Description Data Jaci rce(s) Supporting Document(s) SODIUM 145 mmol/L (136-145) [facility] POTASSIUM 3.7 mmol/L (3.6-5.2) [facility] CHLORIDE 115 mmol/L (100-108) H [facility] CO2 24 mmol/L (22-31) [facility] ANION GAP 6 mmol/L (7-16) L [facility] UREA NITROGEN 39 mg/dL (7-24) H [facility] CREATININE 0.95 mg/dL (0.80-1.30) [facility] BUN/CREAT RATIO 41.1 RATIO (10.0-20.0) H [facility] GLUCOSE 85 mg/dL (70-99) [facility] CALCIUM 7.7 mg/dL (8.4-10.2) L [facility] GFR >60 ml/min/1.73m2 (>59) [facility] GFR ( AMER) >60 ml/min/1.73m2 (>59) [facility] GFR INTERPRETATION [facility] --NORMAL KIDNEY FUNCTION OR MILD DISEASE - GFR >OR= 60CHRONIC KIDNEY DISEASE - GFR 15 - 59RENAL FAILURE - GFR <15 Est. GFR calculation based on the MDRDstudy equation, which assumes a steadystate for creatinine. Est. GFR should notbe used for medication dosing. ID Date Data Source [id number] 04/21/2020 05:52:33 AM EDT [facility] Name Value Range Interpretation Code Description Data Jaci rce(s) Supporting Document(s) POC GLUCOSE 76 mg/dL (70-99) [facility] PERFORMED BY CLINICAL STAFF ID Date Data Source [id number] 04/21/2020 04:05:33 AM EDT [facility] Name Value Range Interpretation Code Description Data Jaci rce(s) Supporting Document(s) POC GLUCOSE 103 mg/dL (70-99) [facility] PERFORMED BY CLINICAL STAFF ID Date Data Source [id number] 04/21/2020 03:13:59 AM EDT [facility] Name Value Range Interpretation Code Description Data Jaci rce(s) Supporting Document(s) POC GLUCOSE 114 mg/dL (70-99) H [facility] PERFORMED BY CLINICAL STAFF ID Date Data Source [id number] 04/21/2020 03:54:05 AM EDT [facility] Name Value Range Interpretation Code Description Data Jaci rce(s) Supporting Document(s) SODIUM 144 mmol/L (136-145) [facility] POTASSIUM 4.0 mmol/L (3.6-5.2) [facility] CHLORIDE 115 mmol/L (100-108) H [facility] CO2 24 mmol/L (22-31) [facility] ANION GAP 5 mmol/L (7-16) L [facility] UREA NITROGEN 42 mg/dL (7-24) H [facility] CREATININE 1.00 mg/dL (0.80-1.30) [facility] BUN/CREAT RATIO 42.0 RATIO (10.0-20.0) [facility] GLUCOSE 118 mg/dL (70-99) H [facility] CALCIUM 7.5 mg/dL (8.4-10.2) L [facility] GFR >60 ml/min/1.73m2 (>59) [facility] GFR ( AMER) >60 ml/min/1.73m2 (>59) [facility] GFR INTERPRETATION [facility] --NORMAL KIDNEY FUNCTION OR MILD DISEASE - GFR >OR= 60CHRONIC KIDNEY DISEASE - GFR 15 - 59RENAL FAILURE - GFR <15 Est. GFR calculation based on the MDRDstudy equation, which assumes a steadystate for creatinine. Est. GFR should notbe used for medication dosing. ID Date Data Source [id number] 04/21/2020 03:54:05 AM EDT [facility] Name Value Range Interpretation Code Description Data Jaci rce(s) Supporting Document(s) TROPONIN I 15.40 ng/mL (<0.05) [facility] Less than 0.05: Myocardial injury unlike lyGreater than or equal to 0.05: Highly suggestive of myocardial injuryCorrelation with rise and/or fall ofserial troponins, clinical symptomsand ECG changes is necessary.RESULT(S) CALLED TO AND READ BACK BYLEI AT [facility] ON 04/21/2020 AT 0353 [place] [id number] ID Date Data Source [id number] 04/21/2020 01:58:40 AM EDT [facility] Name Value Range Interpretation Code Description Data Jaci rce(s) Supporting Document(s) POC GLUCOSE 113 mg/dL (70-99) H [facility] PERFORMED BY CLINICAL STAFF ID Date Data Source [id number] 04/21/2020 01:02:57 AM EDT [facility] Name Value Range Interpretation Code Description Data Jaci rce(s) Supporting Document(s) POC GLUCOSE 89 mg/dL (70-99) [facility] PERFORMED BY CLINICAL STAFF ID Date Data Source [id number] 04/21/2020 12:00:31 AM EDT [facility] Name Value Range Interpretation Code Description Data Jaci rce(s) Supporting Document(s) POC GLUCOSE 105 mg/dL (70-99) H [facility] PERFORMED BY CLINICAL STAFF ID Date Data Source [id number] 04/20/2020 11:00:06 PM EDT [facility] Name Value Range Interpretation Code Description Data Jaci rce(s) Supporting Document(s) POC GLUCOSE 146 mg/dL (70-99) H [facility] PERFORMED BY CLINICAL STAFF ID Date Data Source [id number] 04/20/2020 10:10:59 PM EDT [facility] Name Value Range Interpretation Code Description Data Jaci rce(s) Supporting Document(s) POC GLUCOSE 226 mg/dL (70-99) H [facility] PERFORMED BY CLINICAL STAFF ID Date Data Source [id number] 04/20/2020 09:57:26 PM EDT [facility] Name Value Range Interpretation Code Description Data Jaci rce(s) Supporting Document(s) TROPONIN I 16.20 ng/mL (<0.05) [facility] [place] Less than 0.05: Myocardial injury unlike lyGreater than or equal to 0.05: Highly suggestive of myocardial injuryCorrelation with rise and/or fall ofserial troponins, clinical symptomsand ECG changes is necessary.RESULT(S) CALLED TO AND READ BACK BYJAKE IN ICU AT 2155 ON 04/20 BY [id number] ID Date Data Source [id number] 04/20/2020 09:57:26 PM EDT [facility] Name Value Range Interpretation Code Description Data Jaci rce(s) Supporting Document(s) SODIUM 141 mmol/L (136-145) [facility] POTASSIUM 4.2 mmol/L (3.6-5.2) [facility] CHLORIDE 112 mmol/L (100-108) H [facility] CO2 24 mmol/L (22-31) [facility] ANION GAP 5 mmol/L (7-16) L [facility] UREA NITROGEN 49 mg/dL (7-24) H [facility] CREATININE 1.41 mg/dL (0.80-1.30) H [facility] BUN/CREAT RATIO 34.8 RATIO (10.0-20.0) H [facility] GLUCOSE 278 mg/dL (70-99) H [facility] CALCIUM 7.6 mg/dL (8.4-10.2) L [facility] GFR 48 ml/min/1.73m2 (>59) L [facility] GFR ( AMER) 58 ml/min/1.73m2 (>59) L [facility] GFR INTERPRETATION [facility] --NORMAL KIDNEY FUNCTION OR MILD DISEASE - GFR >OR= 60CHRONIC KIDNEY DISEASE - GFR 15 - 59RENAL FAILURE - GFR <15 Est. GFR calculation based on the MDRDstudy equation, which assumes a steadystate for creatinine. Est. GFR should notbe used for medication dosing. ID Date Data Source [id number] 04/20/2020 09:06:55 PM EDT [facility] Name Value Range Interpretation Code Description Data Jaci rce(s) Supporting Document(s) POC GLUCOSE 249 mg/dL (70-99) H [facility] PERFORMED BY CLINICAL STAFF ID Date Data Source [id number] 04/20/2020 08:04:27 PM EDT [facility] Name Value Range Interpretation Code Description Data Jaci rce(s) Supporting Document(s) POC GLUCOSE 353 mg/dL (70-99) H [facility] PERFORMED BY CLINICAL STAFF ID Date Data Source [id number] 04/20/2020 07:09:10 PM EDT [facility] Name Value Range Interpretation Code Description Data Jaci rce(s) Supporting Document(s) POC GLUCOSE 415 mg/dL (70-99) [facility] PERFORMED BY CLINICAL STAFF ID Date Data Source [id number] 04/20/2020 06:03:44 PM EDT [facility] Name Value Range Interpretation Code Description Data Jaci rce(s) Supporting Document(s) POC GLUCOSE 434 mg/dL (70-99) [facility] PERFORMED BY CLINICAL STAFF ID Date Data Source [id number] 04/20/2020 06:03:39 PM EDT [facility] Name Value Range Interpretation Code Description Data Jaci rce(s) Supporting Document(s) POC GLUCOSE 454 mg/dL (70-99) [facility] PERFORMED BY CLINICAL STAFF ID Date Data Source [id number] 04/20/2020 06:00:17 PM EDT [facility] Name Value Range Interpretation Code Description Data Jaci rce(s) Supporting Document(s) SODIUM 136 mmol/L (136-145) [facility] POTASSIUM 4.8 mmol/L (3.6-5.2) [facility] CHLORIDE 108 mmol/L (100-108) [facility] CO2 21 mmol/L (22-31) L [facility] ANION GAP 7 mmol/L (7-16) [facility] UREA NITROGEN 52 mg/dL (7-24) H [facility] CREATININE 1.50 mg/dL (0.80-1.30) H [facility] BUN/CREAT RATIO 34.7 RATIO (10.0-20.0) H [facility] GLUCOSE 521 mg/dL (70-99) [facility] RESULT(S) CALLED TO AND READ BACK BYICU AT 1800 ON 04/20 BY [id number] CALCIUM 7.8 mg/dL (8.4-10.2) L [facility] GFR 45 ml/min/1.73m2 (>59) L [facility] GFR ( AMER) 54 ml/min/1.73m2 (>59) L [facility] GFR INTERPRETATION [facility] --NORMAL KIDNEY FUNCTION OR MILD DISEASE - GFR >OR= 60CHRONIC KIDNEY DISEASE - GFR 15 - 59RENAL FAILURE - GFR <15 Est. GFR calculation based on the MDRDstudy equation, which assumes a steadystate for creatinine. Est. GFR should notbe used for medication dosing. ID Date Data Source [id number] 04/20/2020 05:40:07 PM EDT [facility] Name Value Range Interpretation Code Description Data Jaci rce(s) Supporting Document(s) TROPONIN I 17.00 ng/mL (<0.05) [facility] Less than 0.05: Myocardial injury unlike lyGreater than or equal to 0.05: Highly suggestive of myocardial injuryCorrelation with rise and/or fall ofserial troponins, clinical symptomsand ECG changes is necessary.RESULT(S) CALLED TO AND READ BACK BYNOMIOFELIA IN ICU AT 1740 ON 04/20 BY [id number] ID Date Data Source [id number] 04/20/2020 03:49:23 PM EDT [facility] Name Value Range Interpretation Code Description Data Jaci rce(s) Supporting Document(s) POC GLUCOSE 494 mg/dL (70-99) [facility] PERFORMED BY CLINICAL STAFF ID Date Data Source [id number] 04/20/2020 01:52:05 PM EDT [facility] Name Value Range Interpretation Code Description Data Jaci rce(s) Supporting Document(s) APTT 40.7 s (22.0-34.3) H [facility] ID Date Data Source [id number] 04/20/2020 01:52:05 PM EDT [facility] Name Value Range Interpretation Code Description Data Jaci rce(s) Supporting Document(s) PT 56.6 s (9.2-11.9) H [facility] INR 5.96 [facility] SUGGESTED THERAPEUTIC RANGES USING INR F ORSTABILIZED ANTICOAGULATED PATIENTS:STANDARD DOSE THERAPY INR 2.0-3.0 DVT, PE, PREVENT DVT OR EMBOLISMHIGH DOSE THERAPY INR 2.5-3.5 PREVENT EMBOLISM FROM MECHANICAL HEART VALVERESULT(S) CALLED TO AND READ BACK BYCODY IN ICU ON 04.20.20 AT 1351 BY [id number] ID Date Data Source [id number] 04/20/2020 11:57:17 AM EDT [facility] Name Value Range Interpretation Code Description Data Jaci rce(s) Supporting Document(s) POC GLUCOSE 348 mg/dL (70-99) H [facility] PERFORMED BY CLINICAL STAFF ID Date Data Source [id number] 04/20/2020 10:23:57 AM EDT [facility] Name Value Range Interpretation Code Description Data Jaci rce(s) Supporting Document(s) MAGNESIUM 2.0 mg/dL (1.7-2.4) [facility] ID Date Data Source [id number] 04/20/2020 10:23:57 AM EDT [facility] Name Value Range Interpretation Code Description Data Jaci rce(s) Supporting Document(s) PHOSPHORUS 1.8 mg/dL (2.5-4.5) L [facility] ID Date Data Source [id number] 04/20/2020 10:23:57 AM EDT [facility] Name Value Range Interpretation Code Description Data Jaci rce(s) Supporting Document(s) TROPONIN I 20.80 ng/mL (<0.05) [facility] [place] Less than 0.05: Myocardial injury unlike lyGreater than or equal to 0.05: Highly suggestive of myocardial injuryCorrelation with rise and/or fall ofserial troponins, clinical symptomsand ECG changes is necessary.RESULT(S) CALLED TO AND READ BACK BYBLANCA IN ICU ON 04/20/20 AT 1022 [place] [id number] ID Date Data Source [id number] 04/20/2020 10:23:57 AM EDT [facility] Name Value Range Interpretation Code Description Data Jaci rce(s) Supporting Document(s) SODIUM 140 mmol/L (136-145) [facility] POTASSIUM 5.2 mmol/L (3.6-5.2) [facility] CHLORIDE 112 mmol/L (100-108) H [facility] CO2 19 mmol/L (22-31) L [facility] ANION GAP 9 mmol/L (7-16) [facility] UREA NITROGEN 49 mg/dL (7-24) H [facility] CREATININE 1.38 mg/dL (0.80-1.30) H [facility] BUN/CREAT RATIO 35.5 RATIO (10.0-20.0) H [facility] GLUCOSE 365 mg/dL (70-99) H [facility] CALCIUM 8.2 mg/dL (8.4-10.2) L [facility] TOTAL PROTEIN 5.5 g/dL (6.4-8.2) L [facility] ALBUMIN 3.1 g/dL (3.2-4.5) L [facility] GLOBULIN 2.4 g/dL (2.7-4.3) L [facility] ALB/GLOB RATIO 1.3 RATIO [facility] ALKALINE PHOSPHATASE 53 U/L (45-117) [facility] BILIRUBIN,TOTAL 0.5 mg/dL (0.0-1.0) [facility] PLEASE NOTE:Total bilirubin results may be falselyelevated in patients taking Eltrombopag. AST (SGOT) 97 U/L (11-39) H [facility] ALT (SGPT) 38 U/L (12-78) [facility] GFR 49 ml/min/1.73m2 (>59) L [facility] GFR ( AMER) 60 ml/min/1.73m2 (>59) [facility] GFR INTERPRETATION [facility] --NORMAL KIDNEY FUNCTION OR MILD DISEASE - GFR >OR= 60CHRONIC KIDNEY DISEASE - GFR 15 - 59RENAL FAILURE - GFR <15 Est. GFR calculation based on the MDRDstudy equation, which assumes a steadystate for creatinine. Est. GFR should notbe used for medication dosing. ID Date Data Source [id number] 04/20/2020 10:02:07 AM EDT [facility] Name Value Range Interpretation Code Description Data Jaci rce(s) Supporting Document(s) HEMOGLOBIN A1C @ 7.4 % (4.0-6.0) H [facility] Performed using [employer] y.Care must be taken when interpreting [id number] in patients with a hemoglobin variantor decreased erythrocyte lifespan. Values 5.7 - 6.4% suggest prediabetes.Values >=6.5% are diagnostic for diabetes.REFERENCE: DIABETES CARE 2018: 41(S13-S27).PERFORMED AT [address] [place] [address] EST AVERAGE GLUCOSE 166 mg/dL [facility] ID Date Data Source [id number] 04/20/2020 09:40:18 AM EDT [facility] Name Value Range Interpretation Code Description Data Jaci rce(s) Supporting Document(s) WBC 22.5 10*3/uL (4.1-11.0) H [facility] RBC 3.56 10*6/uL (4.60-6.10) L [facility] HGB 10.5 g/dL (13.5-18.0) L [facility] HCT 33.6 % (41.0-53.0) L [facility] MCV 94.3 fL (80.0-95.0) [facility] MCH 29.5 pg (27.0-32.0) [facility] MCHC 31.3 g/dL (32.0-36.0) L [facility] RDW 14.7 % (10.5-14.5) H [facility] PLT 175 10*3/uL (150-450) [facility] MPV 10.1 fL (7.1-10.7) [facility] ID Date Data Source [id number] 04/20/2020 08:30:17 AM EDT [facility] Name Value Range Interpretation Code Description Data Jaci rce(s) Supporting Document(s) MUSE EKG PDF encoded [facility] spital FEYTRv2vWvJMMkHwv7QeAsAeLINkXX3oviw0K2S7aYFfH8OmwDAxg8wsD4KrC1KxAKWqKVOVNL9CgFTn jb2 [file] /wjb1TUgHVietnz60cHvHDM+mIWsyoikhWVwZDsVsv9wr0Dnd44jbhI2/Bethea+4tp0c3fGeAHtN5DWJigW Pemgye5bMs5214D6kl8tmXXNmLW0KFMGairHO3kug+ pHu9+79Vuy62em8O7a8440aA600nc/ExPC/Uu++f6wS/RpwS9p5666gLeZB3yzQoO1m54/2Nqlcnntfd XrlPuVQwCeNqL4805X+nNDwfMO5XH/IPKsMI7AY1PPpO9fN2VsVAKVrYPOJIsG5kUoeQfpm46KwTWJcg OBVljOfodk5vTQekaQsapWKe3RgAGHzEZUGAPZYgWa Yo3JiUiJrxZ4gsCqXuQaZqCv/1g3oN/Zd14tjbQQb+3h92Wv3a3ZM7QMiUUzsGSuI8102/GKz9fiy5fA Si1nervzqdevOAM+1ZN33AxTzyOR/IA29nirb+1ivXu+9nxXS9+65cVWHEfKaN6LhjcEA0S4Mr7HqZ23 +iAxk1UhitKSeQCiyGffliq64nnNg584kGsmRQy1Se LDUDCuJqNN9v0LXBm32mL19YURZnUrXVXvxMMhWtk7qvUtBAyTZhOVaaW9HbKWGgYQ4LfpKayLBgaxnJ blEKdxW3KzBZGz9IqGaFsP1E7kpkIVjVRNS+ISdnPIGgoEDOAU6LAXbhJWJVEH9FCXMoUOnQrRaHwFk7 MX7D2wLcOIpqfQCZLCu6MnYPsY3J9GB3oLY3KaOOfc C2uBjF9dMYpQa04Hfu4UsV9zG95EwJffCLCGPJQhXpOW4SzP++d6Bb1Owe4oSiXqAPDFPQYfwneSum/i CeF8G6WarUjqzi7b3/KSNGntmMSTptBSmvubhgpY74Il0JlyYbMeNlwoj9PBuSEJUVFisIeMjBqUMEBK TrD+LoxGNgXgjFeuVQJaJEBpFBxHgdrFeOoxPLOcWa 5Qo87P3Z/iriUGjlUKw/PWzLJJbvwVWBGH3TDoH7qFX/T2aIWsWE0pDJMF7mZv2kn+sTg+sTg+sTg+sT g+sTg+sTY+DZOVhPDNYTg/EIBP2fWO1K7uOL5yWe2fSLe34p+C55uo13RM8VqfsBIGSOmI88z3SqQGLE 86Ott8suivjjj1tlu6LzJ7TdX6Qzamj+8beSKc341C jU4djif3zZT/2mPVjmOdc2e/B35+AxuqHR38q7tlKAIMyU9Ndu0aDNWpBIYUPzUf8EJXH3GTlLCUgTQB jtRExuoJGfhQpce0rmpDRHpM4Y1oAQtQJfK0+KxXRZCgKHPBJlPU2IFEQf9tVdY9bDPnNeJmdRAkESGK beye8rKhyVoXWIsZxGPoQFAfOEaLfFEpO5ExRhYcWg SGLEyQIRMtN1VucQrFLjYRXHVz9mU+PViYUcDva+MIl3+yLxbl/uLLQJDLTn8oRsMW3jj4RDvrVCAK2O gGINl4TqFUWiSpx2da3JXCEaQWHNFcyUHoKtXuRmgYOBAoUWYQpxA4+xiCyek+gIJEg73BhKD5aOmPTk W0UTtRlXABSfIWYThUZAHpBBUe5pOfjGGmXoIPKXlF EOGlCXHu3ITYf9OLYKwtlEDedAR4ZCqAoOFK8V92dyKpZu8NmMYsDsw/v+6nT8vg08ux1555a/16vv9/ i2/zuLCl8p7F234VZ8aY2+272Of//8/Od4t5+/8I5+xm/7sn28/sk7fYz2k/6mnQ44b/28xv7r+fM7XP 4+b7s/a8cdqk3/ZIxt/N79R+b9S+8/o7Jeiv+l49Hz 29pJMumv2+67/3GsC3VRstdwusDe4/d1/P6l9+alszU7i6f52+y7/74Wsazg9/Z1271AZ287uxfF7JI7 u3/2cvc93E/n+Br8jUl57/hL5ILbR+2/tzu1+lf05h8n7rz4iT/eeiSl39rcVmPa0P3oG0Izlr55qxDa 69j+yxVj4jKkf6N56xLfpzrA2hm6sakE32B8vsTW3X /BX4O/Bn8N/nzibxA7tD8Wuak3gQkyx5/0iP4n01cG8hbPJ/Mf8A52bR3+mUw8obMEk03/jgXtgs/rg2 O04/467q/j/jrur+P+Ou6v4/467q/j/jrur+P++pZ38kpw5OS2IpsodG5xaNhxQg5UbhW2Nh1wkmyJT1 X/+jd3Lzmm9oHbzI+0z+eTEn/F/E+crCgpmm9dgGrn 09vT71Jq1co/agM0gax2KhKw+1spfW5/L0IS8dEC3FU8Z/v2272xL5/SwLsSx6yb+IrFNij4E1Ji9sK8 r+d+//Cye9S2JZr5mc7WtjldKoHz9U6PzdDK5g/a/lZsrLjxs+RLo9tfb2muN16T6kRSfpg3/FauzufB EmoT1SO3cqd/9eb/ILhrkPq4M5hk6K12GVycsfO7dr 3zUWI+ieS5dgg0T+S6ZX1EjrM6sj3NZqK+9A0bK3T38q2kocNU+9O8PHnZ+0J7oh3+CvwV+CvwV+CvwF +BvzI+8bBfHD+jyQQoRsTLh0Qf8L6qM8VSqA+0L1wX/pw3Pznf5KqsMF47ts3+9c6/+t4fo2vC9/4q7q /i/irub+qrss76Vjyv+qp3KsdBaP+tlfF7NsL+Kvwd 8Hfg/s0r00R9V1Z/B+7vgL8D/g74O+DvQDwPxPNAPA/E84C/A/4O+Dvg74C/A/4a/DX4a/DX4K/BX4O/ Bn8N/np3Rrfu8Osgp5Uqh12Fpo4+Gvw1+Gvw1+Cvw1+Hvw5/Hf46/HX46/DX4a/DX4e/Dn8d/ss1hntr 5Zebk7Vht97+fsv8i33rBQkql/ye2h7qSe4S/A34Gx i/BwQL2zQlJ8Tl8/A34G/A34C/AX8D/zw5LthddH+B+tojffzl93M/E/5O+Shertnp81I1kbg/E/d3wt 0Tjth7hcE2xd5Rfin6aiM7qp8Ocwi7LeZ7tw6Ydey0JbS6gn0Sopm4CfC1ag5Vtva9TuR3kq5Mqgh8VJ 69s5s85KOb6o5y0vDAJ5+3u4fIcKzyk0/7y6DcF6ya yWQ85rZ6J0m1+zs/r2V/jre/8Xkp+3IjuJ0WOlA4qT/mlHP8lBDlE2/PTz+j9NV7/Pk+o/TV/LyInbk+ 34VxX6AFgL+1S8gQq0+O615/R+krr/btr3/liy43k2JG4Pg7di7C9UIZitcNBcR1pyZxBbwjQRn/j6Ov znUlHc38+HxRTp8of9H0QJ43i3+F9KrdGZS1ne94uV zPv+wN7ImnA/0k+svp group director+9K45HfSwxD1yQ684mrp37pWM0P/pa/D6m60yH+Fvwp/ApKMx4Xog+p4Pw+uc+ zvs9h+o/o8o+0Xqt/jccuV+6Np89j408N+r5n1Xjbh7FqxsW8LuPuY7d8ylk3p0Rdhc1PDh17O/Tznr3 q943zF2neFz0EQ7f+zTyGxXqM+0gS1pah9um2j5hw9 o+erVMHyNapgWR+rgqXcPyH+DQ4iH4wXCQ1K/GA803f/AL4Llk/3JkTNaaMr2etys4kgvvMk1S5Qu+RW /KopsdmeR4czRg25YB/QvID1RRV4IkPOqUygF69Ha/sjuImHI0Bu/Bj+rX7NIcdAjtc0BX1vGWyBtBXJ kogT2ujKawt77hj/6O4pi9ei2DlKr35bQvfQ9R+59T b0a2dAt0bpCuOMrsr9NaoSu1WyiU6UgcH+UylWLUkYzV6L71Vljvt9+PkK7LzioiAVLP5G/r9uwpvbot bYnn8aiRs5ubp9NZLboaN6sk4f/T62fsj02H2/J+7vnOh/on/8G5Hh7YY3G+IuHPcrKs18u276iRpmJX v+ltx6j2+olTwuZKsko7V/hna/4j0ZTTPOswtBUtvV KBXyi0lHxqFXWrr9wN4lWdx4AQ3x8xT+zYc5P6gbrIV/1vd4MkdhoDn0V9nr7D06rKGKuv6h0fMo34yU n8/B14l8qyg1p/xMW/zM1yd78Xj/0Hz43+6qm713e7/378jscy1Xck/f106ddh1p8l4q3D9/8ghza75v [file] AgbiAKMDAwMDAwMTczNCAwMDAwMCBuIAowMDAwMDAx CEO0WRFxSWUjNK7eYzHqEYTxEQZlBSAcByE8SwFlZjNZhEVahLcdpid9UKilQ1u3OCImJIqcON1fhqPc KAJcXwefGc4mnRB6RMUwBuhEAp4Bl0WcbhO4unQcYfw2LCC0TpNsYG0H ID Date Data Source [id number] 04/20/2020 07:10:06 AM EDT [facility] Name Value Range Interpretation Code Description Data Jaci rce(s) Supporting Document(s) POC GLUCOSE 282 mg/dL (70-99) H [facility] PERFORMED BY CLINICAL STAFF ID Date Data Source [id number] 02/23/2020 03:12:00 PM EDT [facility] ([facility]) Name Value Range Interpretation Code Description Data Jaci rce(s) Supporting Document(s) Hemoglobin A1c/Hemoglobin.total in Blood 7.5 [facility] ([facility]) Glucose [Mass/volume] in Serum or Plasma 144 [facility] ([facility]) ID Date Data Source [id number] 02/12/2020 08:04:00 AM EDT [facility] ([facility]) Name Value Range Interpretation Code Description Data Jaci rce(s) Supporting Document(s) Triglyceride [Mass/volume] in Serum or Plasma 47 mg/dL 30-150 [facility] ([facility]) Cholesterol in HDL [Mass/volume] in Serum or Plasma 41 mg/dL 35-60 [facility] ([facility]) Cholesterol [Mass/volume] in Serum or Plasma 84 mg/dL 131-200 [facility] ([facility]) Cholesterol in LDL [Mass/volume] in Serum or Plasma by calcu lation 34 CALC 50-159 [facility] ([facility]) ID Date Data Source [id number] 02/12/2020 08:04:00 AM EDT [facility] ([facility]) Name Value Range Interpretation Code Description Data Jaci rce(s) Supporting Document(s) Urea nitrogen [Mass/volume] in Serum or Plasma 23 mg/dL 7-18 [facility] ([facility]) Glucose [Mass/volume] in Serum or Plasma 277 mg/dL 74-99 [facility] ([facility]) 100-125 mg/dL PRE-DIABETES/FASTING >126 mg/dL DIABETES/FASTING Chloride [Moles/volume] in Serum or Plasma 102 meq/L 98-107 [facility] ([facility]) Potassium [Moles/volume] in Serum or Plasma 4.7 meq/L 3.5-5.1 [facility] ([facility]) Creatinine 1.1 mg/dL 0.6-1.3 [facility] Sodium [Moles/volume] in Serum or Plasma 136 meq/L 136-145 [facility] ([facility]) Carbon dioxide, total [Moles/volume] in Serum or Plasma 26 meq/L 21 -32 [facility] ([facility]) Calcium [Mass/volume] in Serum or Plasma 8.6 mg/dL 8.5-10.1 [facility] ([facility]) Alkaline phosphatase isoenzyme [Units/volume] in Serum or Pl asma 71 mg/dL 46-116 [facility] ([facility]) Total Bilirubin 0.6 mg/dL 0.2-1.0 [facility] ([facility]) Alanine aminotransferase [Enzymatic activity/volume] in Seru m or Plasma 30 U/L 12-78 [facility] ([facility]) Aspartate aminotransferase [Enzymatic activity/volume] in Serum or Plasma 26 U/L 15-37 [facility] ([facility] ) Albumin [Mass/volume] in Serum or Plasma 3.3 g/dL 3.4-5.0 [facility] ([facility]) NOTE: RESULT VERIFIED. Proteinase 3 Ab [Units/volume] in Serum 6.1 g/dL 6.4-8.2 [facility]) A/G Ratio 1.18 CALC 1.00-1.90 [facility] Glomerular filtration rate/1.73 sq M pre dicted among non-blacks [Volume Rate/Area] in Serum or Plasma by Creatinine-based formula (MDRD) Laboratory test result [facility] ([facility] ) Glomerular filtration rate/1.73 sq M pre dicted among blacks [Volume Rate/Area] in Serum or Plasma by Creatinine-based formula (MDRD) Laboratory test result [facility] <content>CHRONIC KIDNEY DISEASE STAGING PER NKF</content>
<content></content>
<content>STAGE I & II GFR >= 60 NORMAL TO MILDLY DECREASED</content>
<content>STAGE III GFR 30-59 MODERATELY DECREASED</content>
<content>STAGE IV GFR 15-29 SEVERELY DECREASED</content>
<content>STAGE V GFR <15 VERY LITTLE GFR LEFT</content>
<content>ESRD GFR <15 ON EGG BREAKER</content>
<content></content> ID Date Data Source [id number] 02/12/2020 08:04:00 AM EDT [facility] ([facility]) Name Value Range Interpretation Code Description Data Jaci rce(s) Supporting Document(s) Glucose mean value [Mass/volume] in Blood Estimated fr om glycated hemoglobin 180 mg/dL 60-110 [facility] ([facility] Hemoglobin A1c/Hemoglobin.total in Blood 7.9 g/dL 4.8-5.6 [facility] ([facility]) Lab Result Notes: Pre-Diabetes 5.7 - 6.4 % Diabetes = or > 6.5% ID Date Data Source [id number] 02/12/2020 08:04:00 AM EDT [facility] Name Value Range Interpretation Code Description Data Jaci rce(s) Supporting Document(s) Leukocytes [#/volume] in Blood by Automated count 7.4 x10*3/UL 4.1-10 .9 [facility] ([facility] Hemoglobin [Mass/volume] in Blood 11.2 g/dL 12.0-18.0 [facility] ([facility]) Erythrocytes [#/volume] in Blood by Automated count 3.67 x10*6/UL 4.2 0-6.30 [facility] ([facility]) MCV 91.0 fL 80.0-97.0 [facility] ([facility]) Hematocrit [Volume Fraction] of Blood by Automated count 33.4 % 3 7.0-51.0 [facility] ([facility] Erythrocyte distribution width [Ratio] by Automated count 13.9 % 11.6-13.7 [facility] ([facility]) MCH 30.6 pg 26.0-32.0 [facility] ([facility]) MCHC 33.6 g/dL 31.0-38.0 [facility] ([facility]) Platelets [#/volume] in Blood by Automated count 190 x10*3/UL 140-440 [facility] Mid % 5.3 % 1.7-9.3 [facility] ([facility]) MPV 9.5 FL 7.8-11.0 [facility] ([facility]) Lymph % 10.4 % 10.0-58.5 [facility] ([facility]) Lymph # 0.7 x10*3/UL 0.6-4.1 [facility] ([facility]) Mid # 0.5 x10*3/UL 0.1-0.6 [facility] ([facility]) Neut % 84.3 % 37.0-92.0 [facility]) Neut # 6.2 x10*3/UL 2.0-7.8 [facility] ([facility]) ID Date Data Source [id number] 01/08/2020 08:26:00 AM EDT [facility] ([facility]) Name Value Range Interpretation Code Description Data Jaci rce(s) Supporting Document(s) Glucose [Mass/volume] in Serum or Plasma 188 mg/dL 74-99 [facility] ([facility]) 100-125 mg/dL PRE-DIABETES/FASTING >126 mg/dL DIABETES/FASTING Creatinine 1.2 mg/dL 0.6-1.3 [facility] Urea nitrogen [Mass/volume] in Serum or Plasma 27 mg/dL 7-18 [facility] ([facility]) Sodium [Moles/volume] in Serum or Plasma 140 meq/L 136-145 [facility] ([facility]) Potassium [Moles/volume] in Serum or Plasma 4.3 meq/L 3.5-5.1 [facility] ([facility]) Chloride [Moles/volume] in Serum or Plasma 104 meq/L 98-107 [facility] ([facility]) Carbon dioxide, total [Moles/volume] in Serum or Plasma 24 meq/L 21 -32 [facility] ([facility]) Calcium [Mass/volume] in Serum or Plasma 8.6 mg/dL 8.5-10.1 [facility] ([facility]) Glomerular filtration rate/1.73 sq M pre dicted among blacks [Volume Rate/Area] in Serum or Plasma by Creatinine-based formula (MDRD) Laboratory test result [facility] <content>CHRONIC KIDNEY DISEASE STAGING PER NKF</content>
<content></content>
<content>STAGE I & II GFR >= 60 NORMAL TO MILDLY DECREASED</content>
<content>STAGE III GFR 30-59 MODERATELY DECREASED</content>
<content>STAGE IV GFR 15-29 SEVERELY DECREASED</content>
<content>STAGE V GFR <15 VERY LITTLE GFR LEFT</content>
<content>ESRD GFR <15 ON EGG BREAKER</content>
<content></content> Glomerular filtration rate/1.73 sq M pre dicted among non-blacks [Volume Rate/Area] in Serum or Plasma by Creatinine-based formula (MDRD) 58 mL/min [facility] ([facility]) ID Date Data Source [id number] 01/08/2020 08:26:00 AM EDT [facility]) Name Value Range Interpretation Code Description Data Jaci rce(s) Supporting Document(s) Leukocytes [#/volume] in Blood by Automated count 6.7 x10*3/UL 4.1-10 .9 [facility] ([facility] Hematocrit [Volume Fraction] of Blood by Automated count 33.1 % 3 7.0-51.0 [facility] ([facility]) Hemoglobin [Mass/volume] in Blood 11.4 g/dL 12.0-18.0 [facility] ([facility]) NOTE: RESULT VERIFIED. Erythrocytes [#/volume] in Blood by Automated count 3.69 x10*6/UL 4.2 0-6.30 [facility] ([facility]) MCV 89.7 fL 80.0-97.0 [facility] MCH 30.8 pg 26.0-32.0 [facility] ([facility]) Erythrocyte distribution width [Ratio] by Automated count 13.7 % 11.6-13.7 [facility] ([facility]) MCHC 34.4 g/dL 31.0-38.0 [facility] ([facility]) Platelets [#/volume] in Blood by Automated count 151 x10*3/UL 140-440 [facility] ([facility] MPV 9.5 FL 7.8-11.0 [facility] Lymph % 12.9 % 10.0-58.5 [facility] Lymph # 0.8 x10*3/UL 0.6-4.1 [facility] ([facility]) Mid % 5.6 % 1.7-9.3 [facility] Neut % 81.5 % 37.0-92.0 [facility] Mid # 0.4 x10*3/UL 0.1-0.6 [facility] ([facility]) Neut # 5.5 x10*3/UL 2.0-7.8 [facility] ([facility]) ID Date Data Source [id number] 11/17/2019 03:56:00 PM EDT [facility] ([facility]) Name Value Range Interpretation Code Description Data Jaci rce(s) Supporting Document(s) Glucose [Mass/volume] in Serum or Plasma 168 [facility] ([facility]) Hemoglobin A1c/Hemoglobin.total in Blood 6.9 [facility] ([facility]) ID Date Data Source [id number] 08/28/2019 09:59:00 AM EST [facility] ([facility]) Name Value Range Interpretation Code Description Data Jaci rce(s) Supporting Document(s) Glucose [Mass/volume] in Serum or Plasma 168 [facility] ([facility]) Hemoglobin A1c/Hemoglobin.total in Blood 7.1 [facility] ([facility]) Procedure Social History Code Duration Value Status Description Data Source(s ) Smoking 06/14/2020 12:00:00 AM EDT Patient is a former smoker completed Patient is a former smoker [facility] ([facility]) Smoking 04/20/2020 05:05:00 PM EDT Former Smoker completed Former Smoker [facility] Vital Signs ID Date Data Source UNK Name Value Range Interpretation Code Description Data Source(s) Oxygen saturation in Arterial blood by Pulse oximetry 98 % 98 % [facility] ([facility]) Body mass index (BMI) [Ratio] 24.0 kg/m2 24.0 k g/m2 [facility] ([facility]) Body weight 158.00 [lb_av] 158.00 [lb_av] [facility] ([facility]) Body height 68 [in_i] 68 [in_i] [facility] ([facility]) 5'8" Body temperature 97.0 [degF] 97.0 [degF] [facility] ([facility]) Heart rate 57 /min 57 /min [facility] ([facility]) Diastolic blood pressure 58 mm[Hg] 58 mm[Hg] [facility] ([facility]) Systolic blood pressure 118 mm[Hg] 118 mm[Hg] [facility] ) Body mass index (BMI) [Ratio] 23.4 kg/m2 23.4 k g/m2 [facility] ([facility]) Body weight 155.12 [lb_av] 155.12 [lb_av] [facility] ([facility]) Body height 68.25 [in_i] 68.25 [in_i] [facility] ([facility]) 5'8.25" Diastolic blood pressure 50 mm[Hg] 50 mm[Hg] [facility] ([facility]) Systolic blood pressure 138 mm[Hg] 138 mm[Hg] [facility] Oxygen saturation in Arterial blood by Pulse oximetry 99 % 99 % [facility] ([facility]) Body mass index (BMI) [Ratio] 23.0 kg/m2 23.0 k g/m2 [facility] ([facility] ) Body weight 151.25 [lb_av] 151.25 [lb_av] [facility] ([facility]) Body height 68 [in_i] 68 [in_i] [facility] ([facility]) 5'8" Heart rate 81 /min 81 /min [facility] ([facility]) Diastolic blood pressure 80 mm[Hg] 80 mm[Hg] [facility] ([facility] ) Systolic blood pressure 126 mm[Hg] 126 mm[Hg] [facility]) Body mass index (BMI) [Ratio] 22.6 kg/m2 22.6 k g/m2 [facility] ([facility]) Oxygen saturation in Arterial blood by Pulse oximetry 97 % 97 % [facility] ([facility]) Body weight 150.00 [lb_av] 150.00 [lb_av] [facility] ([facility]) Body height 68.25 [in_i] 68.25 [in_i] [facility] ([facility]) 8.25" Heart rate 68 /min 68 /min [facility] ([facility]) Body mass index (BMI) [Ratio] 22.6 kg/m2 22.6 k g/m2 [facility] ([facility]) Body weight 150.00 [lb_av] 150.00 [lb_av] [facility] ([facility]) Body height 68.25 [in_i] 68.25 [in_i] [facility] 8.25" Heart rate 68 /min 68 /min [facility] ([facility]) Diastolic blood pressure 62 mm[Hg] 62 mm[Hg] [facility] ([facility]) Systolic blood pressure 144 mm[Hg] 144 mm[Hg] [facility] Heart rate 64 /min 64 /min [facility] ([facility]) Diastolic blood pressure 76 mm[Hg] 76 mm[Hg] [facility] ([facility]) Systolic blood pressure 146 mm[Hg] 146 mm[Hg] [facility] Body mass index (BMI) [Ratio] 22.6 kg/m2 22.6 k g/m2 [facility] ([facility]) Body weight 150.00 [lb_av] 150.00 [lb_av] [facility] ([facility]) Body height 68.25 [in_i] 68.25 [in_i] [facility] ([facility]) 58.25" Respiratory rate 16 /min 16 /min [facility] ( [facility]) Body temperature 98.0 [degF] 98.0 [degF] [facility] ([facility]) Oxygen saturation in Arterial blood by Pulse oximetry 99 % 99 % [facility] ([facility] ) Body mass index (BMI) [Ratio] 22.3 kg/m2 22.3 k g/m2 [facility] ([facility] ) Body weight 147.00 [lb_av] 147.00 [lb_av] [facility] ([facility] ) Body height 68 [in_i] 68 [in_i] [facility] ([facility] ) 5'8" Heart rate 68 /min 68 /min [facility] ([facility]) Diastolic blood pressure 68 mm[Hg] 68 mm[Hg] [facility] ([facility]) Systolic blood pressure 124 mm[Hg] 124 mm[Hg] M [facility] ([facility]) Body weight 152.00 [lb_av] 152.00 [lb_av] [facility] ([facility]) Heart rate 62 /min 62 /min [facility] ([facility]) Diastolic blood pressure 70 mm[Hg] 70 mm[Hg] [facility] ([facility]) Systolic blood pressure 128 mm[Hg] 128 mm[Hg] M [facility] ([facility]) Deprecated Oxygen saturation in Capillary blood by Oximetry 96 % Normal (applies to non-numeric results) 96 % [facility] Body temperature 37.0 herminio Normal (applies to non-numeric results) 37.0 herminio [facility] Respiratory rate 18 min Normal (applies to non-numeric results) 18 min [facility] Heart rate 59 min Normal (applies to non-numeric resul ts) 59 min [facility] Diastolic blood pressure 64 mm[Hg] Normal (applies to non-numeric results) 64 mm[Hg] [facility] Systolic blood pressure 139 mm[Hg] Normal (applies t o non-numeric results) 139 mm[Hg] [facility] Body height 171.9072 cm Normal (applies to non-numeric res ults) 171.9072 cm [facility] Body weight Measured 72.6 kg Normal (applies to non-num jade results) 72.6 kg [facility] Body mass index (BMI) [Ratio] 24.34 kg/m2 No rmal (applies to non-numeric results) 24.34 kg/m2 [facility] Oxygen saturation in Arterial blood by Pulse oximetry 98 % 98 % [facility] ([facility]) Body mass index (BMI) [Ratio] 23.2 kg/m2 23.2 k g/m2 [facility] ([facility]) Body weight 152.50 [lb_av] 152.50 [lb_av] [facility] ([facility]) Body height 68 [in_i] 68 [in_i] [facility]) 5'8" Heart rate 65 /min 65 /min [facility] ([facility]) Diastolic blood pressure 58 mm[Hg] 58 mm[Hg] [facility] ([facility]) Systolic blood pressure 122 mm[Hg] 122 mm[Hg] M [facility] ([facility]) Body weight 155.00 [lb_av] 155.00 [lb_av] [facility] ([facility]) Oxygen saturation in Arterial blood by Pulse oximetry 99 % 99 % [facility] ([facility] ) Body mass index (BMI) [Ratio] 24.1 kg/m2 24.1 k g/m2 [facility] ([facility]) Body weight 158.25 [lb_av] 158.25 [lb_av] [facility] ([facility] ) Body height 68 [in_i] 68 [in_i] [facility] ([facility] ) 5'8" Heart rate 59 /min 59 /min [facility] ([facility] ) Diastolic blood pressure 68 mm[Hg] 68 mm[Hg] [facility] ([facility]) Systolic blood pressure 130 mm[Hg] 130 mm[Hg] M [facility] ([facility] ) Oxygen saturation in Arterial blood by Pulse oximetry 99 % 99 % [facility] ([facility] ) Body mass index (BMI) [Ratio] 23.4 kg/m2 23.4 k g/m2 [facility] ([facility] ) Body weight 154.12 [lb_av] 154.12 [lb_av] [facility] ([facility] ) Body height 68 [in_i] 68 [in_i] [facility] ([facility] ) 5'8" Heart rate 59 /min 59 /min [facility] ([facility] ) Diastolic blood pressure 60 mm[Hg] 60 mm[Hg] [facility] ([facility]) Systolic blood pressure 124 mm[Hg] 124 mm[Hg] M [facility] ([facility] ) Oxygen saturation in Arterial blood by Pulse oximetry 100 % 100 % [facility] ([facility]) Body mass index (BMI) [Ratio] 24.1 kg/m2 24.1 k g/m2 [facility] ([facility]) Body weight 158.38 [lb_av] 158.38 [lb_av] [facility] ([facility]) Body height 68 [in_i] 68 [in_i] [facility] ([facility]) 5'8" Heart rate 58 /min 58 /min [facility] ([facility]) Diastolic blood pressure 68 mm[Hg] 68 mm[Hg] [facility] ([facility]) Systolic blood pressure 130 mm[Hg] 130 mm[Hg] M [facility] ([facility]) Patient Treatment Plan of Care Planned Activity Planned Date Details Description Data Source (s) Albuterol Sulfate HFA 108 (90 Base) MCG/ACT 04/28/2020 01:00:00 AM EDT [facility]) Aspirin 81 81 MG 04/28/2020 01:00:00 AM EDT [facility] ([facility]) Atorvastatin Calcium 40 MG 04/28/2020 01:00:00 AM [facility] Docusate Sodium 100 MG 04/28/2020 01:00:00 AM EDT [facility]) Finasteride 5 MG 04/28/2020 01:00:00 AM EDT [facility]) hydroCHLOROthiazide 12.5 MG 04/28/2020 01:00:00 AM EDT [facility]) Lisinopril 20 MG 04/28/2020 01:00:00 AM EDT [facility]) Calcium 500 + D 500-125 MG-UNIT 04/28/2020 01:00:00 AM EDT [facility]) Flonase 50 MCG/ACT 04/28/2020 01:00:00 AM EDT [facility]) Multivitamin Adult 04/28/2020 01:00:00 AM EDT [facility] PreserVision AREDS 04/28/2020 01:00:00 AM EDT [facility]) Vitamin B12 1000 MCG 04/28/2020 01:00:00 AM EDT [facility]) Vitamin D 2000 UNIT 04/28/2020 01:00:00 AM EDT [facility]) Nitroglycerin 0.4 MG 04/28/2020 01:00:00 AM EDT [facility]) Tamsulosin HCl 0.4 MG 04/28/2020 01:00:00 AM EDT [facility]) Coumadin 5 MG 04/28/2020 01:00:00 AM EDT [facility] ([facility]) Metoprolol Succinate ER 25 MG 04/28/2020 01:00:00 AM EDT [facility] ([facility]) NovoLOG 100 UNIT/ML 04/28/2020 01:00:00 AM EDT [facility] ([facility])
[2020-09-22] MEDS ORDERED: VITA-256 PO (17:39)
[2020-09-22] MEDS ORDERED: ASPI-161 PO (17:39)
[2020-09-22] MEDS ORDERED: METO1TAB32 PO (17:39)
[2020-09-22] MEDS ORDERED: HYDR12.55 PO (17:39)
[2020-09-22] MEDS ORDERED: CALC500T25 PO (17:39)
[2020-09-22] MEDS ORDERED: FLOM0.4C39 PO (17:40)
[2020-09-22] MEDS ORDERED: DOCU100C16 PO (17:40)
[2020-09-22] MEDS ORDERED: VITMTA PO (17:40)
[2020-09-22] MEDS ORDERED: ATOR40TA75 PO (17:40)
[2020-09-22] MEDS ORDERED: WARF-23 PO ×2 (17:40)
[2020-09-22] MEDS ORDERED: LISI-538 PO (17:40)
--- OUTSIDE RECORDS SUMMARY | 2020-09-22 17:45 | CCD ---
Author Author [facility] Organization [facility] Address Unknown Phone Unavailable Care Team Providers Care Senior Developer Name Role Phone Aster CANAS MD Unavailable [...] Unavailable Aster CANAS MD Unavailable Unavailable Aster CNAAS MD Unavailable Unavailable Aster CANAS MD Unavailable [...] Unavailable Aster CANAS MD Unavailable Unavailable Aster CNAAS MD Unavailable Unavailable Aster CANAS MD Unavailable [...] MD Unavailable Unavailable PattiHank MD Unavailable Unavailable CacheHank MD Unavailable Unavailable PattiHank MD Unavailable Unavailable PattiHank MD Unavailable Unavailable PattiHank MD Unavailable Unavailable PattiHank MD Unavailable Unavailable PattiHank MD Unavailable Unavailable PattiHank MD Unavailable Unavailable CacheHank MD Unavailable Unavailable CacheHank MD Unavailable Unavailable PattiHank MD Unavailable Unavailable CacheHank MD Unavailable Unavailable CacheHank MD Unavailable Unavailable CacheHank MD Unavailable Unavailable PattiHank MD Unavailable Unavailable CacheHank MD Unavailable Unavailable PattiHank MD Unavailable Unavailable PattiHank MD Unavailable Unavailable PattiHank MD Unavailable Unavailable PattiHank MD Unavailable Unavailable CacheHank MD Unavailable Unavailable PattiHank MD Unavailable Unavailable CacheHank MD Unavailable Unavailable PattiHank MD Unavailable Unavailable CacheHank MD Unavailable Unavailable PattiHank montes MD Unavailable Unavailable CacheHank MD Unavailable Unavailable CacheHank MD Unavailable Unavailable PattiHank MD Unavailable Unavailable PattiHank MD Unavailable Unavailable CacheHank MD Unavailable Unavailable CacheHank montes MD Unavailable Unavailable CacheHank montes MD Unavailable Unavailable PattiHank montes MD Unavailable Unavailable CacheHank MD Unavailable Unavailable PattiHank montes MD Unavailable Unavailable CacheHank MD Unavailable Unavailable PattiHank MD Unavailable Unavailable CacheHank montes MD Unavailable Unavailable CacheHank montes MD Unavailable Unavailable PattiHank montes MD Unavailable Unavailable PattiHank MD Unavailable Unavailable CacheHank MD Unavailable Unavailable CacheHank MD Unavailable Unavailable PattiHank MD Unavailable Unavailable PattiHank MD Unavailable Unavailable CacheHank MD Unavailable Unavailable PattiHank MD Unavailable Unavailable PattiHank MD Unavailable Unavailable CacheHank MD Unavailable Unavailable CacheHank MD Unavailable Unavailable PattiHank MD Unavailable Unavailable PattiHank MD Unavailable Unavailable CacheHank cloud MD Unavailable Unavailable PattiHank montes MD Unavailable Unavailable PattiHank montes MD Unavailable Unavailable CacheHank montes MD Unavailable Unavailable CacheHank MD Unavailable Unavailable CacheHank MD Unavailable Unavailable PattiHank MD Unavailable Unavailable CacheHank MD Unavailable Unavailable PattiHank cloud MD Unavailable Unavailable Jahaira Bush MD Unavailable Unavailable Jahaira Bush MD Unavailable Unavailable Jahaira Bush MD Unavailable Unavailable Jahaira Bush MD Unavailable Unavailable Jahaira Bush MD Unavailable Unavailable Jahaira Bush MD Unavailable Unavailable Jahaira Bush MD Unavailable Unavailable Jahaira Bush MD Unavailable Unavailable Jahaira Bush MD Unavailable Unavailable Jahaira Bush MD Unavailable Unavailable Jahaira Buhs MD Unavailable Unavailable Jahaira Bush MD Unavailable [...] Unavailable Unavailable Jahaira Bush MD Unavailable Unavailable Jaahira Bush MD Unavailable Unavailable Jahaira Bush MD [...] Unavailable Jahaira Bush MD Unavailable Unavailable Jahaira Bsuh MD Unavailable Unavailable Jahaira Bush MD Unavailable Unavailable Jahaira Bush MD Unavailable Unavailable Jahaira Bush MD Unavailable Unavailable Jahaira Bush MD Unavailable Unavailable Jahaira Bush MD Unavailable Unavailable Eleazar B Sharmila LIU Unavailable Unavailable Eleazar B Sharmila LIU Unavailable Unavailable Eleazra B Sharmila LIU Unavailable Unavailable Eleazar B [...] LIU MD Real Unavailable LePine, M Cande FIBER PRODUCT CUTTING MACHINE OPERATOR Unavailable Unavailable LePine, M Cande FIBER PRODUCT CUTTING MACHINE OPERATOR Unavailable Unavailable LePine, M Cande FIBER PRODUCT CUTTING MACHINE OPERATOR Unavailable Unavailable LePine, M Cande FIBER PRODUCT CUTTING MACHINE OPERATOR Unavailable Unavailable LePine, M Cande FIBER PRODUCT CUTTING MACHINE OPERATOR Unavailable Unavailable LePine, M Cande FIBER PRODUCT CUTTING MACHINE OPERATOR Unavailable Unavailable LePine, M Cande FIBER PRODUCT CUTTING MACHINE OPERATOR Unavailable Unavailable LePine, M Cande FIBER PRODUCT CUTTING MACHINE OPERATOR Unavailable Unavailable LePine, M Cande FIBER PRODUCT CUTTING MACHINE OPERATOR Unavailable Unavailable LePine, M Cande FIBER PRODUCT CUTTING MACHINE OPERATOR Unavailable Unavailable LePine, M Cande FIBER PRODUCT CUTTING MACHINE OPERATOR Unavailable Unavailable LePine, M Cande FIBER PRODUCT CUTTING MACHINE OPERATOR Unavailable Unavailable LePine, M Cande FIBER PRODUCT CUTTING MACHINE OPERATOR Unavailable Unavailable LePine, M Cande FIBER PRODUCT CUTTING MACHINE OPERATOR Unavailable Unavailable LePine, M Cande FIBER PRODUCT CUTTING MACHINE OPERATOR Unavailable Unavailable LePine, M Cande FIBER PRODUCT CUTTING MACHINE OPERATOR Unavailable Unavailable LePine, M Cande FIBER PRODUCT CUTTING MACHINE OPERATOR Unavailable Unavailable LePine, M Cande FIBER PRODUCT CUTTING MACHINE OPERATOR Unavailable Unavailable LePine, M Cande FIBER PRODUCT CUTTING MACHINE OPERATOR Unavailable Unavailable LePine, M Cande FIBER PRODUCT CUTTING MACHINE OPERATOR Unavailable Unavailable LePine, M Cande FIBER PRODUCT CUTTING MACHINE OPERATOR Unavailable Unavailable LePine, M Cande FIBER PRODUCT CUTTING MACHINE OPERATOR Unavailable Unavailable LePine, M Cande FIBER PRODUCT CUTTING MACHINE OPERATOR Unavailable Unavailable LePine, M Cande FIBER PRODUCT CUTTING MACHINE OPERATOR Unavailable Unavailable LePine, M Cande FIBER PRODUCT CUTTING MACHINE OPERATOR Unavailable Unavailable LePine, M Cande FIBER PRODUCT CUTTING MACHINE OPERATOR Unavailable Unavailable LePine, M Cande FIBER PRODUCT CUTTING MACHINE OPERATOR Unavailable Unavailable LePine, M Cande FIBER PRODUCT CUTTING MACHINE OPERATOR Unavailable Unavailable LePine, M Cande FIBER PRODUCT CUTTING MACHINE OPERATOR Unavailable Unavailable LePine, M Cande FIBER PRODUCT CUTTING MACHINE OPERATOR Unavailable Unavailable LePine, M Cande FIBER PRODUCT CUTTING MACHINE OPERATOR Unavailable Unavailable LePine, M Cande FIBER PRODUCT CUTTING MACHINE OPERATOR Unavailable Unavailable LePine, M Cande FIBER PRODUCT CUTTING MACHINE OPERATOR Unavailable Unavailable LePine, M Cande FIBER PRODUCT CUTTING MACHINE OPERATOR Unavailable Unavailable LePine, M Cande FIBER PRODUCT CUTTING MACHINE OPERATOR Unavailable Unavailable LePine, M Cande FIBER PRODUCT CUTTING MACHINE OPERATOR Unavailable Unavailable LePine, M Cande FIBER PRODUCT CUTTING MACHINE OPERATOR Unavailable Unavailable LePine, M Cande FIBER PRODUCT CUTTING MACHINE OPERATOR Unavailable Unavailable LePine, M Cande FIBER PRODUCT CUTTING MACHINE OPERATOR Unavailable Unavailable LePine, M Cande FIBER PRODUCT CUTTING MACHINE OPERATOR Unavailable Unavailable LePine, M Cande FIBER PRODUCT CUTTING MACHINE OPERATOR Unavailable Unavailable LePine, M Cande FIBER PRODUCT CUTTING MACHINE OPERATOR Unavailable Unavailable LePine, M Cande FIBER PRODUCT CUTTING MACHINE OPERATOR Unavailable Unavailable LePine, M Cande FIBER PRODUCT CUTTING MACHINE OPERATOR Unavailable Unavailable LePine, M Cande FIBER PRODUCT CUTTING MACHINE OPERATOR Unavailable Unavailable LePine, M Cande FIBER PRODUCT CUTTING MACHINE OPERATOR Unavailable Unavailable LePine, M Cande FIBER PRODUCT CUTTING MACHINE OPERATOR Unavailable Unavailable LePine, M Cande FIBER PRODUCT CUTTING MACHINE OPERATOR Unavailable Unavailable LePine, M Cande FIBER PRODUCT CUTTING MACHINE OPERATOR Unavailable Unavailable LePine M Cande FIBER PRODUCT CUTTING MACHINE OPERATOR Unavailable Unavailable LePine M Cande FIBER PRODUCT CUTTING MACHINE OPERATOR Unavailable Unavailable LePine M Cande FIBER PRODUCT CUTTING MACHINE OPERATOR Unavailable Unavailable LePine M Cande FIBER PRODUCT CUTTING MACHINE OPERATOR Unavailable Unavailable LePine M Cande FIBER PRODUCT CUTTING MACHINE OPERATOR Unavailable Unavailable SYSTEM IN, NOT IN PROVIDER [...] is protected by Article 27-F of the [facility] Public Health law. If you continue you may have access to information: Regarding HIV / AIDS; Provided by facilities licensed or operated by the [facility] Office of Mental Health; or Provided by the [facility] Office for People With Developmental Disabilities. If such information is present, then the following [facility] mandated warning applies: This information has been [...] law may result in a fine or care home sentence or both. A general authorization for the release of medical or other information is NOT sufficient authorization for further disc losure. Allergies and Adverse Reactions Type Description Substance Reaction Status Data Source(s ) No Known Drug Allergies No Known Drug Allergies No Known Drug Aller gies active [facility] ([facility] ) Family History Family Member Name Family Member Gender Family Member Status Date o f Status Description Data Source(s) Unknown Unknown Problem [facility] ([facility] [place]) Unknown Male Problem [facility] ([facility]) Unknown Male Problem [facility] ([facility]) Unknown Male Problem [facility] ([facility]) Encounters Encounter Providers Location Date Indications Data Source(s ) Outpatient Attender: Stanislaw Thornton 1 10:40:00 AM EDT [facility] ([facility] ) Outpatient Attender: Sharmila Bush MD Physical Therapy 06/14 03:15:00 PM EDT [facility] ([facility]) Outpatient Attender: Cande Thornton 06/03 01:40:00 PM EDT [facility] ([facility] ) Outpatient Attender: Cande Thornton 05/20 01:20:00 PM EDT [facility] ([facility] ) Outpatient Attender: Sharmila Bush MD Physical Therapy 05/04 09:45:00 AM EDT [facility] ([facility]) Outpatient Attender: Stanislaw Thornton 0 04/29/2020 09:40:00 AM EDT [facility] ([facility] ) 04/28/2020 01:00:00 AM EDT - 020 12:44:22 PM EDT [facility] ([facility]) Outpatient Attender: TATO CANAS MD [facility] [place] 04/23/2020 03:52:00 AM EDT [facility] ([facility]) Outpatient Attender: TATO CANAS MD [facility] [place] 04/22/2020 12:27:00 PM EDT [facility] ([facility]) Outpatient Attender: TATO CANAS MD [facility] [place] 04/21/2020 12:27:00 PM EDT [facility] ([facility]) Outpatient Attender: TATO CANAS MD [facility] [place] 04/20/2020 09:26:00 AM EDT [facility] ([facility]) Inpatient Attender: MD Real Wagner MD Attender: TATO CANAS MDAdmitter: TATO CANAS MD 04/20/2020 07:10:07 AM EDT Lab [facility] Inpatient Attender: MD Real Wagner MD Attender: TATO CANAS MDAdmitter: TATO CANAS MD 04/20/2020 06:50:00 AM EDT - 04/23/2020 12:20:00 PM EDT DIABETIC KETOACIDOSIS ELEVATED TROPONIN [facility] DIABETIC KETOACIDOSIS ELEVATED TROPONIN Patient discharged. Outpatient Referrer: PROVIDER SYSTEM [place] 04/20/2020 0 3:07:00 AM EDT NSTEMI, DKA [facility] NSTEMI, DKA Outpatient Attender: Sharmila Bush MD Physical Therapy 02/22 02:30:00 PM EDT [facility] ([facility]) Outpatient Attender: Stanislaw Thornton 0 01/06/2020 11:40:00 AM EDT [facility] ([facility] ) Outpatient Attender: Sharmila Bush MD Physical Therapy 11/16 03:45:00 PM EDT [facility] ([facility]) Outpatient Attender: Sharmila Bush MD Physical Therapy 10/06 10:15:00 AM EST [facility] ([facility]) Outpatient Attender: Sharmila Bush MD Physical Therapy 08/28 08:45:00 AM EST [facility] ([facility]) Immunizations Vaccine Date Status Description Data Source(s) Influenza, injectable, MDCK, preservative free, damari valent 06/03/2020 02:14:00 PM EDT completed [facility]) TB Skin test is not vaccine. 05/18/2020 10:44:00 AM EDT completed [facility] ([facility]) Medications Medication Brand Name Start Date [...] 04/29/2020 12:00:00 AM EDT ORAL active [facility] ([facility]) Coumadin 5 MG Coumadin 04/28/2020 01:00:00 AM EDT completed [facility] ([facility]) Tamsulosin HCl 0.4 MG Tamsulosin HCl 04/28/2020 01:00:00 AM EDT 2.0 {tablet} completed [facility] ( [facility]) Nitroglycerin 0.4 MG Nitroglycerin 04/28/2020 01:00:00 AM EDT completed [facility] ([facility]) Vitamin D 2000 UNIT Vitamin D 04/28/2020 01:00:00 AM EDT completed [facility] ([facility]) Atorvastatin Calcium 40 MG Atorvastatin Calcium 04/28/2020 01:00:00 A M EDT completed [facility] ( [facility]) Docusate Sodium 100 MG Docusate Sodium 04/28/2020 01:00:00 AM EDT completed [facility] ([facility]) NovoLOG 100 UNIT/ML NovoLOG 04/28/2020 01:00:00 AM EDT completed [facility] ([facility] ) Metoprolol Succinate ER 25 MG Metoprolol Succinate ER 2019 01:00:00 AM EDT completed [facility]AR T ([facility]) Calcium 500 + D 500-125 MG-UNIT Calcium 500 + D 04/28/2020 01:00:00 A M EDT completed [facility] ( [facility]) Lisinopril 20 MG Lisinopril 04/28/2020 01:00:00 AM EDT completed [facility] ([facility] ) hydroCHLOROthiazide 12.5 MG hydroCHLOROthiazide 04/28/2020 01:00:00 AM EDT 0.5 {tablet} completed [facility] ([facility]) Finasteride 5 MG Finasteride 04/28/2020 01:00:00 AM EDT completed [facility] ([facility] ) Vitamin B12 1000 MCG Vitamin B12 04/28/2020 01:00:00 AM EDT completed [facility] ([facility]) PreserVision AREDS PreserVision AREDS 04/28/2020 01:00:00 AM EDT completed [facility] ([facility]) Multivitamin Adult Multivitamin Adult 04/28/2020 01:00:00 AM EDT completed [facility] ([facility]) Albuterol Sulfate HFA 108 (90 Base) MCG/ACT Albuterol Sulfat e HFA 04/28/2020 01:00:00 AM EDT completed [facility] ([facility]) Flonase 50 MCG/ACT Flonase 04/28/2020 01:00:00 AM EDT completed [facility] ([facility]) Aspirin 81 81 MG Aspirin 81 04/28/2020 01:00:00 AM EDT completed [facility] ([facility] ) Lisinopril 10 MG Oral Tablet Lisinopril 09/23/2019 12:00:00 AM EST ORAL active [facility] ([facility]) Hydrochlorothiazide 12.5 MG Oral Tablet Hydrochlorothiazide 09/23/2019 12:00:00 AM EST ORAL active [facility] ([facility]) Insurance Providers Payer name Policy type / Coverage type Policy ID Covered constitution party ID Covered constitution party's relationship to bazan Policy Bazan Plan Information [facility] [id number] SP [id number] MEDICARE [id number] SP [id number] FOR LIFE [id number] SP [id number] [facility] [id number] SP [id number] MEDICARE MCA [id number] S [id number] MEDICARE MCA [id number] S [id number] [facility] Medigap Part B [id number] Self [id number] [facility] Serv (TFL) Medigap Part B [id number] Self [id number] Umr (pr) Medigap Part B [id number] Self [id number] Medicare [place] Primary [id number] Self [id number] WPS For Life Medigap Part B [id number] Self [id number] Medicare [place] Govt Servic Medicare Primary [id number] Self [id number] [place] (Old) Medigap Part B [id number] Self [id number] Umr ([place]) Medigap Part B [id number] Self [id number] For Life Medigap Part B [id number] Self [id number] [place] Medigap Part B [id number] Self [id number] Umr Medigap Part B [id number] Self [id number] Medicare Medicare Primary [id number] Self [id number] [facility] Federal Service Medigap Part B [id number] Self [id number] [place] [facility] Serv ([place]FL) Medigap Part B [id number] Self [id number] Umr (pr) Medigap Part B [id number] Self [id number] Medicare [place] Primary [id number] Self [id number] [place] (pr) Medigap Part B [id number] Self [id number] [place] [facility] (TFL) Medigap Part B [id number] Self [id number] Umr (pr) Medigap Part B [id number] Self [id number] Medicare Dme Supplies Medigap Part B [id number] Self [id number] Medicare [place] Medicare Primary [id number] Self [id number] [facility] Federal Service Medigap Part B [id number] Self [id number] [place] [facility] ([place]) Medigap Part B [id number] Self [id number] Umr (pr) Medigap Part B [id number] Self [id number] [place] Primary [id number] Self [id number] [facility] Federal Service Medigap Part B [id number] Self [id number] [place] [facility] (TFL) Medigap Part B [id number] Self [id number] Umr (pr) Medigap Part B [id number] Self [id number] [place] Primary [id number] Self [id number] WPS For Life Medigap Part B [id number] Self [id number] Medicare Natl Govt [facility] Medicare Primary [id number] Self [id number] For Life Medigap Part B [id number] Self [id number] Medicare Medicare Primary [id number] Self [id number] [place] Medigap Part B [id number] Self [id number] [facility] Federal Service Medigap Part B [id number] Self [id number] [place] [facility] (TFL) Medigap Part B [id number] Self [id number] Umr (pr) Medigap Part B [id number] Self [id number] [place] Primary [id number] Self [id number] WPS For Life Medigap Part B [id number] Self [id number] Medicare [place] Govt Servic Medicare Primary [id number] Self [id number] WPS For Life Medigap Part B [id number] Self [id number] [place] (Old) Medigap Part B [id number] Self [id number] Medicare Natl Govt Servic Medicare Primary [id number] Self [id number] [employer] Federal Service Medigap Part B [id number] Self [id number] [place] [facility] (TFL) Medigap Part B [id number] Self [id number] [place] (pr) Medigap Part B [id number] Self [id number] Medicare [place] Medicare Primary [id number] Self [id number] [facility] Federal Service Medigap Part B [id number] Self [id number] [place] [facility] (TFL) Medigap Part B [id number] Self [id number] [place] (pr) Medigap Part B [id number] Self [id number] [place] Primary [id number] Self [id number] For Life Medigap Part B [id number] Self [id number] Medicare Medicare Primary [id number] Self [id number] [facility] Federal Service Medigap Part B [id number] Self [id number] [place] [facility] (TFL) Medigap Part B [id number] Self [id number] [place] (pr) Medigap Part B [id number] Self [id number] Medicare [place] Medicare Primary [id number] Self [id number] [facility] Federal Service Medigap Part B [id number] Self [id number] [place] [facility] (TFL) Medigap Part B [id number] Self [id number] [place] (pr) Medigap Part B [id number] Self [id number] Medicare [place] Medicare Primary [id number] Self [id number] [facility] Federal Service Medigap Part B [id number] Self [id number] [place] [facility] (TFL) Medigap Part B [id number] Self [id number] [place] (pr) Medigap Part B [id number] Self [id number] [place] Primary [id number] Self [id number] For Life Medigap Part B [id number] Self [id number] Medicare Medicare Primary [id number] Self [id number] WPS For Life Medigap Part B [id number] Self [id number] Medicare [facility] Govt Servic Medicare Primary [id number] Self [id number] [place] Ppo Medigap Part B [id number] Self [id number] [facility] Federal Service Medigap Part B [id number] Self [id number] [place] [facility] (TFL) Medigap Part B [id number] Self [id number] [place] (pr) Medigap Part B [id number] Self [id number] [place] Primary [id number] Self [id number] [place] [id number] SP [id number] MEDICARE [id number] SP [id number] WPS For Life Medigap Part B [id number] Self [id number] Medicare [facility] Govt Servic Medicare Primary [id number] Self [id number] [place] [id number] SP [id number] WPS For Life Medigap Part B [id number] Self [id number] Medicare [facility] Govt Servic Medicare Primary [id number] Self [id number] FOR LIFE O [id number] S [id number] [place] PPO O [id number] S [id number] MEDICARE C [id number] S [id number] WPS For Life Medigap Part B [id number] Self [id number] Medicare [facility] Govt Servic Medicare Primary [id number] Self [id number] [facility] Federal Service Medigap Part B [id number] Self [id number] [place] [facility] (TFL) Medigap Part B [id number] Self [id number] [place] (pr) Medigap Part B [id number] Self [id number] Medicare [place] Medicare Primary [id number] Self [id number] WPS For Life Medigap Part B [id number] Self [id number] [place] Medigap Part B [id number] Self [id number] Medicare [facility] Medicare Primary [id number] Self [id number] For Life Medigap Part B Self [place] Medigap Part B Ppo Self Ppo Medicare Medicare Primary Self [facility] Federal Service Medigap Part B Self [place] [facility] (TFL) Medigap Part B Self [place] (pr) Medigap Part B Self Medicare [facility] Medicare Primary Self WPS For Life Medigap Part B Self [place] Ppo Medigap Part B [id number] Self [id number] Medicare Natl Govt Servic Medicare Primary Self FOR LIFE O [id number] S [id number] [place] PPO S UNAVAILABLE S UNAVAILA BLE MEDICARE P UNAVAILABLE S UNAVAILA BLE [id number] A [id number] Problems, Conditions, and Diagnoses Code Display Name Description Problem Type Effective Dates Data Source(s) E10.10 Type 1 diabetes mellitus with ketoacidos is without coma Type 1 diabetes mellitus with ketoacidosis without coma Problem 04/22/2020 01:00:00 AM EDT [facility] ([facility]) NSTEMI, DKA NSTEMI, DKA Diagnosis 04/20/2020 03:07:00 AM T [facility] Surgeries/Procedures Procedure Description Date Indications Data Source(s) Amb Glucose Monitoring Interpretation And Report 06/14 12:00:00 AM EDT [facility] ([facility]) Amb Glucose Monitoring Interpretation And Report 05/04 12:00:00 AM EDT [facility] ([facility]) Coronary Angiography With Left Heart Catheterization 04/22/2020 12:00:00 AM EDT [facility] Diabetic Retinal Eye Exam 03/11/2020 12:00:00 AM EDT [facility] ([facility]) Amb Glucose Monitoring Interpretation And Report 02/22 12:00:00 AM EDT [facility] ([facility]) Diabetic Retinal Eye Exam 01/05/2020 12:00:00 AM EDT [facility] ([facility]) Amb Glucose Monitoring Interpretation And Report 11/16 12:00:00 AM EDT [facility] ([facility]) Amb Glucose Monitoring Interpretation And Report 10/06 12:00:00 AM EST [facility] ([facility]) Diabetic Retinal Eye Exam 08/18/2019 12:00:00 AM EST [facility] ([facility]) Results ID Date Data Source [id number] 09/13/2020 02:51:00 PM EST [facility] ([facility]) Name Value Range Interpretation Code Description Data Jaci rce(s) Supporting Document(s) Glucose [Mass/volume] in Serum or Plasma 288 [facility] ([facility]) Hemoglobin A1c/Hemoglobin.total in Blood 7.5 [facility] ([facility]) ID Date Data Source [id number] 08/10/2020 11:26:00 AM EST [facility] ([facility]) Name Value Range Interpretation Code Description Data Jaci rce(s) Supporting Document(s) Leukocytes [#/volume] in Blood by Automated count 7.3 x10*3/UL 4.1-10 .9 [facility] ([facility]) Hemoglobin [Mass/volume] in Blood 10.6 g/dL 12.0-18.0 [facility] ([facility]) NOTE: RESULT VERIFIED. Erythrocytes [#/volume] in Blood by Automated count 3.42 x10*6/UL 4.2 0-6.30 [facility] ([facility]) Hematocrit [Volume Fraction] of Blood by Automated count 30.0 % 3 7.0-51.0 [facility] ([facility]) MCV 87.6 fL 80.0-97.0 [facility]) MCH 31.1 pg 26.0-32.0 [facility] ([facility]) MCHC 35.5 g/dL 31.0-38.0 [facility] [facility]) Erythrocyte distribution width [Ratio] by Automated count 13.4 % 11.6-13.7 [facility] ([facility]) MPV 9.6 FL 7.8-11.0 [facility] ([facility]) Platelets [#/volume] in Blood by Automated count 183 x10*3/UL 140-440 [facility] ([facility]) Lymph % 11.1 % 10.0-58.5 [facility] ([facility]) Mid % 3.2 % 1.7-9.3 [facility] Lymph # 0.8 x10*3/UL 0.6-4.1 [facility] ([facility]) Neut % 85.7 % 37.0-92.0 [facility] Neut # 6.3 x10*3/UL 2.0-7.8 [facility] ([facility]) Mid # 0.2 x10*3/UL 0.1-0.6 [facility] ([facility]) ID Date Data Source [id number] 07/07/2020 11:25:00 AM EDT [facility] ([facility]) Name Value Range Interpretation Code Description Data Jaci rce(s) Supporting Document(s) Microalbumin Urine 2.6 mg/L 1.3-20.0 [facility] ([facility]) Microalb/Creat Ratio 4.3 ug/mg 0.0-30.0 [facility] ([facility]) Urine Creatinine 60.6 mg/dL 30.0-125.0 [facility] ( [facility] ) ID Date Data Source [id number] 07/07/2020 11:25:00 AM EDT [facility] ([facility]) Name Value Range Interpretation Code Description Data Jaci rce(s) Supporting Document(s) Microalbumin Urine 2.6 mg/L 1.3-20.0 [facility] ([facility]) Microalb/Creat Ratio 4.3 ug/mg 0.0-30.0 [facility] ([facility]) Urine Creatinine 60.6 mg/dL 30.0-125.0 [facility] ([facility]) ID Date Data Source [id number] 07/07/2020 11:24:00 AM EDT [facility] ([facility] ) Name Value Range Interpretation Code Description Data Jaci rce(s) Supporting Document(s) Glucose [Mass/volume] in Serum or Plasma 198 mg/dL 74-99 [facility] ([facility]) 100-125 mg/dL PRE-DIABETES/FASTING >126 mg/dL DIABETES/FASTING Urea nitrogen [Mass/volume] in Serum or Plasma 22 mg/dL 7-18 [facility] ([facility]) Potassium [Moles/volume] in Serum or Plasma 4.1 meq/L 3.5-5.1 [facility] ([facility]) Creatinine [Mass/volume] in Serum or Plasma 1.2 mg/dL 0.6-1.3 [facility] ([facility]) Sodium [Moles/volume] in Serum or Plasma 138 meq/L 136-145 [facility] ([facility]) Alkaline phosphatase isoenzyme [Units/volume] in Serum or Pl asma 59 mg/dL 46-116 [facility] ([facility]) Chloride [Moles/volume] in Serum or Plasma 102 meq/L 98-107 [facility] ([facility] ) Calcium [Mass/volume] in Serum or Plasma 8.9 mg/dL 8.5-10.1 [facility] ([facility] ) Carbon dioxide, total [Moles/volume] in Serum or Plasma 28 meq/L 21 -32 [facility] ([facility] ) Total Bilirubin 0.3 mg/dL 0.2-1.0 [facility] ([facility] ) Aspartate aminotransferase [Enzymatic activity/volume] in Serum or Plasma 20 U/L 15-37 [facility] ([facility] Albumin [Mass/volume] in Serum or Plasma 3.5 g/dL 3.4-5.0 [facility] ([facility] ) Alanine aminotransferase [Enzymatic activity/volume] in Seru m or Plasma 23 U/L 12-78 [facility] ([facility] ) Albumin/Globulin [Mass Ratio] in Serum or Plasma 1.21 CALC 1.00-1.90 [facility] ([facility] ) Proteinase 3 Ab [Units/volume] in Serum 6.4 g/dL 6.4-8.2 [facility] ([facility] ) Glomerular filtration rate/1.73 sq M pre dicted among non-blacks [Volume Rate/Area] in Serum or Plasma by Creatinine-based formula (MDRD) 58 mL/min [facility] ([facility] ) Glomerular filtration rate/1.73 sq M pre dicted among blacks [Volume Rate/Area] in Serum or Plasma by Creatinine-based formula (MDRD) Laboratory test result [facility] ([facility] ) <content>CHRONIC KIDNEY DISEASE STAGING PER NKF</content>
<content></content>
<content>STAGE I & II GFR >= 60 NORMAL TO MILDLY DECREASED</content>
<content>STAGE III GFR 30-59 MODERATELY DECREASED</content>
<content>STAGE IV GFR 15-29 SEVERELY DECREASED</content>
<content>STAGE V GFR <15 VERY LITTLE GFR LEFT</content>
<content>ESRD GFR <15 ON SUBSTATION INSPECTOR</content>
<content></content>
<content></content> ID Date Data Source [id number] 07/07/2020 11:24:00 AM EDT [facility] ([facility]) Name Value Range Interpretation Code Description Data Jaci rce(s) Supporting Document(s) Leukocytes [#/volume] in Blood by Automated count 7.7 x10*3/UL 4.1-10 .9 [facility] ([facility]) Hemoglobin [Mass/volume] in Blood 11.1 g/dL 12.0-18.0 [facility] ([facility]) Hematocrit [Volume Fraction] of Blood by Automated count 32.5 % 3 7.0-51.0 [facility] ([facility]) Erythrocytes [#/volume] in Blood by Automated count 3.63 x10*6/UL 4.2 0-6.30 [facility] ([facility]) MCH 30.7 pg 26.0-32.0 [facility] MCHC 34.3 g/dL 31.0-38.0 [facility] ([facility]) MCV 89.5 fL 80.0-97.0 [facility] ([facility]) Erythrocyte distribution width [Ratio] by Automated count 13.9 % 11.6-13.7 [facility] ([facility]) Platelets [#/volume] in Blood by Automated count 197 x10*3/UL 140-440 [facility] ([facility]) Platelet mean volume [Entitic volume] in Blood by Isha 9.5 FL 7.8-11.0 [facility] ([facility]) Lymphocytes/100 leukocytes in Blood by Automated count 9.9 % 10. 0-58.5 [facility] ([facility]) Mid % 3.9 % 1.7-9.3 [facility] ([facility] Neut % 86.2 % 37.0-92.0 [facility] ([facility]) Lymph # 0.7 x10*3/UL 0.6-4.1 [facility] ([facility]) Mid # 0.4 x10*3/UL 0.1-0.6 [facility] ([facility]) Neutrophils [#/volume] in Semen by Manual count 6.6 x10*3/UL 2.0-7.8 [facility] ([facility]) ID Date Data Source [id number] 07/07/2020 11:24:00 AM EDT [facility] ([facility]) Name Value Range Interpretation Code Description Data Jaci rce(s) Supporting Document(s) Triglyceride [Mass/volume] in Serum or Plasma 44 mg/dL 30-150 [facility] ([facility]) Cholesterol in HDL [Mass/volume] in Serum or Plasma 48 mg/dL 35-60 [facility] ([facility]) Cholesterol [Mass/volume] in Serum or Plasma 95 mg/dL 131-200 [facility] ([facility]) Cholesterol in LDL [Mass/volume] in Serum or Plasma by calcu lation 38 CALC 50-159 [facility] ([facility]) ID Date Data Source [id number] 07/07/2020 11:24:00 AM EDT [facility] ([facility]) Name Value Range Interpretation Code Description Data Jaci rce(s) Supporting Document(s) Glucose [Mass/volume] in Serum or Plasma 198 mg/dL 74-99 [facility] ([facility]) 100-125 mg/dL PRE-DIABETES/FASTING >126 mg/dL DIABETES/FASTING Urea nitrogen [Mass/volume] in Serum or Plasma 22 mg/dL 7-18 [facility] ([facility]) Creatinine 1.2 mg/dL 0.6-1.3 [facility] Potassium [Moles/volume] in Serum or Plasma 4.1 meq/L 3.5-5.1 [facility] ([facility]) Sodium [Moles/volume] in Serum or Plasma 138 meq/L 136-145 [facility] ([facility]) Carbon dioxide, total [Moles/volume] in Serum or Plasma 28 meq/L 21 -32 [facility] ([facility]) Calcium [Mass/volume] in Serum or Plasma 8.9 mg/dL 8.5-10.1 [facility] ([facility]) Chloride [Moles/volume] in Serum or Plasma 102 meq/L 98-107 [facility] ([facility]) Alkaline phosphatase isoenzyme [Units/volume] in Serum or Pl asma 59 mg/dL 46-116 [facility] ([facility]) Total Bilirubin 0.3 mg/dL 0.2-1.0 [facility] Alanine aminotransferase [Enzymatic activity/volume] in Seru m or Plasma 23 U/L 12-78 [facility] Aspartate aminotransferase [Enzymatic activity/volume] in Serum or Plasma 20 U/L 15-37 [facility] ([facility] ) A/G Ratio 1.21 CALC 1.00-1.90 [facility]) Albumin [Mass/volume] in Serum or Plasma 3.5 g/dL 3.4-5.0 [facility] Proteinase 3 Ab [Units/volume] in Serum 6.4 g/dL 6.4-8.2 [facility] ([facility]) Glomerular filtration rate/1.73 sq M pre dicted among non-blacks [Volume Rate/Area] in Serum or Plasma by Creatinine-based formula (MDRD) 58 mL/min [facility] Glomerular filtration rate/1.73 sq M pre dicted among blacks [Volume Rate/Area] in Serum or Plasma by Creatinine-based formula (MDRD) Laboratory test result [facility] <content>CHRONIC KIDNEY DISEASE STAGING PER NKF</content>
<content></content>
<content>STAGE I & II GFR >= 60 NORMAL TO MILDLY DECREASED</content>
<content>STAGE III GFR 30-59 MODERATELY DECREASED</content>
<content>STAGE IV GFR 15-29 SEVERELY DECREASED</content>
<content>STAGE V GFR <15 VERY LITTLE GFR LEFT</content>
<content>ESRD GFR <15 ON SUBSTATION INSPECTOR</content>
<content></content> ID Date Data Source [id number] 07/07/2020 11:24:00 AM EDT [facility] Name Value Range Interpretation Code Description Data Jaci rce(s) Supporting Document(s) Leukocytes [#/volume] in Blood by Automated count 7.7 x10*3/UL 4.1-10 .9 [facility] Hemoglobin [Mass/volume] in Blood 11.1 g/dL 12.0-18.0 [facility] ([facility]) Erythrocytes [#/volume] in Blood by Automated count 3.63 x10*6/UL 4.2 0-6.30 [facility] ([facility]) Hematocrit [Volume Fraction] of Blood by Automated count 32.5 % 3 7.0-51.0 [facility] ([facility]) Erythrocyte distribution width [Ratio] by Automated count 13.9 % 11.6-13.7 [facility] ([facility]) MCH 30.7 pg 26.0-32.0 [facility]) MCHC 34.3 g/dL 31.0-38.0 [facility] MCV 89.5 fL 80.0-97.0 [facility] MPV 9.5 FL 7.8-11.0 [facility] Platelets [#/volume] in Blood by Automated count 197 x10*3/UL 140-440 [facility] ([facility]) Lymph % 9.9 % 10.0-58.5 [facility] Mid % 3.9 % 1.7-9.3 [facility] Neut % 86.2 % 37.0-92.0 [facility] Lymph # 0.7 x10*3/UL 0.6-4.1 [facility] ([facility]) Neut # 6.6 x10*3/UL 2.0-7.8 [facility] ([facility]) Mid # 0.4 x10*3/UL 0.1-0.6 [facility] ([facility]) ID Date Data Source [id number] 06/14/2020 03:24:00 PM EDT [facility] ([facility]) Name Value Range Interpretation Code Description Data Jaci rce(s) Supporting Document(s) Glucose [Mass/volume] in Serum or Plasma 253 [facility] ([facility]) ID Date Data Source [id number] 05/20/2020 01:39:00 PM EDT [facility] ([facility]) Name Value Range Interpretation Code Description Data Jaci rce(s) Supporting Document(s) Vitamin B12 Level 734 pg/mL [facility] ([facility]) VITAMIN B12 NORMAL RANGE NORMAL 247 - 911 PG/ML INDETERMINATE 211 - 246 PG/ML DEFICIENT LESS THAN 211 PG/ML Folate 21.7 ng/mL [facility] ([facility]) FOLATE NORMAL RANGE NORMAL GREATER THAN 5.4 NG/ML INDETERMINATE 3.4-5.4 NG/ML DEFICIENT LESS THAN 3.4 NG/ML ID Date Data Source [id number] 05/20/2020 01:39:00 PM EDT [facility] ([facility]) Name Value Range Interpretation Code Description Data Jaci rce(s) Supporting Document(s) Laboratory test finding (navigational concept) Laboratory test result [facility] ([facility]) . The QuantiFERON-TB Gold Plus result is determined by subtracting the Nil value from either TB antigen (Ag) tube. The mitogen tube serves as a control for the test. Laboratory test finding (navigational concept) 0.02 IU/ml [facility] ([facility]) Laboratory test finding (navigational concept) 0.05 IU/ml [facility] ([facility]) Laboratory test finding (navigational concept) 0.04 IU/ml [facility] ([facility]) Laboratory test finding (navigational concept) 8.96 IU/ml [facility] ([facility]) Laboratory test finding (navigational concept) Laboratory test result [facility] ([facility]) . The specimen received for QuantiFERON testing was incubated by the ordering institution. Specific procedures outlined in our Directory of Services and in the package insert for the QuantiFERON Gold (In Tube) test must be followed to enable for proper stimulation of cells for the production of interferon gamma. Performed at: RN - [facility] [address] [id number] Fish [employer] Supervisor: Aarti Shearer MD, Phone: [phone] ID Date Data Source [id number] 05/20/2020 01:39:00 PM EDT [facility] ([facility]) Name Value Range Interpretation Code Description Data Jaci rce(s) Supporting Document(s) Vitamin B12 Level 734 pg/mL [facility] ([facility]) VITAMIN B12 NORMAL RANGE NORMAL 247 - 911 PG/ML INDETERMINATE 211 - 246 PG/ML DEFICIENT LESS THAN 211 PG/ML Folate 21.7 ng/mL [facility] ([facility]) FOLATE NORMAL RANGE NORMAL GREATER THAN 5.4 NG/ML INDETERMINATE 3.4-5.4 NG/ML DEFICIENT LESS THAN 3.4 NG/ML ID Date Data Source [id number] 05/20/2020 01:39:00 PM EDT [facility] ([facility]) Name Value Range Interpretation Code Description Data Jaci rce(s) Supporting Document(s) QuantiFERON Criteria Laboratory test result [facility] . The QuantiFERON-TB Gold Plus result is determined by subtracting the Nil value from either TB antigen (Ag) tube. The mitogen tube serves as a control for the test. QuantiFERON TB1 Ag Value 0.04 IU/ml [facility] ([facility]) QuantiFERON TB2 Ag Value 0.05 IU/ml [facility] ([facility]) QuantiFERON Nil Value 0.02 IU/ml [facility] QuantiFERON-TB Gold Plus Laboratory [facility] . The specimen received for QuantiFERON testing was incubated by the ordering institution. Specific procedures outlined in our Directory of Services and in the package insert for the QuantiFERON Gold (In Tube) test must be followed to enable for proper stimulation of cells for the production of interferon gamma. Performed at: RN - [facility] [address] [id number] Fish [employer] Supervisor: Aarti Shearer MD, Phone: [phone] QuantiFERON Mitogen Value 8.96 IU/ml MED [facility] ([facility]) ID Date Data Source [id number] 05/20/2020 01:38:00 PM EDT [facility] ([facility]) Name Value Range Interpretation Code Description Data Jaci rce(s) Supporting Document(s) Thyrotropin [Units/volume] in Serum or Plasma by Detec tion limit <= 0.05 mIU/L 3.04 uIU/mL 0.36-3.74 [facility] ([facility]) ID Date Data Source [id number] 05/20/2020 01:38:00 PM EDT [facility] ([facility]) Name Value Range Interpretation Code Description Data Jaci rce(s) Supporting Document(s) Leukocytes [#/volume] in Blood by Automated count 6.3 x10*3/UL 4.1-10 .9 [facility] ([facility]) Erythrocytes [#/volume] in Blood by Automated count 3.40 x10*6/UL 4.2 0-6.30 [facility] ([facility]) Hematocrit [Volume Fraction] of Blood by Automated count 30.5 % 3 7.0-51.0 [facility] ([facility]) MCV 89.5 fL 80.0-97.0 [facility] Hemoglobin [Mass/volume] in Blood 10.4 g/dL 12.0-18.0 [facility] ([facility]) NOTE: RESULT VERIFIED. MCH 30.6 pg 26.0-32.0 [facility] ([facility]) MCHC 34.1 g/dL 31.0-38.0 [facility] ([facility]) Platelet mean volume [Entitic volume] in Blood by Isha 9.6 FL 7.8-11.0 [facility] ([facility]) Erythrocyte distribution width [Ratio] by Automated count 13.7 % 11.6-13.7 [facility] ([facility]) Platelets [#/volume] in Blood by Automated count 154 x10*3/UL 140-440 [facility] ([facility]) Mid % 5.5 % 1.7-9.3 [facility] ([facility]) Lymphocytes/100 leukocytes in Blood by Automated count 16.7 % 10. 0-58.5 [facility] ([facility]) Neut % 77.8 % 37.0-92.0 [facility] ([facility]) Lymph # 1.0 x10*3/UL 0.6-4.1 [facility] ([facility]) Neutrophils [#/volume] in Semen by Manual count 4.9 x10*3/UL 2.0-7.8 [facility] ([facility]) Mid # 0.4 x10*3/UL 0.1-0.6 [facility] ([facility]) ID Date Data Source [id number] 05/20/2020 01:38:00 PM EDT [facility] ([facility]) Name Value Range Interpretation Code Description Data Jaci rce(s) Supporting Document(s) Urea nitrogen [Mass/volume] in Serum or Plasma 24 mg/dL 7-18 [facility] ([facility] ) Glucose [Mass/volume] in Serum or Plasma 176 mg/dL 74-99 [facility] ([facility] ) 100-125 mg/dL PRE-DIABETES/FASTING >126 mg/dL DIABETES/FASTING Creatinine [Mass/volume] in Serum or Plasma 1.0 mg/dL 0.6-1.3 [facility] ([facility] ) Sodium [Moles/volume] in Serum or Plasma 139 meq/L 136-145 [facility] ([facility] ) Potassium [Moles/volume] in Serum or Plasma 4.2 meq/L 3.5-5.1 [facility] ([facility] ) Calcium [Mass/volume] in Serum or Plasma 8.6 mg/dL 8.5-10.1 [facility] ([facility] ) Chloride [Moles/volume] in Serum or Plasma 104 meq/L 98-107 [facility] ([facility] ) Carbon dioxide, total [Moles/volume] in Serum or Plasma 26 meq/L 21 -32 [facility] ([facility] ) Glomerular filtration rate/1.73 sq M pre dicted among non-blacks [Volume Rate/Area] in Serum or Plasma by Creatinine-based formula (MDRD) Laboratory [facility] Glomerular filtration rate/1.73 sq M pre dicted among blacks [Volume Rate/Area] in Serum or Plasma by Creatinine-based formula (MDRD) Laboratory test result [facility] ([facility] ) <content>CHRONIC KIDNEY DISEASE STAGING PER NKF</content>
<content></content>
<content>STAGE I & II GFR >= 60 NORMAL TO MILDLY DECREASED</content>
<content>STAGE III GFR 30-59 MODERATELY DECREASED</content>
<content>STAGE IV GFR 15-29 SEVERELY DECREASED</content>
<content>STAGE V GFR <15 VERY LITTLE GFR LEFT</content>
<content>ESRD GFR <15 ON SUBSTATION INSPECTOR</content>
<content></content>
<content></content> ID Date Data Source [id number] 05/20/2020 01:38:00 PM EDT [facility] ([facility]) Name Value Range Interpretation Code Description Data Jaci rce(s) Supporting Document(s) Thyrotropin [Units/volume] in Serum or Plasma by Detec tion limit <= 0.05 mIU/L 3.04 uIU/mL 0.36-3.74 [facility] ([facility] ) ID Date Data Source [id number] 05/20/2020 01:38:00 PM EDT [facility] Name Value Range Interpretation Code Description Data Jaci rce(s) Supporting Document(s) Erythrocytes [#/volume] in Blood by Automated count 3.40 x10*6/UL 4.2 0-6.30 [facility] Leukocytes [#/volume] in Blood by Automated count 6.3 x10*3/UL 4.1-10 .9 [facility] Hemoglobin [Mass/volume] in Blood 10.4 g/dL 12.0-18.0 [facility] ([facility]) NOTE: RESULT VERIFIED. MCV 89.5 fL 80.0-97.0 [facility] ([facility]) Hematocrit [Volume Fraction] of Blood by Automated count 30.5 % 3 7.0-51.0 [facility] ([facility]) MCH 30.6 pg 26.0-32.0 [facility] ([facility]) Erythrocyte distribution width [Ratio] by Automated count 13.7 % 11.6-13.7 [facility] ([facility]) MCHC 34.1 g/dL 31.0-38.0 [facility] ([facility]) Platelets [#/volume] in Blood by Automated count 154 x10*3/UL 140-440 [facility] ([facility]) MPV 9.6 FL 7.8-11.0 [facility] ([facility]) Neut % 77.8 % 37.0-92.0 [facility] ([facility]) Mid % 5.5 % 1.7-9.3 [facility] Lymph % 16.7 % 10.0-58.5 [facility] Lymph # 1.0 x10*3/UL 0.6-4.1 [facility] ([facility]) Neut # 4.9 x10*3/UL 2.0-7.8 [facility] ([facility]) Mid # 0.4 x10*3/UL 0.1-0.6 [facility] ([facility]) ID Date Data Source [id number] 05/20/2020 01:38:00 PM EDT [facility] ([facility]) Name Value Range Interpretation Code Description Data Jaci rce(s) Supporting Document(s) Glucose [Mass/volume] in Serum or Plasma 176 mg/dL 74-99 [facility] ([facility]) 100-125 mg/dL PRE-DIABETES/FASTING >126 mg/dL DIABETES/FASTING Urea nitrogen [Mass/volume] in Serum or Plasma 24 mg/dL 7-18 [facility] ([facility]) Sodium [Moles/volume] in Serum or Plasma 139 meq/L 136-145 [facility] ([facility]) Potassium [Moles/volume] in Serum or Plasma 4.2 meq/L 3.5-5.1 [facility] ([facility]) Creatinine 1.0 mg/dL 0.6-1.3 [facility] ([facility]) Chloride [Moles/volume] in Serum or Plasma 104 meq/L 98-107 [facility] ([facility]) Glomerular filtration rate/1.73 sq M pre dicted among non-blacks [Volume Rate/Area] in Serum or Plasma by Creatinine-based formula (MDRD) Laboratory test result [facility] ([facility] ) Calcium [Mass/volume] in Serum or Plasma 8.6 mg/dL 8.5-10.1 [facility] ([facility]) Carbon dioxide, total [Moles/volume] in Serum or Plasma 26 meq/L 21 -32 [facility] ([facility]) Glomerular filtration rate/1.73 sq M pre dicted among blacks [Volume Rate/Area] in Serum or Plasma by Creatinine-based formula (MDRD) Laboratory test result [facility] ([facility]) <content>CHRONIC KIDNEY DISEASE STAGING PER NKF</content>
<content></content>
<content>STAGE I & II GFR >= 60 NORMAL TO MILDLY DECREASED</content>
<content>STAGE III GFR 30-59 MODERATELY DECREASED</content>
<content>STAGE IV GFR 15-29 SEVERELY DECREASED</content>
<content>STAGE V GFR <15 VERY LITTLE GFR LEFT</content>
<content>ESRD GFR <15 ON SUBSTATION INSPECTOR</content>
<content></content> ID Date Data Source [id number] 05/04/2020 11:27:00 AM EDT [facility] ([facility]) Name Value Range Interpretation Code Description Data Jaci rce(s) Supporting Document(s) Glucose [Mass/volume] in Serum or Plasma 167 [facility] ([facility]) Hemoglobin A1c/Hemoglobin.total in Blood 7.4 [facility] ([facility]) ID Date Data Source [id number] 04/23/2020 11:27:48 AM EDT [facility] Name Value Range Interpretation Code Description Data Jaci rce(s) Supporting Document(s) POC GLUCOSE 149 mg/dL (70-99) H [facility] PERFORMED BY CLINICAL STAFF ID Date Data Source [id number] 04/23/2020 07:34:52 AM EDT [facility] Name Value Range Interpretation Code Description Data Jaci rce(s) Supporting Document(s) POC GLUCOSE 74 mg/dL (70-99) [facility] PERFORMED BY CLINICAL STAFF ID Date Data Source [id number] 04/23/2020 07:03:28 AM EDT [facility] Name Value Range Interpretation Code Description Data Jaci rce(s) Supporting Document(s) SODIUM 143 mmol/L (136-145) [facility] POTASSIUM 3.7 mmol/L (3.6-5.2) [facility] CHLORIDE 111 mmol/L (100-108) H [facility] CO2 28 mmol/L (22-31) [facility] ANION GAP 4 mmol/L (7-16) L [facility] UREA NITROGEN 16 mg/dL (7-24) [facility] CREATININE 0.76 mg/dL (0.80-1.30) L [facility] BUN/CREAT RATIO 21.1 RATIO (10.0-20.0) H [facility] GLUCOSE 96 mg/dL (70-99) [facility] [facility] CALCIUM 7.5 mg/dL (8.4-10.2) L [facility] TOTAL PROTEIN 5.1 g/dL (6.4-8.2) [facility] ALBUMIN 2.5 g/dL (3.2-4.5) [facility] GLOBULIN 2.6 g/dL (2.7-4.3) [facility] ALB/GLOB RATIO 1.0 RATIO [facility] ALKALINE PHOSPHATASE 62 U/L (45-117) [facility] BILIRUBIN,TOTAL 1.1 mg/dL (0.0-1.0) [facility] PLEASE NOTE:Total bilirubin results may be falselyelevated in patients taking Eltrombopag. AST (SGOT) 39 U/L (11-39) [facility] ALT (SGPT) 45 U/L (12-78) [facility] GFR >60 ml/min/1.73m2 (>59) [facility] GFR ( AMER) >60 ml/min/1.73m2 (>59) [facility] GFR INTERPRETATION [facility] --NORMAL KIDNEY FUNCTION OR MILD DISEASE - GFR >OR= 60CHRONIC KIDNEY DISEASE - GFR 15 - 59RENAL FAILURE - GFR <15 Est. GFR calculation based on the MDRDstudy equation, which assumes a steadystate for creatinine. Est. GFR should notbe used for medication dosing. ID Date Data Source [id number] 04/23/2020 03:00:32 AM EDT [facility] Name Value Range Interpretation Code Description Data Jaci rce(s) Supporting Document(s) POC GLUCOSE 157 mg/dL (70-99) [facility] PERFORMED BY CLINICAL STAFF ID Date Data Source [id number] 04/23/2020 12:31:58 AM EDT [facility] [place] Name Value Range Interpretation Code Description Data Jaci rce(s) Supporting Document(s) POC GLUCOSE 256 mg/dL (70-99) [facility] PERFORMED BY CLINICAL STAFF ID Date Data Source [id number] 04/22/2020 11:42:09 PM EDT [facility] [place] Name Value Range Interpretation Code Description Data Jaci rce(s) Supporting Document(s) POC GLUCOSE 184 mg/dL (70-99) [facility] PERFORMED BY CLINICAL STAFF ID Date Data Source [id number] 04/22/2020 10:26:04 PM EDT [facility] Name Value Range Interpretation Code Description Data Jaci rce(s) Supporting Document(s) POC GLUCOSE 78 mg/dL (70-99) [facility] PERFORMED BY CLINICAL STAFF ID Date Data Source [id number] 04/26/2020 06:17:04 AM EDT [facility] [place] [facility] Name Value Range Interpretation Code Description Data Jaci rce(s) Supporting Document(s) POC GLUCOSE 59 mg/dL (70-99) L [facility] PERFORMED BY CLINICAL STAFF ID Date Data Source [id number] 04/22/2020 06:05:00 PM EDT Lab [facility] [place] Name Value Range Interpretation Code Description Data Jaci rce(s) Supporting Document(s) SARS coronavirus 2 RNA [Presence] in Res piratory specimen by MOHAN with probe detection Lab [facility] This lab was reported by [facility] [place] [facility]. ID Date Data Source [id number] 04/22/2020 11:36:49 PM EDT [facility] Name Value Range Interpretation Code Description Data Jaci rce(s) Supporting Document(s) SPECIMEN DESCRIPTION [facility] [place] COVID19 RESULT (NDET) Lab [facility] THIS ASSAY AMPLIFIES AND DETECTSTHE TARG ET RNA USING REAL-TIME PCR.NEGATIVE 2019_NCOV RT-PCR RESULTS DONOT PRECLUDE 2019_NCOV INFECTION ANDSHOULD NOT BE USED THE SOLE BASISFOR PATIENT MANAGEMENT DECISIONS. COMMENT Lab [facility]. THE [place] FOOD[employer] DRUG ADMINISTR[employer] HAS NOT APPROVEDTHIS TEST. NEGATIVE RESULTS DO NOT [id number] INFECTION AND SHOULD NOT BEUSED THE SOLE BASIS FOR CLINICALDIAGNOSIS OR PATIENT MANAGEMENT DECISIONS.RESULTS EMAILED TO IC AT 23:22 ON 04/22/20.34073 ID Date Data Source [id number] 04/22/2020 04:13:00 PM EDT [facility] Name Value Range Interpretation Code Description Data Jaci rce(s) Supporting Document(s) POC GLUCOSE 140 mg/dL (70-99) [facility] [place] [facility] PERFORMED BY CLINICAL STAFF ID Date Data Source [id number] 04/22/2020 12:36:05 PM EDT [facility] Name Value Range Interpretation Code Description Data Jaci rce(s) Supporting Document(s) SODIUM 142 mmol/L (136-145) [facility] POTASSIUM 3.9 mmol/L (3.6-5.2) [facility] CHLORIDE 109 mmol/L (100-108) [facility] [place] CO2 31 mmol/L (22-31) [facility] ANION GAP 2 mmol/L (7-16) L [facility] UREA NITROGEN 22 mg/dL (7-24) [facility] CREATININE 0.84 mg/dL (0.80-1.30) [facility] BUN/CREAT RATIO 26.2 RATIO (10.0-20.0) [facility] GLUCOSE 185 mg/dL (70-99) H [facility] CALCIUM 7.7 mg/dL (8.4-10.2) L [facility] GFR >60 ml/min/1.73m2 (>59) [facility] GFR ( AMER) >60 ml/min/1.73m2 (>59) [facility] GFR INTERPRETATION [facility] --NORMAL KIDNEY FUNCTION OR MILD DISEASE - GFR >OR= 60CHRONIC KIDNEY DISEASE - GFR 15 - 59RENAL FAILURE - GFR <15 Est. GFR calculation based on the MDRDstudy equation, which assumes a steadystate for creatinine. Est. GFR should notbe used for medication dosing. ID Date Data Source [id number] 04/22/2020 11:52:46 AM EDT [facility] Name Value Range Interpretation Code Description Data Jaci rce(s) Supporting Document(s) POC GLUCOSE 163 mg/dL (70-99) [facility] [place] [facility] PERFORMED BY CLINICAL STAFF ID Date Data Source [id number] 04/22/2020 08:41:19 AM EDT [facility] Name Value Range Interpretation Code Description Data Jaci rce(s) Supporting Document(s) POC GLUCOSE 164 mg/dL (70-99) H [facility] [place] [facility] PERFORMED BY CLINICAL STAFF ID Date Data Source [id number] 04/22/2020 01:54:49 AM EDT [facility] Name Value Range Interpretation Code Description Data Jaci rce(s) Supporting Document(s) CALCIUM IONIZED 5.00 mg/dL (4.64-5.28) [facility] IONIZED CALCIUM NORMALIZED TO PH 7.40 AN D 37 DEGREES C. ID Date Data Source [id number] 04/22/2020 01:42:38 AM EDT [facility] Name Value Range Interpretation Code Description Data Jaci rce(s) Supporting Document(s) MAGNESIUM 1.8 mg/dL (1.7-2.4) [facility] ID Date Data Source [id number] 04/22/2020 01:42:38 AM EDT [facility] Name Value Range Interpretation Code Description Data Jaci rce(s) Supporting Document(s) PHOSPHORUS 2.2 mg/dL (2.5-4.5) L [facility] [place] [facility] ID Date Data Source [id number] 04/22/2020 01:42:38 AM EDT [facility] [place] Name Value Range Interpretation Code Description Data Jaci rce(s) Supporting Document(s) SODIUM 140 mmol/L (136-145) [facility] [place] [facility] POTASSIUM 4.0 mmol/L (3.6-5.2) [facility] [place] [facility] CHLORIDE 108 mmol/L (100-108) [facility] [place] [facility] CO2 26 mmol/L (22-31) [facility] [place] [facility] ANION GAP 6 mmol/L (7-16) L [facility] [place] [facility] UREA NITROGEN 28 mg/dL (7-24) H [facility] [place] [facility] CREATININE 1.00 mg/dL (0.80-1.30) [facility] [place] BUN/CREAT RATIO 28.0 RATIO (10.0-20.0) H [facility] GLUCOSE 279 mg/dL (70-99) H [facility] [place] [facility] CALCIUM 7.5 mg/dL (8.4-10.2) L [facility] [place] [facility] TOTAL PROTEIN 5.3 g/dL (6.4-8.2) L [facility] [place] ALBUMIN 2.6 g/dL (3.2-4.5) L [facility] GLOBULIN 2.7 g/dL (2.7-4.3) [facility] ALB/GLOB RATIO 1.0 RATIO [facility] ALKALINE PHOSPHATASE 56 U/L (45-117) [facility] BILIRUBIN,TOTAL 0.7 mg/dL (0.0-1.0) [facility] [place] [facility] PLEASE NOTE:Total bilirubin results may be falselyelevated in patients taking Eltrombopag. AST (SGOT) 62 U/L (11-39) [facility] [place] [facility] ALT (SGPT) 53 U/L (12-78) [facility] GFR >60 ml/min/1.73m2 (>59) [facility] GFR ( AMER) >60 ml/min/1.73m2 (>59) [facility] [place] GFR INTERPRETATION [facility] --NORMAL KIDNEY FUNCTION OR MILD DISEASE - GFR >OR= 60CHRONIC KIDNEY DISEASE - GFR 15 - 59RENAL FAILURE - GFR <15 Est. GFR calculation based on the MDRDstudy equation, which assumes a steadystate for creatinine. Est. GFR should notbe used for medication dosing. ID Date Data Source [id number] 04/22/2020 01:33:48 AM EDT [facility] [place] [facility] [place] Name Value Range Interpretation Code Description Data Jaci rce(s) Supporting Document(s) PT 21.1 s (9.2-11.9) H [facility] [place] [facility] INR 2.10 [facility] SUGGESTED THERAPEUTIC RANGES USING INR F ORSTABILIZED ANTICOAGULATED PATIENTS:STANDARD DOSE THERAPY INR 2.0-3.0 DVT, PE, PREVENT DVT OR EMBOLISMHIGH DOSE THERAPY INR 2.5-3.5 PREVENT EMBOLISM FROM MECHANICAL HEART VALVE ID Date Data Source [id number] 04/22/2020 01:22:32 AM EDT [facility] [place] [place] Name Value Range Interpretation Code Description Data Jaci rce(s) Supporting Document(s) WBC 9.0 10*3/uL (4.1-11.0) [facility] [place] [facility] [place] RBC 3.38 10*6/uL (4.60-6.10) L [facility] [place] [facility] HGB 10.2 g/dL (13.5-18.0) L [facility] [place] [facility] HCT 31.5 % (41.0-53.0) L [facility] [place] [facility] MCV 93.2 fL (80.0-95.0) [facility] [place] [facility] MCH 30.2 pg (27.0-32.0) [facility] [place] [facility] MCHC 32.4 g/dL (32.0-36.0) [facility] [place] [facility] RDW 14.7 % (10.5-14.5) [facility] [place] [facility] PLT 146 10*3/uL (150-450) L [facility] [place] [facility] MPV 9.8 fL (7.1-10.7) [facility] [place] ID Date Data Source [id number] 04/21/2020 04:57:31 PM EDT [facility] [place] [facility] Name Value Range Interpretation Code Description Data Jaci rce(s) Supporting Document(s) POC GLUCOSE 288 mg/dL (70-99) H [facility] [place] [facility] PERFORMED BY CLINICAL STAFF ID Date Data Source [id number] 04/21/2020 03:28:29 PM EDT [facility] [place] [facility] [place] Name Value Range Interpretation Code Description Data Jaci rce(s) Supporting Document(s) SODIUM 140 mmol/L (136-145) [facility] [place] [facility] POTASSIUM 4.3 mmol/L (3.6-5.2) [facility] [place] [facility] CHLORIDE 110 mmol/L (100-108) H [facility] [place] [facility] CO2 24 mmol/L (22-31) [facility] [place] [facility] ANION GAP 6 mmol/L (7-16) L [facility] [place] [facility] UREA NITROGEN 35 mg/dL (7-24) H [facility] [place] [facility] CREATININE 1.25 mg/dL (0.80-1.30) [facility] BUN/CREAT RATIO 28.0 RATIO (10.0-20.0) H [facility] GLUCOSE 341 mg/dL (70-99) H [facility] [place] [facility] CALCIUM 7.8 mg/dL (8.4-10.2) L [facility] GFR 55 ml/min/1.73m2 (>59) L [facility] [place] GFR ( AM) >60 ml/min/1.73m2 (>59) [facility] GFR INTERPRETATION [facility] --NORMAL KIDNEY FUNCTION OR MILD DISEASE - GFR >OR= 60CHRONIC KIDNEY DISEASE - GFR 15 - 59RENAL FAILURE - GFR <15 Est. GFR calculation based on the MDRDstudy equation, which assumes a steadystate for creatinine. Est. GFR should notbe used for medication dosing. ID Date Data Source [id number] 04/21/2020 11:55:09 AM EDT [facility] Name Value Range Interpretation Code Description Data Jaci rce(s) Supporting Document(s) POC GLUCOSE 209 mg/dL (70-99) H [facility] [place] [facility] PERFORMED BY CLINICAL STAFF ID Date Data Source [id number] 04/21/2020 08:50:33 AM EDT [facility] Name Value Range Interpretation Code Description Data Jaci rce(s) Supporting Document(s) PT 86.9 s (9.2-11.9) [facility] [place] [facility] INR 9.40 HH [facility] [place] SUGGESTED THERAPEUTIC RANGES USING INR F ORSTABILIZED ANTICOAGULATED PATIENTS:STANDARD DOSE THERAPY INR 2.0-3.0 DVT, PE, PREVENT DVT OR EMBOLISMHIGH DOSE THERAPY INR 2.5-3.5 PREVENT EMBOLISM FROM MECHANICAL HEART VALVERESULT(S) CALLED TO AND READ BACK BYCHASSELL ICU ON 04/21/2020 [place] 0849 [place] [id number] ID Date Data Source [id number] 04/21/2020 06:44:28 AM EDT [facility] Name Value Range Interpretation Code Description Data Jaci rce(s) Supporting Document(s) SODIUM 145 mmol/L (136-145) [facility] POTASSIUM 3.7 mmol/L (3.6-5.2) [facility] CHLORIDE 115 mmol/L (100-108) H [facility] [place] [facility] CO2 24 mmol/L (22-31) [facility] [place] ANION GAP 6 mmol/L (7-16) L [facility] [place] [facility] UREA NITROGEN 39 mg/dL (7-24) H [facility] [place] CREATININE 0.95 mg/dL (0.80-1.30) [facility] [place] BUN/CREAT RATIO 41.1 RATIO (10.0-20.0) H [facility] GLUCOSE 85 mg/dL (70-99) [facility] [place] [facility] CALCIUM 7.7 mg/dL (8.4-10.2) L [facility] [place] [facility] GFR >60 ml/min/1.73m2 (>59) [facility] [place] [facility] GFR ( AMER) >60 ml/min/1.73m2 (>59) [facility] [place] [facility] GFR INTERPRETATION [facility] --NORMAL KIDNEY FUNCTION OR MILD DISEASE - GFR >OR= 60CHRONIC KIDNEY DISEASE - GFR 15 - 59RENAL FAILURE - GFR <15 Est. GFR calculation based on the MDRDstudy equation, which assumes a steadystate for creatinine. Est. GFR should notbe used for medication dosing. ID Date Data Source [id number] 04/21/2020 05:52:33 AM EDT [facility] Name Value Range Interpretation Code Description Data Jaci rce(s) Supporting Document(s) POC GLUCOSE 76 mg/dL (70-99) [facility] [place] [facility] PERFORMED BY CLINICAL STAFF ID Date Data Source [id number] 04/21/2020 04:05:33 AM EDT [facility] [facility] Name Value Range Interpretation Code Description Data Jaci rce(s) Supporting Document(s) POC GLUCOSE 103 mg/dL (70-99) H [facility] [place] [facility] PERFORMED BY CLINICAL STAFF ID Date Data Source [id number] 04/21/2020 03:13:59 AM EDT [facility] [facility] Name Value Range Interpretation Code Description Data Jaci rce(s) Supporting Document(s) POC GLUCOSE 114 mg/dL (70-99) H [facility] [place] [facility] PERFORMED BY CLINICAL STAFF ID Date Data Source [id number] 04/21/2020 03:54:05 AM EDT [facility] Name Value Range Interpretation Code Description Data Jaci rce(s) Supporting Document(s) SODIUM 144 mmol/L (136-145) [facility] [place] [facility] POTASSIUM 4.0 mmol/L (3.6-5.2) [facility] [place] [facility] CHLORIDE 115 mmol/L (100-108) H [facility] [place] [facility] CO2 24 mmol/L (22-31) [facility] [place] ANION GAP 5 mmol/L (7-16) L [facility] [place] [facility] UREA NITROGEN 42 mg/dL (7-24) H [facility] [place] [facility] CREATININE 1.00 mg/dL (0.80-1.30) [facility] [place] [facility] BUN/CREAT RATIO 42.0 RATIO (10.0-20.0) [facility] GLUCOSE 118 mg/dL (70-99) H [facility] [place] [facility] CALCIUM 7.5 mg/dL (8.4-10.2) L [facility] [place] [facility] GFR >60 ml/min/1.73m2 (>59) [facility] [place] [facility] GFR ( AMER) >60 ml/min/1.73m2 (>59) [facility] GFR INTERPRETATION [facility] --NORMAL KIDNEY FUNCTION OR MILD DISEASE - GFR >OR= 60CHRONIC KIDNEY DISEASE - GFR 15 - 59RENAL FAILURE - GFR <15 Est. GFR calculation based on the MDRDstudy equation, which assumes a steadystate for creatinine. Est. GFR should notbe used for medication dosing. ID Date Data Source [id number] 04/21/2020 03:54:05 AM EDT [facility] [place] [facility] [place] Name Value Range Interpretation Code Description Data Jaci rce(s) Supporting Document(s) TROPONIN I 15.40 ng/mL (<0.05) [facility] [place] [facility] [place] Less than 0.05: Myocardial injury unlike lyGreater than or equal to 0.05: Highly suggestive of myocardial injuryCorrelation with rise and/or fall ofserial troponins, clinical symptomsand ECG changes is necessary.RESULT(S) CALLED TO AND READ BACK BYLEI AT [facility] ON 04/21/2020 AT 0353 [place] [id number] ID Date Data Source [id number] 04/21/2020 01:58:40 AM EDT [facility] [place] [facility] [place] Name Value Range Interpretation Code Description Data Jaci rce(s) Supporting Document(s) POC GLUCOSE 113 mg/dL (70-99) H [facility] [place] [facility] PERFORMED BY CLINICAL STAFF ID Date Data Source [id number] 04/21/2020 01:02:57 AM EDT [facility] [facility] Name Value Range Interpretation Code Description Data Jaci rce(s) Supporting Document(s) POC GLUCOSE 89 mg/dL (70-99) [facility] [place] [facility] PERFORMED BY CLINICAL STAFF ID Date Data Source [id number] 04/21/2020 12:00:31 AM EDT [facility] [place] [facility] Name Value Range Interpretation Code Description Data Jaci rce(s) Supporting Document(s) POC GLUCOSE 105 mg/dL (70-99) H [facility] [place] [facility] PERFORMED BY CLINICAL STAFF ID Date Data Source [id number] 04/20/2020 11:00:06 PM EDT [facility] Name Value Range Interpretation Code Description Data Jaci rce(s) Supporting Document(s) POC GLUCOSE 146 mg/dL (70-99) H [facility] [place] [facility] PERFORMED BY CLINICAL STAFF ID Date Data Source [id number] 04/20/2020 10:10:59 PM EDT [facility] [facility] Name Value Range Interpretation Code Description Data Jaci rce(s) Supporting Document(s) POC GLUCOSE 226 mg/dL (70-99) H [facility] [place] [facility] PERFORMED BY CLINICAL STAFF ID Date Data Source [id number] 04/20/2020 09:57:26 PM EDT [facility] [place] [facility] Name Value Range Interpretation Code Description Data Jaci rce(s) Supporting Document(s) TROPONIN I 16.20 ng/mL (<0.05) [facility] [place] [facility] [place] Less than 0.05: Myocardial injury unlike lyGreater than or equal to 0.05: Highly suggestive of myocardial injuryCorrelation with rise and/or fall ofserial troponins, clinical symptomsand ECG changes is necessary.RESULT(S) CALLED TO AND READ BACK BYJAKE IN ICU AT 2155 ON 04/20 BY [id number] ID Date Data Source [id number] 04/20/2020 09:57:26 PM EDT [facility] Name Value Range Interpretation Code Description Data Jaci rce(s) Supporting Document(s) SODIUM 141 mmol/L (136-145) [facility] [place] [facility] POTASSIUM 4.2 mmol/L (3.6-5.2) [facility] [place] [facility] CHLORIDE 112 mmol/L (100-108) H [facility] [place] [facility] CO2 24 mmol/L (22-31) [facility] [place] [facility] ANION GAP 5 mmol/L (7-16) L [facility] [place] [facility] UREA NITROGEN 49 mg/dL (7-24) H [facility] [place] [facility] CREATININE 1.41 mg/dL (0.80-1.30) H [facility] [place] [facility] BUN/CREAT RATIO 34.8 RATIO (10.0-20.0) [facility] GLUCOSE 278 mg/dL (70-99) H [facility] [place] [facility] CALCIUM 7.6 mg/dL (8.4-10.2) L [facility] [place] [facility] GFR 48 ml/min/1.73m2 (>59) L [facility] [place] [facility] GFR ( AMER) 58 ml/min/1.73m2 (>59) L [facility] [place] [facility] GFR INTERPRETATION [facility] --NORMAL KIDNEY FUNCTION OR MILD DISEASE - GFR >OR= 60CHRONIC KIDNEY DISEASE - GFR 15 - 59RENAL FAILURE - GFR <15 Est. GFR calculation based on the MDRDstudy equation, which assumes a steadystate for creatinine. Est. GFR should notbe used for medication dosing. ID Date Data Source [id number] 04/20/2020 09:06:55 PM EDT [facility] [place] [facility] Name Value Range Interpretation Code Description Data Jaci rce(s) Supporting Document(s) POC GLUCOSE 249 mg/dL (70-99) H [facility] [place] [facility] PERFORMED BY CLINICAL STAFF ID Date Data Source [id number] 04/20/2020 08:04:27 PM EDT [facility] [place] [facility] Name Value Range Interpretation Code Description Data Jaci rce(s) Supporting Document(s) POC GLUCOSE 353 mg/dL (70-99) H [facility] [place] [facility] PERFORMED BY CLINICAL STAFF ID Date Data Source [id number] 04/20/2020 07:09:10 PM EDT [facility] [facility] Name Value Range Interpretation Code Description Data Jaci rce(s) Supporting Document(s) POC GLUCOSE 415 mg/dL (70-99) HH [facility] [place] [facility] PERFORMED BY CLINICAL STAFF ID Date Data Source [id number] 04/20/2020 06:03:44 PM EDT [facility] [place] [facility] Name Value Range Interpretation Code Description Data Jaci rce(s) Supporting Document(s) POC GLUCOSE 434 mg/dL (70-99) HH [facility] [place] [facility] PERFORMED BY CLINICAL STAFF ID Date Data Source [id number] 04/20/2020 06:03:39 PM EDT [facility] [facility] Name Value Range Interpretation Code Description Data Jaci rce(s) Supporting Document(s) POC GLUCOSE 454 mg/dL (70-99) [facility] [place] [facility] PERFORMED BY CLINICAL STAFF ID Date Data Source [id number] 04/20/2020 06:00:17 PM EDT [facility] [place] [facility] Name Value Range Interpretation Code Description Data Jaci rce(s) Supporting Document(s) SODIUM 136 mmol/L (136-145) [facility] [place] [facility] POTASSIUM 4.8 mmol/L (3.6-5.2) [facility] [place] [facility] CHLORIDE 108 mmol/L (100-108) [facility] [place] [facility] CO2 21 mmol/L (22-31) L [facility] [place] [facility] ANION GAP 7 mmol/L (7-16) [facility] [place] [facility] UREA NITROGEN 52 mg/dL (7-24) H [facility] [place] [facility] CREATININE 1.50 mg/dL (0.80-1.30) H [facility] [place] [facility] BUN/CREAT RATIO 34.7 RATIO (10.0-20.0) [facility] GLUCOSE 521 mg/dL (70-99) [facility] [place] [facility] RESULT(S) CALLED TO AND READ BACK BYICU AT 1800 ON 04/20 BY [id number] CALCIUM 7.8 mg/dL (8.4-10.2) L [facility] [place] [facility] GFR 45 ml/min/1.73m2 (>59) L [facility] [place] [facility] GFR ( AMER) 54 ml/min/1.73m2 (>59) L [facility] [place] [facility] GFR INTERPRETATION [facility] --NORMAL KIDNEY FUNCTION OR MILD DISEASE - GFR >OR= 60CHRONIC KIDNEY DISEASE - GFR 15 - 59RENAL FAILURE - GFR <15 Est. GFR calculation based on the MDRDstudy equation, which assumes a steadystate for creatinine. Est. GFR should notbe used for medication dosing. ID Date Data Source [id number] 04/20/2020 05:40:07 PM EDT [facility] Name Value Range Interpretation Code Description Data Jaci rce(s) Supporting Document(s) TROPONIN I 17.00 ng/mL (<0.05) [facility] [place] [facility] [place] Less than 0.05: Myocardial injury unlike lyGreater than or equal to 0.05: Highly suggestive of myocardial injuryCorrelation with rise and/or fall ofserial troponins, clinical symptomsand ECG changes is necessary.RESULT(S) CALLED TO AND READ BACK BYNOMIOFELIA IN ICU AT 1740 ON 04/20 BY [id number] ID Date Data Source [id number] 04/20/2020 03:49:23 PM EDT [facility] [place] [facility] [place] Name Value Range Interpretation Code Description Data Jaci rce(s) Supporting Document(s) POC GLUCOSE 494 mg/dL (70-99) [facility] [place] [facility] PERFORMED BY CLINICAL STAFF ID Date Data Source [id number] 04/20/2020 01:52:05 PM EDT [facility] [place] [facility] [place] Name Value Range Interpretation Code Description Data Jaci rce(s) Supporting Document(s) APTT 40.7 s (22.0-34.3) [facility] [place] [facility] ID Date Data Source [id number] 04/20/2020 01:52:05 PM EDT [facility] [place] [facility] Name Value Range Interpretation Code Description Data Jaci rce(s) Supporting Document(s) PT 56.6 s (9.2-11.9) [facility] [place] [facility] INR 5.96 [facility] [place] [facility] [place] SUGGESTED THERAPEUTIC RANGES USING INR F ORSTABILIZED ANTICOAGULATED PATIENTS:STANDARD DOSE THERAPY INR 2.0-3.0 DVT, PE, PREVENT DVT OR EMBOLISMHIGH DOSE THERAPY INR 2.5-3.5 PREVENT EMBOLISM FROM MECHANICAL HEART VALVERESULT(S) CALLED TO AND READ BACK BYCODY IN ICU ON 04.20.20 AT 1351 BY [id number] ID Date Data Source [id number] 04/20/2020 11:57:17 AM EDT [facility] [place] [facility] [place] Name Value Range Interpretation Code Description Data Jaci rce(s) Supporting Document(s) POC GLUCOSE 348 mg/dL (70-99) H [facility] [place] [facility] PERFORMED BY CLINICAL STAFF ID Date Data Source [id number] 04/20/2020 10:23:57 AM EDT [facility] [place] [facility] [place] Name Value Range Interpretation Code Description Data Jaci rce(s) Supporting Document(s) MAGNESIUM 2.0 mg/dL (1.7-2.4) [facility] [facility] ID Date Data Source [id number] 04/20/2020 10:23:57 AM EDT [facility] Name Value Range Interpretation Code Description Data Jaci rce(s) Supporting Document(s) PHOSPHORUS 1.8 mg/dL (2.5-4.5) L [facility] [place] [facility] ID Date Data Source [id number] 04/20/2020 10:23:57 AM EDT [facility] Name Value Range Interpretation Code Description Data Jaci rce(s) Supporting Document(s) TROPONIN I 20.80 ng/mL (<0.05) [facility] [place] [facility] [place] Less than 0.05: Myocardial injury unlike lyGreater than or equal to 0.05: Highly suggestive of myocardial injuryCorrelation with rise and/or fall ofserial troponins, clinical symptomsand ECG changes is necessary.RESULT(S) CALLED TO AND READ BACK BYBLANCA IN ICU ON 04/20/20 AT 1022 BY [id number] ID Date Data Source [id number] 04/20/2020 10:23:57 AM EDT [facility] Name Value Range Interpretation Code Description Data Jaci rce(s) Supporting Document(s) SODIUM 140 mmol/L (136-145) [facility] [place] [facility] POTASSIUM 5.2 mmol/L (3.6-5.2) [facility] [place] [facility] CHLORIDE 112 mmol/L (100-108) H [facility] CO2 19 mmol/L (22-31) L [facility] ANION GAP 9 mmol/L (7-16) [facility] UREA NITROGEN 49 mg/dL (7-24) H [facility] CREATININE 1.38 mg/dL (0.80-1.30) H [facility] BUN/CREAT RATIO 35.5 RATIO (10.0-20.0) H [facility] GLUCOSE 365 mg/dL (70-99) [facility] CALCIUM 8.2 mg/dL (8.4-10.2) L [facility] TOTAL PROTEIN 5.5 g/dL (6.4-8.2) L [facility] ALBUMIN 3.1 g/dL (3.2-4.5) L [facility] GLOBULIN 2.4 g/dL (2.7-4.3) L [facility] ALB/GLOB RATIO 1.3 RATIO [facility] [place] [facility] ALKALINE PHOSPHATASE 53 U/L (45-117) [facility] BILIRUBIN,TOTAL 0.5 mg/dL (0.0-1.0) [facility] [place] [facility] PLEASE NOTE:Total bilirubin results may be falselyelevated in patients taking Eltrombopag. AST (SGOT) 97 U/L (11-39) H [facility] [place] [facility] ALT (SGPT) 38 U/L (12-78) [facility] [place] [facility] GFR 49 ml/min/1.73m2 (>59) L [facility] [place] [facility] GFR ( AMER) 60 ml/min/1.73m2 (>59) [facility] [place] [facility] GFR INTERPRETATION [facility] --NORMAL KIDNEY FUNCTION OR MILD DISEASE - GFR >OR= 60CHRONIC KIDNEY DISEASE - GFR 15 - 59RENAL FAILURE - GFR <15 Est. GFR calculation based on the MDRDstudy equation, which assumes a steadystate for creatinine. Est. GFR should notbe used for medication dosing. ID Date Data Source [id number] 04/20/2020 10:02:07 AM EDT [facility] [place] [facility] [place] Name Value Range Interpretation Code Description Data Jaci rce(s) Supporting Document(s) HEMOGLOBIN A1C @ 7.4 % (4.0-6.0) H [facility] [place] [facility] [place] Performed using [employer] y.Care must be taken when interpreting LzZ3yhslowra in patients with a hemoglobin variantor decreased erythrocyte lifespan. Values 5.7 - 6.4% suggest prediabetes.Values >=6.5% are diagnostic for diabetes.REFERENCE: DIABETES CARE 2018: 41(S13-S27).PERFORMED AT [address] [place] [address] EST AVERAGE GLUCOSE 166 mg/dL [facility] ID Date Data Source [id number] 04/20/2020 09:40:18 AM EDT [facility] [place] [facility] Name Value Range Interpretation Code Description Data Jaci rce(s) Supporting Document(s) WBC 22.5 10*3/uL (4.1-11.0) H [facility] [place] [facility] RBC 3.56 10*6/uL (4.60-6.10) L [facility] [place] [facility] HGB 10.5 g/dL (13.5-18.0) L [facility] [place] [facility] HCT 33.6 % (41.0-53.0) L [facility] [place] [facility] MCV 94.3 fL (80.0-95.0) [facility] [place] [facility] MCH 29.5 pg (27.0-32.0) [facility] [place] [facility] MCHC 31.3 g/dL (32.0-36.0) L [facility] [place] [facility] RDW 14.7 % (10.5-14.5) H [facility] [place] [facility] PLT 175 10*3/uL (150-450) [facility] [place] [facility] MPV 10.1 fL (7.1-10.7) [facility] [place] [facility] ID Date Data Source [id number] 04/20/2020 08:30:17 AM EDT [facility] Name Value Range Interpretation Code Description Data Jaci rce(s) Supporting Document(s) MUSE EKG PDF encoded [facility] spital JEKWPp8aAaUTHmCzh2LfNtEiTWSbYA5dscm9T8W6sUPmL4NsvFHnz6pqX4UzA8DeBTZnPFBURS4ZxGGx jb2 [file] /zua7NCyHIckfyl27gGqYGL+mSCrzaobzUDdNUuWhc3lt9Hru90vjdO1/Bethea+1vo2t9aKbXRgF1QPNwhB Dbjzlh7tJr5528U8de5pjQDVsDX0RAKQkpfUG9iio+ pHu9+83Cfu77oy9A4d1908vY313ev/ExPC/Uu++f6wS/SxyG5g0721cKkEB2riBlN1z24/2Nqlcnntfd JovLjPVvRfMgX4523R+oFDynUG7RY/CCYgOU0FZ4FXhF3dG4CxUZMZgAGXSGfN3cOkvTpce63YsXFRkv VKCzdCvflt3sZQmjeGmvfLWj6EqSSVcHGZMCLHPwUf Bh4KhNvLsmX5mfWeDzTaJgZh/1g3oN/Op65loqAQk+6b37Jx0s7CQ8ZQsNAcsUKeD5842/UYi6roi6lZ Hf6wlffdxwuhJBY+5SU90HaBpwAA/OC27vvka+1ivXu+9nxXS9+60rKXXSzJcG1GzanUV6N0Cl7JlO15 +kZto6MapwUWxHUgbUyfbvc36dfHt197nVxmDWe5Gr JLEINoNnDJ9t9OPDr64nM76ELGHjFfSOCnwYFkKmq9raOgPXtJRtNJwtZ5KnKHFmRE2ZsrSznUXvulsE qyEHtqN0JqMFRt3MiTgFmL4G4nxzJNsUPQH+DNfbMNSqmYIBHF9VEZojBZIBUS3MLYRgDGyTfVxIvXp0 ZK5H5tTmNPhthGYCISi4SiJXhI3W6GC7vQT8WjCYkc S4iLwA7vCWiKf94Iog5WrO6vT99EhSvnHYSRNNWbHcWH4VxW++j2Bg5Efu9mRhGdOFFMUHAavzwJnu/i BjX4F1TteWsvec4k2/YQUOzxcIJKpqYXjvcxzbuS29If9LcdLpYcZpaeo8DOfDGKQTYgeOgBvFyKPEDY TrD+LoxGNgXgjFeuVQJaJEBpFBxHgdrFeOoxPLOcWa 2Db80V7V/iriUGjlUKw/ELhAUWxpxBNPAO9WJoR4cBA/Y5gJWdHV8lGIQA3uJf1ze+sTg+sTg+sTg+sT g+sTg+sTY+DZOVhPDNYTg/CMRX2xBX6Z6wSK8zBz2zVVi15a+F96up94UD6VlswNUEMZpR80k3TvUWKU 89Sht2rwjfvtg6fqt0RqA9EvN4Bffeh+9wdNCe031X fA0reav5tJM/5hKBvoCgo2s/B35+ChwtGM06w8twRGQTbR3Skr6uXSXyXJQTNzId3WFYZ3SFyFAUwLJA iqOFehsDWwaNcya1iwzWSNxE6L4bSQtRXgC2+OjUBTReCIUEFbBZ2VODSt9eWyY9xTPsRaZvnPRyMRUI gsck6aHpnNzTPVaDaHWdWKMqDXiYpQJzP5BvLfTyRv UWLUoGEHTvI1TtqPfKPwHJQRUi6tM+PViYUcDva+MIl3+yLxbl/rJBTPPKIo0xFpHQ4yv5BCyxAHMF0Y vZDIn4EdGOSsGll2gq3QPQTzYARJQinYWgHdYzWiiXCOGgXBJFskP3+xiCyek+uHHCe77EjIZ8eUvKEe S0FYeYdBBJIbSFSTtZMHElBWOd7jKuhYStFsWBZWeY TDEbJZBe7NTDw0VWNHbiwLYybUR1GBzPxSJF5P91seQfFe3OwSFsKdy/v+2rI2oe72nu6590q/16vv9/ i2/nqCUu6m6Y106MP3iC6+272Of//8/Od4t5+/8I5+xm/7sn28/wc4pFo7i/7emM84x/28xv7r+fM7XP 4+b7s/a9fquf1/ZIxt/N79R+b9S+8/o7Jeiv+l49Hz 38iKZtqt7+67/8DmN2FDcfkjivAa5/d1/P6l9+bxglL1l3f35+y7/68Zoivh5/P7783RK727blrA5AK4 u3/1yet65L/n+On3rSf39/mY3DUsI+2/tzu1+vf42s3u6jo3yW/mssKz90gtEbJe7A5fE8Aksl39hlVi 69j+pdKb4uPfe5I29yEdervL8xo5wqnW86V1fsSG8I /BX4O/Bn8N/bxyynB2pC1Onic2eWesj5/2uE7h81vC1dgSK/Wc6H23pD2+cCl7wdVLy27/jgXtgs/rg2 O04/467q/j/jrur+P+Ou6v4/467q/j/jrur+P++eR11vue6TI5TfmkxR2wwGroLk5GusA7Te9agpwZB0 X/+hk9Uyqh9jNciD+0z+eTEn/F/E+euVekke7hpSie 76vB71Gi5sf/owV7pmj7NyGs+1spfW5/I1TG8sRU4EY6C/c0741zP5/CnAvTf2wg+RpLYca9J7Au3sQ1 r+d+//Zfx9F2MBd0fy7ZltxxKrYg0T9VlkJJ2y/a/lZsrLjxs+HCp0irv9exN63P8hEPhka5/FauzufB KpqT8GD4drg/9eb/MFfloDf9B1ci0G86IRjwboQ5kl 3zUWI+qxY6xus2T+K2XL3KrbG7lj0BTrQ+1G3fP4T02r7hwvMF+7M6MVcC+0J7oh3+CvwV+CvwV+CvwF +BvzI+8bBfHD+zyEDmAwPPj5Nl0V7pO1OSeY+0L1wX/xz0Msft3GzuTQ39mj0+9c6/+e1hz4sU0/4q7q /i/irub+yuye24Ndmc+dg1PiiSlD+ptoX8RaZ+Kvwd 8Hfg/o2l38P1I1R/B+7vgL8D/g74O+DvQDwPxPNAPA/E84C/A/4O+Dvg74C/A/4a/DX4a/DX4K/BX4O/ Bn8N/zo2Bcae2Giug2Dbe74Bwg7+Gvw1+Gvw1+Cvw1+Hvw5/Hf46/HX46/DX4a/DX4e/Dn8d/rw6onvr 5Iagf3Bao94+leo0a93hVEmxo/rx9q5vRs4H/A34Gx i/IfUD9iKfC5Ql0/A34G/A34C/AX8D/iv2LlrmpW+B+ebtepwg74Y/E/5O+Fzlickf06A9iak/E/d3wt 3Oein9idS3rr2Ldgj9tlI6gb4Jaed1FwR8my0Casz5GfM3nt6Oulh0WaE8zg0Fsso3ScL4mq9Wzel7YA 82r2k07XLf8y6l9dGAN3+0m1ePfRfox4/2p8NmY0zq dMY51vQ8W2d6+zs/r2V/jre/8Xkp+9VzbK2ZFiJ3hG/unUW3aLOfU2/PTz+j9NV7/Pk+o/TV/LyInbk+ 02MiQ8KBsC+9P8rRi5+O615/R+krr/btr3/roo94g4TC1Pi8ex0C0DFArjsGReB9kuQtJjasKRn/j6Ov qlYsKi13+DsINd3cy4M0CA19d2+C1GylFXH7zy13gK zPv+cH9DqmJ/0k+scene and lighting design lecturer+6Y84WuKsjC6oW471dkt51bFW7Y/pa/Y6z54iW+Fvwp/GhVVe7Kgr+p4Pw+uc+ zvs9h+o/o8o+0Xqt/jccuV+5Rf39s537O+z4z1Ilma4IbgyR7KyQpM0t3tnh5x6Itfi9FNt33Q/Tznr3 v556rK9nlGn0IN4w+zTyGxXqM+6uG5rfo7xy6n7pa2 o+erVMHyNapgWR+rgqXcPyH+YN2mL6gLGL4C/AB565s/AL4Llk/6KrLMywTq2wogy1eionUq0P9Jc+RW /ZcanriqB5plZn31FV/DnPH4VQY6WmLWcImtE17Dv/jvjOxKV6Uh/Bj+oV7TJhoSldq6XM1tDFdTxVOE ekqQ2wnWrqw14hg/1W8bv1nm8ChCl93yLiiB5S+59T d6v8cHj7oqLiYCtwc8VtdLn5TniE7QtkR+IfoFIYxPdW8C26Rqzmf1+TgG6QisweFTNU7A/y9kmpwcuy lXse1ckCk2wvd8WORehvI2no2u/I28qhh42A1/J+7vnOh/on/5H7Bh7PG1C+McVSfmVt27g116gFygTP v+ltx6j2+goBdoXVlme6U/hna/9f7BJNLLsolNKarO TBBvf3bDqwDGZvk4oZ7nYrc1JH6r6hY+eGk7B3zduUP/8wr8FhjqmSl9F5fy0M30eUAAjk5z4pSk96iM n8/M20n2agz0s/xMW/yR8ti22Gd/0Hz43+3it350s9/645kcqt2Rfj/q095asx1u1k0r2Y7/8wbwz05n [file] AgbiAKMDAwMDAwMTczNCAwMDAwMCBuIAowMDAwMDAx DBC0HGBzFETpVC3vGzLcAHIuWDYhFLWeNlZ5WsMrVdZKdUWqtHqmise7BYwoD0g7SVLrSBrlLO0amvTd BMTcRdawKo3ulKT0NIOdWwrEQe5Dx5BcpwP5ccNrBtc0JVQ7XnQnKT5O ID Date Data Source [id number] 04/20/2020 07:10:06 AM EDT [facility] [place] [facility] Name Value Range Interpretation Code Description Data Jaci rce(s) Supporting Document(s) POC GLUCOSE 282 mg/dL (70-99) H [facility] [place] [facility] PERFORMED BY CLINICAL STAFF ID Date Data Source [id number] 02/23/2020 03:12:00 PM EDT [facility] ([facility]) Name Value Range Interpretation Code Description Data Jaci rce(s) Supporting Document(s) Hemoglobin A1c/Hemoglobin.total in Blood 7.5 [facility] ([facility]) Glucose [Mass/volume] in Serum or Plasma 144 [facility] ([facility]) ID Date Data Source [id number] 02/12/2020 08:04:00 AM EDT [facility] ([facility]) Name Value Range Interpretation Code Description Data Jaci rce(s) Supporting Document(s) Triglyceride [Mass/volume] in Serum or Plasma 47 mg/dL 30-150 [facility] ([facility]) Cholesterol in HDL [Mass/volume] in Serum or Plasma 41 mg/dL 35-60 [facility] ([facility]) Cholesterol [Mass/volume] in Serum or Plasma 84 mg/dL 131-200 [facility] ([facility]) Cholesterol in LDL [Mass/volume] in Serum or Plasma by calcu lation 34 CALC 50-159 [facility] ([facility]) ID Date Data Source [id number] 02/12/2020 08:04:00 AM EDT [facility] ([facility]) Name Value Range Interpretation Code Description Data Jaci rce(s) Supporting Document(s) Urea nitrogen [Mass/volume] in Serum or Plasma 23 mg/dL 7-18 [facility] ([facility]) Glucose [Mass/volume] in Serum or Plasma 277 mg/dL 74-99 [facility] ([facility]) 100-125 mg/dL PRE-DIABETES/FASTING >126 mg/dL DIABETES/FASTING Chloride [Moles/volume] in Serum or Plasma 102 meq/L 98-107 [facility] ([facility]) Potassium [Moles/volume] in Serum or Plasma 4.7 meq/L 3.5-5.1 [facility] ([facility]) Creatinine 1.1 mg/dL 0.6-1.3 [facility] Sodium [Moles/volume] in Serum or Plasma 136 meq/L 136-145 [facility] ([facility]) Carbon dioxide, total [Moles/volume] in Serum or Plasma 26 meq/L 21 -32 [facility] ([facility]) Calcium [Mass/volume] in Serum or Plasma 8.6 mg/dL 8.5-10.1 [facility] ([facility]) Alkaline phosphatase isoenzyme [Units/volume] in Serum or Pl asma 71 mg/dL 46-116 [facility] ([facility]) Total Bilirubin 0.6 mg/dL 0.2-1.0 [facility] ([facility]) Alanine aminotransferase [Enzymatic activity/volume] in Seru m or Plasma 30 U/L 12-78 [facility] ([facility]) Aspartate aminotransferase [Enzymatic activity/volume] in Serum or Plasma 26 U/L 15-37 [facility] ([facility] ) Albumin [Mass/volume] in Serum or Plasma 3.3 g/dL 3.4-5.0 [facility] ([facility]) NOTE: RESULT VERIFIED. Proteinase 3 Ab [Units/volume] in Serum 6.1 g/dL 6.4-8.2 [facility] A/G Ratio 1.18 CALC 1.00-1.90 [facility] Glomerular filtration rate/1.73 sq M pre dicted among non-blacks [Volume Rate/Area] in Serum or Plasma by Creatinine-based formula (MDRD) Laboratory test result [facility] ([facility] ) Glomerular filtration rate/1.73 sq M pre dicted among blacks [Volume Rate/Area] in Serum or Plasma by Creatinine-based formula (MDRD) Laboratory test result [facility] <content>CHRONIC KIDNEY DISEASE STAGING PER NKF</content>
<content></content>
<content>STAGE I & II GFR >= 60 NORMAL TO MILDLY DECREASED</content>
<content>STAGE III GFR 30-59 MODERATELY DECREASED</content>
<content>STAGE IV GFR 15-29 SEVERELY DECREASED</content>
<content>STAGE V GFR <15 VERY LITTLE GFR LEFT</content>
<content>ESRD GFR <15 ON SUBSTATION INSPECTOR</content>
<content></content> ID Date Data Source [id number] 02/12/2020 08:04:00 AM EDT [facility] ([facility]) Name Value Range Interpretation Code Description Data Jaci rce(s) Supporting Document(s) Glucose mean value [Mass/volume] in Blood Estimated fr om glycated hemoglobin 180 mg/dL 60-110 [facility] ([facility] Hemoglobin A1c/Hemoglobin.total in Blood 7.9 g/dL 4.8-5.6 [facility] ([facility] Lab Result Notes: Pre-Diabetes 5.7 - 6.4 % Diabetes = or > 6.5% ID Date Data Source [id number] 02/12/2020 08:04:00 AM EDT [facility] Name Value Range Interpretation Code Description Data Jaci rce(s) Supporting Document(s) Leukocytes [#/volume] in Blood by Automated count 7.4 x10*3/UL 4.1-10 .9 [facility] ([facility] Hemoglobin [Mass/volume] in Blood 11.2 g/dL 12.0-18.0 [facility] ([facility] Erythrocytes [#/volume] in Blood by Automated count 3.67 x10*6/UL 4.2 0-6.30 [facility] ([facility] MCV 91.0 fL 80.0-97.0 [facility] ([facility]) Hematocrit [Volume Fraction] of Blood by Automated count 33.4 % 3 7.0-51.0 [facility] ([facility] Erythrocyte distribution width [Ratio] by Automated count 13.9 % 11.6-13.7 [facility] ([facility] MCH 30.6 pg 26.0-32.0 [facility] ([facility]) MCHC 33.6 g/dL 31.0-38.0 [facility] ([facility]) Platelets [#/volume] in Blood by Automated count 190 x10*3/UL 140-440 [facility] ([facility] Mid % 5.3 % 1.7-9.3 [facility] ([facility]) MPV 9.5 FL 7.8-11.0 [facility] ([facility]) Lymph % 10.4 % 10.0-58.5 [facility] ([facility]) Lymph # 0.7 x10*3/UL 0.6-4.1 [facility] ([facility]) Mid # 0.5 x10*3/UL 0.1-0.6 [facility] ([facility]) Neut % 84.3 % 37.0-92.0 [facility]) Neut # 6.2 x10*3/UL 2.0-7.8 [facility] ([facility]) ID Date Data Source [id number] 01/08/2020 08:26:00 AM EDT [facility] ([facility]) Name Value Range Interpretation Code Description Data Jaci rce(s) Supporting Document(s) Glucose [Mass/volume] in Serum or Plasma 188 mg/dL 74-99 [facility] ([facility]) 100-125 mg/dL PRE-DIABETES/FASTING >126 mg/dL DIABETES/FASTING Creatinine 1.2 mg/dL 0.6-1.3 [facility] ([facility]) Urea nitrogen [Mass/volume] in Serum or Plasma 27 mg/dL 7-18 [facility] ([facility]) Sodium [Moles/volume] in Serum or Plasma 140 meq/L 136-145 [facility] ([facility]) Potassium [Moles/volume] in Serum or Plasma 4.3 meq/L 3.5-5.1 [facility] ([facility]) Chloride [Moles/volume] in Serum or Plasma 104 meq/L 98-107 [facility] ([facility]) Carbon dioxide, total [Moles/volume] in Serum or Plasma 24 meq/L 21 -32 [facility] ([facility]) Calcium [Mass/volume] in Serum or Plasma 8.6 mg/dL 8.5-10.1 [facility] ([facility]) Glomerular filtration rate/1.73 sq M pre dicted among blacks [Volume Rate/Area] in Serum or Plasma by Creatinine-based formula (MDRD) Laboratory test result [facility] <content>CHRONIC KIDNEY DISEASE STAGING PER NKF</content>
<content></content>
<content>STAGE I & II GFR >= 60 NORMAL TO MILDLY DECREASED</content>
<content>STAGE III GFR 30-59 MODERATELY DECREASED</content>
<content>STAGE IV GFR 15-29 SEVERELY DECREASED</content>
<content>STAGE V GFR <15 VERY LITTLE GFR LEFT</content>
<content>ESRD GFR <15 ON SUBSTATION INSPECTOR</content>
<content></content> Glomerular filtration rate/1.73 sq M pre dicted among non-blacks [Volume Rate/Area] in Serum or Plasma by Creatinine-based formula (MDRD) 58 mL/min [facility] ([facility]) ID Date Data Source [id number] 01/08/2020 08:26:00 AM EDT [facility] Name Value Range Interpretation Code Description Data Jaci rce(s) Supporting Document(s) Leukocytes [#/volume] in Blood by Automated count 6.7 x10*3/UL 4.1-10 .9 [facility] ([facility] Hematocrit [Volume Fraction] of Blood by Automated count 33.1 % 3 7.0-51.0 [facility] ([facility] Hemoglobin [Mass/volume] in Blood 11.4 g/dL 12.0-18.0 [facility] ([facility]) NOTE: RESULT VERIFIED. Erythrocytes [#/volume] in Blood by Automated count 3.69 x10*6/UL 4.2 0-6.30 [facility] ([facility] MCV 89.7 fL 80.0-97.0 [facility] ([facility]) MCH 30.8 pg 26.0-32.0 [facility] ([facility]) Erythrocyte distribution width [Ratio] by Automated count 13.7 % 11.6-13.7 [facility] ([facility]) MCHC 34.4 g/dL 31.0-38.0 [facility] ([facility]) Platelets [#/volume] in Blood by Automated count 151 x10*3/UL 140-440 [facility] ([facility] MPV 9.5 FL 7.8-11.0 [facility] ([facility]) Lymph % 12.9 % 10.0-58.5 [facility]) Lymph # 0.8 x10*3/UL 0.6-4.1 [facility] ([facility]) Mid % 5.6 % 1.7-9.3 [facility]) Neut % 81.5 % 37.0-92.0 [facility]) Mid # 0.4 x10*3/UL 0.1-0.6 [facility] ([facility]) Neut # 5.5 x10*3/UL 2.0-7.8 [facility] ([facility]) ID Date Data Source [id number] 11/17/2019 03:56:00 PM EDT [facility] ([facility]) Name Value Range Interpretation Code Description Data Jaci rce(s) Supporting Document(s) Glucose [Mass/volume] in Serum or Plasma 168 [facility] ([facility]) Hemoglobin A1c/Hemoglobin.total in Blood 6.9 [facility] ID Date Data Source [id number] 08/28/2019 09:59:00 AM EST [facility] Name Value Range Interpretation Code Description Data Jaci rce(s) Supporting Document(s) Glucose [Mass/volume] in Serum or Plasma 168 [facility] ([facility]) Hemoglobin A1c/Hemoglobin.total in Blood 7.1 [facility] Procedure Social History Code Duration Value Status Description Data Source(s ) Smoking 06/14/2020 12:00:00 AM EDT Patient is a former smoker completed Patient is a former smoker [facility] ([facility]) Smoking 04/20/2020 05:05:00 PM EDT Former Smoker completed Former Smoker [facility] Vital Signs ID Date Data Source [id number] Name Value Range Interpretation Code Description Data Source(s) Oxygen saturation in Arterial blood by Pulse oximetry 98 % 98 % [facility] Body mass index (BMI) [Ratio] 24.0 kg/m2 24.0 k g/m2 [facility] Body weight 158.00 [lb_av] 158.00 [lb_av] [facility] ([facility]) Body height 68 [in_i] 68 [in_i] [facility] 5'8" Body temperature 97.0 [degF] 97.0 [degF] [facility] ([facility]) Heart rate 57 /min 57 /min [facility] ([facility]) Diastolic blood pressure 58 mm[Hg] 58 mm[Hg] [facility] ([facility]) Systolic blood pressure 118 mm[Hg] 118 mm[Hg] [facility] Body mass index (BMI) [Ratio] 23.4 kg/m2 23.4 k g/m2 [facility] ([facility]) Body weight 155.12 [lb_av] 155.12 [lb_av] [facility] ([facility]) Body height 68.25 [in_i] 68.25 [in_i] [facility] ([facility]) 5'8.25" Diastolic blood pressure 50 mm[Hg] 50 mm[Hg] [facility] ([facility]) Systolic blood pressure 138 mm[Hg] 138 mm[Hg] [facility] Oxygen saturation in Arterial blood by Pulse oximetry 99 % 99 % [facility] Body mass index (BMI) [Ratio] 23.0 kg/m2 23.0 k g/m2 [facility] ([facility] Body weight 151.25 [lb_av] 151.25 [lb_av] [facility] ([facility]) Body height 68 [in_i] 68 [in_i] [facility] ([facility]) 5'8" Heart rate 81 /min 81 /min [facility] ([facility]) Diastolic blood pressure 80 mm[Hg] 80 mm[Hg] [facility] ([facility] ) Systolic blood pressure 126 mm[Hg] 126 mm[Hg] [facility] Body mass index (BMI) [Ratio] 22.6 kg/m2 22.6 k g/m2 MEDENT ([facility]) Oxygen saturation in Arterial blood by Pulse oximetry 97 % 97 % MED[facility] ([facility]) Body weight 150.00 [lb_av] 150.00 [lb_av] MEDEN T ([facility]) Body height 68.25 [in_i] 68.25 [in_i] MEDENT ([facility]) 8.25" Heart rate 68 /min 68 /min MED[facility] ([facility]) Body mass index (BMI) [Ratio] 22.6 kg/m2 22.6 k g/m2 MED[facility] ([facility]) Body weight 150.00 [lb_av] 150.00 [lb_av] MEDEN T ([facility]) Body height 68.25 [in_i] 68.25 [in_i] [facility] 8.25" Heart rate 68 /min 68 /min MED[facility] ([facility]) Diastolic blood pressure 62 mm[Hg] 62 mm[Hg] MEDENT ([facility]) Systolic blood pressure 144 mm[Hg] 144 mm[Hg] [facility] Heart rate 64 /min 64 /min MEDENT ([facility]) Diastolic blood pressure 76 mm[Hg] 76 mm[Hg] [facility] ([facility]) Systolic blood pressure 146 mm[Hg] 146 mm[Hg] [facility] Body mass index (BMI) [Ratio] 22.6 kg/m2 22.6 k g/m2 MEDENT ([facility]) Body weight 150.00 [lb_av] 150.00 [lb_av] MEDEN T ([facility]) Body height 68.25 [in_i] 68.25 [in_i] MEDENT ([facility]) 58.25" Respiratory rate 16 /min 16 /min MEDENT ( [facility]) Body temperature 98.0 [degF] 98.0 [degF] MEDENT ([facility]) Oxygen saturation in Arterial blood by Pulse oximetry 99 % 99 % MED[facility] ([facility] ) Body mass index (BMI) [Ratio] 22.3 kg/m2 22.3 k g/m2 MED[facility] ([facility] ) Body weight 147.00 [lb_av] 147.00 [lb_av] MEDEN T ([facility] ) Body height 68 [in_i] 68 [in_i] MED[facility] ([facility] ) 5'8" Heart rate 68 /min 68 /min MED[facility] ([facility]) Diastolic blood pressure 68 mm[Hg] 68 mm[Hg] [facility] ([facility]) Systolic blood pressure 124 mm[Hg] 124 mm[Hg] M EDENT ([facility]) Body weight 152.00 [lb_av] 152.00 [lb_av] MEDEN T ([facility]) Heart rate 62 /min 62 /min MED[facility] ([facility]) Diastolic blood pressure 70 mm[Hg] 70 mm[Hg] [facility] ([facility]) Systolic blood pressure 128 mm[Hg] 128 mm[Hg] M EDENT ([facility]) Deprecated Oxygen saturation in Capillary blood by Oximetry 96 % Normal (applies to non-numeric results) 96 % [facility] Body temperature 37.0 herminio Normal (applies to non-numeric results) 37.0 herminio [facility] Respiratory rate 18 min Normal (applies to non-numeric results) 18 min [facility] Heart rate 59 min Normal (applies to non-numeric resul ts) 59 min [facility] Diastolic blood pressure 64 mm[Hg] Normal (applies to non-numeric results) 64 mm[Hg] [facility] Systolic blood pressure 139 mm[Hg] Normal (applies t o non-numeric results) 139 mm[Hg] [facility] Body height 171.9072 cm Normal (applies to non-numeric res ults) 171.9072 cm [facility] Body weight Measured 72.6 kg Normal (applies to non-num jade results) 72.6 kg [facility] Body mass index (BMI) [Ratio] 24.34 kg/m2 No rmal (applies to non-numeric results) 24.34 kg/m2 [facility] Oxygen saturation in Arterial blood by Pulse oximetry 98 % 98 % MED[facility] ([facility]) Body mass index (BMI) [Ratio] 23.2 kg/m2 23.2 k g/m2 [facility] ([facility]) Body weight 152.50 [lb_av] 152.50 [lb_av] MEDEN T ([facility]) Body height 68 [in_i] 68 [in_i] [facility] 5'8" Heart rate 65 /min 65 /min [facility] ([facility]) Diastolic blood pressure 58 mm[Hg] 58 mm[Hg] [facility] ([facility]) Systolic blood pressure 122 mm[Hg] 122 mm[Hg] M EDENT ([facility]) Body weight 155.00 [lb_av] 155.00 [lb_av] MEDEN T ([facility]) Oxygen saturation in Arterial blood by Pulse oximetry 99 % 99 % [facility] ([facility] ) Body mass index (BMI) [Ratio] 24.1 kg/m2 24.1 k g/m2 [facility] ([facility]) Body weight 158.25 [lb_av] 158.25 [lb_av] MEDEN T ([facility] ) Body height 68 [in_i] 68 [in_i] [facility] ([facility] ) 5'8" Heart rate 59 /min 59 /min [facility] ([facility] ) Diastolic blood pressure 68 mm[Hg] 68 mm[Hg] [facility] ([facility]) Systolic blood pressure 130 mm[Hg] 130 mm[Hg] M EDENT ([facility] ) Oxygen saturation in Arterial blood by Pulse oximetry 99 % 99 % [facility] ([facility] ) Body mass index (BMI) [Ratio] 23.4 kg/m2 23.4 k g/m2 [facility] ([facility] ) Body weight 154.12 [lb_av] 154.12 [lb_av] MEDEN T ([facility] ) Body height 68 [in_i] 68 [in_i] [facility] ([facility] ) 5'8" Heart rate 59 /min 59 /min [facility] ([facility] ) Diastolic blood pressure 60 mm[Hg] 60 mm[Hg] [facility] ([facility]) Systolic blood pressure 124 mm[Hg] 124 mm[Hg] M EDENT ([facility] ) Oxygen saturation in Arterial blood by Pulse oximetry 100 % 100 % [facility] ([facility]) Body mass index (BMI) [Ratio] 24.1 kg/m2 24.1 k g/m2 [facility] ([facility]) Body weight 158.38 [lb_av] 158.38 [lb_av] MEDEN T ([facility]) Body height 68 [in_i] 68 [in_i] [facility] ([facility]) 5'8" Heart rate 58 /min 58 /min [facility] ([facility]) Diastolic blood pressure 68 mm[Hg] 68 mm[Hg] [facility] ([facility]) Systolic blood pressure 130 mm[Hg] 130 mm[Hg] M EDENT ([facility]) Patient Treatment Plan of Care Planned Activity Planned Date Details Description Data Source (s) Albuterol Sulfate HFA 108 (90 Base) MCG/ACT 04/28/2020 01:00:00 AM [facility]T [facility] Aspirin 81 81 MG 04/28/2020 01:00:00 AM EDT [facility] ([facility]) Atorvastatin Calcium 40 MG 04/28/2020 01:00:00 AM EDT [facility] ([facility]) Docusate Sodium 100 MG 04/28/2020 01:00:00 AM EDT [facility] ([facility]) Finasteride 5 MG 04/28/2020 01:00:00 AM EDT [facility] ([facility]) hydroCHLOROthiazide 12.5 MG 04/28/2020 01:00:00 AM EDT [facility] ([facility]) Lisinopril 20 MG 04/28/2020 01:00:00 AM EDT [facility] ([facility]) Calcium 500 + D 500-125 MG-UNIT 04/28/2020 01:00:00 AM EDT [facility] ([facility]) Flonase 50 MCG/ACT 04/28/2020 01:00:00 AM EDT [facility]T ([facility]) Multivitamin Adult 04/28/2020 01:00:00 AM EDT [facility]T [facility]) PreserVision AREDS 04/28/2020 01:00:00 AM EDT [facility]T ([facility]) Vitamin B12 1000 MCG 04/28/2020 01:00:00 AM EDT [facility]T ([facility]) Vitamin D 2000 UNIT 04/28/2020 01:00:00 AM EDT [facility]T ([facility]) Nitroglycerin 0.4 MG 04/28/2020 01:00:00 AM EDT [facility]T ([facility]) Tamsulosin HCl 0.4 MG 04/28/2020 01:00:00 AM EDT [facility]) Coumadin 5 MG 04/28/2020 01:00:00 AM EDT [facility] ([facility]) Metoprolol Succinate ER 25 MG 04/28/2020 01:00:00 AM EDT [facility] ([facility]) NovoLOG 100 UNIT/ML 04/28/2020 01:00:00 AM EDT [facility] ([facility])
--- NOTE | 2020-09-22 17:50 | HPEPDOC ---
General Date of Admission 09/22/20 Date of Service: Sep 22, 2020 Chief Complaint The patient is a 85-year-old male admitted with a reason for visit of Elevated Blood Sugar. Source: RN/MD History of Present Illness 85 year old male a resident of [facility] was sent to ED for "HIGH" blood sugars. He has been having problems with his blood sugar levels for the past several days. He reports that his insulin pump was working. He did have a problem with the pump about 3 weeks ago then it was working. His sugar in the ED was over 800. He had high ketones in blood, and high anion gap metabolic acidosis. He is admitted for DKA. He was also noted to have Supratherapeutic INR. Patient complained of nausea and had 2 episodes of vomiting. denied any abdominal pain or chest pain. He does report taht he has been feeling confused today and is having trouble remembering usual things. He says he checks his INR every week at home. Patient and his live together at [facility]. Home Medications Scheduled Aspirin (Aspirin EC) 81 Mg Tablet.dr, 81 MG PO QHS, (Reported) Atorvastatin Calcium (Atorvastatin Calcium) 40 Mg Tablet, 40 MG PO QHS, (Reported) Calcium Carbonate/Vitamin D3 (Calcium 500-Vit D3 400 Tablet) 1 Each Tablet, 1 TAB PO BID, (Reported) Cholecalciferol (Vitamin D3) (Vitamin D3) 25 Mcg Tab.chew, 25 MCG PO DAILY, ( Reported) Docusate Sodium (Docusate Sodium) 100 Mg Capsule, 200 MG PO DAILY, (Reported) Hydrochlorothiazide (Hydrochlorothiazide) 12.5 Mg Tablet, 12.5 MG PO DAILY, (Reported) Lisinopril (Lisinopril) 10 Mg Tablet, 10 MG PO DAILY, (Reported) Lisinopril (Lisinopril) 20 Mg Tablet, 20 MG PO QHS, (Reported) TAKE 10MG IF SBP<110 Metoprolol Succinate (Metoprolol Succinate) 25 Mg Tab.er.24h, 25 MG PO DAILY, (Reported) Multivitamins (Thera M Plus Tablet) 1 Each Tablet, 1 TAB PO DAILY, (Reported) Tamsulosin HCl (Flomax) 0.4 Mg Capsule, 0.8 MG PO QPM, (Reported) Warfarin Sodium (Warfarin Sodium) 5 Mg Tablet, 7.5 MG PO 6XWK, (Reported) SAT/SUN/SUN//SUN/ Warfarin Sodium (Warfarin Sodium) 5 Mg Tablet, 10 MG PO QWEEK, (Reported) FRIDAYS Allergies Coded Allergies: ciprofloxacin (Verified Adverse Reaction, Intermediate, KILLED BACTERIA IN GUT, PROLONGED PROBLEMS, 09/22/20) codeine (Verified Adverse Reaction, Mild, VOMITING, 09/22/20) Past Medical History Medical History Coronary artery disease, status post coronary artery bypass graft (CABG). Diabetes on insulin pump Hypertension. CKD Hyperlipidemia. Benign prostatic hypertrophy (BPH). Atrial fibrillation on Coumadin. Childhood asthma. Strangulated internal hernia s/p bowel resection and anastomosis in 2017 Surgical History Closed loop small bowel obstruction with intestinal hemorrhage and ischemia. (strangulated internal hernia) s/p Exploratory laparotomy, resection of small bowel (3.5 to 4 feet of distal ileum), with anastomosis. Lysis of adhesions was also performed. Bilateral Cataract surgery Appendectomy. Tonsillectomy. CABG. Family History Significant Family History: Diabetes, Heart disease Social History * Smoker: former Smoker Alcohol: Denies Drugs: denies A-FIB/CHADSVASC A-FIB History Current/History of A-Fib/PAF?: Yes Current PO Anticoag Therapy: Yes Review of Systems Constitutional: Reports: Chills, Weakness, Fatigue; Denies: Fever, Night Sweats Eyes: Denies: Pain, Vision change ENT: Denies: Head Aches, Ear Pain, Dysphagia Skin: Denies: Rash, Lesions, Breakdown Pulmonary: Denies: Dyspnea, Cough Cardiovascular: Denies: Chest Pain, Palpitations, Orthopnea, Paroxysmal Noc. Dyspnea, Lt Headedness Gastrointestinal: Reports: Nausea, Vomiting Genitourinary: Reports: Frequency; Denies: Dysuria, Incontinence Hematologic: Denies: Bruising, Bleeding Excessively Musculoskeletal: Denies: Neck Pain, Back Pain Physical Examination General Exam: Positive: Alert, Cooperative, No Acute Distress Eye Exam: Positive: PERRLA, Conjunctiva & lids normal, EOMI; Negative: Sclera icteric ENT Exam: Positive: Atraumatic, Mucous membr. moist/pink, Pharynx Normal Neck Exam: Positive: Supple; Negative: JVD, thyromegaly Chest Exam: Positive: Clear to auscultation, Normal air movement Heart Exam: Positive: Rate Normal, Regular Rhythm, Normal S1, Normal S2; Negative: Murmurs, Rubs Abdomen Exam: Positive: Normal bowel sounds, Soft; Negative: Tenderness, Hepatospenomegaly Extremity Exam: Positive: Normal pulses; Negative: Clubbing, Cyanosis, Edema Vital Signs Vital Signs Date Time Temp Pulse Resp B/P (MAP) Pulse Ox O2 Delivery O2 Flow Rate FiO2 09/22/20 14:40 98.2 106 18 128/56 (80) 100 Room Air Laboratory Data Labs 24H Laboratory Tests 2 09/22/20 15:01: Immature Granulocyte % (Auto) 0.8, Neutrophils (%) (Auto) 90.3H, Lymphocytes (%) (Auto) 2.9L, Monocytes (%) (Auto) 5.7H, Eosinophils (%) (Auto) 0.1, Basophils (%) (Auto) 0.2, Neutrophils # (Auto) 15.6H, Lymphocytes # (Auto) 0.5L, Monocytes # (Auto) 1.0H, Eosinophils # (Auto) 0.0, Basophils # (Auto) 0.0, Nucleated Red Blood Cells % (auto) 0.0, Blood Gas Bicarbonate Standard 14.9, Venous Blood pH 7.273L, Venous Blood Partial Pressure CO2 29.8L, Venous Blood Partial Pressure O2 98.0H, Venous Blood Total Carbon Dioxide 14.4L, Venous Blood HCO3 13.5L, Venous Blood Oxygen Saturation 96.6H, Venous Blood Base Excess -12.1L, Anion Gap 17H, Glomerular Filtration Rate 34.3L, Estimated Mean Plasma Glucose 177H, Hemoglobin A1c 7.8, Osmolality 331H, Calcium Level 9.3, Total Bilirubin 1.2H, Direct Bilirubin 0.5H, Aspartate Amino Transf (AST/SGOT) 17, Alanine Aminotransferase (ALT/SGPT) 25, Alkaline Phosphatase 79, Total Protein 6.6, Albumin 3.9, Albumin/Globulin Ratio 1.4, Lipase 360, B-Hydroxybutyrate 29.64H CBC/BMP Laboratory Tests 09/22/20 15:01 Assessment/Plan 85 year old male from [facility] was admitted for DKA. DKA possibility of insulin pump not working properly or Patient now being unable to manage the pump any more. He reports that he has been using insulin pump for the past 17 years. \\will call company tomorrow to come an evaluate the pump. IVF fluid x 2l then 150 cc/ hour. will have to be conservative with IVF as he is elderly and has CKD. Insulin infusion Basic q 6h Zofran and PPI blood cultures his A1c is 7.8 so this high sugars seems to be something acute. Coumadin toxicity probably due to dehydration and DKA will hold coumadin for now CKD Creatinine appears close to his baseline. will see if it improves with hydration Hold lisinopril and HCTZ at present. BPH Flomax. CAD/ CABG will check troponins and EKG continue ASA, betablocker and statin. hypertension will hold lisinopril adn HCTZ now only continue metoprolol. HLD statin Chronic afib rate controlled. Plan / VTE VTE Prophylaxis Ordered?: Yes JOE GILLETTE MD Sep 22, 2020 17:04
[2020-09-22] MEDS ORDERED: TAMSULOSIN 0.4 MG CAP PO SCH (18:00)
[2020-09-22] MEDS ORDERED: PANTOPRAZOLE 40MG VIAL (C9113 PER 1) IV SCH (18:00)
[2020-09-22] MEDS: INSULIN REGULAR IN 0.9 % NACL 100 UNIT in IV 1 EA IV SCH ×2 (18:08)
[2020-09-22] MEDS ORDERED: ASPIRIN 81 MG ENTERIC TAB PO SCH (21:00)
[2020-09-22] MEDS ORDERED: ATORVASTATIN 20 MG TAB PO SCH (21:00)
[2020-09-22 22:00] VITALS: BP 103/51
[2020-09-22 22:35] VITALS: BP 112/54
[2020-09-22] MEDS: ONDANSETRON 4MG/2ML VIAL IV PRN (23:03)
[2020-09-22] MEDS: NS 1,000 ML IV SCH (23:04)
[2020-09-22 23:30] VITALS: BP 96/48
[2020-09-23] VITALS (8 sets, daily range): BP systolic 91–113; BP diastolic 47–58
--- NOTE | 2020-09-23 00:47 | ECGEPIP ---
[facility] - ED Test Date: 2020-09-22 Pat Name: TAMARA MICHAEL Department: Room: - Gender: Male Manager Functional: jeanette : 1935 Requested By: ROSITA White Order Number: [id number] Reading MD: Cj Stovall Measurements Intervals [place] Rate: 107 P: 87 DE: 161 QRS: 89 QRSD: 104 T: 51 QT: 315 QTc: 421 Interpretive Statements SINUS TACHYCARDIA LEFT ATRIAL ENLARGEMENT NSTTW ABNORMALITY(S) SIMILAR TO 04/19/20 Electronically Signed on 09-23-2020 0:47:04 EST by Cj Stovall
[2020-09-23 00:52] LABS: CALCIUM LEVEL 8.7 MG/DL (8.8-10.2); CREATININE FOR GFR 1.81 MG/DL (0.70-1.30); GLOMERULAR FILTRATION RATE 38.3 (>35); POTASSIUM SERUM 3.3 MEQ/L (3.5-5.1); TROPONIN I 4.13 NG/ML (< 0.10)
[2020-09-23 01:11] LABS: INR 3.71; PROTHROMBIN TIME 37.6 SECONDS (12.5-14.3)
[2020-09-23 01:12] LABS: PARTIAL THROMBOPLASTIN TIME 70.2 SECONDS (24.2-38.5)
[2020-09-23] MEDS: NS 1,000 ML IV SCH (01:40)
[2020-09-23] MEDS ORDERED: ACETAMINOPHEN TAB 650MG DOSE (2X325MG) PO PRN (02:00)
--- NOTE | 2020-09-23 02:48 | IPNPDOC ---
Text Note Date of Service The patient was seen on 09/23/20. NOTE Trop went up from 0.63 to 4.13. I attempted to transfer the patient to [facility] and [facility] which both were at capacity. [facility] was able to connect me with Dr. Grewal who I discussed the case with. He reviewed the results of the cardiac cath one at [facility] past April which were patent. He believes the troponin elevation is 2/2 the DKA. He recommended against a heparin drip as patient is therapeutic on Coumadin. He doesnt think theres indication in urgent transfer overnight for a cath. He advised me to call back with an update to the team at 8am and potentially transfer the patient to [facility] at that time for a none urgent cath. He advised me to control any chest pain with nitras for now but should the patient develop any uncontrolled chest pain overnight we wo uld proceed with urgent transfer. Currently patient is chest pain free. He also advised against trending troponins at this time, indicating that once elevated theres no benefit to continue trending them. I discussed the case with Dr. Love who agreed with the plan. The transfer center at [facility] has saved all the information and is expecting a call in the morning possibly to proceed with the transfer if appropriate. I discussed the case with the patient who agrees to the plan. VS,Yeni, I+O VSYeni, I+O Laboratory Tests 09/22/20 15:01 09/23/20 00:03 Vital Signs Date Time Temp Pulse Resp B/P (MAP) Pulse Ox O2 Delivery O2 Flow Rate FiO2 09/23/20 00:00 98.8 87 20 92/51 (65) 100 Room Air I&O- Last 24 Hours up to 6 AM 09/23/20 06:00 Intake Total 2285 ml Output Total 0 ml Balance 2285 ml TRE MOFFETT MD Sep 23, 2020 02:47
[2020-09-23] MEDS ORDERED: INSULIN REGULAR 100UNITS IN 0.9% SODIUM CHLORIDE 100ML IVBAG As Ordered ONE (03:09)
[2020-09-23] MEDS: INSULIN REGULAR IN 0.9 % NACL 100 UNIT in IV 1 EA IV SCH ×2 (03:16)
[2020-09-23] MEDS ORDERED: LEVEMIR (INSULIN DETEMIR) 1 UNITS/0.01ML SC SCH ×2 (03:30→09:45)
[2020-09-23] MEDS ORDERED: D5W/0.45% SODIUM CHLORIDE 1,000 ML IV SCH (03:30)
[2020-09-23 04:11] LABS: BASO % 0.1 % (0.0-1.0); HEMATOCRIT 27.4 % (42.0-52.0); HEMOGLOBIN 8.7 g/dl (13.5-17.5); LYMPH % 5.6 % (24.0-44.0); MEAN CORPUSCULAR HEMOGLOBIN 29.9 pg (27.0-33.0); MEAN CORPUSCULAR HGB CONC 31.8 g/dl (32.0-36.5); MEAN CORPUSCULAR VOLUME 94.2 fl (80.0-96.0); MONO # 1.9 10^3/uL (0.0-0.8); MONO % 10.1 % (0.0-5.0); NEUTROPHILS # 15.5 10^3/uL (1.5-8.5); NEUTROPHILS % 83.7 % (36.0-66.0); PLATELET COUNT, AUTOMATED 169 10^3/uL (150-450); RED BLOOD COUNT 2.91 10^6/uL (4.30-6.10); WHITE BLOOD COUNT 18.5 10^3/uL (4.0-10.0)
[2020-09-23 04:22] LABS: INR 4.53; PROTHROMBIN TIME 44.1 SECONDS (12.5-14.3)
[2020-09-23 04:45] LABS: ACETONE/KETONE 0.88 MG/DL (<2.81); CALCIUM LEVEL 8.4 MG/DL (8.8-10.2); CREATININE FOR GFR 1.59 MG/DL (0.70-1.30); GLOMERULAR FILTRATION RATE 44.5 (>35); MAGNESIUM LEVEL 1.8 MG/DL (1.8-2.4); PHOSPHORUS LEVEL 1.4 MG/DL (2.5-4.9); POTASSIUM SERUM 3.6 MEQ/L (3.5-5.1)
[2020-09-23] MEDS ORDERED: GLUCOSE 4GM CHEW TABLET PO PRN (05:15)
[2020-09-23] MEDS ORDERED: GLUCAGON INJ 1MG VIAL SC PRN (05:15)
[2020-09-23] MEDS ORDERED: DEXTROSE 50% 50 ML SYRINGE IV PRN (05:15)
[2020-09-23] MEDS: HumaLOG INSULIN (NovoLOG) PER UNIT SC SCH ×2 (07:50→12:26)
[2020-09-23 08:26] LABS: CALCIUM LEVEL 8.4 MG/DL (8.8-10.2); CREATININE FOR GFR 1.62 MG/DL (0.70-1.30); GLOMERULAR FILTRATION RATE 43.5 (>35); POTASSIUM SERUM 3.9 MEQ/L (3.5-5.1)
[2020-09-23] MEDS ORDERED: METOPROLOL SUCC *XL* 25MG TAB (TopROL *XL*) PO SCH (09:00)
--- NOTE | 2020-09-23 11:39 | DS.PDOC ---
Discharge Summary General Date of Admission Sep 22, 2020 at 17:26 Date of Discharge 09/23/20 Discharge Summary PROCEDURES PERFORMED DURING STAY: [None]. DISCHARGE DIAGNOSES: NSTEMI DKA SIMA on CKD Coumadin toxicity Hypotension SECONDARY DIAGNOSIS: Coronary artery disease, status post coronary artery bypass graft (CABG). Diabetes on insulin pump Hypertension. CKD stage 3 Hyperlipidemia. Benign prostatic hypertrophy (BPH). Atrial fibrillation on Coumadin. Childhood asthma. Strangulated internal hernia s/p bowel resection and anastomosis in 2017 Closed loop small bowel obstruction with intestinal hemorrhage and ischemia. (strangulated internal hernia) s/p Exploratory laparotomy, resection of small amanda wel (3.5 to 4 feet of distal ileum), with anastomosis. Lysis of adhesions was also performed. Bilateral Cataract surgery Appendectomy. Tonsillectomy. CABG. COMPLICATIONS/CHIEF COMPLAINT: Coumadin Toxicity,Dka. HOSPITAL COURSE: 85 year old male with PMH of DM, CAD/CABG, Afib on coumadin, HTN, CKD stage 3, BPH from [facility] presented to [facility] ED for High sugars noted at home for 2 days. He uses a insulin pump so it was felt possibly it was not working. He was found to be in DKA. He was also noted to have supratherapeutic INR. On admission his sugars were > 800. He was dehydrated and had SIMA on CKD. He was admitted to ICU and started on insulin infusion and IVF. His initial troponins was 0.6. he did not have any chest pain or any EKG changes. His repeat troponin was 4. 6 after 6 hours. He was placed for transfer to [place] and the lead accountant at night felt it was probably due to DKA and did not need transfer for emergent cardiac cath. He did have a cardiac Cath in April 2020 at [facility] which he had reviewed and there was not significant obstruction seen at that time. He did recommended to call back in the morning and speak with the day team regarding a transfer for a non urgent cardiac cath. I called back this morning and he was accepted by [facility] under the hospitalist service. At present his DKA has resolved. His SIMA has improved. His blood pressure was soft overnight with lowest being 96/46 but he was not tachycardic, he was making good urine and he did nto have any mental status changes. He was continued on IVF. NSTEMI No chest pain, no acute EKG changes, no Arrhythmias on telemetry. on asa, statin, metoprolol, Coumadin with supratherapeutic INR being transferred to [facility] for possible cardiac cath. DKA resolved On levemir and lispro his A1c is 7.8 so this high sugars seems to be something acute. Coumadin toxicity probably due to dehydration and DKA will hold coumadin for now SIMA on CKD SIMA has resolved. Creatinine now appears to be at baseline. Creatinine appears close to his baseline. will see if it improves with hydration Hold lisinopril and HCTZ at present. BPH Flomax. CAD/ CABG will check troponins and EKG continue ASA, betablocker and statin. hypertension will hold lisinopril and HCTZ now only continue metoprolol. HLD statin Chronic afib rate controlled. Coumadin on hold due to supra therapeutic INR. DISCHARGE MEDICATIONS: Please see below. ALLERGIES: Please see below. PHYSICAL EXAMINATION ON DISCHARGE: VITAL SIGNS: Please see below. General Exam: Positive: Alert, Cooperative, No Acute Distress Eye Exam: Positive: PERRLA, Conjunctiva & lids normal, EOMI; Negative: Sclera icteric ENT Exam: Positive: Atraumatic, Mucous membr. moist/pink, Pharynx Normal Neck Exam: Positive: Supple; Negative: JVD, thyromegaly, Carotid bruit present on left. Chest Exam: Positive: Clear to auscultation, Normal air movement Heart Exam: Positive: Rate Normal, Regular Rhythm, Normal S1, Normal S2; Systolic Murmur present. Negative: Gallop or Rubs Abdomen Exam: Positive: Normal bowel sounds, Soft; Negative: Tenderness, Hepatosplenomegaly Extremity Exam: Positive: Normal pulses; Negative: Clubbing, Cyanosis, Edema LABORATORY DATA: Please see below. ACTIVITY: [As tolerated]. DIET: Carb consistent DISCHARGE PLAN: Transfer to [facility]. DISCHARGE CONDITION: [Stable]. TIME SPENT ON DISCHARGE: 35 minutes. Vital Signs/I&Os Vital Signs Date Time Temp Pulse Resp B/P (MAP) Pulse Ox O2 Delivery O2 Flow Rate FiO2 09/23/20 09:27 75 104/48 09/23/20 08:00 99.0 20 97 Room Air I&O- Last 24 Hours up to 6 AM 09/23/20 06:00 Intake Total 3304 ml Output Total 0 ml Balance 3304 ml Laboratory Data Labs 24H Laboratory Tests 2 09/22/20 15:01: Immature Granulocyte % (Auto) 0.8, Neutrophils (%) (Auto) 90.3H, Lymphocytes (%) (Auto) 2.9L, Monocytes (%) (Auto) 5.7H, Eosinophils (%) (Auto) 0.1, Basophils (%) (Auto) 0.2, Neutrophils # (Auto) 15.6H, Lymphocytes # (Auto) 0.5L, Monocytes # (Auto) 1.0H, Eosinophils # (Auto) 0.0, Basophils # (Auto) 0.0, Nucleated Red Blood Cells % (auto) 0.0, Blood Gas Bicarbonate Standard 14.9, Venous Blood pH 7.273L, Venous Blood Partial Pressure CO2 29.8L, Venous Blood Partial Pressure O2 98.0H, Venous Blood Total Carbon Dioxide 14.4L, Venous Blood HCO3 13.5L, Venous Blood Oxygen Saturation 96.6H, Venous Blood Base Excess -12.1L, Anion Gap 17H, Glomerular Filtration Rate 34.3L, Estimated Mean Plasma Glucose 177H, Hemoglobin A1c 7.8, Osmolality 331H, Calcium Level 9.3, Total Bilirubin 1.2H, Direct Bilirubin 0.5H, Aspartate Amino Transf (AST/SGOT) 17, Alanine Aminot ransferase (ALT/SGPT) 25, Alkaline Phosphatase 79, Total Protein 6.6, Albumin 3.9, Albumin/Globulin Ratio 1.4, Lipase 360, B-Hydroxybutyrate 29.64H 09/22/20 15:29: Bedside Glucose (Misc Panel) > 600*H 09/22/20 16:52: Urine Color STRAW, Urine Appearance CLEAR, Urine pH 5.0, Urine Specific [place] 1.020, Urine Protein NEGATIVE, Urine Glucose (UA) 3+H, Urine Ketones 1+H, Urine Blood NEGATIVE, Urine Nitrite NEGATIVE, Urine Bilirubin NEGATIVE, Urine Urobilinogen 0.2, Urine Leukocyte Esterase NEGATIVE, Urine WBC (Auto) 1, Urine RBC (Auto) 1, Urine Hyaline Casts (Auto) 0, Urine Bacteria (Auto) NEGATIVE, Urine Squamous Epithelial Cells 0, Urine Sperm (Auto) 09/22/20 18:06: Bedside Glucose (Misc Panel) > 600*H 09/22/20 18:26: Troponin I 0.63H 09/22/20 18:59: Bedside Glucose (Misc Panel) > 600*H 09/22/20 20:14: Bedside Glucose (Misc Panel) > 600*H 09/22/20 21:23: Bedside Glucose (Misc Panel) 515*H 09/22/20 22:38: Bedside Glucose (Misc Panel) 455H 09/22/20 23:48: Bedside Glucose (Misc Panel) 408H 09/23/20 00:03: Prothrombin Time 37.6H, Prothromb Time International Ratio 3.71, Activated Parti al Thromboplast Time 70.2H, Anion Gap 8, Glomerular Filtration Rate 38.3, Calcium Level 8.7L, Troponin I 4.13#*H 09/23/20 00:42: Bedside Glucose (Misc Panel) 329H 09/23/20 01:39: Bedside Glucose (Misc Panel) 256H 09/23/20 03:02: Bedside Glucose (Misc Panel) 164H 09/23/20 04:00: Bedside Glucose (Misc Panel) 123H 09/23/20 04:02: Immature Granulocyte % (Auto) 0.5, Neutrophils (%) (Auto) 83.7H, Lymphocytes (%) (Auto) 5.6L, Monocytes (%) (Auto) 10.1H, Eosinophils (%) (Auto) 0.0, Basophils (%) (Auto) 0.1, Neutrophils # (Auto) 15.5H, Lymphocytes # (Auto) 1.0L, Monocytes # (Auto) 1.9H, Eosinophils # (Auto) 0.0, Basophils # (Auto) 0.0, Nucleated Red Blood Cells % (auto) 0.0, Anion Gap 7L, Glomerular Filtration Rate 44.5, Calcium Level 8.4L, Phosphorus Level 1.4L, Magnesium Level 1.8, B-Hydroxybutyrate 0.88 09/23/20 04:03: Prothrombin Time 44.1H, Prothromb Time International Ratio 4.53 09/23/20 04:46: Bedside Glucose (Misc Panel) 170H 09/23/20 07:31: Bedside Glucose (Misc Panel) 217H 09/23/20 07:45: Anion Gap 8, Glomerular Filtration Rate 43.5, Calcium Level 8.4L CBC/BMP Laboratory Tests 09/22/20 15:01 09/23/20 00:03 09/23/20 04:02 09/23/20 07:45 FSBS Laboratory Tests Test 09/22/20 15:29 09/22/20 18:06 09/22/20 18:59 09/22/20 20:14 Range/Units Bedside Glucose (Misc Panel) > 600 > 600 > 600 > 600 83-110 MG/DL Test 09/22/20 21:23 09/22/20 22:38 09/22/20 23:48 09/23/20 00:42 Range/Units Bedside Glucose (Misc Panel) 515 455 408 329 83-110 MG/DL Test 09/23/20 01:39 09/23/20 03:02 09/23/20 04:00 09/23/20 04:46 Range/Units Bedside Glucose (Misc Panel) 256 164 123 170 83-110 MG/DL Test 09/23/20 07:31 Range/Units Bedside Glucose (Misc Panel) 217 83-110 MG/DL Microbiology Microbiology 09/22/20 Respiratory Virus Panel (PCR) (DANICA) - Final, Complete 09/22/20 Blood Culture, Received Pending Discharge Medications Scheduled Aspirin (Aspirin EC) 81 Mg Tablet.dr, 81 MG PO QHS, (Reported) Atorvastatin Calcium (Atorvastatin Calcium) 40 Mg Tablet, 40 MG PO QHS, (Reported) Calcium Carbonate/Vitamin D3 (Calcium 500-Vit D3 400 Tablet) 1 Each Tablet, 1 TAB PO BID, (Reported) Cholecalciferol (Vitamin D3) (Vitamin D3) 25 Mcg Tab.chew, 25 MCG PO DAILY, (Reported) Docusate Sodium (Docusate Sodium) 100 Mg Capsule, 200 MG PO DAILY, (Reported) Hydrochlorothiazide (Hydrochlorothiazide) 12.5 Mg Tablet, 12.5 MG PO DAILY, (Reported) Lisinopril (Lisinopril) 10 Mg Tablet, 10 MG PO DAILY, (Reported) Lisinopril (Lisinopril) 20 Mg Tablet, 20 MG PO QHS, (Reported) TAKE 10MG IF SBP<110 Metoprolol Succinate (Metoprolol Succinate) 25 Mg Tab.er.24h, 25 MG PO DAILY, (Reported) Multivitamins (Thera M Plus Tablet) 1 Each Tablet, 1 TAB PO DAILY, (Reported) Tamsulosin HCl (Flomax) 0.4 Mg Capsule, 0.8 MG PO QPM, (Reported) Warfarin Sodium (Warfarin Sodium) 5 Mg Tablet, 7.5 MG PO 6XWK, (Reported) SAT/SUN/SUN//SUN/ Warfarin Sodium (Warfarin Sodium) 5 Mg Tablet, 10 MG PO QWEEK, (Reported) FRIDAYS Allergies Coded Allergies: ciprofloxacin (Verified Adverse Reaction, Intermediate, KILLED BACTERIA IN GUT, PROLONGED PROBLEMS, 09/22/20) codeine (Verified Adverse Reaction, Mild, VOMITING, 09/22/20) JOE GILLETTE MD Sep 23, 2020 11:39
[2020-09-23] MEDS: ONDANSETRON 4MG/2ML VIAL IV PRN (12:26)
--- NOTE | 2020-09-23 19:20 | ECGEPIP ---
[facility] Test Date: 2020-09-23 Pat Name: TAMARA MICHAEL Department: Room: [place] [address] Gender: Male Client Service Manager: EMELY : 1935 Requested By: TRE Mcduffie Order Number: [id number] Reading MD: Vicki Whitten Measurements Intervals [place] Rate: 85 P: 83 [place]: 177 QRS: 65 QRSD: 106 T: 36 QT: 357 QTc: 425 Interpretive Statements SINUS RHYTHM WITH SINUS ARRHYTHMIA COMPARED TO 09/22/20 STT ABNORMALITIES ARE NO LONNGER APPARENT Electronically Signed on 09-23-2020 19:20:43 EST by Vicki Whitten
--- NOTE | 2020-09-23 19:24 | ECGEPIP ---
[facility] Test Date: 2020-09-23 Pat Name: TAMARA MICHAEL Department: Room: [place] [address] Gender: Male Die Cleaner: GURPREET : 1935 Requested By: JOE GILLETTE Order Number: [id number] Reading MD: Vicki Whitten Measurements Intervals [place] Rate: 72 P: 71 NE: 166 QRS: 50 QRSD: 90 T: 47 QT: 335 QTc: 368 Interpretive Statements SINUS RHYTHM SIMILAR TO 1:10 SAME DAY Electronically Signed on 09-23-2020 19:23:38 EST by Vicki Whitten
[2020-09-23] MEDS ORDERED: HumaLOG INSULIN (NovoLOG) PER UNIT SC SCH (21:00)
== END 2020-09-23 12:50 | disposition short-term general hospital (02) | DRG 637 ==
LOC: M ED 14:05 → EDBD 14:05 → M ED INP 17:26 → M PCU 22:23
PROVIDERS: ADMIT Internal Medicine Nephrology; ATTEND Internal Medicine Nephrology
DX: E10.10 Type 1 diabetes mellitus with ketoacidosis without coma (principal); I21.4 Non-ST elevation (NSTEMI) myocardial infarction; N17.9 Acute kidney failure, unspecified; I48.20 Chronic atrial fibrillation, unspecified; I25.10 Atherosclerotic heart disease of native coronary artery without angina pectoris; N18.30 Chronic kidney disease, stage 3 unspecified; E78.5 Hyperlipidemia, unspecified; N40.0 Benign prostatic hyperplasia without lower urinary tract symptoms; Z79.01 Long term (current) use of anticoagulants; J45.909 Unspecified asthma, uncomplicated; E86.0 Dehydration; Z95.2 Presence of prosthetic heart valve; I12.9 Hypertensive chronic kidney disease with stage 1 through stage 4 chronic kidney disease, or unspecified chronic kidney disease; Z79.82 Long term (current) use of aspirin; Z79.899 Other long term (current) drug therapy; Z88.5 Allergy status to narcotic agent; Z88.8 Allergy status to other drugs, medicaments and biological substances

== ENCOUNTER → 2021-05-31 | Outpatient (REF) | payer MEDICARE, OTHER ==
[~2021-05-31] MED LIST changes: +ASPI-161 PO; +ASPI-569 PO; -ASPI81TAEC PO; +CALC500T25 PO; +DOCU100C16 PO; +HYDR12.55 PO; -LISI-538 PO; +LISI10TA22 PO; +LISI20TA33 PO; +VITA-256 PO; +WARF-22 PO; +WARF-23 PO
[2021-05-31 18:16] LABS: CREATININE, URINE 56.8 MG/DL; MALB URINE SIEMENS 5.2 MG/L; MAU/CREAT RATIO 9.1 MCG/MG (0.0-30.0)
== END ==
LOC: M LAB REF 17:01
PROVIDERS: ATTEND Nurse Practitioner Family
DX: E10.649 Type 1 diabetes mellitus with hypoglycemia without coma (principal)

== ENCOUNTER → 2021-08-09 | Outpatient (REF) | payer MEDICARE, OTHER ==
[~2021-08-09] MED LIST changes: +B-12100010 PO; +ELIQ5TAB PO; +FERR325T81 PO; +FLON1SPR NARES; -LISI10TA15 PO; +LISI10TA24 PO; +NITR0.4S14 SL; +NOVOINJ; +PROBCAP14 PO
[2021-08-09 17:43] LABS: PERCENT SATURATION 19.4 % (19.7-50.0)
== END ==
LOC: M LAB REF 16:49
PROVIDERS: ATTEND Internal Medicine
DX: D64.9 Anemia, unspecified (principal)

== ENCOUNTER → 2021-08-13 | Outpatient (CLI) | payer MEDICARE, OTHER ==
[~2021-08-13] MED LIST changes: +LISI10TA15 PO; -LISI10TA24 PO
== END ==
LOC: M LABSMTC 10:00
PROVIDERS: ATTEND Anesthesiology
DX: Z01.812 Encounter for preprocedural laboratory examination (principal); Z20.822 Contact with and (suspected) exposure to COVID-19

== ENCOUNTER 2021-08-18 06:08 | Inpatient (IN) | payer MEDICARE, OTHER ==
[~2021-08-18] VITALS: Ht 175.3 cm; Wt 72.6 kg
[~2021-08-18 06:08] MED LIST changes: +LIDOCAINE 1% MDV 20ML VIAL SQ PRN; -LISI10TA15 PO; +LISI10TA24 PO; +LR 1,000 ML IV ONE; +ceFAZolin SOD 2 GM in IV 1 EA IV ONE
[2021-08-18] MEDS ORDERED: BUPIVACAINE HCL 0.25% 30ML VIAL As Ordered ONE (07:10)
[2021-08-18] MEDS ORDERED: ROCURONIUM BROMIDE 50 MG/5 ML VIAL As Ordered ONE ×2 (07:19→09:09)
[2021-08-18] MEDS ORDERED: dexameTHASONE 4 MG/ML 1ML VIAL (J1100 PER 1MG) As Ordered ONE (07:19)
[2021-08-18] MEDS ORDERED: KETOROLAC 60MG 2ML VIAL As Ordered ONE (07:19)
[2021-08-18] MEDS ORDERED: ONDANSETRON 4MG/2ML VIAL As Ordered ONE (07:19)
[2021-08-18] MEDS ORDERED: fentaNYL 100 MCG/2 ML INJECTION As Ordered ONE (07:19)
[2021-08-18] MEDS ORDERED: propofoL 200 MG/20 ML VIAL As Ordered ONE (07:19)
[2021-08-18] MEDS ORDERED: LIDOCAINE 2% 100MG/5ML SDV (FOR ANES.) As Ordered ONE (07:19)
[2021-08-18] MEDS ORDERED: SUGAMMADEX SODIUM 500 MG/5 ML VIAL (BRIDION) As Ordered ONE (07:19)
[2021-08-18] MEDS ORDERED: ACETAMINOPHEN 1000MG 100ML IV BTL (OFIRMEV) (J0131 PER 10MG) As Ordered ONE (07:19)
[2021-08-18] MEDS ORDERED: MIDAZOLAM INJ 2MG/2ML VIAL (J2250 PER 1MG) As Ordered ONE (07:20)
[2021-08-18] MEDS ORDERED: LIDOCAINE 5% OINT 30GM TUBE As Ordered ONE (07:51)
[2021-08-18] MEDS ORDERED: PHENYLephrine 500MCG 5ML (100MCG/ML) SYRINGE As Ordered ONE (08:12)
[2021-08-18] MEDS ORDERED: ePHEDrine SULFATE 25 MG/5 ML(5MG/ML) SYRINGE As Ordered ONE (08:12)
[2021-08-18] MEDS ORDERED: HYDROmorphone HCL 2MG/ML 1ML VIAL As Ordered ONE (08:28)
[2021-08-18] MEDS ORDERED: BACITRACIN OINTMENT 30GM TUBE As Ordered ONE (11:55)
[2021-08-18] MEDS ORDERED: KETOROLAC 30 MG/ML 1ML VIAL IV PRN (12:10)
[2021-08-18] MEDS ORDERED: MORPHINE 2 MG/ML 1ML VIAL (J2270) IV PRN (12:10)
[2021-08-18] MEDS ORDERED: ONDANSETRON 4MG/2ML VIAL IV PRN ×2 (12:10→12:45)
[2021-08-18] MEDS ORDERED: METOCLOPRAMIDE INJ 10MG/2ML VIAL (J2765 PER 1) IV PRN ×2 (12:10→12:45)
[2021-08-18] MEDS ORDERED: fentaNYL 100 MCG/2 ML INJECTION IV PRN (12:45)
[2021-08-18] MEDS ORDERED: oxyCODONE 5MG TAB PO PRN (12:45)
[2021-08-18] MEDS ORDERED: HYDROMORPHONE HCL 0.5 MG/ 0.5 ML SYRINGE (J1170 PER 1) IV PRN (12:45)
[2021-08-18] MEDS ORDERED: LR 1,000 ML IV SCH (12:45)
[2021-08-18] MEDS: LR 1,000 ML IV SCH ×2 (14:35→21:07)
[2021-08-18 14:36] VITALS: BP 153/43
[2021-08-18 15:14] VITALS: BP 143/46
[2021-08-18 16:14] VITALS: BP 145/51
[2021-08-18] MEDS: MULTIVITAMINS/MINERALS THERAP 1 TAB PO SCH (16:32)
[2021-08-18] MEDS: DOCUSATE SODIUM 100MG CAPSULE PO SCH (16:32)
[2021-08-18] MEDS: hydroCHLOROthiazide 12.5 MG CAPSULE PO SCH (16:32)
[2021-08-18] MEDS: ACETAMINOPHEN TAB 650MG DOSE (2X325MG) PO PRN ×2 (16:33→21:12)
[2021-08-18 17:14] VITALS: BP 146/54
[2021-08-18 19:30] VITALS: BP 125/89
[2021-08-18] MEDS ORDERED: HumaLOG INSULIN (NovoLOG) PER UNIT SC SCH (21:00)
[2021-08-18] MEDS: ATORVASTATIN 20 MG TAB PO SCH (21:06)
[2021-08-18] MEDS: TAMSULOSIN 0.4 MG CAP PO SCH (21:06)
[2021-08-18] MEDS: ASPIRIN 81MG ENTERIC TABLET PO SCH (21:06)
[2021-08-18 22:00] VITALS: BP 133/51
[2021-08-19] MEDS: ACETAMINOPHEN TAB 650MG DOSE (2X325MG) PO PRN ×3 (01:28→21:08)
[2021-08-19 02:00] VITALS: BP 126/44
[2021-08-19 06:00] VITALS: BP 130/45
[2021-08-19] MEDS ORDERED: HumaLOG INSULIN (NovoLOG) PER UNIT SC SCH ×2 (07:30→21:00)
[2021-08-19 08:00] LABS: BASO % 0.1 % (0.0-1.0); EOS % 0.4 % (0.0-3.0); HEMATOCRIT 31.3 % (42.0-52.0); HEMOGLOBIN 10.1 g/dl (13.5-17.5); LYMPH # 0.8 10^3/uL (1.5-5.0); LYMPH % 7.4 % (24.0-44.0); MEAN CORPUSCULAR HEMOGLOBIN 31.2 pg (27.0-33.0); MEAN CORPUSCULAR HGB CONC 32.3 g/dl (32.0-36.5); MEAN CORPUSCULAR VOLUME 96.6 fl (80.0-96.0); MONO # 0.8 10^3/uL (0.0-0.8); MONO % 7.4 % (2.0-8.0); NEUTROPHILS # 8.5 10^3/uL (1.5-8.5); NEUTROPHILS % 84.3 % (36.0-66.0); PLATELET COUNT, AUTOMATED 150 10^3/uL (150-450); RED BLOOD COUNT 3.24 10^6/uL (4.30-6.10); WHITE BLOOD COUNT 10.1 10^3/uL (4.0-10.0)
[2021-08-19 08:23] LABS: BLOOD UREA NITROGEN 32 MG/DL (7-18); CALCIUM LEVEL 8.5 MG/DL (8.8-10.2); CARBON DIOXIDE LEVEL 26 MEQ/L (21-32); CHLORIDE LEVEL 105 MEQ/L (98-107); GLOMERULAR FILTRATION RATE > 60.0 (>35); GLUCOSE, FASTING 193 MG/DL (70-100); POTASSIUM SERUM 4.2 MEQ/L (3.5-5.1); SODIUM LEVEL 138 MEQ/L (136-145)
[2021-08-19] MEDS ORDERED: ENTER DRUG NAME HERE (PATIENT'S OWN MED) SC SCH (09:00)
[2021-08-19] MEDS: MULTIVITAMINS/MINERALS THERAP 1 TAB PO SCH (09:02)
[2021-08-19] MEDS: DOCUSATE SODIUM 100MG CAPSULE PO SCH (09:02)
[2021-08-19] MEDS: hydroCHLOROthiazide 12.5 MG CAPSULE PO SCH (09:02)
[2021-08-19] MEDS: METOPROLOL SUCC *XL* 25MG TAB (TopROL *XL*) PO SCH (09:03)
[2021-08-19 10:00] VITALS: BP 170/74
[2021-08-19 14:00] VITALS: BP 170/74
[2021-08-19] MEDS: ASPIRIN 81MG ENTERIC TABLET PO SCH (21:07)
[2021-08-19] MEDS: ATORVASTATIN 20 MG TAB PO SCH (21:08)
[2021-08-19] MEDS: TAMSULOSIN 0.4 MG CAP PO SCH (21:08)
[2021-08-19 22:00] VITALS: BP 134/50
[2021-08-19] MEDS ORDERED: GLUCAGON INJ 1MG VIAL SC PRN ×2 (22:30)
[2021-08-19] MEDS ORDERED: DEXTROSE 50% 50 ML SYRINGE IV PRN ×2 (22:30)
[2021-08-19] MEDS ORDERED: GLUCOSE 4GM CHEW TABLET PO PRN ×2 (22:30)
[2021-08-19] MEDS ORDERED: HumaLOG INSULIN (NovoLOG) PER UNIT SC ONE (23:10)
[2021-08-20 06:00] VITALS: BP 138/64
[2021-08-20] MEDS ORDERED: HumaLOG INSULIN (NovoLOG) PER UNIT SC SCH (07:30)
[2021-08-20] MEDS: DOCUSATE SODIUM 100MG CAPSULE PO SCH (08:12)
[2021-08-20] MEDS: MULTIVITAMINS/MINERALS THERAP 1 TAB PO SCH (08:12)
[2021-08-20] MEDS: hydroCHLOROthiazide 12.5 MG CAPSULE PO SCH (08:12)
[2021-08-20 08:15] VITALS: BP 105/88
[2021-08-20] MEDS ORDERED: APIXABAN 5 MG TAB (ELIQUIS) PO SCH (09:00)
[2021-08-20 10:01] VITALS: BP 143/59
[2021-08-20] MEDS: METOPROLOL SUCC *XL* 25MG TAB (TopROL *XL*) PO SCH (10:01)
== END 2021-08-20 12:18 | disposition home or self-care (01) | DRG 354 ==
LOC: M OR 06:08 → M MSPAV 14:40
PROVIDERS: ADMIT Surgery; ATTEND Surgery
PROC: 0WQF4ZZ Repair Abdominal Wall, Percutaneous Endoscopic Approach (ICD-10-PCS; 2021-08-18)
PROC: 8E0W3CZ Robotic Assisted Procedure of Trunk Region, Percutaneous Approach (ICD-10-PCS; 2021-08-18)
PROC: 0WUF4JZ Supplement Abdominal Wall with Synthetic Substitute, Percutaneous Endoscopic Approach (ICD-10-PCS; principal; 2021-08-18 07:30)
DX: K43.2 Incisional hernia without obstruction or gangrene (principal); I48.20 Chronic atrial fibrillation, unspecified; Z88.5 Allergy status to narcotic agent; Z88.2 Allergy status to sulfonamides; Z88.8 Allergy status to other drugs, medicaments and biological substances; Z79.82 Long term (current) use of aspirin; Z79.01 Long term (current) use of anticoagulants; Z79.899 Other long term (current) drug therapy; I25.10 Atherosclerotic heart disease of native coronary artery without angina pectoris; Z95.5 Presence of coronary angioplasty implant and graft; E11.9 Type 2 diabetes mellitus without complications; I10 Essential (primary) hypertension; E78.1 Pure hyperglyceridemia; N40.0 Benign prostatic hyperplasia without lower urinary tract symptoms; J45.909 Unspecified asthma, uncomplicated; Z90.49 Acquired absence of other specified parts of digestive tract

== ENCOUNTER → 2021-12-13 | Outpatient (REF) | payer MEDICARE, OTHER ==
[~2021-12-13] MED LIST changes: -LIDOCAINE 1% MDV 20ML VIAL SQ PRN; -LR 1,000 ML IV ONE; -ceFAZolin SOD 2 GM in IV 1 EA IV ONE
== END ==
LOC: M LAB REF 16:36
PROVIDERS: ATTEND Internal Medicine
DX: R53.83 Other fatigue (principal); L63.9 Alopecia areata, unspecified

== ENCOUNTER 2022-04-25 10:52 | Emergency (ER) | payer MEDICARE, OTHER ==
[~2022-04-25] VITALS: Ht 172.7 cm; Wt 76.4 kg
[2022-04-25 10:53] VITALS: BP 180/79
[2022-04-25] MEDS ORDERED: BACITRACIN OINTMENT 30GM TUBE TOP ONE (12:35)
== END 2022-04-25 13:43 | disposition home or self-care (01) ==
LOC: M ED 10:52
DX: S61.234A Puncture wound without foreign body of right ring finger without damage to nail, initial encounter (principal); S40.812A Abrasion of left upper arm, initial encounter; W01.190A Fall on same level from slipping, tripping and stumbling with subsequent striking against furniture, initial encounter; Y92.099 Unspecified place in other non-institutional residence as the place of occurrence of the external cause; I48.91 Unspecified atrial fibrillation; I10 Essential (primary) hypertension; K57.92 Diverticulitis of intestine, part unspecified, without perforation or abscess without bleeding; N40.0 Benign prostatic hyperplasia without lower urinary tract symptoms; E11.9 Type 2 diabetes mellitus without complications; Z90.49 Acquired absence of other specified parts of digestive tract; Z95.1 Presence of aortocoronary bypass graft; Z98.61 Coronary angioplasty status; Z96.41 Presence of insulin pump (external) (internal); Z86.2 Personal history of diseases of the blood and blood-forming organs and certain disorders involving the immune mechanism; Z79.01 Long term (current) use of anticoagulants; Z79.82 Long term (current) use of aspirin; Z79.84 Long term (current) use of oral hypoglycemic drugs; Z79.899 Other long term (current) drug therapy; Z88.1 Allergy status to other antibiotic agents; Z88.5 Allergy status to narcotic agent

== ENCOUNTER 2022-06-24 04:41 | Emergency (ER) | payer MEDICARE, OTHER ==
[~2022-06-24] VITALS: Ht 172.7 cm; Wt 75.5 kg
[2022-06-24] MEDS ORDERED: NS 1,000 ML IV ONE ×2 (05:00→07:40)
[2022-06-24] MEDS ORDERED: HumuLIN R (REGULAR) INSULIN (NovoLIN R) **100U/ML** PER UNIT IV ONE (05:00)
[2022-06-24 05:10] LABS: VENOUS BASE EXCESS -3.9 (-2.0-2.0); VENOUS O2 SATURATION 96.4 % (60.0-80.0); VENOUS PARTIAL PRESSURE O2 87.6 mmHg (30.0-50.0); VENOUS PH 7.401 UNITS (7.330-7.430); VENOUS STANDARD HCO3 21.2 MEQ/L
[2022-06-24 05:15] LABS: BASO % 0.6 % (0.0-1.0); EOS # 0.1 10^3/uL (0.0-0.5); EOS % 1.8 % (0.0-3.0); HEMATOCRIT 34.9 % (42.0-52.0); HEMOGLOBIN 11.3 g/dl (13.5-17.5); LYMPH # 0.8 10^3/uL (1.5-5.0); MEAN CORPUSCULAR HEMOGLOBIN 31.3 pg (27.0-33.0); MEAN CORPUSCULAR HGB CONC 32.4 g/dl (32.0-36.5); MEAN CORPUSCULAR VOLUME 96.7 fl (80.0-96.0); MONO # 0.5 10^3/uL (0.0-0.8); MONO % 6.9 % (2.0-8.0); NEUTROPHILS # 5.7 10^3/uL (1.5-8.5); NEUTROPHILS % 79.3 % (36.0-66.0); PLATELET COUNT, AUTOMATED 146 10^3/uL (150-450); RED BLOOD COUNT 3.61 10^6/uL (4.30-6.10); WHITE BLOOD COUNT 7.2 10^3/uL (4.0-10.0)
[2022-06-24 06:04] LABS: CALCIUM LEVEL 8.9 MG/DL (8.8-10.2); CREATININE FOR GFR 1.36 MG/DL (0.70-1.30); MAGNESIUM LEVEL 1.7 MG/DL (1.8-2.4); POTASSIUM SERUM 4.7 MEQ/L (3.5-5.1)
[2022-06-24 06:25] LABS: ACETONE/KETONE 21.82 MG/DL (<2.81)
[2022-06-24] MEDS ORDERED: METOPROLOL SUCC *XL* 25MG TAB (TopROL *XL*) PO ONE (07:35)
[2022-06-24] MEDS ORDERED: hydroCHLOROthiazide 12.5 MG CAPSULE PO ONE (07:35)
[2022-06-24 07:52] VITALS: BP 180/77
[2022-06-24 08:01] LABS: HEMOGLOBIN A1c 8.1 %
[2022-06-24 10:11] VITALS: BP 124/60
== END 2022-06-24 10:30 | disposition home or self-care (01) ==
LOC: EDBD 04:41 → M ED 04:41
DX: E11.65 Type 2 diabetes mellitus with hyperglycemia (principal); Z96.41 Presence of insulin pump (external) (internal); I48.91 Unspecified atrial fibrillation; I25.10 Atherosclerotic heart disease of native coronary artery without angina pectoris; I10 Essential (primary) hypertension; E78.5 Hyperlipidemia, unspecified; Z95.1 Presence of aortocoronary bypass graft; Z87.891 Personal history of nicotine dependence; Z79.01 Long term (current) use of anticoagulants; R91.1 Solitary pulmonary nodule; Z79.82 Long term (current) use of aspirin; Z79.4 Long term (current) use of insulin; Z79.899 Other long term (current) drug therapy; Z88.1 Allergy status to other antibiotic agents; Z88.5 Allergy status to narcotic agent
CPT/HCPCS: 71045; 80048; 82010; 82803; 83036; 83735; 85025; 87486; 87581; 87633; 87798; 96360; 96361; 99284; J1815

== ENCOUNTER → 2024-02-25 | Outpatient (REF) | payer MEDICARE, OTHER ==
[~2024-02-25] MED LIST changes: -ASPI-161 PO; +ASPI-615 PO
[2024-02-25 17:00] LABS: PERCENT SATURATION 33.1 % (19.7-50.0)
== END ==
LOC: M LAB REF 16:06
PROVIDERS: ATTEND Internal Medicine
DX: N18.9 Chronic kidney disease, unspecified (principal); D63.1 Anemia in chronic kidney disease

== ENCOUNTER 2025-04-16 17:39 | Emergency (ER) | payer MEDICARE, OTHER ==
[~2025-04-16] VITALS: Ht 172.7 cm; Wt 80.3 kg
[~2025-04-16 17:39] MED LIST changes: -FLOM0.4C39 PO; +TAMS-18 PO
[2025-04-16 17:52] VITALS: TEMP 98.4
[2025-04-16 18:27] LABS: BASO # 0.1 10^3/uL (0.0-0.2); BASO % 0.6 % (0.0-1.0); EOS # 0.4 10^3/uL (0.0-0.5); EOS % 4.5 % (0.0-3.0); LYMPH # 0.8 10^3/uL (1.5-5.0); LYMPH % 10.4 % (24.0-44.0); MONO # 0.7 10^3/uL (0.0-0.8); MONO % 8.9 % (2.0-8.0); NEUTROPHILS # 6.0 10^3/uL (1.5-8.5); NEUTROPHILS % 75.3 % (36.0-66.0); PLATELET COUNT, AUTOMATED 165 10^3/uL (150-450)
[2025-04-16 18:43] LABS: INR 1.05
[2025-04-16 19:23] VITALS: BP 182/77
[2025-04-16 19:56] VITALS: O2SAT 97
[2025-04-16 20:00] VITALS: BP 178/78
== END 2025-04-16 20:14 | disposition home or self-care (01) ==
LOC: EDBD 17:39 → M ED 17:39
DX: S09.90XA Unspecified injury of head, initial encounter (principal); W01.198A Fall on same level from slipping, tripping and stumbling with subsequent striking against other object, initial encounter; M11.262 Other chondrocalcinosis, left knee; M16.12 Unilateral primary osteoarthritis, left hip; M17.12 Unilateral primary osteoarthritis, left knee; J45.909 Unspecified asthma, uncomplicated; E11.9 Type 2 diabetes mellitus without complications; I10 Essential (primary) hypertension; N40.0 Benign prostatic hyperplasia without lower urinary tract symptoms; M47.816 Spondylosis without myelopathy or radiculopathy, lumbar region; Y92.009 Unspecified place in unspecified non-institutional (private) residence as the place of occurrence of the external cause; Y93.89 Activity, other specified; Y99.9 Unspecified external cause status; Z88.1 Allergy status to other antibiotic agents; Z88.5 Allergy status to narcotic agent; Z86.79 Personal history of other diseases of the circulatory system; Z79.01 Long term (current) use of anticoagulants; Z79.82 Long term (current) use of aspirin; Z79.02 Long term (current) use of antithrombotics/antiplatelets; Z79.4 Long term (current) use of insulin; Z79.899 Other long term (current) drug therapy

== ENCOUNTER 2025-06-20 22:03 | Emergency (ER) | payer MEDICARE, OTHER ==
[~2025-06-20] VITALS: Ht 175.3 cm; Wt 74.5 kg
[2025-06-20 22:19] VITALS: TEMP 98.1
[2025-06-20 23:27] LABS: BASO # 0.1 10^3/uL (0.0-0.2); BASO % 0.5 % (0.0-1.0); EOS # 0.3 10^3/uL (0.0-0.5); EOS % 2.1 % (0.0-3.0); LYMPH # 0.7 10^3/uL (1.5-5.0); LYMPH % 6.0 % (24.0-44.0); MONO # 0.9 10^3/uL (0.0-0.8); MONO % 7.5 % (2.0-8.0); NEUTROPHILS # 10.1 10^3/uL (1.5-8.5); NEUTROPHILS % 83.5 % (36.0-66.0); PLATELET COUNT, AUTOMATED 232 10^3/uL (150-450)
[2025-06-20 23:45] LABS: CALCIUM LEVEL 9.1 MG/DL (8.3-10.6); CARBON DIOXIDE LEVEL 25.0 MMOL/L (20-31); CHLORIDE LEVEL 98.0 MMOL/L (98-107); CK-MB VALUE MASS 3.7 NG/ML (<3.6); CREATININE FOR GFR 1.02 MG/DL (0.70-1.30); GLOMERULAR FILTRATION RATE 70.7 (>35); POTASSIUM SERUM 4.2 MMOL/L (3.5-5.1); SODIUM LEVEL 133.0 MMOL/L (136-145)
[2025-06-20 23:53] LABS: CPK CREATINE PHOSPHOKINASE 132.0 U/L (46-171); MB/CK RELATIVE INDEX 2.8 (< OR =4)
[2025-06-21] MEDS: ACETAMINOPHEN *IV* 1,000 MG in IV 1 EA IV ONE (00:28)
[2025-06-21 01:10] LABS: CK-MB VALUE MASS 3.1 NG/ML (<3.6)
[2025-06-21 01:21] LABS: CPK CREATINE PHOSPHOKINASE 129.0 U/L (46-171); MB/CK RELATIVE INDEX 2.4 (< OR =4)
[2025-06-21] MEDS ORDERED: TRAM50TA2 PO (02:30)
[2025-06-21 03:30] VITALS: BP 167/71; O2SAT 99
[2025-06-21] MEDS: traMADol 50 MG TAB (HOME DOSE PACK) PO ONE (03:36)
== END 2025-06-21 03:42 | disposition home or self-care (01) ==
LOC: M ED 22:03
DX: M19.012 Primary osteoarthritis, left shoulder (principal); I10 Essential (primary) hypertension; E11.9 Type 2 diabetes mellitus without complications; K57.30 Diverticulosis of large intestine without perforation or abscess without bleeding; N40.0 Benign prostatic hyperplasia without lower urinary tract symptoms; Z86.79 Personal history of other diseases of the circulatory system; Z88.1 Allergy status to other antibiotic agents; Z88.5 Allergy status to narcotic agent; Z79.01 Long term (current) use of anticoagulants; Z79.82 Long term (current) use of aspirin; Z79.02 Long term (current) use of antithrombotics/antiplatelets; Z79.899 Other long term (current) drug therapy; Z79.4 Long term (current) use of insulin
CPT/HCPCS: 71045; 73030; 80048; 82550; 82553; 84484; 85025; 93005; 93041; 94760; 96365; 96366; 99285; J0131

== ENCOUNTER 2025-06-23 23:28 | Emergency (ER) | payer MEDICARE, OTHER ==
[~2025-06-23] VITALS: Ht 177.8 cm; Wt 73.5 kg
[~2025-06-23 23:28] MED LIST changes: +TRAM50TA2 PO
[2025-06-24 00:58] VITALS: TEMP 98.2
[2025-06-24 03:04] VITALS: BP 168/69; O2SAT 99
== END 2025-06-24 03:09 | disposition home or self-care (01) ==
LOC: M ED 23:28
DX: S01.81XA Laceration without foreign body of other part of head, initial encounter (principal); W06.XXXA Fall from bed, initial encounter; M51.360 Other intervertebral disc degeneration, lumbar region with discogenic back pain only; M25.461 Effusion, right knee; M17.11 Unilateral primary osteoarthritis, right knee; M11.261 Other chondrocalcinosis, right knee; E11.9 Type 2 diabetes mellitus without complications; Z86.79 Personal history of other diseases of the circulatory system; Y92.003 Bedroom of unspecified non-institutional (private) residence as the place of occurrence of the external cause; Y93.89 Activity, other specified; Y99.9 Unspecified external cause status; Z88.1 Allergy status to other antibiotic agents; Z88.5 Allergy status to narcotic agent; Z79.01 Long term (current) use of anticoagulants; Z79.82 Long term (current) use of aspirin; Z79.02 Long term (current) use of antithrombotics/antiplatelets; Z79.4 Long term (current) use of insulin; Z79.899 Other long term (current) drug therapy